=== PATIENT | female | born 1975 | race Caucasian/White ===

== ENCOUNTER 2020-02-25 15:04 | Emergency (ER) | payer MEDICARE, MEDICAID, SELFPAY ==
[2020-02-25 15:25] VITALS: BP 114/70; PULSE 80; RESP 99; TEMP 36.7; O2SAT 18; BMI 48.1
[2020-02-25 17:54] VITALS: BP 103/67; PULSE 79; RESP 17; TEMP 36.3; O2SAT 98
--- NOTE | 2020-02-25 18:54 | ED_ITS ---
HPI - Asthma General Chief Complaint: Asthma Stated Complaint: SOB,COUGH Time Seen by Provider: 02/25/20 18:10 Mode of arrival: ambulatory Limitations: no limitations History of Present Illness HPI Narrative: 45yoF c PMHx of fibromyalgia, depression, anxiety and asthma presenting to the ED with complaints of chills, sore throat, dry cough for the past week worse today. Reports that she has been also having associated wheezing and has been using her albuterol inhaler which is providing mild intermittent symptomatic relief. Reports her children had similar symptoms and her their symptoms resolved. Denies any other recent sick contacts. Denies recent exposure to COVID-19 that she knows about. Denies recent travel. Denies any other symptoms complaints or concerns at this time. Related Data Allergies Allergy/AdvReac Type Severity Reaction Status Date / Time ibuprofen [From Motrin] Allergy Severe HIVES,SWELL Unverified 01/15/20 15:05 ING meperidine [Demerol] Allergy Unknown Verified 11/19/19 00:00 morphine [MORPHINE] Allergy Unknown CHEST PAIN Unverified 01/15/20 15:05 From Demerol Allergy Severe VOMITING Uncoded 01/15/20 15:05 SHELLFISH Allergy Unknown HIVES/ITCHI Uncoded 01/15/20 15:05 NG shellfish Allergy Unknown Uncoded 11/19/19 00:00 Review of Systems Review of Systems: Constitutional : denies med noncompliance, no history of PE or DVT, denies recent travel, No Fever, No Chills ENT/Mouth : No Hoarseness, + sore throat, No Rhinorrhea Eyes: No Redness, No Discharge, No Vision Changes Cardiovascular : No Chest Pain, No SOB, No Dyspnea on Exertion, No Edema, no pleurisy, Respiratory : + Wheezing, + Cough, No Sputum, no stridor, no hemoptysis, Gastrointestinal : No Nausea, No Vomiting, No Diarrhea, No abdominal Pain Genitourinary : No Dysuria, No Hematuria Musculoskeletal : No joint pain, No Myalgias Extremities: no extremity swelling /pain Skin : No rash, no itching, no swelling Neuro : No Weakness Yes all other systems are reviewed and are negative PMFSH Past Medical History Attestation statement: The following information was validated with the patient. Medical History Anxiety Asthma Depression Fibromyalgia Social History Social History Smoking Status: Never smoker Use of substances other than those prescribed or required for medical reasons: No Advance Directives: No Advance Directives Information Provided: No Physical Exam Vital Signs: Vital Signs: Vital Signs Temp Pulse Resp BP Pulse Ox 02/25/20 17:54 97.4 F 79 17 103/67 98 02/25/20 15:25 98.0 F 80 99 H 114/70 18 L Body Mass Index 48.1 vital signs have been reviewed as normal and appeared to be correct. Blood pressure normal. Heart rate normal. Respiration rate normal. Temperature normal. Oxygen saturation normal. Appearance: Alert. Oriented X3. No acute distress. Head: Normal external exam. Normocephalic. Atraumatic. No Randhawa signs noted. No raccoon eyes noted Eyes: PERRLA. EOMI. Conjunctiva and sclera normal. Eyelids normal. ENT: EAC normal. TM's Normal. Pharynx normal. Uvula midline. Moist mucous membranes. No trismus noted. No drooling noted. No muffled voice noted. Neck: Normal inspection. Neck supple. FROM. No adenopathy. Thyroid Normal. No meningeal signs. No neck mass noted. CVS: Normal heart rate and rhythm. Heart sound normal. No murmurs noted. Pulses normal throughout. Respiratory: No respiratory distress. Painless inspiration. Breath sounds normal. No wheezes/rales/rhonchi noted. Chest nontender. No accessory muscle usage noted or decreased air movement noted. Abdomen: Soft and nontender. Bowel sounds normal in all 4 quadrants. No distention noted. No organomegaly noted. No visible injury noted. Back: No CVA tenderness. Full range of motion noted. Skin: Skin warm and dry. Normal skin color. Normal skin turgor. No rashes/lesions/lacerations noted. Extremities: No lower extremity edema. Extremities exhibit normal range of motion. Extremities nontender. Neuro: Oriented X 3. No motor deficit. No sensory deficit. Reflexes normal. Course Course Course Narrative: 18:25PM 45yoF c PMHx of fibromyalgia, depression, anxiety and asthma presenting to the ED with complaints of chills, sore throat, dry cough for the past week worse to day. Reports that she has been also having associated wheezing - Concern for COVID-19 vs Influenza vs PNA vs asthma exacerbation/bronchitis - Plan: CXR, Influenza/COVID/Strep swab and re-evaluate. Reevaluation(s) Reevaluation #1: Chest x-ray within normal limits no acute processes noted. Influenza a and B along with RSV negative. COVID swab pending at this time. Rapid strep pending at this time. Will DC home with antibiotics and symptomatic treatment along with instructions return if any new or worsening symptoms to follow-up with primary care provider. Patient understands agrees the plan. Time: 20:30 [facility] - Asthma Lab Data Labs: Lab Results 02/25/20 Range/Units 19:26 Influenza Type A (PCR) NEGATIVE (Negative) Influenza Type B (PCR) NEGATIVE (Negative) Influenza A & B Note See Note RSV RNA Qual (PCR) NEGATIVE (Negative)
--- NOTE | 2020-02-25 19:37 | XR_ITS ---
EXAMINATION: XR CHEST CLINICAL INFORMATION: Covid like symptoms COMPARISON: Chest x-ray 03/13/2018 TECHNIQUE: Frontal view of the chest was obtained. 7:42 PM FINDINGS: No significant abnormality is noted involving the heart, lungs, mediastinum, bony thorax or soft tissues. XR/XR chest 1V IMPRESSION: Unremarkable examination.
[2020-02-25 20:19] LABS: Influenza A PCR NEGATIVE (Negative); Influenza B PCR NEGATIVE (Negative)
[2020-02-25 20:23] LABS: Resp Syncy Virus RNA Qual PCR NEGATIVE (Negative)
== END 2020-02-25 21:25 | disposition home or self-care (01) ==
PROVIDERS: Physician Assistant Medical; Emergency Provider Internal Medicine; PCP Hospitalist
DX: R05 Cough (principal); M79.7 Fibromyalgia; Z20.828 Contact with and (suspected) exposure to other viral communicable diseases
CPT/HCPCS: 71045; 87071; 87631; 87635; 87880; 99283; 99284

== ENCOUNTER 2020-05-02 02:52 | Emergency (ER) | payer MEDICARE, MEDICAID, SELFPAY ==
[2020-05-02 03:00] VITALS: BP 110/67; PULSE 77; RESP 18; TEMP 36.4; O2SAT 100; BMI 48.2
--- NOTE | 2020-05-02 03:46 | PC.NURSE ---
PT AMBULATES TO ROOM #2 WITH C/O COUGH, SOB ESPECIALLY DURING THE NIGHT, AND FEVER, CHILLS. PT DENIES TAKING TEMP. DURING THIS TIME. PT ARRIVES ALERT, RESPIRATIONS EASY, N/L. SKIN W/D. PT STATES I NEED TO GO FOR SLEEP STUDY BUT IT GOT CANCELLED AND RESCHEDULED IN 2 WEEKS. PT CHG INTO GOWN AND AWAITING MD'S EVAL.
[2020-05-02 03:51] VITALS: O2SAT 100
--- NOTE | 2020-05-02 03:58 | XR_ITS ---
EXAMINATION: XR CHEST CLINICAL INFORMATION: Shortness of breath COMPARISON: 02/25/2020 TECHNIQUE: Frontal view of the chest was obtained. FINDINGS: The lungs are well expanded. There is no focal consolidation, edema, or effusion. No pneumothorax. The cardiomediastinal silhouette is within normal limits. No acute osseous abnormality. XR/XR chest 1V IMPRESSION: Clear lungs.
--- NOTE | 2020-05-02 03:59 | ED.URI ---
HPI - URI/Sore Throat General Chief Complaint: Upper Respiratory Symptoms Stated Complaint: FLU LIKE SYMPTOMS Time Seen by Provider: 05/02/20 03:58 Source: patient Mode of arrival: ambulatory Limitations: no limitations History of Present Illness HPI Narrative: Patient has history of asthma been feeling more congested, dry cough and shortness of breath with body aches for last 2 - 3 days saturating 100% at room air having dry cough patient denied any fever Related Data Previous Rx's Medication Instructions Recorded acetaminophen [Tylenol] 650 mg PO Q6H PRN #10 tab 02/25/20 albuterol sulfate 2 puff INHALATION QID PRN #8.5 g 02/25/20 azithromycin See Rx Instructions .ROUTE 02/25/20 .COMPLEX #6 tab cyclobenzaprine 10 mg PO TID PRN #10 tab 02/25/20 prednisone 40 mg PO DAILY 5 Days #10 tab 02/25/20 Allergies Allergy/AdvReac Type Severity Reaction Status Date / Time ibuprofen [From Motrin] Allergy Severe HIVES,SWELL Unverified 01/15/20 15:05 ING meperidine [Demerol] Allergy Unknown Verified 11/19/19 00:00 morphine [MORPHINE] Allergy Unknown CHEST PAIN Unverified 01/15/20 15:05 From Demerol Allergy Severe VOMITING Uncoded 01/15/20 15:05 SHELLFISH Allergy Unknown HIVES/ITCHI Uncoded 01/15/20 15:05 NG shellfish Allergy Unknown Uncoded 11/19/19 00:00 Review of Systems Review of Systems: Constitutional : No Weight loss, No Fever, No Chills ENT/Mouth : No sore throat, No Rhinorrhea Eyes: No Eye Pain, No Swelling Cardiovascular : No Chest Pain, no palpitations Respiratory : + Cough, No Sputum, +shortness of breath Gastrointestinal : no Nausea, No Vomiting, No Diarrhea, No abdominal Pain, no black stools Genitourinary : No Dysuria, No Urinary Frequency Musculoskeletal : No joint pain, No Myalgias, No Joint Swelling Skin : No Skin Lesions, No rash Neuro : No Weakness, No Numbness, No Dizziness, No Headache Psych : No Anxiety/Panic, No Depression Heme/Lymph: No Bruising, No Lymphadenopathy Endocrine : No Polyuria, No Polydipsia All other systems reviewed and are negative PMFSH Past Medical History Medical History Anxiety Asthma Depression Fibromyalgia Social History Social History Smoking Status: Never smoker Advance Directives: No Advance Directives Information Provided: No Physical Exam Vital Signs: Vital Signs: Last Vital Signs Temp 97.5 F 05/02/20 03:00 Pulse 77 05/02/20 03:00 Resp 18 05/02/20 03:00 BP 110/67 05/02/20 03:00 Pulse Ox 100 05/02/20 03:51 Body Mass Index 48.2 Appearance: Alert. Oriented X3. No acute distress. Eyes: Pupils equal, round and reactive to light. ENT: Pharynx normal. Neck: Normal inspection. Neck supple. CVS: Normal heart rate and rhythm. Pulses normal. Respiratory: No respiratory distress. Breath sounds normal. Dry cough occasionally Abdomen: Soft and nontender. Bowel sounds are present, no mass palpable, no CVA tenderness Skin: Skin warm and dry. Normal skin color. Normal skin turgor. Extremities: No lower extremity edema. Neuro: Oriented X 3. No motor deficit. No sensory deficit. MDM - URI/Sore Throat MDM Narrative Medical decision making narrative: Chest x-ray negative COVID negative likely asthma patient advised to keep social distancing will give her a course of prednisone continue albuterol inhaler Differential Diagnosis Differential diagnosis: Likely upper respiratory infection Lab Data Attestation: I reviewed the patient's lab results. Labs: Lab Results 05/02/20 Range/Units 04:23 COVID-19 (SHERRY) Negative (Negative) COVID-19 Clin Com See Note Discharge Plan Discharge Prescriptions: No Action azithromycin 250 mg tablet See Rx Instructions .ROUTE .COMPLEX Qty: 6 RF: 0 prednisone 20 mg tablet 40 mg PO DAILY 5 Days Qty: 10 RF: 0 albuterol sulfate 90 mcg/actuation HFA aerosol inhaler 2 puff inhalation QID PRN (Reason: shortness of breath or wheezing) Qty: 8.5 RF: 0 cyclobenzaprine 10 mg tablet 10 mg PO TID PRN (Reason: muscle spasm) Qty: 10 RF: 0 acetaminophen [Tylenol] 325 mg tablet 650 mg PO Q6H PRN (Reason: fever or pain) Qty: 10 RF: 0
[2020-05-02 05:06] LABS: COVID-19 Test Negative (Negative); IDNOW Serial# 9DD0AD1C
[2020-05-02] MEDS: dexAMETHasone 2 MG TABLET 10 MG PO (05:21)
[2020-05-02] MEDS: Albuterol Sulfate 90 MCG 8 GM INHALER 4 PUFF INHALE (05:22)
--- NOTE | 2020-05-02 05:23 | PC.NURSE ---
PT MEDICATED PER EMAR.
== END 2020-05-02 05:38 | disposition home or self-care (01) ==
PROVIDERS: Emergency Provider Internal Medicine; PCP Hospitalist
DX: R05 Cough (principal); Z20.828 Contact with and (suspected) exposure to other viral communicable diseases; Z79.899 Other long term (current) drug therapy
CPT/HCPCS: 71045; 87635; 99283; 99284; J8540

== ENCOUNTER 2020-10-28 06:48 | Outpatient (REF) | payer MEDICARE, MEDICAID, SELFPAY ==
[2020-10-28 08:12] LABS: Alanine Aminotransferase 23 U/L (0-31); Albumin Level 4.3 g/dL (3.5-5.0); Alkaline Phosphatase 59 U/L (39-117); Anion Gap 12 (12-20); Aspartate Amino Transferase 19 U/L (5-31); Bilirubin Total 0.6 mg/dL (0.0-1.0); Blood Urea Nitrogen 16 mg/dL (9-16); Calcium 9.3 mg/dL (8.4-10.2); Carbon Dioxide 28 mmol/L (22-29); Chloride 104 mmol/L (96-108); Cholesterol 161 mg/dL; Estimated Average Glucose 114 mg/dL; Estimated Glomerular Filt Rate > 60; Glucose Fasting 111 mg/dL (60-99); HDL Cholesterol 46 mg/dL; Hemoglobin A1c % 5.6 %; LDL Cholesterol Calculated 105 mg/dl; Potassium 4.6 mmol/L (3.3-5.1); Sodium 139 mmol/L (135-145); Total Protein 7.1 g/dL (6.5-8.0); Triglycerides 52 mg/dL
[2020-10-28 08:35] LABS: TSH reflex Free T4 0.79 uIU/mL (0.32-4.0)
== END 2020-10-28 06:49 | disposition home or self-care (01) ==
LOC: HO.LAB 06:48
PROVIDERS: PCP Physician Assistant; Visit Provider Physician Assistant
DX: Z13.1 Encounter for screening for diabetes mellitus (principal); Z13.220 Encounter for screening for lipoid disorders; Z13.29 Encounter for screening for other suspected endocrine disorder
CPT/HCPCS: 36415; 80053; 80061; 83036; 84443

== ENCOUNTER → 2021-01-25 14:01 | Outpatient (BNVA) | payer MEDICARE, MEDICAID, SELFPAY | PROVIDERS: PCP Physician Assistant; Referring Provider Physician Assistant; Visit Provider Internal Medicine Gastroenterology | DX: K44.9 Diaphragmatic hernia without obstruction or gangrene (principal); R11.2 Nausea with vomiting, unspecified; K59.00 Constipation, unspecified; R10.13 Epigastric pain | CPT/HCPCS: 99202 ==

== ENCOUNTER 2021-03-02 10:28 | Outpatient (REF) | payer MEDICARE, MEDICAID, SELFPAY ==
--- NOTE | ~2021-03-02 | CT_ITS ---
EXAMINATION: CT HEAD WITHOUT CONTRAST CLINICAL INFORMATION: Headache COMPARISON: 10/31/2015 TECHNIQUE: Contiguous axial imaging was performed from the skull base to vertex without intravenous contrast. This CT examination was performed using dose optimization techniques as appropriate, variously including the following: * Automated exposure control * Adjustment of mA and/or kV according to patient size (this includes techniques or standardized protocols for targeted exams where dose is matched to indication/reason for exam; i.e. extremities or head) Use of iterative reconstruction technique DLP: 809 mGy-cm. FINDINGS: There is no evidence of acute intracranial hemorrhage or territorial infarction. No abnormal mass effect or midline shift is seen. Rubio to white matter differentiation is well preserved. No extra-axial fluid collections are identified. No hydrocephalus. No significant volume loss. There is no abnormal attenuation within the brain parenchyma. The osseous structures and soft tissues are normal. The mastoid air cells and visualized portions of the paranasal sinuses are well aerated. CT/CT head/brain wo con IMPRESSION: No acute intracranial pathology.
== END 2021-03-02 10:29 | disposition home or self-care (01) ==
LOC: HO.CT 10:28
PROVIDERS: Visit Provider Physician Assistant
DX: R51.9 Headache, unspecified (principal)
CPT/HCPCS: 70450

== ENCOUNTER 2021-04-11 12:07 | Day surgery (SDC) | payer MEDICARE, MEDICAID, SELFPAY ==
--- NOTE | 2021-04-08 09:36 | HO.ANESPROP2 ---
Documented by User: Nicci Felix NP 04/08/21 09:37 HPI - Anesthesia Eval Consult details Narrative: 46yo F for Upper Endoscopy and Colonoscopy PMF Active Problems Active Problems: All Active Problems (Updated 03/30/21 @ 09:35 by TRAVIS Howell) Adult general medical exam (Acute) Screening for breast cancer (Acute) Tinea corporis (Acute) GERD (gastroesophageal reflux disease) (Acute) Constipation (Acute) HTN (hypertension) (Acute) GERD (gastroesophageal reflux disease) (Acute) Back spasm (Acute) Obesity (Acute) MDD (major depressive disorder), recurrent episode, moderate (Acute) RLS (restless legs syndrome) (Acute) Frequent headaches (Acute) Fibromyalgia (Acute) Depression (Acute) Asthma (Acute) Anxiety (Acute) Past Medical History Medical History (Updated 04/11/21 @ 12:47 by Greta Lozano RN) Anxiety Asthma Back spasm Depression Fibromyalgia GERD (gastroesophageal reflux disease) Headache Hx of supraventricular tachycardia Hx-TIA (transient ischemic attack) Obesity Screening for diabetes mellitus (DM) Screening for hypercholesterolemia Screening for hypothyroidism Family History Family History (Updated 03/30/21 @ 09:25 by TRAVIS Howell) Mother High cholesterol Father Lupus Diabetes Thyroid disease FH: prostate cancer Brother Asthma Anxiety Depression Daughter Depression Anxiety Childhood autism Maternal Grandmother Glaucoma Other Mental problem Substance abuse Surgical History Surgical History (Updated 04/11/21 @ 12:46 by Greta Lozano RN) History of History of cholecystectomy History of endoscopy History of knee surgery History of partial knee replacement Hx of tubal ligation Social History Social History Housing: House Alcohol intake: never Patient Tobacco Use Status: Never used Tobacco e-Cigarette/Vaping Use: Never Used Second Hand Smoke Exposure: Yes Use of substances other than those prescribed or required for medical reasons: No Are you DNR?: No Advance Directives: No Advance Directives Information Provided: Yes service: No Current occupational status: employed and disabled Current occupation: [employer] Meds Allergies Allergy/AdvReac Type Severity Reaction Status Date / Time ibuprofen [From Motrin] Allergy Severe HIVES,SWELL Verified 03/30/21 09:16 ING meperidine [Demerol] Allergy Unknown Vomiting Verified 03/30/21 09:16 morphine [MORPHINE] Allergy Unknown CHEST PAIN Verified 03/30/21 09:16 hydroxyzine AdvReac Mild mouth Verified 03/30/21 09:16 numbess SHELLFISH Allergy Unknown HIVES/ITCHI Uncoded 03/30/21 09:16 NG Home Medications Medication Instructions Recorded Confirmed Last Taken Type duloxetine 60 mg capsule,delayed 120 mg PO DAILY 10/19/20 03/30/21 Unknown History release fluticasone 250 mcg-salmeterol 50 1 ea INHALATION BID 01/25/21 03/30/21 Unknown History mcg/dose blistr powdr for inhalation (Advair Diskus) Exam Exam Date and Time: April 08, 2021 0936 Pertinent Lab Results Pertinent Lab Results: Laboratory Tests 10/28/20 06:58 Sodium 139 Potassium 4.6 Chloride 104 Carbon Dioxide 28 BUN 16 Creatinine 0.70 Assessment and Plan Assessment Anesthesia Assessment: Chart Reviewed Documented by User: Danette Celeste MD 04/11/21 13:38 PMFSH Past Medical History Medical History (Updated 04/11/21 @ 12:47 by Greta Lozano, NI) Anxiety Asthma Back spasm Depression Fibromyalgia GERD (gastroesophageal reflux disease) Headache Hx of supraventricular tachycardia Hx-TIA (transient ischemic attack) Obesity Screening for diabetes mellitus (DM) Screening for hypercholesterolemia Screening for hypothyroidism Family History Family History (Updated 03/30/21 @ 09:25 by TRAVIS Howell) Mother High cholesterol Father Lupus Diabetes Thyroid disease FH: prostate cancer Brother Asthma Anxiety Depression Daughter Depression Anxiety Childhood autism Maternal Grandmother Glaucoma Other Mental problem Substance abuse Family history of problems with anesthesia: No Surgical History Surgical History (Updated 04/11/21 @ 12:46 by Greta Lozano RN) History of History of cholecystectomy History of endoscopy History of knee surgery History of partial knee replacement Hx of tubal ligation History of Problems with Anesthesia: No Social History Social History Housing: House Alcohol intake: never Patient Tobacco Use Status: Never used Tobacco e-Cigarette/Vaping Use: Never Used Second Hand Smoke Exposure: Yes Use of substances other than those prescribed or required for medical reasons: No Are you DNR?: No Advance Directives: No Advance Directives Information Provided: Yes service: No Current occupational status: employed and disabled Current occupation: [employer] Meds Allergies Allergy/AdvReac Type Severity Reaction Status Date / Time ibuprofen [From Motrin] Allergy Severe HIVES,SWELL Verified 03/30/21 09:16 ING meperidine [Demerol] Allergy Unknown Vomiting Verified 03/30/21 09:16 morphine [MORPHINE] Allergy Unknown CHEST PAIN Verified 03/30/21 09:16 hydroxyzine AdvReac Mild mouth Verified 03/30/21 09:16 numbess SHELLFISH Allergy Unknown HIVES/ITCHI Uncoded 03/30/21 09:16 NG Home Medications Medication Instructions Recorded Confirmed Last Taken Type duloxetine 60 mg capsule,delayed 120 mg PO DAILY 10/19/20 03/30/21 Unknown History release fluticasone 250 mcg-salmeterol 50 1 ea INHALATION BID 01/25/21 03/30/21 Unknown History mcg/dose blistr powdr for inhalation (Advair Diskus) Exam Airway Mallampati Class: II (Missing teeth) TM Dist: >3cm Neck ROM: Full Heart: rrr Lungs: cta Assessment and Plan Assessment Anesthesia Assessment: Anesthesia Plan Discussed and Chart Reviewed Final Anesthetic Review Family History of Problems with Anesthesia: No History of Problems with Anesthesia: No NPO: Yes ASA Class: III Final Preanesthetic Review: No Changes in Pt Med Stat, Meds/Allgs Chart Reviewed and Consent Obtained/Reviewed Patient Risk: Intermediate Procedure Risk: Intermediate Anesthetic Plan Anesthetic Plan: MAC: Disposition: Standard PACU
--- NOTE | 2021-04-11 12:47 | MHC.SHP ---
Pre-Procedural Eval Section A Date of Service: 04/11/21 Section B Chief Complaint: Constipation, Epigastric pain Relevant Family History (Specify if Yes): No Relevant Social History: None Present Medications: see Short Stay Collaborative assessment Medical History: Significant History (depression, asthma,) History of Previous Operations: Relevant previous surgery/procedure and date(s) (knee surgery, heart ablation, neck surgery, c section, pit tumour removal, cholecystectomy ) Allergies: Allergies Allergy/AdvReac Type Severity Reaction Status Date / Time ibuprofen [From Motrin] Allergy Severe HIVES,SWELL Verified 03/30/21 09:16 ING meperidine [Demerol] Allergy Unknown Vomiting Verified 03/30/21 09:16 morphine [MORPHINE] Allergy Unknown CHEST PAIN Verified 03/30/21 09:16 hydroxyzine AdvReac Mild mouth Verified 03/30/21 09:16 numbess SHELLFISH Allergy Unknown HIVES/ITCHI Uncoded 03/30/21 09:16 NG Review of Systems Sugical H&P ROS: Negative: Constitution, Cardiovascular, Respiratory, Neurological, Psychiatric, Hem-Onc, Allergic/Immunologic, Gastrointestinal, Genitourinary, Musculoskeletal, Integumentary, Endocrine and Eyes/Ears/Nose/Throat Exam Surgical H&P Exam: Normal: HEENT, Normal: Heart, Normal: Lungs, Normal: Extremities, Normal: Abdomen, Normal: Skin and Normal: Neurological Plan Diagnosis/Plan: Unchanged I have reviewed the history and physical and performed a pertinent physical examination on my patient. No changes have occurred unless specified.
[2021-04-11 12:56] VITALS: BP 108/78; PULSE 88; RESP 16; TEMP 36.4; O2SAT 99; BMI 49.2
[2021-04-11] MEDS: Lactated Ringers 1,000 ML 100 ML IVCONT (13:04)
--- NOTE | 2021-04-11 14:07 | PM.OP ---
Brief Operative Note Date of Service: 04/11/21 Pre-op diagnosis: dysphagia, altered bowle habits Surgeon: Ashley Martinez MD Was an Manager Android used for this Procedure?: No Estimated blood loss (mL): 0
--- NOTE | 2021-04-11 14:09 | P.OP_ITS ---
Operative Note Operative Note Date of Service: 04/11/21 Narrative: Operative Information Procedure Description: EGD, Colonoscopy FLEXIBLE TRANSORAL UPPER GASTROINTESTINAL ENDOSCOPY AND COLONOSCOPY PROCEDURE NOTE UPPER ENDOSCOPY Consent: Indications for the procedure and potential complications of bleeding, perforation, reaction to medications and missed diagnosis were discussed with the patient and informed consent was obtained. Instrument: Olympus GIF H 190 J mid size upper endoscope Monitoring: Vital signs and clinical assessment, continuous EKG monitoring, Pulse oximetry, Carbon Dioxide monitoring and blood pressure monitoring were done throughout the procedure. Procedure: The patient was placed in the left lateral decubitis position and pre-procedure medications were administered and a bite block was placed. The endoscope was inserted into the mouth and advanced under direct vision to the third part of duodenum. A careful inspection was made as the upper endoscope was withdrawn including a retroflexed examination of the proximal stomach; Findings and interventions are described below. Findings: Larynx:normal Esophagus: GE junction at 40 cm, diaphragm hiatus at 40 cm, ridging of mucosa noted, bx taken from distal, proximal esophagus and GEJ in different jars. Balloon dilation done at UES to 19 mm and LES to 20 mm, no tears seen. Stomach: mild erythematous mucosa. Biopsies were obtained. Grade 2 flap valve on retroflexed examination of the cardia. Fundic gland polyps noted. There was reduced gastric peristalsis. Duodenum: Normal bulb and descending duodenum, bx taken Intervention: Biopsies as noted above COLONOSCOPY Instrument: Olympus variable stiffness pediatric scope 190L Colonoscopy Monitoring: Vital signs and clinical assessment, continuous EKG monitoring, Pulse oximetry, Carbon Dioxide monitoring and blood pressure monitoring were done throughout the procedure. Colon withdrawal time was 18 minutes. Procedure: The patient was placed in the left lateral decubitis position and pre-procedure medications were administered. After a digital rectal examination of the ano-rectum, the video colonoscope was inserted into the rectum and advanced through the colon to the cecum/TI. The colonoscope was slowly withdrawn in a retrograde panoramic fashion and the colon mucosa was carefully examined including a retroflexed view of the rectum. Findings and interventions are described below. Procedure Difficulty: moderate Findings: Terminal Ileum-nodular lymphoid hyperplasia which can be normal, bx taken Random colon taken and from rectum separately Cecum: 7-9 mm sessile polyp removed with cold snare Ascending Colon: normal Transverse Colon -normal Descending Colon: 6-7 mm sessile polyp removed with forceps Sigmoid Colon: normal Rectum: Retroflexion with small internal hemorrhoids, grade I Anorectum - normal Colon preparation: [place] Bowel Preparation Scale Right colon; 1 Transverse colon: 2 Left colon; borderline 2 (0 = Unprepared colon segment with mucosa not seen due to solid stool that cannot be cleared. 1 = Portion of mucosa of the colon segment seen, but other areas of the colon segment not well seen due to staining, residual stool and/or opaque liquid. 2 = Minor amount of residual staining, small fragments of stool and/or opaque liquid, but mucosa of colon segment seen well. 3 = Entire mucosa of colon segment seen well with no residual staining, small fragments of stool or opaque liquid) Impression and Post Procedure Diagnosis: Endoscopy Findings: fundic gland polyps which are benign gastritis possible reduced gastric motility Colonoscopy Findings: polyps internal hemorrhoids Plan: Await Pathology results Repeat Colonoscopy in 2-3 years due to polyps and fair prep in some areas or earlier if clinically indicated High fiber diet leaflet avoid straining at stool, epsom salts and sitz bath, anusol supps or cream if neg results then GES to r/o gastroparesis Above findings were reviewed with the patient and relevant handouts were provided if indicated.
[2021-04-11 14:42] VITALS: BP 138/90; PULSE 91; RESP 14; TEMP 37.4; O2SAT 100
[2021-04-11 14:57] VITALS: BP 130/86; PULSE 81; RESP 16; O2SAT 100
[2021-04-11 15:14] VITALS: BP 115/71; PULSE 74; RESP 18; TEMP 37.2; O2SAT 100
== END 2021-04-11 15:52 | disposition home or self-care (01) ==
PROVIDERS: PCP Physician Assistant; Visit Provider Internal Medicine Gastroenterology
PROC: (CPT 45385; principal; 2021-04-11 13:30)
DX: K59.00 Constipation, unspecified (principal); R19.4 Change in bowel habit; D12.0 Benign neoplasm of cecum; D12.4 Benign neoplasm of descending colon; K64.0 First degree hemorrhoids; R59.9 Enlarged lymph nodes, unspecified; R13.10 Dysphagia, unspecified; K29.60 Other gastritis without bleeding; K31.7 Polyp of stomach and duodenum; K44.9 Diaphragmatic hernia without obstruction or gangrene; G89.29 Other chronic pain; M54.9 Dorsalgia, unspecified; J45.909 Unspecified asthma, uncomplicated; F32.9 Major depressive disorder, single episode, unspecified; Z88.8 Allergy status to other drugs, medicaments and biological substances; Z90.49 Acquired absence of other specified parts of digestive tract
CPT/HCPCS: 45385; 45380; 43249; 43239; 88305; 88342; C1726

== ENCOUNTER 2021-04-12 21:10 | Emergency (ER) | payer MEDICARE, MEDICAID, SELFPAY ==
--- NOTE | ~2021-04-12 | XR_ITS ---
EXAMINATION: XR CHEST CLINICAL INFORMATION: Chest pain. COMPARISON: Multiple priors. Most recent chest radiograph dated from 05/02/2020. TECHNIQUE: PA view of the chest was obtained. FINDINGS: No significant abnormality is noted involving the heart, lungs, mediastinum, bony thorax or soft tissues. XR/XR chest 1V IMPRESSION: Unremarkable examination.
[2021-04-12 21:28] VITALS: BP 105/71; PULSE 73; RESP 18; TEMP 36.1; O2SAT 99; BMI 49.2
--- NOTE | 2021-04-12 21:30 | ECG_ITS ---
Test Reason : CHEST PAIN Blood Pressure : / mmHG Vent. Rate : 071 BPM Atrial Rate : 071 BPM P-R Int : 146 ms QRS Dur : 082 ms QT Int : 398 ms P-R-T Axes : 005 019 034 degrees QTc Int : 432 ms Normal sinus rhythm Cannot rule out Anterior infarct (cited on or before 08-JUL-2016) Abnormal ECG When compared with ECG of 18-NOV-2016 00:43, No significant change was found Referred By: Generic ED Physician Electronically Signed By:DAQUAN TRUONG MD
[2021-04-12 21:54] LABS: Basophils Absolute Auto 0.1 X10*3/uL (0.0-0.2); Basophils Percent Auto 0.6 % (0-2); Eosinophils Absolute Auto 0.1 X10*3/uL (0.0-0.4); Eosinophils Percent Auto 1.3 % (0-4); Hematocrit 37.2 % (37.0-47.0); Hemoglobin 12.5 g/dl (12.0-16.0); Imm Gran Abs Auto 0.03 X10*3/uL (0.00-0.03); Imm Gran Pct Auto 0.4 % (0.0-0.4); Lymphocytes Absolute Auto 2.6 X10*3/uL (1.2-4.9); Lymphocytes Percent Auto 31.2 % (20-40); MANUAL DIFF FLAG NO; Mean Corpuscular HGB Conc 33.6 g/dl (31.0-35.0); Mean Corpuscular Hemoglobin 29.3 pg (27.0-33.0); Mean Corpuscular Volume 87.3 fL (80.0-98.0); Mean Platelet Volume 10.2 fL (9.4-12.3); Monocytes Absolute Auto 0.8 X10*3/uL (0.1-1.2); Neutrophils Absolute Auto 4.8 x10*3/uL (2.0-8.3); Neutrophils Percent Auto 57.5 % (45-73); Platelet Count 301 X10*3/uL (160-400); Red Blood Count 4.26 X10*6/uL (4.20-5.50); Red Cell Distribution Width 12.4 % (11.0-16.0); White Blood Count 8.4 X10*3/uL (4.8-10.8)
[2021-04-12 22:19] LABS: Anion Gap 12 (12-20); Blood Urea Nitrogen 14 mg/dL (9-16); Calcium 9.2 mg/dL (8.4-10.2); Carbon Dioxide 26 mmol/L (22-29); Chloride 105 mmol/L (96-108); Creatinine Clr Calc Pharmacy 130.8; Estimated Glomerular Filt Rate > 60; Glucose Random 129 mg/dL (60-115); Potassium 3.6 mmol/L (3.3-5.1); Sodium 139 mmol/L (135-145)
[2021-04-12 22:26] LABS: Troponin-I High Sensitivity < 3.5 ng/L (<3.5-17.0)
--- NOTE | 2021-04-13 00:35 | ED.CHESTPAIN ---
HPI - Chest Pain General Chief Complaint: Chest Pain Stated Complaint: chest pain when breathing - s/p surgery Time Seen by Provider: 04/13/21 00:34 History of Present Illness HPI narrative: patient is a 46-year-old female presents today with having chest pain that is a few seconds at a time. It is sharp. It is worse with certain movement. Patient denies any diaphoresis. No shortness of breath. No history of diabetes. Positive history of hypertension. No history of smoking never had a heart attack. No family history of heart attack. No traveling history no leg swelling. No leg pain. Positive history of fibromyalgia. No new medication. No history of lupus. No history of blood clots. No travel history. Patient from home. No risk stratification done in the past. Patient is larger in size as well. Related Data Home Medications Medication Instructions Recorded Confirmed duloxetine 60 mg capsule,delayed 120 mg PO DAILY 10/19/20 03/30/21 release fluticasone 250 mcg-salmeterol 50 1 ea INHALATION BID 01/25/21 03/30/21 mcg/dose blistr powdr for inhalation (Advair Diskus) Previous Rx's Medication Instructions Recorded acetaminophen 325 mg tablet 650 mg PO Q6H PRN #10 tab 02/25/20 (Tylenol) blood pressure monitor (Blood #1 ea 10/27/20 Pressure Kit) gabapentin 600 mg tablet 600 mg PO TID 30 Days #90 tab 11/01/20 lactulose 10 gram/15 mL oral 15 ml PO BEDTIME PRN #473 ml 12/09/20 solution hydroxyzine HCl 25 mg tablet 25 mg PO BEDTIME 30 Days #30 tab 12/21/20 cyclobenzaprine 10 mg tablet 10 mg PO BID 5 Days #10 tab 12/29/20 sennosides 8.6 mg tablet (Senna 17.2 mg PO BEDTIME PRN 30 Days #60 12/29/20 Lax) tab bisacodyl 5 mg tablet,delayed 20 mg PO ONCE 1 Days #4 tab 01/25/21 release (Dulcolax (bisacodyl)) linaclotide 145 mcg capsule 145 mcg PO DAILY #90 cap 01/25/21 polyethylene glycol 3350 17 238 g PO ONCE #238 g 01/25/21 gram/dose oral powder (Miralax) buspirone 15 mg tablet 15 mg PO BID 30 Days #60 tab 02/08/21 quetiapine 25 mg tablet (Seroquel) 25 mg PO DAILY 30 Days #30 tab 02/16/21 pantoprazole 20 mg tablet,delayed 20 mg PO BID 30 Days #60 tab 02/17/21 release ropinirole 0.5 mg tablet 0.5 mg PO BEDTIME 30 Days #30 tab 02/22/21 sumatriptan succinate 25 mg tablet See Rx Instructions PO .COMPLEX 30 02/22/21 Days #10 tab trazodone 50 mg tablet 50 mg PO BEDTIME 90 Days #90 tab 03/23/21 albuterol sulfate 90 mcg/actuation 2 puff INHALATION QID PRN #8.5 g 04/04/21 aerosol inhaler Allergies Allergy/AdvReac Type Severity Reaction Status Date / Time ibuprofen [From Motrin] Allergy Severe HIVES,SWELL Verified 03/30/21 09:16 ING meperidine [Demerol] Allergy Unknown Vomiting Verified 03/30/21 09:16 morphine [MORPHINE] Allergy Unknown CHEST PAIN Verified 03/30/21 09:16 hydroxyzine AdvReac Mild mouth Verified 03/30/21 09:16 numbess SHELLFISH Allergy Unknown HIVES/ITCHI Uncoded 03/30/21 09:16 NG Review of Systems Review of Systems: No fever no chills no cough no congestion or upper respiratory symptoms positive sharp chest pain no diaphoresis all system reviewed otherwise negative Yes all other systems are reviewed and are negative PMFSH Past Medical History Attestation statement: The following information was validated with the patient. Medical History Anxiety Asthma Back spasm Depression Fibromyalgia GERD (gastroesophageal reflux disease) Headache Hx of supraventricular tachycardia Hx-TIA (transient ischemic attack) Obesity Screening for diabetes mellitus (DM) Screening for hypercholesterolemia Screening for hypothyroidism Surgical History History of History of cholecystectomy History of endoscopy History of knee surgery History of partial knee replacement Hx of tubal ligation Family History Family History Mother High cholesterol Father Lupus Diabetes Thyroid disease FH: prostate cancer Brother Asthma Anxiety Depression Daughter Depression Anxiety Childhood autism Maternal Grandmother Glaucoma Other Mental problem Substance abuse Social History Social History Housing: House Alcohol intake: never Patient Tobacco Use Status: Never used Tobacco e-Cigarette/Vaping Use: Never Used Second Hand Smoke Exposure: Yes Advance Directives: No Advance Directives Information Provided: No service: No Current occupational status: employed and disabled 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 Oriented X3. No acute distress. Eyes: Pupils equal, round and reactive to light. ENT: Pharynx normal. Neck: Normal inspection. Neck supple. No lymph nodes noted. No crepitus CVS: Normal heart rate and rhythm. Pulses normal. Normal S1 and S2. Chest pain reproducible with touch Respiratory: No respiratory distress. Breath sounds normal. No Wheezing. No rales Abdomen: Soft and nontender. No rigidity. No distention. good BS x4 Skin: Skin warm and dry. Normal skin color. Normal skin turgor. Extremities: No lower extremity edema. Neurovascular intact to all extremities. No Lacerations. No Rash Neuro: Oriented X 3. No motor deficit. No sensory deficit. Moving all extermities. No slurred speech MDM - Chest Pain MDM Narrative Medical decision making narrative: atypical chest pain lasting a few seconds. Patient in no distress. It is sharp in nature not associated with shortness of breath. Patient's troponin is negative. Does have 2 risk factor being that she is hypertensive and she also has a history of being larger in size. Patient's history not consistent with myocardial infarction. she is 46 years old. Heart score is less than 3. Patient has no risk for PE. If D-dimer is negative unlikely to have pulmonary emboli. Patient is to be discharged home. Close follow-up on an outpatient basis. Patient D-dimer is less than 150 unlikely to have PE in setting of low risk. Medical Records Data Attestation: I reviewed the patient's medical records. Lab Data Attestation: I reviewed the patient's lab results. Result diagrams: 04/12/21 21:47 04/12/21 21:47 Labs: Lab Results 04/12/21 04/12/21 04/12/21 Range/Units 21:47 21:47 21:47 WBC 8.4 (4.8-10.8) X10*3/uL RBC 4.26 (4.20-5.50) X10*6/uL Hgb 12.5 (12.0-16.0) g/dl Hct 37.2 (37.0-47.0) % MCV 87.3 (80.0-98.0) fL MCH 29.3 (27.0-33.0) pg MCHC 33.6 (31.0-35.0) g/dl RDW 12.4 (11.0-16.0) % Plt Count 301 (160-400) X10*3/uL MPV 10.2 (9.4-12.3) fL Immature Gran % (Auto) 0.4 (0.0-0.4) % Neut % (Auto) 57.5 (45-73) % Lymph % (Auto) 31.2 (20-40) % [place] % (Auto) 9.0 (2-11) % Eos % (Auto) 1.3 (0-4) % Baso % (Auto) 0.6 (0-2) % Lymph # (Auto) 2.6 (1.2-4.9) X10*3/uL [place] # (Auto) 0.8 (0.1-1.2) X10*3/uL Eos # (Auto) 0.1 (0.0-0.4) X10*3/uL Baso # (Auto) 0.1 (0.0-0.2) X10*3/uL Abs Immat Gran (auto) 0.03 (0.00-0.03) X10*3/uL Absolute Neuts (auto) 4.8 (2.0-8.3) x10*3/uL Absolute Nucleated RBC 0.000 (0.0-0.012) X10*3/uL Nucleated RBC % (auto) 0.0 (0.0-0.2) /100WBC D-Dimer High Sensitivty NG/ML Sodium 139 (135-145) mmol/L Potassium 3.6 D (3.3-5.1) mmol/L Chloride 105 (96-108) mmol/L Carbon Dioxide 26 (22-29) mmol/L Anion Gap 12 (12-20) BUN 14 (9-16) mg/dL Creatinine 0.72 (0.5-1.4) mg/dL Estim Creat Clear Calc 130.8 Estimated GFR > 60 Random Glucose 129 H (60-115) mg/dL Calcium 9.2 (8.4-10.2) mg/dL Troponin I High Sens < 3.5 (<3.5-17.0) ng/L 04/13/21 Range/Units 00:40 WBC (4.8-10.8) X10*3/uL RBC (4.20-5.50) X10*6/uL Hgb (12.0-16.0) g/dl Hct (37.0-47.0) % MCV (80.0-98.0) fL MCH (27.0-33.0) pg MCHC (31.0-35.0) g/dl RDW (11.0-16.0) % Plt Count (160-400) X10*3/uL MPV (9.4-12.3) fL Immature Gran % (Auto) (0.0-0.4) % Neut % (Auto) (45-73) % Lymph % (Auto) (20-40) % [place] % (Auto) (2-11) % Eos % (Auto) (0-4) % Baso % (Auto) (0-2) % Lymph # (Auto) (1.2-4.9) X10*3/uL [place] # (Auto) (0.1-1.2) X10*3/uL Eos # (Auto) (0.0-0.4) X10*3/uL Baso # (Auto) (0.0-0.2) X10*3/uL Abs Immat Gran (auto) (0.00-0.03) X10*3/uL Absolute Neuts (auto) (2.0-8.3) x10*3/uL Absolute Nucleated RBC (0.0-0.012) X10*3/uL Nucleated RBC % (auto) (0.0-0.2) /100WBC D-Dimer High Sensitivty < 150 NG/ML Sodium (135-145) mmol/L Potassium (3.3-5.1) mmol/L Chloride (96-108) mmol/L Carbon Dioxide (22-29) mmol/L Anion Gap (12-20) BUN (9-16) mg/dL Creatinine (0.5-1.4) mg/dL Estim Creat Clear Calc Estimated GFR Random Glucose (60-115) mg/dL Calcium (8.4-10.2) mg/dL Troponin I High Sens (<3.5-17.0) ng/L Discharge Plan Discharge Clinical Impression: Chest pain Patient Disposition: Home, Self-Care Instructions: Chest Pain (ED) Prescriptions: No Action (DME) blood pressure monitor [Blood Pressure Kit] Kit See Rx Instructions .ROUTE .MEDSUPPLY Qty: 1 RF: 0 gabapentin 600 mg tablet 600 mg PO TID 30 Days Qty: 90 RF: 3 lactulose 10 gram/15 mL solution 15 ml PO BEDTIME PRN (Reason: constipation) Qty: 473 RF: 1 hydroxyzine HCl 25 mg tablet 25 mg PO BEDTIME 30 Days Qty: 30 RF: 1 buspirone 15 mg tablet 15 mg PO BID 30 Days Qty: 60 RF: 3 quetiapine [Seroquel] 25 mg tablet 25 mg PO DAILY 30 Days Qty: 30 RF: 3 pantoprazole 20 mg tablet,delayed release (DR/EC) 20 mg PO BID 30 Days Qty: 60 RF: 3 ropinirole 0.5 mg tablet 0.5 mg PO BEDTIME 30 Days Qty: 30 RF: 3 sumatriptan succinate 25 mg tablet See Rx Instructions PO .COMPLEX 30 Days Qty: 10 RF: 2 trazodone 50 mg tablet 50 mg PO BEDTIME 90 Days Qty: 90 RF: 1 albuterol sulfate 90 mcg/actuation HFA aerosol inhaler 2 puff inhalation QID PRN (Reason: shortness of breath or wheezing) Qty: 8.5 RF: 3 acetaminophen [Tylenol] 325 mg tablet 650 mg PO Q6H PRN (Reason: fever or pain) Qty: 10 RF: 0 duloxetine 60 mg capsule,delayed release(DR/EC) 120 mg PO DAILY RF: 0 sennosides [Senna Lax] 8.6 mg tablet 17.2 mg PO BEDTIME PRN (Reason: constipation) 30 Days Qty: 60 RF: 0 cyclobenzaprine 10 mg tablet 10 mg PO BID 5 Days Qty: 10 RF: 0 fluticasone propion-salmeterol [Advair Diskus] 250-50 mcg/dose blister with device 1 ea inhalation BID RF: 0 linaclotide 145 mcg capsule 145 mcg PO DAILY Qty: 90 RF: 1 polyethylene glycol 3350 [Miralax] 17 gram/dose powder 238 g PO ONCE Qty: 238 RF: 0 bisacodyl [Dulcolax (bisacodyl)] 5 mg tablet,delayed release (DR/EC) 20 mg PO ONCE 1 Days Qty: 4 RF: 0 Referrals: Jeremy Sanches PA-C [Primary Care Provider] - 2 days (risk of heart attack still exist, worsen condition return. Please follow up for your check pain, )
[2021-04-13 00:59] LABS: D Dimer High Sensitivity < 150 NG/ML
[2021-04-13 05:53] LABS: COVID-19 Test Negative (Negative); IDNOW Serial# 9DD0AD1C
== END 2021-04-13 20:12 | disposition home or self-care (01) ==
PROVIDERS: Emergency Provider Emergency Medicine Emergency Medical Services; PCP Physician Assistant
DX: R07.9 Chest pain, unspecified (principal); I10 Essential (primary) hypertension; Z20.822 Contact with and (suspected) exposure to COVID-19
CPT/HCPCS: 36415; 71045; 80048; 84484; 85025; 85379; 87635; 93005; 99283

== ENCOUNTER 2021-05-01 23:14 | Emergency (ER) | payer MEDICARE, MEDICAID, SELFPAY ==
--- NOTE | ~2021-05-01 | XR_ITS ---
EXAMINATION: XR CHEST CLINICAL INFORMATION: Dyspnea. COMPARISON: Chest radiograph dated from 04/12/2021. TECHNIQUE: PA view of the chest was obtained. FINDINGS: No significant abnormality is noted involving the heart, lungs, mediastinum, bony thorax or soft tissues. XR/XR chest 1V IMPRESSION: No acute cardiopulmonary findings.
[2021-05-01 23:17] VITALS: BP 112/81; PULSE 99; RESP 20; TEMP 36.5; O2SAT 88; BMI 49.8
--- NOTE | 2021-05-01 23:20 | ECG_ITS ---
Test Reason : CHEST PAIN Blood Pressure : / mmHG Vent. Rate : 084 BPM Atrial Rate : 084 BPM P-R Int : 134 ms QRS Dur : 078 ms QT Int : 362 ms P-R-T Axes : 006 010 028 degrees QTc Int : 427 ms Normal sinus rhythm Possible Inferior infarct , age undetermined Possible Anterior infarct (cited on or before 08-JUL-2016) Abnormal ECG When compared with ECG of 12-APR-2021 21:42, No significant change was found Referred By: Generic ED Physician Electronically Signed By:DAQUAN TRUONG MD
[2021-05-02 00:08] LABS: Influenza A PCR NEGATIVE (Negative); Influenza B PCR NEGATIVE (Negative); Resp Syncy Virus RNA Qual PCR NEGATIVE (Negative)
[2021-05-02 00:09] LABS: SARS COV2 PCR INHOUSE POSITIVE (Negative)
--- NOTE | 2021-05-02 01:06 | ED_ITS ---
HPI - URI/Sore Throat General Chief Complaint: Upper Respiratory Symptoms Stated Complaint: ammonia? Time Seen by Provider: 05/02/21 00:58 Source: patient Mode of arrival: ambulatory Limitations: no limitations History of Present Illness HPI Narrative: Patient comes emergency room complaining of shortness of breath, body aches, chills, sweating for 2 days. Related Data Home Medications Medication Instructions Recorded Confirmed duloxetine 60 mg capsule,delayed 120 mg PO DAILY 10/19/20 03/30/21 release fluticasone 250 mcg-salmeterol 50 1 ea INHALATION BID 01/25/21 03/30/21 mcg/dose blistr powdr for inhalation (Advair Diskus) Previous Rx's Medication Instructions Recorded acetaminophen 325 mg tablet 650 mg PO Q6H PRN #10 tab 02/25/20 (Tylenol) blood pressure monitor (Blood #1 ea 10/27/20 Pressure Kit) gabapentin 600 mg tablet 600 mg PO TID 30 Days #90 tab 11/01/20 lactulose 10 gram/15 mL oral 15 ml PO BEDTIME PRN #473 ml 12/09/20 solution hydroxyzine HCl 25 mg tablet 25 mg PO BEDTIME 30 Days #30 tab 12/21/20 cyclobenzaprine 10 mg tablet 10 mg PO BID 5 Days #10 tab 12/29/20 sennosides 8.6 mg tablet (Senna 17.2 mg PO BEDTIME PRN 30 Days #60 12/29/20 Lax) tab bisacodyl 5 mg tablet,delayed 20 mg PO ONCE 1 Days #4 tab 01/25/21 release (Dulcolax (bisacodyl)) linaclotide 145 mcg capsule 145 mcg PO DAILY #90 cap 01/25/21 polyethylene glycol 3350 17 238 g PO ONCE #238 g 01/25/21 gram/dose oral powder (Miralax) buspirone 15 mg tablet 15 mg PO BID 30 Days #60 tab 02/08/21 quetiapine 25 mg tablet (Seroquel) 25 mg PO DAILY 30 Days #30 tab 02/16/21 ropinirole 0.5 mg tablet 0.5 mg PO BEDTIME 30 Days #30 tab 02/22/21 sumatriptan succinate 25 mg tablet See Rx Instructions PO .COMPLEX 30 02/22/21 Days #10 tab albuterol sulfate 90 mcg/actuation 2 puff INHALATION QID PRN #8.5 g 04/04/21 aerosol inhaler Magic Mouthwash 10 ml PO QID #240 ml 04/19/21 Diphen/Lido/Antacid 1:1:1 240 mL suspension lansoprazole 30 mg capsule,delayed 30 mg PO BID #60 cap 04/20/21 release trazodone 50 mg tablet 100 mg PO BEDTIME #180 tab 04/28/21 Allergies Allergy/AdvReac Type Severity Reaction Status Date / Time ibuprofen [From Motrin] Allergy Severe HIVES,SWELL Verified 05/01/21 23:17 ING meperidine [Demerol] Allergy Unknown Vomiting Verified 05/01/21 23:17 morphine [MORPHINE] Allergy Unknown CHEST PAIN Verified 05/01/21 23:17 hydroxyzine AdvReac Mild mouth Verified 05/01/21 23:17 numbess SHELLFISH Allergy Unknown HIVES/ITCHI Uncoded 03/30/21 09:16 NG Review of Systems Review of Systems: Constitutional : No Weight loss, No Fever, complaining of chills, fatigue, generalized malaise ENT/Mouth : No Hearing loss, No Ear Pain, No Nasal Congestion, No Sinus Pain, No Hoarseness, No sore throat, No Rhinorrhea, No Swallowing Difficulty Eyes: No Eye Pain, No Swelling, No Redness, No Foreign Body, No Discharge, No Vision Changes Cardiovascular : Mild Chest Pain, no orthopnea, no edema Respiratory : Occasional Cough, No Sputum, No Wheezing, No Smoke Exposure, mild Dyspnea Gastrointestinal : No Nausea, No Vomiting, No Diarrhea, No Constipation, No abdominal Pain, No Hematochezia, No Melena Genitourinary : no irregular bleeding, No Dysuria, No Urinary Frequency, No Hematuria, No Urinary Incontinence, No Urgency, No Flank Pain, No Urinary Flow Changes, No Hesitancy Musculoskeletal : No joint pain, No Myalgias, No Joint Swelling Skin : No Skin Lesions, No rash Neuro : No Weakness, No Numbness, No Paresthesias, No Loss of Consciousness, No Dizziness, No Headache Psych : No Anxiety/Panic, No Depression, No SI/HI/AH/VH, No Social Issues, Heme/Lymph: No Bruising, No Bleeding,No Lymphadenopathy Endocrine : No Polyuria, No Polydipsia, No Temperature Intolerance PMFSH Past Medical History Medical History Anxiety Asthma Back spasm Depression Fibromyalgia GERD (gastroesophageal reflux disease) Headache Hx of supraventricular tachycardia Hx-TIA (transient ischemic attack) Obesity Screening for diabetes mellitus (DM) Screening for hypercholesterolemia Screening for hypothyroidism Surgical History History of History of cholecystectomy History of endoscopy History of knee surgery History of partial knee replacement Hx of tubal ligation Family History Family History Mother High cholesterol Father Lupus Diabetes Thyroid disease FH: prostate cancer Brother Asthma Anxiety Depression Daughter Depression Anxiety Childhood autism Maternal Grandmother Glaucoma Other Mental problem Substance abuse Social History Social History Housing: House Alcohol intake: never Patient Tobacco Use Status: Never used Tobacco e-Cigarette/Vaping Use: Never Used Second Hand Smoke Exposure: Yes Advance Directives: No Advance Directives Information Provided: Yes service: No Current occupational status: employed and disabled Current occupation: [employer] Physical Exam Vital Signs: Vital Signs: Last Vital Signs Temp 97.7 F 05/01/21 23:17 Pulse 99 05/01/21 23:17 Resp 20 05/01/21 23:17 BP 112/81 05/01/21 23:17 Pulse Ox 88 L 05/01/21 23:17 BMI result Body Mass Index 49.8 Const: Other: Appearance: Alert. Oriented X3. No acute distress. Well- appearing Eyes: Pupils equal, round and reactive to light. ENT: Pharynx normal. Neck: Normal inspection. Neck supple. No lymph nodes noted. No crepitus CVS: Normal heart rate and rhythm. Pulses normal. Normal S1 and S2 Respiratory: No respiratory distress. Breath sounds normal. No Wheezing. No rales Abdomen: Soft and nontender. No rigidity. No distention. Skin: Skin warm and dry. Normal skin color. Normal skin turgor. Extremities: No lower extremity edema. No Lacerations. No Rash Neuro: Oriented X 3. No motor deficit. No sensory deficit. Moving all extermities. No slurred speech. Course Course Course Narrative: I discussed with the patient that she tested positive for COVID-19 Patient was ambulated in her room, oxygen saturation a and above 97% MDM - URI/Sore Throat Lab Data Labs: Lab Results 05/01/21 Range/Units 23:23 Influenza Type A (PCR) NEGATIVE (Negative) Influenza Type B (PCR) NEGATIVE (Negative) RSV RNA Qual (PCR) NEGATIVE (Negative) SARS-CoV-2 RNA (RT-PCR) POSITIVE A (Negative) Discharge Plan Discharge Clinical Impression: COVID-19 Patient Disposition: Home, Self-Care Instructions: COVID-19 (Coronavirus Disease 2019) (ED) Additional Instructions: You tested positive for COVID-19. You need to quarantine for 7 days. Please follow-up with your primary care physician tomorrow. If you have any worsening or new symptoms, please return to the emergency room or call 911 Prescriptions: No Action (DME) blood pressure monitor [Blood Pressure Kit] Kit See Rx Instructions .ROUTE .MEDSUPPLY Qty: 1 RF: 0 gabapentin 600 mg tablet 600 mg PO TID 30 Days Qty: 90 RF: 3 lactulose 10 gram/15 mL solution 15 ml PO BEDTIME PRN (Reason: constipation) Qty: 473 RF: 1 hydroxyzine HCl 25 mg tablet 25 mg PO BEDTIME 30 Days Qty: 30 RF: 1 buspirone 15 mg tablet 15 mg PO BID 30 Days Qty: 60 RF: 3 quetiapine [Seroquel] 25 mg tablet 25 mg PO DAILY 30 Days Qty: 30 RF: 3 ropinirole 0.5 mg tablet 0.5 mg PO BEDTIME 30 Days Qty: 30 RF: 3 sumatriptan succinate 25 mg tablet See Rx Instructions PO .COMPLEX 30 Days Qty: 10 RF: 2 albuterol sulfate 90 mcg/actuation HFA aerosol inhaler 2 puff inhalation QID PRN (Reason: shortness of breath or wheezing) Qty: 8.5 RF: 3 Magic Mouthwash Diphen/Lido/Antacid 1:1:1 240 mL suspension 10 ml PO QID Qty: 240 RF: 0 lansoprazole 30 mg capsule,delayed release(DR/EC) 30 mg PO BID Qty: 60 RF: 3 trazodone 50 mg tablet 100 mg PO BEDTIME Qty: 180 RF: 1 acetaminophen [Tylenol] 325 mg tablet 650 mg PO Q6H PRN (Reason: fever or pain) Qty: 10 RF: 0 duloxetine 60 mg capsule,delayed release(DR/EC) 120 mg PO DAILY RF: 0 sennosides [Senna Lax] 8.6 mg tablet 17.2 mg PO BEDTIME PRN (Reason: constipation) 30 Days Qty: 60 RF: 0 cyclobenzaprine 10 mg tablet 10 mg PO BID 5 Days Qty: 10 RF: 0 fluticasone propion-salmeterol [Advair Diskus] 250-50 mcg/dose blister with device 1 ea inhalation BID RF: 0 linaclotide 145 mcg capsule 145 mcg PO DAILY Qty: 90 RF: 1 polyethylene glycol 3350 [Miralax] 17 gram/dose powder 238 g PO ONCE Qty: 238 RF: 0 bisacodyl [Dulcolax (bisacodyl)] 5 mg tablet,delayed release (DR/EC) 20 mg PO ONCE 1 Days Qty: 4 RF: 0 Stand Alone Forms: Work/School Release
[2021-05-02 01:11] VITALS: O2SAT 98
--- NOTE | 2021-05-02 01:11 | PC.NURSE ---
Previous O2 sat 88% erroneous
== END 2021-05-02 01:29 | disposition home or self-care (01) ==
PROVIDERS: Emergency Provider Emergency Medicine; PCP Physician Assistant
DX: U07.1 COVID-19 (principal); J45.909 Unspecified asthma, uncomplicated; Z86.73 Personal history of transient ischemic attack (TIA), and cerebral infarction without residual deficits
CPT/HCPCS: 0241U; 71045; 93005; 99283

== ENCOUNTER 2021-05-04 23:15 | Emergency (ER) | payer MEDICARE, MEDICAID, SELFPAY ==
--- NOTE | 2021-05-04 | ECG_ITS ---
Test Reason : cp Blood Pressure : / mmHG Vent. Rate : 083 BPM Atrial Rate : 083 BPM P-R Int : 136 ms QRS Dur : 080 ms QT Int : 380 ms P-R-T Axes : 033 018 042 degrees QTc Int : 446 ms Normal sinus rhythm Cannot rule out Anterior infarct (cited on or before 08-JUL-2016) Abnormal ECG When compared with ECG of 02-MAY-2021 00:49, No significant change was found Referred By: Generic ED Physician Electronically Signed By:DAQUAN TRUONG MD
[2021-05-04 23:47] VITALS: BP 93/61; PULSE 80; RESP 18; TEMP 36.4; O2SAT 98; BMI 49.8
[2021-05-05 03:32] LABS: Basophils Percent Auto 0.5 % (0-2); Eosinophils Absolute Auto 0.1 X10*3/uL (0.0-0.4); Eosinophils Percent Auto 1.2 % (0-4); Hematocrit 39.2 % (37.0-47.0); Hemoglobin 12.8 g/dl (12.0-16.0); Imm Gran Abs Auto 0.02 X10*3/uL (0.00-0.03); Imm Gran Pct Auto 0.3 % (0.0-0.4); Lymphocytes Absolute Auto 2.4 X10*3/uL (1.2-4.9); Lymphocytes Percent Auto 36.9 % (20-40); MANUAL DIFF FLAG NO; Mean Corpuscular HGB Conc 32.7 g/dl (31.0-35.0); Mean Corpuscular Hemoglobin 28.8 pg (27.0-33.0); Mean Corpuscular Volume 88.3 fL (80.0-98.0); Mean Platelet Volume 10.3 fL (9.4-12.3); Monocytes Absolute Auto 0.7 X10*3/uL (0.1-1.2); Monocytes Percent Auto 10.8 % (2-11); Neutrophils Absolute Auto 3.3 x10*3/uL (2.0-8.3); Neutrophils Percent Auto 50.3 % (45-73); Platelet Count 281 X10*3/uL (160-400); Red Blood Count 4.44 X10*6/uL (4.20-5.50); Red Cell Distribution Width 12.5 % (11.0-16.0); White Blood Count 6.6 X10*3/uL (4.8-10.8)
[2021-05-05 03:49] LABS: Alanine Aminotransferase 28 U/L (0-31); Albumin Level 3.8 g/dL (3.5-5.0); Alkaline Phosphatase 57 U/L (39-117); Anion Gap 11 (12-20); Aspartate Amino Transferase 17 U/L (5-31); Bilirubin Total 0.2 mg/dL (0.0-1.0); Blood Urea Nitrogen 14 mg/dL (9-16); Carbon Dioxide 26 mmol/L (22-29); Chloride 105 mmol/L (96-108); Creatinine Clr Calc Pharmacy 137.4; Estimated Glomerular Filt Rate > 60; Glucose Random 118 mg/dL (60-115); Potassium 3.9 mmol/L (3.3-5.1); Sodium 138 mmol/L (135-145); Total Protein 6.8 g/dL (6.5-8.0)
[2021-05-05 03:52] LABS: Troponin-I High Sensitivity < 3.5 ng/L (<3.5-17.0)
== END 2021-05-05 05:53 | disposition left against medical advice (07) ==
PROVIDERS: Emergency Provider Emergency Medicine
DX: U07.1 COVID-19 (principal); R06.02 Shortness of breath; I10 Essential (primary) hypertension
CPT/HCPCS: 36415; 80053; 84484; 85025; 93005; 99283

== ENCOUNTER 2021-05-07 08:30 | Emergency (ER) | payer MEDICARE, MEDICAID, SELFPAY ==
--- NOTE | ~2021-05-07 | XR_ITS ---
EXAMINATION: XR CHEST CLINICAL INFORMATION: Question pneumonia COMPARISON: Chest x-ray 05/02/2021 TECHNIQUE: Frontal view of the chest was obtained. FINDINGS: Cardiac silhouette is normal in size. The lungs are well aerated. There is no lobar consolidation. No pleural effusion or pneumothorax. No gross osseous abnormality. XR/XR chest 1V IMPRESSION: Stable examination demonstrating no acute pulmonary pathology.
[2021-05-07 08:43] VITALS: BP 114/86; PULSE 86; RESP 18; TEMP 36.1; O2SAT 98; BMI 49.8
--- NOTE | 2021-05-07 10:43 | ED.URI ---
HPI - URI/Sore Throat General Chief Complaint: Upper Respiratory Symptoms Stated Complaint: Pneumonia? Covid+ 1/3 Time Seen by Provider: 05/07/21 10:31 Source: patient Mode of arrival: ambulatory Limitations: no limitations History of Present Illness HPI Narrative: 46-year-old female who was diagnosed with COVID-19 on 05/01/2021 who is vaccinated with the Moderna vaccine presenting to the ED with complaints of thinking she has pneumonia due to cough and chest tightness/wheezing for the past few days worse today. Denies recent travel or any other sick contacts. Denies any fevers, chills, neck pain/stiffness, chest pain, dyspnea on exertion, orthopnea, palpitations, paresthesias, vomiting or diarrhea, abdominal pain, lower extremity edema or calf tenderness or any other symptoms complaints or concerns at this time. MD elicited complaint: cough Pertinent past history: asthma Onset (ago): day(s) (8) Consistency: constant Severity: moderate Description of mucous: clear, watery and yellow Able to tolerate fluids by mouth: Yes Exacerbating factors: nothing Relieving factors: nothing Associated symptoms: other (Chest tightness/wheezing) Treatments prior to arrival: none Related Data Home Medications Medication Instructions Recorded Confirmed duloxetine 60 mg capsule,delayed 120 mg PO DAILY 10/19/20 03/30/21 release fluticasone 250 mcg-salmeterol 50 1 ea INHALATION BID 01/25/21 03/30/21 mcg/dose blistr powdr for inhalation (Advair Diskus) Previous Rx's Medication Instructions Recorded acetaminophen 325 mg tablet 650 mg PO Q6H PRN #10 tab 02/25/20 (Tylenol) blood pressure monitor (Blood #1 ea 10/27/20 Pressure Kit) gabapentin 600 mg tablet 600 mg PO TID 30 Days #90 tab 11/01/20 lactulose 10 gram/15 mL oral 15 ml PO BEDTIME PRN #473 ml 12/09/20 solution hydroxyzine HCl 25 mg tablet 25 mg PO BEDTIME 30 Days #30 tab 12/21/20 cyclobenzaprine 10 mg tablet 10 mg PO BID 5 Days #10 tab 12/29/20 sennosides 8.6 mg tablet (Senna 17.2 mg PO BEDTIME PRN 30 Days #60 12/29/20 Lax) tab bisacodyl 5 mg tablet,delayed 20 mg PO ONCE 1 Days #4 tab 01/25/21 release (Dulcolax (bisacodyl)) polyethylene glycol 3350 17 238 g PO ONCE #238 g 01/25/21 gram/dose oral powder (Miralax) buspirone 15 mg tablet 15 mg PO BID 30 Days #60 tab 02/08/21 quetiapine 25 mg tablet (Seroquel) 25 mg PO DAILY 30 Days #30 tab 02/16/21 ropinirole 0.5 mg tablet 0.5 mg PO BEDTIME 30 Days #30 tab 02/22/21 sumatriptan succinate 25 mg tablet See Rx Instructions PO .COMPLEX 30 02/22/21 Days #10 tab albuterol sulfate 90 mcg/actuation 2 puff INHALATION QID PRN #8.5 g 04/04/21 aerosol inhaler Magic Mouthwash 10 ml PO QID #240 ml 04/19/21 Diphen/Lido/Antacid 1:1:1 240 mL suspension lansoprazole 30 mg capsule,delayed 30 mg PO BID #60 cap 04/20/21 release trazodone 50 mg tablet 100 mg PO BEDTIME #180 tab 04/28/21 linaclotide 145 mcg capsule 290 mcg PO DAILY #60 cap 05/05/21 albuterol sulfate 0.63 mg/3 mL 0.63 mg (3 mL) INHALATION QID PRN 05/07/21 solution for nebulization #75 ml albuterol sulfate 90 mcg/actuation 1 inh INHALATION QID PRN #8.5 g 05/07/21 aerosol inhaler amoxicillin 875 mg-potassium 1 tab PO BID 10 Days #20 tab 05/07/21 clavulanate 125 mg tablet (Augmentin) codeine 10 mg-guaifenesin 100 mg/5 5 ml PO Q6H PRN #120 ml 05/07/21 mL oral liquid (Guaifenesin AC) nebulizers (AeroEclipse II #1 ea 05/07/21 Nebulizer) prednisone 20 mg tablet 40 mg PO DAILY 5 Days #10 tab 05/07/21 Allergies Allergy/AdvReac Type Severity Reaction Status Date / Time ibuprofen [From Motrin] Allergy Severe HIVES,SWELL Verified 05/04/21 23:47 ING meperidine [Demerol] Allergy Unknown Vomiting Verified 05/04/21 23:47 morphine [MORPHINE] Allergy Unknown CHEST PAIN Verified 05/04/21 23:47 hydroxyzine AdvReac Mild mouth Verified 05/04/21 23:47 numbess SHELLFISH Allergy Unknown HIVES/ITCHI Uncoded 05/04/21 23:47 NG Review of Systems Review of Systems: Constitutional : No Weight loss, No Fever, No Chills, No Night Sweats, No Fatigue, No Malaise ENT/Mouth : No Hearing loss, No Ear Pain, No Nasal Congestion, No Sinus Pain, No Hoarseness, No sore throat, No Rhinorrhea, No Swallowing Difficulty Eyes: No Eye Pain, No Swelling, No Redness, No Foreign Body, No Discharge, No Vision Changes Cardiovascular : No Chest Pain, No SOB, No Dyspnea on Exertion, No Orthopnea, No Edema, No Palpitations Respiratory : + Cough with chest tightness, No Sputum, + Wheezing, No Smoke Exposure, No Dyspnea Gastrointestinal : No Nausea, No Vomiting, No Diarrhea, No Constipation, No abdominal Pain, No Hematochezia, No Melena Genitourinary : no irregular bleeding, No Dysuria, No Urinary Frequency, No Hematuria, No Urinary Incontinence, No Urgency, No Flank Pain, No Urinary Flow Changes, No Hesitancy Musculoskeletal : No joint pain, No Myalgias, No Joint Swelling Skin : No Skin Lesions, No rash Neuro : No Weakness, No Numbness, No Paresthesias, No Loss of Consciousness, No Dizziness, No Headache Psych : No Anxiety/Panic, No Depression, No SI/HI/AH/VH, No Social Issues, Heme/Lymph: No Bruising, No Bleeding,No Lymphadenopathy Endocrine : No Polyuria, No Polydipsia, No Temperature Intolerance Yes all other systems are reviewed and are negative [facility] Past Medical History Attestation statement: The following information was validated with the patient. Medical History Anxiety Asthma Back spasm Depression Fibromyalgia GERD (gastroesophageal reflux disease) Headache Hx of supraventricular tachycardia Hx-TIA (transient ischemic attack) Obesity Screening for diabetes mellitus (DM) Screening for hypercholesterolemia Screening for hypothyroidism Surgical History History of History of cholecystectomy History of endoscopy History of knee surgery History of partial knee replacement Hx of tubal ligation Family History Family History Mother High cholesterol Father Lupus Diabetes Thyroid disease FH: prostate cancer Brother Asthma Anxiety Depression Daughter Depression Anxiety Childhood autism Maternal Grandmother Glaucoma Other Mental problem Substance abuse Social History Social History Housing: House Alcohol intake: never Patient Tobacco Use Status: Never used Tobacco e-Cigarette/Vaping Use: Never Used Second Hand Smoke Exposure: Yes Advance Directives: No Advance Directives Information Provided: Yes Patient : No service: No Current occupational status: employed and disabled 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 Blood pressure normal. Heart rate normal. Respiration rate normal. Temperature normal. Oxygen saturation normal. Appearance: Alert. Oriented X3. No acute distress. Head: Normal external exam. Normocephalic. Atraumatic. Eyes: PERRLA. EOMI. Conjunctiva and sclera normal. Eyelids normal. ENT: EAC normal. TM's Normal. Pharynx normal. Uvula midline. Moist mucous membranes. No trismus noted. No drooling noted. No muffled voice noted. Neck: Normal inspection. Neck supple. FROM. No adenopathy. Thyroid Normal. No meningeal signs. No neck mass noted. CVS: Normal heart rate and rhythm. Heart sound normal. Pulses normal throughout. No murmurs/rales/gallops. Respiratory: No respiratory distress. Painless inspiration. Breath sounds normal. No wheezes/rales/rhonchi noted. Chest nontender. No accessory muscle usage noted or decreased air movement noted. Abdomen: Soft and nontender. Bowel sounds normal in all 4 quadrants. No distention noted. No organomegaly noted. No visible injury noted. Back: No CVA tenderness. Full range of motion noted. No rashes/lesion/induration/fluctuance or signs of infection noted. Skin: Skin warm and dry. Normal skin color. Normal skin turgor. No rashes/lesions/lacerations noted. Extremities: No lower extremity edema. No calf tenderness noted. Extremities exhibit normal range of motion. Extremities nontender. Neuro: Oriented X 3. No motor deficit. No sensory deficit. Reflexes normal. Normal steady gait. No focal neuro deficits noted. Vascular: + radial pulses/+ 2 distal pedal pulses/+2 dorsalis pedis b/l. Normal cap refill. No cyanosis noted to upper extremity nails and lower extremity toes nails. Course Course Course Narrative: Patient positive for COVID since 05/01/2021 Vital signs remained stable within normal limits. Lungs clear to auscultation. CV RRR. Abdomen is soft nontender. Chest x-ray negative. No lower extremity edema or calf tenderness is noted. Patient denies chest pain. No indication for labs at this time. Will DC home with antibiotics and symptomatic treatment and Will explain that she needs to follow CDC guidelines for quarantine/restrictions. Insert return if any new or worsening symptoms follow-up with primary care provider. Patient understands agrees this plan. MDM - URI/Sore Throat Medical Records Attestation: I reviewed the patient's medical records. Lab Data Attestation: I reviewed the patient's lab results. Discharge Plan Discharge Clinical Impression: Asthma, COVID-19 Patient Disposition: Home, Self-Care Instructions: Asthma (ED), COVID-19 (Coronavirus Disease 2019) (ED) Additional Instructions: Please follow COVID-19 CDC guidelines for quarantine/restrictions return if any new or worsening symptoms follow up with her primary care provider. Prescriptions: New albuterol sulfate 90 mcg/actuation HFA aerosol inhaler 1 inh inhalation QID PRN (Reason: shortness of breath or wheezing) Qty: 8.5 RF: 0 amoxicillin-pot clavulanate [Augmentin] 875-125 mg tablet 1 tab PO BID 10 Days Qty: 20 RF: 0 albuterol sulfate 0.63 mg/3 mL solution for nebulization 0.63 mg inhalation QID PRN (Reason: shortness of breath or wheezing) Qty: 75 RF: 0 (DME) AeroEclipse II Nebulizer Misc See Rx Instructions .ROUTE .MEDSUPPLY Qty: 1 RF: 0 codeine-guaifenesin [Guaifenesin AC] 10-100 mg/5 mL liquid 5 ml PO Q6H PRN (Reason: cold symptoms) Qty: 120 RF: 0 prednisone 20 mg tablet 40 mg PO DAILY 5 Days Qty: 10 RF: 0 No Action (DME) blood pressure monitor [Blood Pressure Kit] Kit See Rx Instructions .ROUTE .MEDSUPPLY Qty: 1 RF: 0 gabapentin 600 mg tablet 600 mg PO TID 30 Days Qty: 90 RF: 3 lactulose 10 gram/15 mL solution 15 ml PO BEDTIME PRN (Reason: constipation) Qty: 473 RF: 1 hydroxyzine HCl 25 mg tablet 25 mg PO BEDTIME 30 Days Qty: 30 RF: 1 buspirone 15 mg tablet 15 mg PO BID 30 Days Qty: 60 RF: 3 quetiapine [Seroquel] 25 mg tablet 25 mg PO DAILY 30 Days Qty: 30 RF: 3 ropinirole 0.5 mg tablet 0.5 mg PO BEDTIME 30 Days Qty: 30 RF: 3 sumatriptan succinate 25 mg tablet See Rx Instructions PO .COMPLEX 30 Days Qty: 10 RF: 2 albuterol sulfate 90 mcg/actuation HFA aerosol inhaler 2 puff inhalation QID PRN (Reason: shortness of breath or wheezing) Qty: 8.5 RF: 3 Magic Mouthwash Diphen/Lido/Antacid 1:1:1 240 mL suspension 10 ml PO QID Qty: 240 RF: 0 lansoprazole 30 mg capsule,delayed release(DR/EC) 30 mg PO BID Qty: 60 RF: 3 trazodone 50 mg tablet 100 mg PO BEDTIME Qty: 180 RF: 1 linaclotide 145 mcg capsule 290 mcg PO DAILY Qty: 60 RF: 1 acetaminophen [Tylenol] 325 mg tablet 650 mg PO Q6H PRN (Reason: fever or pain) Qty: 10 RF: 0 duloxetine 60 mg capsule,delayed release(DR/EC) 120 mg PO DAILY RF: 0 sennosides [Senna Lax] 8.6 mg tablet 17.2 mg PO BEDTIME PRN (Reason: constipation) 30 Days Qty: 60 RF: 0 cyclobenzaprine 10 mg tablet 10 mg PO BID 5 Days Qty: 10 RF: 0 fluticasone propion-salmeterol [Advair Diskus] 250-50 mcg/dose blister with device 1 ea inhalation BID RF: 0 polyethylene glycol 3350 [Miralax] 17 gram/dose powder 238 g PO ONCE Qty: 238 RF: 0 bisacodyl [Dulcolax (bisacodyl)] 5 mg tablet,delayed release (DR/EC) 20 mg PO ONCE 1 Days Qty: 4 RF: 0 Referrals: Jeremy Sanches PA-C [Primary Care Provider] - 2 days Print Language: Spanish
== END 2021-05-07 11:03 | disposition home or self-care (01) ==
PROVIDERS: Emergency Provider Internal Medicine; PCP Physician Assistant
DX: U07.1 COVID-19 (principal); J45.909 Unspecified asthma, uncomplicated; I10 Essential (primary) hypertension; Z86.73 Personal history of transient ischemic attack (TIA), and cerebral infarction without residual deficits
CPT/HCPCS: 71045; 99283

== ENCOUNTER → 2021-05-11 13:27 | Outpatient (REF) | payer MEDICARE, MEDICAID, SELFPAY ==
--- NOTE | 2021-05-11 13:34 | ECG_ITS ---
Test Reason : r94.31 Blood Pressure : / mmHG Vent. Rate : 089 BPM Atrial Rate : 089 BPM P-R Int : 138 ms QRS Dur : 078 ms QT Int : 352 ms P-R-T Axes : 051 040 042 degrees QTc Int : 428 ms Normal sinus rhythm Normal ECG When compared with ECG of 05-MAY-2021 00:08, No significant change was found Referred By: Jeremy Sanches Electronically Signed By:MATTHEW BORDEN
--- NOTE | 2021-05-11 13:34 | CA_ITS ---
Transthoracic Echocardiogram Patient (Last, First, Middle): Emerita Plata, Gender: Female Date of : 1975 Age: 46 Procedure Date: 05/11/2021 Procedure Type: Transthoracic Echocardiogram Location: OP Height: 162.56 cm Weight: 131.09 kg BSA: 2.29 m2 Heart Rate: bpm BP: 112 / 76 mmHg [id number] Java Developer: NHAN Referring MD: Jeremy Sanches PA-C Symptoms: R06.02 - Shortness of breath Study Quality: Technically Difficult/contrast ECG Rhythm: Sinus Conclusions: - The left ventricular systolic function is normal. The calculated ejection fraction is 66% by biplane method. - There is mild mitral annular calcification. - No obvious valvular pathology seen on this study. Findings Procedure Information Contrast agent, definity, is being given per protocol without apparent complications. Left Ventricle Normal left ventricular cavity size. There is normal left ventricular wall thickness. The left ventricular systolic function is normal. The calculated ejection fraction is 66% by biplane method. There is no evidence of regional wall motion abnormalities. Diastolic function is normal for age. Right Ventricle Normal right ventricular cavity size and systolic function. Atria Both atria are normal in size. Aortic Valve There is a normal trileaflet aortic valve. There is no aortic valve stenosis. The mean gradient is 5 mmHg. There is no aortic valve regurgitation. Mitral Valve The mitral valve was not well visualized. There is mild mitral annular calcification. There is trace mitral valve regurgitation. There is no mitral valve stenosis. Pulmonic Valve The pulmonic valve was not well visualized. Tricuspid Valve Normal tricuspid valve structure. There is trace tricuspid valve regurgitation. The pulmonary artery systolic pressure is normal. Great Vessels The aortic annulus, sinuses of valsalva, and asc aorta are normal in size. Venous The inferior vena cava is normal in size and collapses less than 50% with inspiration. Pericardium/Pleural There is a trivial pericardial effusion. Prior Study Comparison No prior study available for comparison. Recommendations, Care & Conclusions No obvious valvular pathology seen on this study. Measurements 2D Linear Measurements IVSd: 0.94 0.6-0.9/0.6-1.0 cm LVIDd: 5.31 3.9-5.3/4.2-5.9 cm LVIDd Index: 2.32 2.4-3.2/2.2-3.1 cm/m2 LVIDs: 4.26 2.0-3.6 cm LVPWd: 0.80 0.7-1.1 cm Ao Root: 3.00 2.1-3.5 cm LA Diam: 3.50 2.7-3.8/3.0-4.0 cm LAIDs Index: 1.53 1.5-2.3 cm/m2 LV Mass: 207.93 67-162/88-224 g LV Mass Index: 90.80 43-95/49-115 g/m2 LVOT Diam: 2.00 3.0+(-)1.3 cm 2D Systolic Function EF 4C: 66.20 >55% EF 2C: 66.10 >55% EF BiP: 66.10 >55% Mitral Valve MV Pk E: 0.91 MV PK A: 1.11 MV Decel Time: 310.00 E/A: 0.80 E'Lateral: 10.90 E'Medial: 8.05 E/E' Med: 11.30 E/E' Lat: 8.40 PHT: 91.00 MVA PHT: 2.42 Decel [place]: 2.94 Aortic Valve AoV Pk Scooter: 1.35 AoV Mn Scooter: 1.05 AoV VTI: 0.28 AoV Pk Grad: 7.00 Aov Mn Grad: 5.00 LISA Cont.VTI: 2.39 LVOT LVOT Pk Scooter: 1.18 LVOT Mn Scooter: 0.82 LVOT VTI: 0.22 LVOT Pk Grad: 6.00 LVOT Mn Grad: 3.00 LVOT Diam: 2.00 LVOT Area: 3.14 Diastolic Function MV Pk E: 0.91 MV Pk A: 1.11 E/A: 0.80 E'Medial: 8.05 E/E' Med: 11.30 E' Laterial: 10.90 E/E' Lat: 8.40 Right Ventricle TAPSE (mm): 22.80 TVS' Scooter: 13.10 Tricuspid Valve TR Pk Scooter: 2.32 TR Pk Grad: 22.00 RA Press: 8.00 RVSP: 30.00 Great Vessels Aorta Ao Root-2D: 3.00 2.0-3.7 cm Ao Asc: 2.80 2.1-3.4 cm Ao Arch: 2.80 Updated in Other Vendor System with Status of Final Jude López MD electronically signed on 05/13/2021 1:58:18 PM with status of Final
== END ==
LOC: HO.CARD 13:27
PROVIDERS: Visit Provider Physician Assistant
DX: R94.31 Abnormal electrocardiogram [ECG] [EKG] (principal)
CPT/HCPCS: 93005; 93306; Q9957

== ENCOUNTER 2021-05-20 10:31 | Outpatient (REF) | payer MEDICARE, MEDICAID, SELFPAY ==
[2021-05-20 11:41] LABS: Hematocrit 41.9 % (37.0-47.0); Hemoglobin 13.4 g/dl (12.0-16.0); Mean Corpuscular Hemoglobin 28.5 pg (27.0-33.0); Mean Platelet Volume 10.9 fL (9.4-12.3); Platelet Count 313 X10*3/uL (160-400); Red Blood Count 4.71 X10*6/uL (4.20-5.50); Red Cell Distribution Width 12.4 % (11.0-16.0)
[2021-05-20 12:07] LABS: Alanine Aminotransferase 153 U/L (0-31); Albumin Level 4.2 g/dL (3.5-5.0); Alkaline Phosphatase 106 U/L (39-117); Anion Gap 14 (12-20); Aspartate Amino Transferase 48 U/L (5-31); Bilirubin Total 0.3 mg/dL (0.0-1.0); Blood Urea Nitrogen 12 mg/dL (9-16); Calcium 9.4 mg/dL (8.4-10.2); Carbon Dioxide 25 mmol/L (22-29); Chloride 105 mmol/L (96-108); Cholesterol 174 mg/dL; Estimated Glomerular Filt Rate > 60; Glucose Fasting 89 mg/dL (60-99); HDL Cholesterol 51 mg/dL; LDL Cholesterol Calculated 106 mg/dl; Potassium 4.1 mmol/L (3.3-5.1); Sodium 140 mmol/L (135-145); Total Protein 7.4 g/dL (6.5-8.0); Triglycerides 88 mg/dL
[2021-05-20 12:09] LABS: B Type Natriuretic Peptide < 10 pg/mL (<100)
[2021-05-20 12:11] LABS: TSH reflex Free T4 1.15 uIU/mL (0.32-4.0)
== END 2021-05-20 10:32 | disposition home or self-care (01) ==
LOC: HO.LAB 10:31
PROVIDERS: PCP Physician Assistant; Visit Provider Physician Assistant
DX: R06.02 Shortness of breath (principal); I10 Essential (primary) hypertension; E66.9 Obesity, unspecified
CPT/HCPCS: 36415; 80048; 80053; 80061; 83880; 84443; 85027

== ENCOUNTER 2021-06-10 11:03 | Outpatient (REF) | payer OTHER, SELFPAY ==
[2021-06-10 11:51] LABS: Hematocrit 42.9 % (37.0-47.0); Mean Corpuscular HGB Conc 32.6 g/dl (31.0-35.0); Mean Corpuscular Hemoglobin 28.5 pg (27.0-33.0); Mean Corpuscular Volume 87.4 fL (80.0-98.0); Mean Platelet Volume 10.4 fL (9.4-12.3); Platelet Count 335 X10*3/uL (160-400); Red Blood Count 4.91 X10*6/uL (4.20-5.50); Red Cell Distribution Width 12.6 % (11.0-16.0); White Blood Count 9.8 X10*3/uL (4.8-10.8)
[2021-06-10 12:19] LABS: Alanine Aminotransferase 24 U/L (0-31); Albumin Level 4.4 g/dL (3.5-5.0); Alkaline Phosphatase 77 U/L (39-117); Aspartate Amino Transferase 20 U/L (5-31); Bilirubin Direct 0.2 mg/dL (0.0-0.5); Bilirubin Total 0.4 mg/dL (0.0-1.0); Total Protein 7.7 g/dL (6.5-8.0)
== END 2021-06-10 11:04 | disposition home or self-care (01) ==
LOC: HO.LAB 11:03
PROVIDERS: PCP Physician Assistant; Visit Provider Physician Assistant
DX: I10 Essential (primary) hypertension (principal); E66.9 Obesity, unspecified; R74.8 Abnormal levels of other serum enzymes
CPT/HCPCS: 36415; 80076; 85027

== ENCOUNTER 2021-06-15 08:57 | Outpatient (REF) | payer OTHER, SELFPAY ==
--- NOTE | ~2021-06-15 | MM_ITS ---
EXAMINATION: MM SCREENING DIGITAL BREAST TOMOSYNTHESIS, BILATERAL CLINICAL INFORMATION: Screening. Asymptomatic. The lifetime risk of breast cancer based on the Tyrer-Cuzick Model is 8%. COMPARISON: Outside mammography: 12/17/2018 ([facility]). TECHNIQUE: Digital breast tomosynthesis is performed in both the craniocaudal and mediolateral oblique views along with computer-aided detection (CAD). Synthesized 2D images are generated from the tomosynthesis. Additional right MLO and exaggerated right CC views are obtained. FINDINGS: The breasts are almost entirely fatty (ACR BI-RADS breast composition Category a). There are no significant masses, abnormal calcifications, or other abnormalities. Background stromal markings are stable. Skin contours are smooth. No significant changes. MM/MM tomosynthesis screening BI IMPRESSION: No mammographic evidence of malignancy. ASSESSMENT: BI-RADS 1: Negative RECOMMENDATION: Routine annual mammography screening. This patient's information was entered into a reminder system with a target due date for their next mammogram.
== END 2021-06-15 08:58 | disposition home or self-care (01) ==
LOC: HO.MAMMO 08:57
PROVIDERS: Visit Provider Physician Assistant
DX: Z12.31 Encounter for screening mammogram for malignant neoplasm of breast (principal)
CPT/HCPCS: 77063; 77067

== ENCOUNTER 2021-06-21 10:00 | Outpatient (RCR) | payer OTHER, SELFPAY ==
--- NOTE | 2021-06-17 10:10 | MHC.PT.EP ---
[facility] [place] Office [place] Office [place] Office [address] Abi Triplett [address] [phone] F: [phone] F: [phone] F: [phone] F: [phone] Physical Therapy Plan of Care Date of Evaluation: 06/17/21 Date of Surgery: Diagnosis: lubosacral intervetebral disc disorder Assessment: The patient arrived with lumbosacral pain. She had painful and reduce trunk ROM. Reduced global strength in pelvis, core and lower back. She had poor proprioception to neutral spine. Poor sitting, sleeping posture noted. She spends most of her time in her room. She uses a recliner and sits in her bed a lot. She sits on the end of her bed on her computer. She will benefit from posture education, body mechanics training, general pelvic and core stability. Incidentily during her history she reported difficulty with BM and urgency/frequency issues with urinary function. I may offer education on treatment of urgency and frequency. Frequency and Duration: The patient will be seen 2x/week x 4 weeks. Short Term Goals: 1.Pt to able to demonstrate proper sitting posture with the use of a lumbar roll to decrease aggravating factors. 2.Pt to be able to demonstrate proper posture for common leisure activities such as crocheting and phone/tablet use. 3.For the patient to demonstrate proper upright sitting posture with use of the lumbar roll to improve compliance and carryover. Youth [employer] Officer Goals: 4 weeks - 1.The patient to demonstrate proper lifting mechanics for household chore activities to show improved functional mobility. 2.The patient to report improved seating options and education for body mechanics to reduce aggravating factors. 3. Pt to be able to demonstrate self management of lumbar pain by demonstration of HEP. Treatment Plan: Modalities to reduce pain, spasms and effusion. Manual therapy to restore motion and function. Therapeutic exercise to improve strength and flexibility. Neuromuscular re-education for posture and balance. Therapeutic activities to return to functional activities of daily living. Electronically signed by: Radha Mahmood PT DPT Please sign and return to therapist. Thank you for your referral.
== END 2021-08-31 14:54 | disposition home or self-care (01) ==
LOC: HO.PT 10:00
PROVIDERS: PCP Physician Assistant; Visit Provider Physician Assistant
DX: M51.9 Unspecified thoracic, thoracolumbar and lumbosacral intervertebral disc disorder (principal)
CPT/HCPCS: 97110; 97112; 97162

== ENCOUNTER → 2021-07-08 12:24 | Outpatient (BNVA) | payer OTHER, SELFPAY | PROVIDERS: PCP Physician Assistant; Visit Provider Physician Assistant Surgical | DX: Z13.89 Encounter for screening for other disorder (principal) ==

== ENCOUNTER 2021-07-08 13:00 | Outpatient (RCR) | payer OTHER, SELFPAY ==
--- NOTE | 2021-06-28 15:56 | MHC.OT.OEV ---
[address] [phone] F: [phone] Occupational Therapy Evaluation Diagnosis: Lymphedema Date of Onset: 03/10/21 Date of Surgery: Attending Provider: Jeremy Sanches PA-C Prescribed Treatment: Eval and treat MD Follow Up Appointment: History of Current Condition: Pt reports worsening LE edema . She reports a long ho of intermittant leg edema and pain Pt trialed PT for back pain , seen 3x and cx due to worsening pain Significant Medical History: Right knee fx , plate and screws, pins, partial knee replacement, Varicose veins, left ankle pain old injury, SVT, heart ablation, C section, gallbladder surgery, obesity , OA, fibromyalgia, asthma, depression, anxiety Medications Acetaminophen (Tylenol) 650 mg (2 x 325 mg) PO Q6H PRN albuterol sulfate 90 mcg/actuation 1 inh inhalation QID PRN albuterol sulfate 0.63 mg (3 mL) inhalation QID PRN albuterol sulfate 90 mcg/actuation 2 puffs inhalation QID PRN amoxicillin-pot clavulanate 875-125 mg (Augmentin) 1 tab PO BID 10 days bisacodyl (Dulcolax (bisacodyl)) 20 mg (4 x 5 mg) PO ONCE 1 day blood pressure monitor (Blood Pressure Kit) As directed buspirone 15 mg PO BID 30 days codeine-guaifenesin 10-100 mg/5 mL (Guaifenesin AC) 5 mL PO Q6H PRN cyclobenzaprine 10 mg PO BID 5 days duloxetine 120 mg PO DAILY fluticasone propion-salmeterol 250-50 mcg/dose (Advair Diskus) 1 ea inhalation BID lansoprazole 30 mg PO BID linaclotide 290 mcg (2 x 145 mcg) PO DAILY Magic Mouthwash Diphen/Lido/Antacid 1:1:1 10 mL PO QID nebulizers (AeroEclipse II Nebulizer) As directed polyethylene glycol 3350 (Miralax) 238 grams PO ONCE prednisone 40 mg (2 x 20 mg) PO DAILY 5 days ropinirole 0.5 mg PO BEDTIME 30 days sumatriptan succinate take 1 tab at onset of headache; if no relief may repeat 1 tab after at least 2 hrs; max = 4 tabs/24 hr PO 30 days trazodone 100 mg (2 x 50 mg) PO BEDTIME [ End ] Precautions/Contraindications: Patient Goals: Less pain and swelling Hand Dominance: Right Observations: QuickDASH Score: Prior Level of Function and Occupation Self Care, Employment, Leisure: On disability due to multiple medical issues 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 left ankle Aggravating Factors: Prolonged standing 15 min, coming out of static postures ie sit to stand, walking distances Alleviating Factors: Skin and Soft Tissue Assessment Skin and Soft Tissue: Hair Growth Swelling Comments: See edema form Nerve assessment Ulnar Nerve: Not Tested Median Nerve: Not Tested Radial Nerve: Not Tested Comments: Sensory Assessment Temperature: Light Touch: WNL Proprioception: Vibration: Comments: Edema Assessment Upper Extremity: Lower Extremity: Right Impaired Left Impaired Comments: See edema form Dexterity Assessment Dexterity: WNL Comments: Special Tests Comments: AROM(PROM) Strength Cervical Cervical Flexion: Cervical Extension: Cervical Lateral Flexion: Cervical Rotation: Comments: Shoulder Flexion: Extension: Abduction: Internal Rotation: External Rotation: Comments: WNL Flexion: Extension: Abduction: Internal Rotation: External Rotation: Comments: WNL Elbow Flexion: Extension: Pronation: Supination: Comments: WNL Flexion: Extension: Pronation: Supination: Comments: Wrist Flexion: Extension: Ulnar Deviation: Radial Deviation: Comments: WNL Flexion: Extension: Ulnar Deviation: Radial Deviation: Comments: Thumb Thumb CMC Flexion: Thumb MCP Flexion: Thumb IP Flexion: Radial Abduction: Palmar Abduction: Enloe (Kapandji 0-10): Comments: WNL Digits Index MCP: PIP: DIP: Long MCP: PIP: DIP: Ring MCP: PIP: DIP: Small MCP: PIP: DIP: Comments: Gross Grasp: Lateral Pinch: Two-Point Pinch: Three-Jaw Andrés: Comments: WNL Patient Education Primary Language: [place] Chemical Detection Expert Required: No Current Knowledge: Minimal, needs reinforcement Teaching Method: Verbal Education Needs Identified on Evaluation: ADL's Disease Information Exercise How did patient/family demonstrate learning? Patient verbalizes Barriers to Learning: Other Readiness for Learning: Accepting Who was educated? Patient Comments: Pt agreeable to lymphedema treatment. HO having depression and anxiety Plan of Care Assessment: Pt is a 46 yo female with a complicated medical hx including multiple surgeries , varicose veins and obesity ,now with worsening bilateral lower extremity edema and pain. She has an Rx for compression knee highs she has now agreed to have filled. Pt has had two appointments with wt management that were cancelled by the clinic per pt report. Today she presents with LLE edema > RLE as well as abdominal pannus greater on the left than right side. She has limited knowledge of lymphedema and lymphedema percautions She has limited knowledge of self management and she has no HEP Pt will benefit from Lymphedema treatment to improve lower body edema , to prevent worsening of edema and lymphedema complications such as cellulitis. She is agreeable to beginning treatment at this time STG Duration: 3 wks Short Term Goals: Pt will understand lymphedema precautions to decrease the risk of infection and exacerbation for the lymphedema Pt will tolerated wearing multi layer bandaging between treatment sessions to facilitate limb decongestion. Pt will perform HEP with minimal assistance to help improve lymphatic flow and venous return Pt will perform a self MLD protocol with minimal assistance to help reduce swelling and thus improve mobility LTG Duration: 6 wks Devil Dog Goals: Pt will be independent with shor stretch compression bandaging for continued volume reduction and prevention fo re accumulation of edema fluid. Pt will be indep in donning and doffing of compression garments with will enable regular daily garment wear Pt will be indep with nighttime compression applications in order to prevent the re accumulation of edema fluid Pt will achieve maximum lymphedema reduction to enable fitting into OTS compression garments Pt will be indep with HEP snf lymphedema management to help prevent edema relapse and reduce risk of infection Frequency and Duration: The patient will be seen 4x wk x 6 wks . Treatment Plan: Therapeutic Exercise Therapeutic Activity Home Exercise Program Patient Education Edema Control MLD Short stretch compression bandaging Assist in selecting compression garments. Wear and care.. Electronically Signed By: Vandana Trejo OT CHT CLT Reviewed/agree with student documentation: N/A Therapist: Please sign and return to therapist, Thank you for your referral.
--- NOTE | 2021-07-20 11:56 | MHC.OT.DC ---
[address] [phone] F: [phone] Occupational Therapy Discharge Note Provider: Jeremy Sanches PA-C Diagnosis: Lymphedema Date of Surgery: Date of Evaluation: 06/28/21 Date of Discharge: 07/20/21 Treatments to Date: 2 Cancellations to Date: 0 No Shows to Date: 0 Discharge Status: Patient Elected to Stop Discharge Summary: Pt with bilateral lower extremity lymphedema and a complicated medical history was evaluated and returned 1x to begin treatment. The recommended 3 layer compression wrap with scott foam for the LLE, Pt declined due to the size of wrap She was agreeable to a modified 2 layer wrap A modified 2 layer wrap with one layer Artiflex for padding and 2 layer short stretch bandaging foot to upper thigh was applied with pt ed on ea step of the technique. Began pt ed on self management including skin care. Pt left a message that the bandaging fell apart the same day and she was cancelling all appointments and waiting to get compression knee highs I was unable to reach the pt by phone or leave a message MD office was notified. Electronically Signed By: Vandana Trejo OT CHT CLT Reviewed/agree with student documentation: N/A Therapist: Please Sign and return to therapist, thank you for your referral.
== END 2021-07-20 11:57 | disposition home or self-care (01) ==
LOC: HO.OT 13:00
PROVIDERS: PCP Physician Assistant; Visit Provider Physician Assistant
DX: I89.0 Lymphedema, not elsewhere classified (principal)
CPT/HCPCS: 97140; 97167

== ENCOUNTER → 2021-07-11 08:36 | Outpatient (BNVA) | payer OTHER, SELFPAY | PROVIDERS: PCP Physician Assistant; Visit Provider Physician Assistant Surgical | DX: E66.01 Morbid (severe) obesity due to excess calories (principal) | CPT/HCPCS: Q3014 ==

== ENCOUNTER 2021-07-18 16:23 | Emergency (ER) | payer OTHER, SELFPAY ==
--- NOTE | ~2021-07-18 | CT_ITS ---
EXAMINATION: CT HEAD WITHOUT CONTRAST CLINICAL INFORMATION: Headache worse than normal. History of pituitary tumor removed 5 years ago. COMPARISON: 03/02/2021 TECHNIQUE: Contiguous axial imaging was performed from the skull base to vertex without intravenous administration of contrast. This CT examination was performed using dose optimization techniques as appropriate, variously including the following: *Automated exposure control *Adjustment of mA and/or kV according to patient size (this includes techniques or standardized protocols for targeted exams where dose is matched to indication/reason for exam; i.e. extremities or head) *Use of iterative reconstruction technique DLP: 783 mGy-cm FINDINGS: There is no evidence of acute intracranial hemorrhage or territorial infarction. No abnormal mass effect or midline shift is seen. Rubio to white matter differentiation is well preserved. No extra-axial fluid collections are identified. The ventricles are normal in size. There is no abnormal attenuation within the brain parenchyma. Liver is slight asymmetry of the pituitary tissue to the left which may correlate with the reported history of pituitary tumor. No acute findings are identified in this region. Basilar cisterns are patent. The osseous structures and soft tissues are normal. The mastoid air cells and visualized portions of the paranasal sinuses are well aerated. CT/CT head/brain wo con IMPRESSION: No acute intracranial pathology.
[2021-07-18 20:00] VITALS: BP 111/67; PULSE 97; RESP 16; TEMP 36.8; O2SAT 100; BMI 51.2
[2021-07-18 22:09] LABS: MANUAL DIFF FLAG NO
[2021-07-18 22:13] LABS: Basophils Percent Auto 0.4 % (0-2); Eosinophils Absolute Auto 0.1 X10*3/uL (0.0-0.4); Eosinophils Percent Auto 0.9 % (0-4); Hematocrit 40.1 % (37.0-47.0); Hemoglobin 13.3 g/dl (12.0-16.0); Imm Gran Abs Auto 0.04 X10*3/uL (0.00-0.03); Imm Gran Pct Auto 0.4 % (0.0-0.4); Lymphocytes Absolute Auto 2.7 X10*3/uL (1.2-4.9); Mean Corpuscular HGB Conc 33.2 g/dl (31.0-35.0); Mean Corpuscular Volume 87.4 fL (80.0-98.0); Mean Platelet Volume 10.2 fL (9.4-12.3); Monocytes Percent Auto 8.7 % (2-11); Neutrophils Absolute Auto 7.3 x10*3/uL (2.0-8.3); Neutrophils Percent Auto 65.6 % (45-73); Platelet Count 340 X10*3/uL (160-400); Red Blood Count 4.59 X10*6/uL (4.20-5.50); Red Cell Distribution Width 12.8 % (11.0-16.0); White Blood Count 11.1 X10*3/uL (4.8-10.8)
[2021-07-18 22:30] LABS: Alanine Aminotransferase 33 U/L (0-31); Albumin Level 4.3 g/dL (3.5-5.0); Alkaline Phosphatase 66 U/L (39-117); Anion Gap 14 (12-20); Aspartate Amino Transferase 22 U/L (5-31); Bilirubin Direct 0.2 mg/dL (0.0-0.5); Bilirubin Total 0.4 mg/dL (0.0-1.0); Blood Urea Nitrogen 16 mg/dL (9-16); Calcium 9.6 mg/dL (8.4-10.2); Carbon Dioxide 26 mmol/L (22-29); Chloride 101 mmol/L (96-108); Estimated Glomerular Filt Rate > 60; Glucose Random 120 mg/dL (60-115); Lipase 52 U/L (8-78); Potassium 4.1 mmol/L (3.3-5.1); Sodium 137 mmol/L (135-145); Total Protein 7.5 g/dL (6.5-8.0)
[2021-07-18 22:50] VITALS: BP 117/86; PULSE 105; RESP 18; TEMP 36.6; O2SAT 96
[2021-07-19 00:03] LABS: HCG Quantitative < 2 mIU/mL
[2021-07-19] MEDS: Butalb/Acetamin/Caff 50/325/40 TABLET 2 TAB PO (00:10)
--- NOTE | 2021-07-19 00:22 | ED.HA ---
HPI - Headache General Chief Complaint: Headache Stated Complaint: headaches Time Seen by Provider: 07/18/21 23:33 Source: patient Mode of arrival: ambulatory Limitations: no limitations History of Present Illness HPI Narrative: 46-year-old female with a past medical history of fibromyalgia, depression, anxiety, asthma migraine headaches presenting to the ED with complaints of a headache that she reports as pressure and sensation on the frontal aspect of her head and the occipital aspect of her head that has been present for the past week worse today despite taking multiple sjtg-heb-rsgvrtf medications. She reports associated blurry vision and nausea which is similar to her prior migraine headaches. She reports that she called her PCP and they advised her to come here for further evaluation treatment and a CT scan of her brain due to apparently she had pituitary tumor that was removed and she is concerned about this. She does not remember when this headache started when she was exactly doing. Although she denies any recent CO2 exposure, tick bites, recent spinal/epidural procedure, new medication, recent illness, occurring during intercourse, close contacts with similar symptoms, neck pain / stiffness, fevers, chills, ear pain or ringing, rashes, or curved while exertion/ activity, occurred while eating, recent travel, sick contacts, or any other symptoms complaints or concerns at this time. MD elicited complaint: headache Pertinent past history: migraines Onset (ago): week(s) (1) Onset description: gradually Location: frontal and occipital Severity: severe Pain scale (0-10): 10 Quality & Timing: constant, pressure and progressively worsening Exacerbating factors: noise Relieving factors: nothing Associated symptoms: nausea Treatments prior to arrival: acetaminophen, ibuprofen, migraine medication and other Related Data Previous Rx's Medication Instructions Recorded acetaminophen 325 mg tablet 650 mg PO Q6H PRN #10 tab 02/25/20 (Tylenol) blood pressure monitor (Blood #1 ea 10/27/20 Pressure Kit) cyclobenzaprine 10 mg tablet 10 mg PO BID 5 Days #10 tab 12/29/20 bisacodyl 5 mg tablet,delayed 20 mg PO ONCE 1 Days #4 tab 01/25/21 release (Dulcolax (bisacodyl)) polyethylene glycol 3350 17 238 g PO ONCE #238 g 01/25/21 gram/dose oral powder (Miralax) albuterol sulfate 90 mcg/actuation 2 puff INHALATION QID PRN #8.5 g 04/04/21 aerosol inhaler Magic Mouthwash 10 ml PO QID #240 ml 04/19/21 Diphen/Lido/Antacid 1:1:1 240 mL suspension lansoprazole 30 mg capsule,delayed 30 mg PO BID #60 cap 04/20/21 release trazodone 50 mg tablet 100 mg PO BEDTIME #180 tab 04/28/21 linaclotide 145 mcg capsule 290 mcg PO DAILY #60 cap 05/05/21 albuterol sulfate 0.63 mg/3 mL 0.63 mg (3 mL) INHALATION QID PRN 05/07/21 solution for nebulization #75 ml nebulizers (AeroEclipse II #1 ea 05/07/21 Nebulizer) prednisone 20 mg tablet 40 mg PO DAILY 5 Days #10 tab 05/07/21 comp.stocking,thigh,long,x-lrg #2 ea 05/10/21 sumatriptan succinate 25 mg tablet See Rx Instructions PO .COMPLEX 30 05/14/21 Days #10 tab buspirone 15 mg tablet 15 mg PO BID #180 tab 05/16/21 ropinirole 0.5 mg tablet 0.5 mg PO BEDTIME 30 Days #30 tab 05/19/21 duloxetine 60 mg capsule,delayed 120 mg PO DAILY 90 Days #180 cap 05/30/21 release albuterol sulfate 90 mcg/actuation 1 inh INHALATION QID PRN #8.5 g 06/08/21 aerosol inhaler fluticasone 250 mcg-salmeterol 50 1 ea INHALATION BID 30 Days #60 ea 06/08/21 mcg/dose blistr powdr for inhalation (Advair Diskus) duloxetine 30 mg capsule,delayed 30 mg PO DAILY 14 Days #14 cap 06/23/21 release (Cymbalta) compr.stocking,knee,long,large #2 ea 06/28/21 furosemide 20 mg tablet 20 mg PO QAM 30 Days #30 tab 07/09/21 pregabalin 75 mg capsule 75 mg PO BID 30 Days #60 cap 07/13/21 dfodjlfheh-sjmbesbilvada-dpnjitbs 1 cap PO Q8H PRN #14 cap 07/19/21 50 mg-300 mg-40 mg capsule (Fioricet) metoclopramide HCl 10 mg tablet 10 mg PO Q6H PRN #14 tab 07/19/21 (Reglan) Allergies Allergy/AdvReac Type Severity Reaction Status Date / Time ibuprofen [From Motrin] Allergy Severe HIVES,SWELL Verified 07/18/21 22:54 ING meperidine [Demerol] Allergy Unknown Vomiting Verified 07/18/21 22:54 morphine [MORPHINE] Allergy Unknown CHEST PAIN Verified 07/18/21 22:54 hydroxyzine AdvReac Mild mouth Verified 07/18/21 22:54 numbess SHELLFISH Allergy Unknown HIVES/ITCHI Uncoded 06/10/21 14:51 NG Review of Systems Review of Systems: Constitutional : No changes in activity, No lethargy, No recent prior head injury, No agitation, No increased fussiness ENT/Mouth : No Ear Pain, No Nasal discharge/drainage Eyes: No Eye Pain, No Swelling, No Redness, No Foreign Body, No Vision Changes Cardiovascular : No Chest Pain, No SOB Respiratory : No Cough Gastrointestinal : + Nausea, No Vomiting, No abdominal Pain Genitourinary : No Dysuria, No Urinary Frequency, No Urinary Incontinence, No Urgency, No Flank Pain Musculoskeletal : No joint pain, No neck stiffness, No back pain/injury Skin : No lacerations Neuro : No unsteady gait, No Paresthesias, No Loss of Consciousness, No altered mental status, No dizziness, + Headache Denies past medical history of HIV, recent trauma, coagulopathy, recent spinal/ epidural procedure, new medication, URI symptoms, close contacts with similar symptoms, tick bite, or known CO2 exposure. Yes all other systems are reviewed and are negative PMFSH Past Medical History Attestation statement: The following information was validated with the patient. 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) Depression Fibromyalgia GERD (gastroesophageal reflux disease) Headache Hx of supraventricular tachycardia Hx-TIA (transient ischemic attack) Obesity Screening for diabetes mellitus (DM) Screening for hypercholesterolemia Screening for hypothyroidism Surgical History History of History of cholecystectomy History of endoscopy History of knee surgery History of partial knee replacement Hx of tubal ligation Family History Family History Mother High cholesterol Father Lupus Diabetes Thyroid disease FH: prostate cancer Brother Asthma Anxiety Depression Daughter Depression Anxiety Childhood autism Maternal Grandmother Glaucoma Other Mental problem Substance abuse Social History Social History Housing: House Alcohol intake: never Patient Tobacco Use Status: Never used Tobacco e-Cigarette/Vaping Use: Never Used Second Hand Smoke Exposure: Yes Advance Directives: No Advance Directives Information Provided: Yes Patient : No service: No Current occupational status: employed and disabled 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 Physical Exam Vital Signs: Vital Signs: Last Vital Signs Temp 97.9 F 07/18/21 22:50 Pulse 105 H 07/18/21 22:50 Resp 18 07/18/21 22:50 BP 117/86 07/18/21 22:50 Pulse Ox 96 07/18/21 22:50 BMI result Body Mass Index 51.2 Vital signs have been reviewed as normal and appeared to be correct. Blood pressure normal. Heart rate normal. Respiration rate normal. Temperature normal. Oxygen saturation normal. Appearance: Alert. Oriented X3. No acute distress. Head: Normal external exam. Normocephalic. Atraumatic. Able to rotate head bilaterally. No temporal artery Tenderness noted. Eyes: PERRLA. EOMI. No nystagmus noted. Conjunctiva and sclera normal. Eyelids normal. Corneal reflex normal. ENT: EAC normal. TM's Normal. Hearing normal. Pharynx normal. Uvula midline. tongue midline. Moist mucous membranes. No trismus noted. No drooling noted. No muffled voice noted. Neck: Normal inspection. Neck supple. FROM. No adenopathy. Thyroid Normal. No meningeal signs. No neck mass noted. Nontender. CVS: Normal heart rate and rhythm. Heart sound normal. No murmurs noted. Pulses normal throughout. Respiratory: No respiratory distress. Painless inspiration. Breath sounds normal. No wheezes/rales/rhonchi noted. Chest nontender. No accessory muscle usage noted or decreased air movement noted. Back: Full range of motion noted. Skin: Skin warm and dry. Normal skin color. Normal skin turgor. No rashes/lesions/lacerations noted. Extremities: Extremities exhibit normal range of motion. Extremities nontender. Able to shrug shoulders bilaterally and keep up against resistance. Neuro: Oriented X 3. No motor deficit. No sensory deficit. Reflexes normal. Moving all extremities. No focal motor deficits. Cranial nerves II-XI intact bilaterally. Facial strength normal. Normal cognition. Speech normal. Gait normal. Strength 5/5 throughout. No pronator drift. No tremor noted. No fasciculations noted. Muscle tone normal throughout. No asterixis noted. Kemrjl-mv-jfzk test normal. Heel to berumen test normal. Tandem gait normal. Does not sway with eyes open. Romberg test negative. Rapid alternating movement upper extremity normal. Rapid alternating movement lower extremity normal. Hand drop from overhead-Mrs. face. No rigidity noted. NIHSS score 0. Course Course Course Narrative: - Patient afebrile, resting comfortably in no distress. Non-toxic appearing. Patient denies any recent trauma/injury to head. Neurological exam shows no deficits. BP WNL. Denies any changes in vision. Patient ambulates without difficulty. Given the history, and physical - most likely diagnosis: Migraine SANDOVAL. Although due to patient reporting that this is longer than her usual headaches will obtain CT scan of brain to evaluate for any acute processes. Will treat pain, and nausea. Will d/c with migraine medicaiton and advised to follow - up with PCP. Patient demonstrated good understanding of signs and symptoms to return to ED for further testing should sx worsen. gradual onset SANDOVAL with photo/phonophobia, nausea. Pt states classic of previous migraine HAs. SAH: unlikely given gradual onset and similar to previous episodes Intracranial bleed: unlikely given neg trauma, neg anticoagulation Meningitis: unlikely given pt afebrile, neg stiff neck, no immune compromise. Exam without signs of meningismus Temporal arteritis: Unlikely given Neg jaw claudication, no temporal tenderness or nodularity on exam. Cerebral venous thrombosis: unlikely given no h/o hypercoaguable state, no chronic head/neck infection. Reevaluation(s) Reevaluation #1: - Patient 1 elevated white blood cell count at 11,000. Random glucose 120. ALT 33. Otherwise all other labs are within normal limits. CT scan of brain negative for any acute processes. I provided 2 Fioricet p.o. and patient reports that the migraine headache is now almost resolved. Therefore will DC home with a short course of fevers as instructions to follow up with primary care provider and to return if any new or worsening symptoms. Time: 00:31 [facility] - Headache Medical Records Attestation: I reviewed the patient's medical records. Lab Data Attestation: I reviewed the patient's lab results. Result diagrams: 07/18/21 22:04 07/18/21 22:04 Labs: Lab Results 07/18/21 07/18/21 Range/Units 22:04 22:04 WBC 11.1 H (4.8-10.8) X10*3/uL RBC 4.59 (4.20-5.50) X10*6/uL Hgb 13.3 (12.0-16.0) g/dl Hct 40.1 (37.0-47.0) % MCV 87.4 (80.0-98.0) fL MCH 29.0 (27.0-33.0) pg MCHC 33.2 (31.0-35.0) g/dl RDW 12.8 (11.0-16.0) % Plt Count 340 (160-400) X10*3/uL MPV 10.2 (9.4-12.3) fL Immature Gran % (Auto) 0.4 (0.0-0.4) % Neut % (Auto) 65.6 (45-73) % Lymph % (Auto) 24.0 (20-40) % Brewster % (Auto) 8.7 (2-11) % Eos % (Auto) 0.9 (0-4) % Baso % (Auto) 0.4 (0-2) % Lymph # (Auto) 2.7 (1.2-4.9) X10*3/uL Brewster # (Auto) 1.0 (0.1-1.2) X10*3/uL Eos # (Auto) 0.1 (0.0-0.4) X10*3/uL Baso # (Auto) 0.0 (0.0-0.2) X10*3/uL Abs Immat Gran (auto) 0.04 H (0.00-0.03) X10*3/uL Absolute Neuts (auto) 7.3 (2.0-8.3) x10*3/uL Absolute Nucleated RBC 0.000 (0.0-0.012) X10*3/uL Nucleated RBC % (auto) 0.0 (0.0-0.2) /100WBC Sodium 137 (135-145) mmol/L Potassium 4.1 (3.3-5.1) mmol/L Chloride 101 (96-108) mmol/L Carbon Dioxide 26 (22-29) mmol/L Anion Gap 14 (12-20) BUN 16 (9-16) mg/dL Creatinine 0.69 (0.5-1.4) mg/dL Estim Creat Clear Calc 140.0 Estimated GFR > 60 Random Glucose 120 H (60-115) mg/dL Calcium 9.6 (8.4-10.2) mg/dL Total Bilirubin 0.4 (0.0-1.0) mg/dL Direct Bilirubin 0.2 (0.0-0.5) mg/dL AST 22 (5-31) U/L ALT 33 H (0-31) U/L Alkaline Phosphatase 66 (39-117) U/L Total Protein 7.5 (6.5-8.0) g/dL Albumin 4.3 (3.5-5.0) g/dL Lipase 52 (8-78) U/L Beta HCG, Quant < 2 mIU/mL Imaging Data CT scan of brain without contrast: Attestation: I personally reviewed and interpreted this imaging study as follows: Radiologist's impression: FINDINGS: There is no evidence of acute intracranial hemorrhage or territorial infarction. No abnormal mass effect or midline shift is seen. Rubio to white matter differentiation is well preserved. No extra-axial fluid collections are identified. The ventricles are normal in size. There is no abnormal attenuation within the brain parenchyma. Liver is slight asymmetry of the pituitary tissue to the left which may correlate with the reported history of pituitary tumor. No acute findings are identified in this region. Basilar cisterns are patent. The osseous structures and soft tissues are normal. The mastoid air cells and visualized portions of the paranasal sinuses are well aerated. ? CT/CT head/brain wo con IMPRESSION: No acute intracranial pathology. Discharge Plan Discharge Clinical Impression: Headache, migraine Patient Disposition: Home, Self-Care Instructions: Migraine Headache (ED) Prescriptions: New rktpdzegpb-ohqlffxzxtdza-rqxe [Fioricet] 50-300-40 mg capsule 1 cap PO Q8H PRN (Reason: pain) Qty: 14 0RF metoclopramide HCl [Reglan] 10 mg tablet 10 mg PO Q6H PRN (Reason: nausea and vomiting) Qty: 14 0RF No Action (DME) blood pressure monitor [Blood Pressure Kit] Kit See Rx Instructions .ROUTE .MEDSUPPLY Qty: 1 0RF Rx Instructions: As directed albuterol sulfate 90 mcg/actuation HFA aerosol inhaler 2 puff inhalation QID PRN (Reason: shortness of breath or wheezing) Qty: 8.5 3RF Magic Mouthwash Diphen/Lido/Antacid 1:1:1 240 mL suspension 10 ml PO QID Qty: 240 0RF Rx Instructions: Lidocaine Viscous 2 % 80mL; diphenhydramine 12.5 mg/5 mL 80mL; aluminum-mag hydrox-simeth [id number]/5mL 80mL lansoprazole 30 mg capsule,delayed release(DR/EC) 30 mg PO BID Qty: 60 3RF trazodone 50 mg tablet 100 mg PO BEDTIME Qty: 180 1RF linaclotide 145 mcg capsule 290 mcg PO DAILY Qty: 60 1RF sumatriptan succinate 25 mg tablet See Rx Instructions PO .COMPLEX 30 Days Qty: 10 2RF Rx Instructions: take 1 tab at onset of headache; if no relief may repeat 1 tab after at least 2 hrs; max = 4 tabs/24 hr PO buspirone 15 mg tablet 15 mg PO BID Qty: 180 1RF ropinirole 0.5 mg tablet 0.5 mg PO BEDTIME 30 Days Qty: 30 3RF Rx Instructions: administer 1-3 hours before bedtime duloxetine 60 mg capsule,delayed release(DR/EC) 120 mg PO DAILY 90 Days Qty: 180 1RF albuterol sulfate 90 mcg/actuation HFA aerosol inhaler 1 inh inhalation QID PRN (Reason: shortness of breath or wheezing) Qty: 8.5 3RF fluticasone propion-salmeterol [Advair Diskus] 250-50 mcg/dose blister with device 1 ea inhalation BID 30 Days Qty: 60 3RF duloxetine [Cymbalta] 30 mg capsule,delayed release(DR/EC) 30 mg PO DAILY 14 Days Qty: 14 0RF Rx Instructions: Weaning dose to 30 mg (DME) compr.stocking,knee,long,large Misc See Rx Instructions .Route Qty: 2 0RF Rx Instructions: As directed furosemide 20 mg tablet 20 mg PO QAM 30 Days Qty: 30 2RF pregabalin 75 mg capsule 75 mg PO BID 30 Days Qty: 60 0RF acetaminophen [Tylenol] 325 mg tablet 650 mg PO Q6H PRN (Reason: fever or pain) Qty: 10 0RF albuterol sulfate 0.63 mg/3 mL solution for nebulization 0.63 mg inhalation QID PRN (Reason: shortness of breath or wheezing) Qty: 75 0RF (DME) AeroEclipse II Nebulizer Misc See Rx Instructions .ROUTE .MEDSUPPLY Qty: 1 0RF Rx Instructions: As directed prednisone 20 mg tablet 40 mg PO DAILY 5 Days Qty: 10 0RF cyclobenzaprine 10 mg tablet 10 mg PO BID 5 Days Qty: 10 0RF (DME) comp.stocking,thigh,long,x-lrg Misc See Rx Instructions .Route Qty: 2 0RF Rx Instructions: As directed polyethylene glycol 3350 [Miralax] 17 gram/dose powder 238 g PO ONCE Qty: 238 0RF Rx Instructions: mix the full container with 64 ounces of gatorade for colonoscopy prep the evening before the test and drink bisacodyl [Dulcolax (bisacodyl)] 5 mg tablet,delayed release (DR/EC) 20 mg PO ONCE 1 Days Qty: 4 0RF Rx Instructions: take at 6 pm day before colonoscopy Referrals: Jeremy Sanches PA-C [Primary Care Provider] - 2 days Stand Alone Forms: Work/School Release Print Language: Spanish
--- NOTE | 2021-07-19 00:24 | PC.NURSE ---
mistakenly took out one fioricet from [facility] in ed when should have taken out 2. provider put in second order but miscounted. discrepancy fixed with winnie gao. only total of 2 taken and given to patient.
== END 2021-07-19 01:05 | disposition home or self-care (01) ==
PROVIDERS: Physician Assistant Medical; Emergency Provider Internal Medicine; PCP Physician Assistant
DX: G43.909 Migraine, unspecified, not intractable, without status migrainosus (principal); I10 Essential (primary) hypertension
CPT/HCPCS: 36415; 70450; 80048; 80076; 83690; 84702; 85025; 99284

== ENCOUNTER → 2021-07-20 07:53 | Outpatient (REF) | payer OTHER, SELFPAY ==
--- NOTE | ~2021-07-20 | NM_ITS ---
EXAMINATION: RADIONUCLIDE SOLID FOOD GASTRIC EMPTYING 4-HOUR STUDY CLINICAL INFORMATION: Epigastric pain. COMPARISON: No previous gastric emptying study is available for comparison. TECHNIQUE: A standard meal consisting of 4 oz of Egg Beaters brand tagged with 1 mCi Tc-99m Sulfur Colloid, 8 oz water and 2 slices of toast with jelly was administered orally to the patient. Images were obtained using a dual head gamma camera in the anterior and posterior projections over of the stomach immediately post ingestion and at hourly intervals up to 3 hours post ingestion. Images were not obtained at 4 hours due to the minimal retention at 3 hours. The anterior and posterior counts at each time interval were averaged using the geometric mean and expressed as percentage of the immediate post ingestion counts. FINDINGS: There is good visualization of activity in the stomach immediately post ingestion. As the study progresses, there is good clearance of activity from the stomach and visualization of progressively increasing small bowel activity. By the end of the study, there is almost no retention noted in the stomach. Retention in the stomach at each time interval was: 1 hour 45% (normal 37%-90%) 2 hours 14% (normal 30%-60%) 3 hours 3% 4 hours (Not Obtained) (normal 0%-10%) NM/NM gastric emptying study IMPRESSION: Normal solid food gastric emptying study.
== END ==
LOC: HO.NUCMED 07:53
PROVIDERS: PCP Physician Assistant; Visit Provider Internal Medicine Gastroenterology
DX: R10.13 Epigastric pain (principal)
CPT/HCPCS: 78264; A9541

== ENCOUNTER → 2021-09-16 09:38 | Outpatient (BNVA) | payer OTHER, SELFPAY | PROVIDERS: PCP Physician Assistant; Visit Provider Dietitian, Registered | DX: E66.01 Morbid (severe) obesity due to excess calories (principal); Z68.43 Body mass index [BMI] 50.0-59.9, adult | CPT/HCPCS: 97802 ==

== ENCOUNTER 2021-10-12 12:48 | Outpatient (REF) | payer MEDICARE, MEDICAID, SELFPAY ==
--- NOTE | ~2021-10-12 | US_ITS ---
EXAMINATION: US LOWER EXTREMITY VENOUS (REFLUX EXAM), BILATERAL CLINICAL INDICATION: This is a 46-year-old female with venous insufficiency and varicose veins. COMPARISON: None. TECHNIQUE: Color flow triplex imaging and compression Doppler was performed to evaluate both the deep and the superficial systems bilaterally. To evaluate the superficial system, the examination was performed in the upright position. Color-flow Doppler ultrasound and compression ultrasound were utilized. In addition, maneuvers were utilized to demonstrate reflux. FINDINGS: 1. DEEP VENOUS ULTRASOUND OF THE RIGHT LOWER EXTREMITY: Common Femoral Vein: Compressible, normal respiratory variation and augmented flow. Femoral vein: Compressible, normal color flow and augmentation. Popliteal Vein: Compressible, normal augmentation. Deep Reflux: There is no evidence of reflux in the deep system in either the common femoral vein or the popliteal vein. There is no evidence of a Champion's cyst. 2. SUPERFICIAL ULTRASOUND WITH DOPPLER OF RIGHT LOWER EXTREMITY: GREAT SAPHENOUS VEIN: Saphenofemoral Junction: 0.8 cm. There is no reflux. Mid Thigh: 0.5 cm. The reflux time is 1140 ms. Above Knee: 0.5 cm. The reflux time is 1860 ms. Below Knee: 0.5 cm. The reflux time is 1002 and 36 ms. Mid Calf: 0.4 cm. The reflux time is 1332 ms. Ankle: 0.2 cm. There is no reflux. GSV REFLUX: There is no reflux at the saphenofemoral junction or proximal thigh. There is isolated reflux from the mid thigh down. DUPLICATED GREAT SAPHENOUS VEIN: There is a 0.3 cm duplicated right lateral great saphenous vein without reflux to SMALL SAPHENOUS VEIN: Proximal: 0.4 cm Distal: 0.3 cm SSV REFLUX: No evidence of reflux. VEIN OF GIACOMINI: None Imaged. PERFORATORS: None Imaged VARICOSITIES: There are 0.3 cm, 0.5 cm, 0.4 cm, 1.0 cm respectively, varicose veins in the mid thigh, distal thigh, at knee, proximal calf. There is greater than 500 ms of reflux throughout the varicose veins 3. DEEP VENOUS ULTRASOUND OF THE LEFT LOWER EXTREMITY: Common Femoral Vein: Compressible, normal color flow and augmentation. Femoral Vein: Compressible, normal color flow and augmentation. Popliteal Vein: Compressible, normal augmentation. Deep Reflux: There is no evidence of reflux in the deep system in either the common femoral vein or the popliteal vein. There is no evidence of a Champion's cyst. 4. SUPERFICIAL ULTRASOUND WITH DOPPLER OF LEFT LOWER EXTREMITY: GREAT SAPHENOUS VEIN: Saphenofemoral Junction: 1.0 cm. There is no reflux. Mid Thigh: 0.5 cm. There is no reflux. However, there is reflux in the proximal thigh of greater than 3 seconds. Above Knee: 0.4 cm. There is no reflux. Below Knee: 0.3 cm. The reflux time is 720 ms Mid Calf: 0.3 cm. The reflux time is 2660 ms. Ankle: 0.4 cm. The reflux time is 1260 ms. GSV REFLUX: There is no reflux at the saphenofemoral junction. However, there is reflux in the proximal thigh. There are isolated distal reflux segments at the knee and below. DUPLICATED GREAT SAPHENOUS VEIN: There is a 0.6 cm duplicated medial great saphenous vein without reflux. SMALL SAPHENOUS VEIN: Proximal: 0.4 cm Distal: 4.4 cm SSV REFLUX: No evidence of reflux. VEIN OF GIACOMINI: None Imaged. PERFORATORS: None Imaged VARICOSITIES: There is a 0.5 cm mid calf varicose vein with grade 3 seconds of reflux. There is a 0.6 cm proximal thigh varicose vein with greater than 3 seconds of reflux. There is a 0.4 cm proximal calf varicose vein with greater than one second of reflux. US/US venous duplex LE BI IMPRESSION: 1. There is a patent right great saphenous vein without reflux at the saphenofemoral junction or proximal thigh. There are isolated segment below this area. 2. There is a patent right small saphenous vein without reflux. 3. There are varicose veins with reflux in the right lower extremity as described. 4. There is a patent left great saphenous vein without reflux at the junction. However, there is reflux in the proximal thigh and again at the knee and below. 5. There is a patent left small saphenous vein without reflux. 6. There are varicose veins in the left leg with reflux as described.
== END 2021-10-12 12:49 | disposition home or self-care (01) ==
LOC: HO.US 12:48
PROVIDERS: PCP Physician Assistant; Visit Provider Physician Assistant
DX: R60.0 Localized edema (principal)
CPT/HCPCS: 93970

== ENCOUNTER → 2022-03-17 11:36 | Outpatient (BNVA) | payer MEDICARE, MEDICAID, SELFPAY | PROVIDERS: PCP Physician Assistant; Referring Provider Physician Assistant; Visit Provider Student in an Organized Health Care Education/Training Program | DX: M79.7 Fibromyalgia (principal) | CPT/HCPCS: 99202 ==

== ENCOUNTER 2022-04-03 20:43 | Emergency (ER) | payer MEDICARE, MEDICAID, SELFPAY ==
--- NOTE | 2022-04-03 | ECG_ITS ---
Test Reason : CHEST PAIN Blood Pressure : / mmHG Vent. Rate : 071 BPM Atrial Rate : 071 BPM P-R Int : 168 ms QRS Dur : 080 ms QT Int : 394 ms P-R-T Axes : 016 027 052 degrees QTc Int : 428 ms Normal sinus rhythm Septal infarct , age undetermined Abnormal ECG When compared with ECG of 11-MAY-2021 13:38, No significant change was found Referred By: Generic ED Physician Electronically Signed By:DAQUAN TRUONG MD
--- NOTE | ~2022-04-03 | XR_ITS ---
EXAMINATION: XR CHEST CLINICAL INFORMATION: Chest pain COMPARISON: 05/07/2021 TECHNIQUE: Frontal view of the chest was obtained. FINDINGS: No significant abnormality is noted involving the heart, lungs, mediastinum, bony thorax or soft tissues. XR/XR chest 1V IMPRESSION: Unremarkable examination.
[2022-04-03 21:03] VITALS: BP 106/66; PULSE 73; RESP 16; TEMP 36.3; O2SAT 98; BMI 45.3
[2022-04-03 21:28] LABS: MANUAL DIFF FLAG NO
[2022-04-03 21:29] LABS: Basophils Absolute Auto 0.1 X10*3/uL (0.0-0.2); Basophils Percent Auto 0.6 % (0-2); Eosinophils Absolute Auto 0.1 X10*3/uL (0.0-0.4); Eosinophils Percent Auto 0.9 % (0-4); Hemoglobin 13.9 g/dl (12.0-16.0); Imm Gran Abs Auto 0.02 X10*3/uL (0.00-0.03); Imm Gran Pct Auto 0.2 % (0.0-0.4); Lymphocytes Absolute Auto 2.8 X10*3/uL (1.2-4.9); Lymphocytes Percent Auto 31.3 % (20-40); Mean Corpuscular HGB Conc 33.9 g/dl (31.0-35.0); Mean Corpuscular Hemoglobin 29.4 pg (27.0-33.0); Mean Corpuscular Volume 86.7 fL (80.0-98.0); Monocytes Absolute Auto 0.7 X10*3/uL (0.1-1.2); Neutrophils Absolute Auto 5.2 x10*3/uL (2.0-8.3); Platelet Count 286 X10*3/uL (160-400); Red Blood Count 4.73 X10*6/uL (4.20-5.50); Red Cell Distribution Width 12.1 % (11.0-16.0); White Blood Count 8.8 X10*3/uL (4.8-10.8)
[2022-04-03 21:54] LABS: Alanine Aminotransferase 19 U/L (0-31); Albumin Level 4.5 g/dL (3.5-5.0); Alkaline Phosphatase 69 U/L (39-117); Anion Gap 13 (12-20); Aspartate Amino Transferase 17 U/L (5-31); Bilirubin Total 0.4 mg/dL (0.0-1.0); Blood Urea Nitrogen 14 mg/dL (9-16); Calcium 9.4 mg/dL (8.4-10.2); Carbon Dioxide 27 mmol/L (22-29); Chloride 105 mmol/L (96-108); Creatinine Clr Calc Pharmacy 124.8; Estimated Glomerular Filt Rate > 60; Glucose Random 100 mg/dL (60-115); Potassium 4.4 mmol/L (3.3-5.1); Sodium 141 mmol/L (135-145); Total Protein 7.1 g/dL (6.5-8.0)
[2022-04-03 22:06] LABS: Troponin-I High Sensitivity < 3.5 ng/L (<3.5-17.0)
--- NOTE | 2022-04-03 23:07 | ED.CHESTPAIN ---
HPI - Chest Pain General Chief Complaint: Chest Pain Stated Complaint: chest pain radiates to back Time Seen by Provider: 04/03/22 22:57 Source: patient Mode of arrival: ambulatory Limitations: no limitations History of Present Illness HPI narrative: 47-year-old female came in for evaluation of left-sided chest pain started since last night pain is dull aching pain in the mid chest going around the chest to the back, pain has been almost constant since yesterday worsening with movement or taking a deep breath and touch it, no relieving factor, otherwise pain is not radiating, no coughing but patient stated recent exposure to COVID. No recent travel, no lower extremity swelling or tenderness or edema. No history of DVT or PE. No rash or fever. Related Data Home Medications Medication Instructions Recorded Confirmed aripiprazole 2 mg tablet 2 mg PO QAM 03/17/22 escitalopram oxalate 20 mg tablet 20 mg PO DAILY 03/17/22 sumatriptan succinate 25 mg tablet See Rx Instructions PO .COMPLEX PRN 03/17/22 Previous Rx's Medication Instructions Recorded acetaminophen 325 mg tablet 650 mg PO Q6H PRN fever or pain 02/25/20 (Tylenol) #10 tabs blood pressure monitor (Blood #1 ea 10/27/20 Pressure Kit) albuterol sulfate 0.63 mg/3 mL 0.63 mg (3 mL) inhalation QID PRN 05/07/21 solution for nebulization shortness of breath or wheezing #75 mL nebulizers (AeroEclipse II #1 ea 05/07/21 Nebulizer) comp.stocking,thigh,long,x-lrg #2 ea 05/10/21 metoclopramide HCl 10 mg tablet 10 mg PO Q6H PRN nausea and 07/19/21 (Reglan) vomiting #14 tabs miscellaneous medical supply 1 ea miscellaneous DAILY 99 days 09/29/21 #1 ea compr.stocking,knee,long,large #4 ea 10/04/21 lansoprazole 30 mg capsule,delayed 30 mg PO DAILY 90 days #90 caps 10/07/21 release fluticasone 250 mcg-salmeterol 50 1 ea inhalation BID 30 days #60 ea 11/11/21 mcg/dose blistr powdr for inhalation (Advair Diskus) pregabalin 75 mg capsule 75 mg PO BID 30 days #60 caps 11/23/21 trazodone 50 mg tablet 100 mg PO BEDTIME #180 tabs 12/05/21 cyclobenzaprine 10 mg tablet 10 mg PO BID PRN muscle spasm 10 01/23/22 days #20 tabs albuterol sulfate 90 mcg/actuation 1 inh inhalation QID PRN shortness 02/07/22 aerosol inhaler (Ventolin HFA) of breath or wheezing #8.5 grams ropinirole 0.5 mg tablet 0.5 mg PO BEDTIME #90 tabs 02/12/22 lubiprostone 24 mcg capsule 24 mcg PO BID #60 caps 03/17/22 (Amitiza) Allergies Allergy/AdvReac Type Severity Reaction Status Date / Time ibuprofen [From Motrin] Allergy Severe HIVES,SWELL Verified 03/17/22 11:44 ING meperidine [Demerol] Allergy Unknown Vomiting Verified 03/17/22 11:44 morphine [MORPHINE] Allergy Unknown CHEST PAIN Verified 03/17/22 11:44 hydroxyzine AdvReac Mild mouth Verified 03/17/22 11:44 numbess SHELLFISH Allergy Unknown HIVES/ITCHI Uncoded 03/17/22 11:44 NG Review of Systems Review of Systems: All other systems are reviewed and are negative Constitutional: Reports as per HPI and Reports no additional constitutional complaints Eyes: Reports as per HPI and Reports no additional eye complaints Reports system reviewed and no additional complaints, except as documented Cardiovascular: Reports as per HPI and Reports no additional cardiovascular complaints Respiratory: Reports as per HPI and Reports no additional respiratory complaints Gastrointestinal: Reports as per HPI and Reports no additional gastrointestinal complaints Genitourinary: Reports no additional female genitourinary complaints Musculoskeletal: Reports no additional musculoskeletal complaints Skin/Breast: Reports system reviewed and no additional complaints, except as docu Psychiatric: Reports no additional psychiatric complaints Endocrine: Reports no additional endocrine complaints Hematologic/Lymphatic: Reports no additional hematologic/lymphatic complaints Allergic/Immunologic: Reports no additional allergic/immunologic complaints Reports system reviewed and no additional complaints, except as documented and Reports Abnormal speech present [facility] Past Medical History 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) Depression Fibromyalgia GERD (gastroesophageal reflux disease) Headache Hx of supraventricular tachycardia Hx-TIA (transient ischemic attack) Obesity Screening for diabetes mellitus (DM) Screening for hypercholesterolemia Screening for hypothyroidism Surgical History History of History of cholecystectomy History of endoscopy History of knee surgery History of partial knee replacement Hx of colonoscopy Hx of tubal ligation Family History Family History Mother High cholesterol Father Lupus Diabetes Thyroid disease FH: prostate cancer Brother Asthma Anxiety Depression Daughter Depression Anxiety Childhood autism Maternal Grandmother Glaucoma Other Mental problem Substance abuse Social History Social History Housing: House Alcohol intake: never Patient Tobacco Use Status: Never used Tobacco e-Cigarette/Vaping Use: Never Used Second Hand Smoke Exposure: Yes Advance Directives: No service: No Current occupational status: employed and disabled 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 Cognitive needs: No Hearing needs: No Vision needs: No Physical Exam Vital Signs: Vital Signs: Last Vital Signs Temp 97.4 F 04/03/22 21:03 Pulse 73 04/03/22 21:03 Resp 16 04/03/22 21:03 BP 106/66 04/03/22 21:03 Pulse Ox 98 04/03/22 21:03 O2 Del Method 04/03/22 21:03 BMI result Body Mass Index 45.3 Vital signs have been reviewed as appeared to be correct. Blood pressure normal. Heart rate normal. Respiration rate normal. Temperature normal. Oxygen saturation normal. Appearance: Alert. Oriented X3. No acute distress. Head: Normal external exam. Normocephalic. Atraumatic. No Randhawa signs noted. No raccoon eyes noted Eyes: PERRLA. EOMI. Conjunctiva and sclera normal. Eyelids normal. ENT: TM's Normal. Pharynx normal. Uvula midline. Moist mucous membranes. No trismus noted. No drooling noted. No muffled voice noted. Neck: Normal inspection. Neck supple. FROM. No adenopathy. Thyroid Normal. No meningeal signs. No neck mass noted. CVS: Normal heart rate and rhythm. Heart sound normal. No murmurs noted. Pulses normal throughout. Respiratory: No respiratory distress. Painless inspiration. Breath sounds normal. No wheezes/rales/rhonchi noted. Localized chest tenderness of the left border of the sternum, no redness or hotness or step-off.. No accessory muscle usage noted or decreased air movement noted. Abdomen: Soft and nontender. Bowel sounds normal in all 4 quadrants. No distention noted. No organomegaly noted. No visible injury noted. Back: No CVA tenderness. Full range of motion noted. Skin: Skin warm and dry. Normal skin color. Normal skin turgor. No rashes/lesions/lacerations noted. Extremities: No lower extremity edema. Extremities exhibit normal range of motion. Extremities nontender. Neuro: Oriented X 3. Cranial nerve exam: II-XII are grossly intact No motor deficit. No sensory deficit. Reflexes normal. Course Course Course Narrative: 47-year-old female came in for evaluation of left-sided chest pain that is been constant since yesterday, patient has HEART score of 0, D-DIMER IS NEGATIVE WITH LOW RISK FOR PE OR DVT. Patient was reassured and will be discharged home using Tylenol if needed for pain (patient is allergic to NSAIDs). Medical Decision Making Medical Decision Making Differential Diagnoses: Differential diagnosis Differential Diagnosis: The differential diagnosis associated with the patient?s presentation includes: PE/ACS/pneumonia/pneumothorax/pleurisy/costochondritis. Independent interpretation of EKG, rhythm strip, radiology study: Independent interp EKG,rhythm strip, radiology study I performed an independent interpretation of the: EKG and Plain X-Ray (Chest x-ray: My interpretation no acute intrathoracic pathology.) EKG: My interpretation is normal sinus rhythm at 71 beats per minutes, normal axis deviation, normal intervals, no ST-T changes, no change from previous EKG. Discharge Plan Discharge Clinical Impression: Acute costochondritis Patient Disposition: Home, Self-Care Instructions: Costochondritis (ED) Prescriptions: No Action (DME) blood pressure monitor [Blood Pressure Kit] Kit See Rx Instructions .ROUTE .MEDSUPPLY Qty: 1 0RF Rx Instructions: As directed miscellaneous medical supply Misc 1 ea miscellaneous DAILY 99 Days Qty: 1 0RF (DME) compr.stocking,knee,long,large Misc See Rx Instructions .Route Qty: 4 0RF Rx Instructions: As directed lansoprazole 30 mg capsule,delayed release(DR/EC) 30 mg PO DAILY 90 Days Qty: 90 2RF fluticasone propion-salmeterol [Advair Diskus] 250-50 mcg/dose blister with device 1 ea inhalation BID 30 Days Qty: 60 3RF pregabalin 75 mg capsule 75 mg PO BID 30 Days Qty: 60 3RF trazodone 50 mg tablet 100 mg PO BEDTIME Qty: 180 1RF cyclobenzaprine 10 mg tablet 10 mg PO BID PRN (Reason: muscle spasm) 10 Days Qty: 20 0RF albuterol sulfate [Ventolin HFA] 90 mcg/actuation HFA aerosol inhaler 1 inh inhalation QID PRN (Reason: shortness of breath or wheezing) Qty: 8.5 6RF ropinirole 0.5 mg tablet 0.5 mg PO BEDTIME Qty: 90 1RF lubiprostone [Amitiza] 24 mcg capsule 24 mcg PO BID Qty: 60 2RF acetaminophen [Tylenol] 325 mg tablet 650 mg PO Q6H PRN (Reason: fever or pain) Qty: 10 0RF albuterol sulfate 0.63 mg/3 mL solution for nebulization 0.63 mg inhalation QID PRN (Reason: shortness of breath or wheezing) Qty: 75 0RF (DME) AeroEclipse II Nebulizer Misc See Rx Instructions .ROUTE .MEDSUPPLY Qty: 1 0RF Rx Instructions: As directed metoclopramide HCl [Reglan] 10 mg tablet 10 mg PO Q6H PRN (Reason: nausea and vomiting) Qty: 14 0RF (DME) comp.stocking,thigh,long,x-lrg Misc See Rx Instructions .Route Qty: 2 0RF Rx Instructions: As directed aripiprazole 2 mg tablet 2 mg PO QAM sumatriptan succinate 25 mg tablet See Rx Instructions PO .COMPLEX PRN Rx Instructions: take 1 tab at onset of headache; if no relief may repeat 1 tab after at least 2 hrs; max = 4 tabs/24 hr orally PRN; escitalopram oxalate 20 mg tablet 20 mg PO DAILY Referrals: Jeremy Sanches PA-C [Primary Care Provider] - Stand Alone Forms: Work/School Release
[2022-04-04 00:43] LABS: Troponin-I High Sensitivity < 3.5 ng/L (<3.5-17.0)
[2022-04-04 00:47] LABS: D Dimer High Sensitivity < 150 NG/ML
[2022-04-04 01:02] LABS: Influenza A PCR NEGATIVE (Negative); Influenza B PCR NEGATIVE (Negative); Resp Syncy Virus RNA Qual PCR NEGATIVE (Negative); SARS COV2 PCR INHOUSE NEGATIVE (Negative)
[2022-04-04 01:20] VITALS: BP 112/68; PULSE 76; RESP 18; TEMP 36.5; O2SAT 99
== END 2022-04-04 02:01 | disposition home or self-care (01) ==
PROVIDERS: Emergency Provider Emergency Medicine; PCP Physician Assistant
DX: M94.0 Chondrocostal junction syndrome [Tietze] (principal); R07.89 Other chest pain; M54.50 Low back pain, unspecified; Z20.822 Contact with and (suspected) exposure to COVID-19; Z79.899 Other long term (current) drug therapy
CPT/HCPCS: 0241U; 36415; 71045; 80053; 84484; 85025; 85379; 93005; 99284

== ENCOUNTER → 2022-05-08 11:20 | Outpatient (BNVA) | payer MEDICARE, MEDICAID, SELFPAY | PROVIDERS: PCP Physician Assistant; Visit Provider Internal Medicine Gastroenterology | DX: K59.01 Slow transit constipation (principal); M62.89 Other specified disorders of muscle | CPT/HCPCS: 99212 ==

== ENCOUNTER 2022-05-15 08:47 | Emergency (ER) | payer MEDICARE, MEDICAID, SELFPAY ==
[2022-05-15 09:29] VITALS: BP 113/72; PULSE 74; RESP 18; TEMP 36.5; O2SAT 97; BMI 44.6
--- NOTE | 2022-05-15 10:18 | ED.GENADULT ---
HPI - General Adult General Chief complaint: Extremity Injury, Lower Stated complaint: L HIP PAIN Time Seen by Provider: 05/15/22 10:18 Source: patient Mode of arrival: ambulatory Limitations: no limitations History of Present Illness HPI narrative: Patient is a 47 year old assigned female at with a history of arthritis presenting to the emergency department today with left hip pain. Patient states that last night her left hip started to hurt and hasn't gotten better today. Patient denies any dizziness, lightheadedness, abdominal pain, nausea, vomiting, fever, chills, blurry vision, double vision, loss of vision, chest pain, difficulty breathing, shortness of breath, back pain, night sweats, pain with urination, increased urinary frequency, increased urinary urgency, blood in her urine or stool, syncope or a near syncopal episode, recent trauma or falls, bowel incontinence, bladder incontinence, bowel retention, bladder retention, or any other complaints at this time. Onset (ago): day(s) (1) Location: left (hip) Radiation: non-radiation Severity: mild Severity scale (1-10): 2 Quality: aching and dull Pain Consistency: constant Relieving factors: none Exacerbating factors: none Associated symptoms: denies other symptoms Treatments prior to arrival: none Related Data Home Medications Medication Instructions Recorded Confirmed aripiprazole 2 mg tablet 2 mg PO QAM 03/17/22 escitalopram oxalate 20 mg tablet 20 mg PO DAILY 03/17/22 sumatriptan succinate 25 mg tablet See Rx Instructions PO .COMPLEX PRN 03/17/22 lamotrigine 100 mg tablet 100 mg PO DAILY 05/08/22 lamotrigine 150 mg tablet 150 mg PO DAILY 05/08/22 plecanatide 3 mg tablet (Trulance) 3 mg PO DAILY 05/08/22 quetiapine 25 mg tablet 25 mg PO DAILY 05/08/22 Previous Rx's Medication Instructions Recorded acetaminophen 325 mg tablet 650 mg PO Q6H PRN fever or pain 02/25/20 (Tylenol) #10 tabs blood pressure monitor (Blood #1 ea 10/27/20 Pressure Kit) albuterol sulfate 0.63 mg/3 mL 0.63 mg (3 mL) inhalation QID PRN 05/07/21 solution for nebulization shortness of breath or wheezing #75 mL nebulizers (AeroEclipse II #1 ea 05/07/21 Nebulizer) comp.stocking,thigh,long,x-lrg #2 ea 05/10/21 miscellaneous medical supply 1 ea miscellaneous DAILY 99 days 09/29/21 #1 ea compr.stocking,knee,long,large #4 ea 10/04/21 lansoprazole 30 mg capsule,delayed 30 mg PO DAILY 90 days #90 caps 10/07/21 release fluticasone 250 mcg-salmeterol 50 1 ea inhalation BID 30 days #60 ea 11/11/21 mcg/dose blistr powdr for inhalation (Advair Diskus) trazodone 50 mg tablet 100 mg PO BEDTIME #180 tabs 12/05/21 cyclobenzaprine 10 mg tablet 10 mg PO BID PRN muscle spasm 10 01/23/22 days #20 tabs albuterol sulfate 90 mcg/actuation 1 inh inhalation QID PRN shortness 02/07/22 aerosol inhaler (Ventolin HFA) of breath or wheezing #8.5 grams ropinirole 0.5 mg tablet 0.5 mg PO BEDTIME #90 tabs 02/12/22 lubiprostone 24 mcg capsule 24 mcg PO BID #60 caps 03/17/22 (Amitiza) pregabalin 75 mg capsule 75 mg PO BID 30 days #60 caps 04/26/22 oxycodone 5 mg tablet 5 mg PO ONCE #2 tabs 05/15/22 prednisone 20 mg tablet 20 mg PO DAILY 7 days #7 tabs 05/15/22 Allergies Allergy/AdvReac Type Severity Reaction Status Date / Time ibuprofen [From Motrin] Allergy Severe HIVES,SWELL Verified 05/08/22 11:24 ING meperidine [Demerol] Allergy Unknown Vomiting Verified 05/08/22 11:24 morphine [MORPHINE] Allergy Unknown CHEST PAIN Verified 05/08/22 11:24 hydroxyzine AdvReac Mild mouth Verified 05/08/22 11:24 numbess SHELLFISH Allergy Unknown HIVES/ITCHI Uncoded 05/08/22 11:24 NG Review of Systems Constitutional: Constitutional: Reports no additional constitutional complaints, Denies chills, Denies fever(s) and Denies night sweats Eyes: Eyes: Reports no additional eye complaints, Denies blurry vision, Denies change in vision, Denies diplopia, Denies eye discharge, Denies loss of vision and Denies eye pain ENT: Denies dizziness Cardiovascular: Cardiovascular: Reports no additional cardiovascular complaints, Denies chest pain, Denies lightheadedness, Denies Loss of Consciousness and Denies dyspnea Respiratory: Respiratory: Reports no additional respiratory complaints and Denies dyspnea Gastrointestinal: Gastrointestinal: Reports no additional gastrointestinal complaints, Denies abdominal pain, Denies melena, Denies hematochezia, Denies change in bowel habits and Denies change in stool character Genitourinary: Genitourinary: Denies hematuria, Denies urinary frequency, Denies dysuria, Denies urinary incontinence, Denies urinary hesitancy and Denies urinary urgency Musculoskeletal: Musculoskeletal: Reports no additional musculoskeletal complaints, Denies numbness and Denies tingling Comments: left hip pain Neurologic: Denies dizziness, Denies loss of vision, Denies numbness and Denies tingling Psychiatric: Psychiatric: Reports no additional psychiatric complaints Endocrine: Endocrine: Reports no additional endocrine complaints Hematologic/Lymphatic: Hematologic/Lymphatic: Reports no additional hematologic/lymphatic complaints Allergic/Immunologic: Allergic/Immunologic: Reports no additional allergic/immunologic complaints [facility] Past Medical History Attestation statement: The following information was validated with the patient. 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) Depression Fibromyalgia GERD (gastroesophageal reflux disease) Headache Hx of supraventricular tachycardia Hx-TIA (transient ischemic attack) Obesity Screening for diabetes mellitus (DM) Screening for hypercholesterolemia Screening for hypothyroidism Surgical History History of History of cholecystectomy History of endoscopy History of knee surgery History of partial knee replacement Hx of colonoscopy Hx of tubal ligation Family History Family History Mother High cholesterol Father Lupus Diabetes Thyroid disease FH: prostate cancer Brother Asthma Anxiety Depression Daughter Depression Anxiety Childhood autism Maternal Grandmother Glaucoma Other Mental problem Substance abuse Social History Social History Housing: House Alcohol intake: never Patient Tobacco Use Status: Never used Tobacco e-Cigarette/Vaping Use: Never Used Second Hand Smoke Exposure: Yes Advance Directives: No Advance Directives Information Provided: No service: No Current occupational status: employed and disabled 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 Cognitive needs: No Hearing needs: No Vision needs: No Physical Exam ED Vital Signs: Vital Signs - 24 hr 05/15/22 09:29 05/15/22 10:22 Temperature 97.7 F 98.7 F Pulse Rate 74 69 Respiratory Rate 18 Blood Pressure 113/72 99/62 Pulse Oximetry 97 98 Oxygen Delivery Method Room Air Room Air BMI result Body Mass Index 44.6 Const General: cooperative, no acute distress, alert and awake Nutritional Appearance: well nourished Orientation/consciousness: patient oriented x3 Limitations: no limitations HENMT Head: Yes normal to inspection and Yes atraumatic Ears: hearing grossly normal bilaterally and external ears normal General nose exam: Normal external nose present, no nasal discharge noted and no epistaxis Face and sinus: Yes normal facial exam, No abrasion and No laceration Mouth: Normal oral and palatal mucosa present, no drooling and no muffled voice Eyes General: appearance normal, both eyes and all related structures Periorbital: periorbital findings normal Eyelids: Yes eyelids normal Conjunctivae: conjunctivae normal Pupils: Equal, round and reactive pupils present EOM: EOMs intact bilaterally Neck Neck: Yes normal visual inspection, Yes full ROM and Yes no lymphadenopathy Chest Chest palpation & inspection: normal inspection of the chest Resp Effort & Inspection: normal respiratory effort and able to speak in complete sentences Auscultation: clear to auscultation bilaterally Cardio Rate: regular rate Rhythm: regular rhythm GI Inspection: Yes normal to inspection Palpation (GI): Soft to palpation, not firm, nontender, no guarding and not rigid Neuro General: patient oriented x3 and moves all extremities Cranial nerves: Yes Equal, round and reactive pupils present Cognition (Neuro): normal cognition Motor exam (neuro): 5/5 motor strength present throughout Sensory Exam: Normal double simultaneous stimulation for sensation Coordination: [id number] test normal Extrem General: Yes normal to inspection, Yes full ROM and Yes capillary refill normal Psych Appearance: grossly normal Mental Status: mental status grossly normal Affect: normal affect Attitude: cooperative Thought process: Normal thought process present Thought content: Normal thought content present Insight: Good insight present (Psych) Medical Decision Making Medical Decision Making MDM Narrative: Patient is a 47 year old assigned female at with a history of arthritis presenting to the emergency department today with left hip pain. Patient's physical exam was unremarkable. Patient's clinical presentation is most consistent with IT band pain. I explained my physical exam findings to the patient. I answered all questions asked by the patient. I stressed the importance of the patient taking her medication as prescribed. I stressed the importance of the patient following up with her primary care provider. I stressed the importance of the patient returning to the emergency department immediately if her symptoms were to worsen or if she were to develop any dizziness, shortness of breath, difficulty breathing, chest pain, blurry vision, loss of vision, nausea, vomiting, abdominal pain, fever, chills, back pain, or any other complaints. Patient verbalized agreement and understanding with this treatment plan and discharge. Differential Diagnosis Differential Diagnoses: The differential diagnosis associated with the presentation includes IT band pain, left hip pain Discharge Plan Discharge Clinical Impression: Acute hip pain Patient Disposition: Home, Self-Care Instructions: Hip Pain (ED) Additional Instructions: Follow up with your primary care provider and an orthopedic provider. Return to the emergency department immediately if your symptoms worsen or if you develop any dizziness, shortness of breath, difficulty breathing, chest pain, blurry vision, loss of vision, nausea, vomiting, abdominal pain, fever, chills, back pain, or any other complaints. Prescriptions: New prednisone 20 mg tablet 20 mg PO DAILY 7 Days Qty: 7 0RF oxycodone 5 mg tablet 5 mg PO ONCE Qty: 2 0RF Rx Instructions: Partial Fill upon patient request. No Action (DME) blood pressure monitor [Blood Pressure Kit] Kit See Rx Instructions .ROUTE .MEDSUPPLY Qty: 1 0RF Rx Instructions: As directed miscellaneous medical supply Misc 1 ea miscellaneous DAILY 99 Days Qty: 1 0RF (DME) compr.stocking,knee,long,large Misc See Rx Instructions .Route Qty: 4 0RF Rx Instructions: As directed lansoprazole 30 mg capsule,delayed release(DR/EC) 30 mg PO DAILY 90 Days Qty: 90 2RF fluticasone propion-salmeterol [Advair Diskus] 250-50 mcg/dose blister with device 1 ea inhalation BID 30 Days Qty: 60 3RF trazodone 50 mg tablet 100 mg PO BEDTIME Qty: 180 1RF cyclobenzaprine 10 mg tablet 10 mg PO BID PRN (Reason: muscle spasm) 10 Days Qty: 20 0RF albuterol sulfate [Ventolin HFA] 90 mcg/actuation HFA aerosol inhaler 1 inh inhalation QID PRN (Reason: shortness of breath or wheezing) Qty: 8.5 6RF ropinirole 0.5 mg tablet 0.5 mg PO BEDTIME Qty: 90 1RF lubiprostone [Amitiza] 24 mcg capsule 24 mcg PO BID Qty: 60 2RF pregabalin 75 mg capsule 75 mg PO BID 30 Days Qty: 60 3RF acetaminophen [Tylenol] 325 mg tablet 650 mg PO Q6H PRN (Reason: fever or pain) Qty: 10 0RF albuterol sulfate 0.63 mg/3 mL solution for nebulization 0.63 mg inhalation QID PRN (Reason: shortness of breath or wheezing) Qty: 75 0RF (DME) AeroEclipse II Nebulizer Misc See Rx Instructions .ROUTE .MEDSUPPLY Qty: 1 0RF Rx Instructions: As directed (DME) comp.stocking,thigh,long,x-lrg Misc See Rx Instructions .Route Qty: 2 0RF Rx Instructions: As directed lamotrigine 150 mg tablet 150 mg PO DAILY Trulance 3 mg tablet 3 mg PO DAILY lamotrigine 100 mg tablet 100 mg PO DAILY quetiapine 25 mg tablet 25 mg PO DAILY aripiprazole 2 mg tablet 2 mg PO QAM sumatriptan succinate 25 mg tablet See Rx Instructions PO .COMPLEX PRN Rx Instructions: take 1 tab at onset of headache; if no relief may repeat 1 tab after at least 2 hrs; max = 4 tabs/24 hr orally PRN; escitalopram oxalate 20 mg tablet 20 mg PO DAILY Referrals: [facility] Orthopedic Surgeons [Provider Group] (If pain persists >2 weeks, call to establish and follow up with an orthopedics teacher. ) Jeremy Sanches PA-C [Primary Care Provider] - Interventions: ED Discharge Assessment Last Done: 05/15/22 11:22 Discharge Date/Time: 05/15/22 11:22 Print Language: Arabic
[2022-05-15 10:22] VITALS: BP 99/62; PULSE 69; TEMP 37.1; O2SAT 98
== END 2022-05-15 11:22 | disposition home or self-care (01) ==
PROVIDERS: Emergency Provider Emergency Medicine; PCP Physician Assistant
DX: M25.552 Pain in left hip (principal); I10 Essential (primary) hypertension; E66.01 Morbid (severe) obesity due to excess calories; Z68.41 Body mass index [BMI] 40.0-44.9, adult
CPT/HCPCS: 99282; 99283

== ENCOUNTER 2022-06-08 12:37 | Outpatient (REF) | payer MEDICARE, MEDICAID, SELFPAY ==
[2022-06-08 12:49] LABS: MANUAL DIFF FLAG NO
[2022-06-08 13:09] LABS: Basophils Absolute Auto 0.1 X10*3/uL (0.0-0.2); Basophils Percent Auto 0.5 % (0-2); Eosinophils Absolute Auto 0.1 X10*3/uL (0.0-0.4); Hematocrit 42.6 % (37.0-47.0); Hemoglobin 14.1 g/dl (12.0-16.0); Imm Gran Abs Auto 0.07 X10*3/uL (0.00-0.03); Imm Gran Pct Auto 0.7 % (0.0-0.4); Lymphocytes Absolute Auto 2.2 X10*3/uL (1.2-4.9); Lymphocytes Percent Auto 23.2 % (20-40); Mean Corpuscular HGB Conc 33.1 g/dl (31.0-35.0); Mean Corpuscular Hemoglobin 28.8 pg (27.0-33.0); Mean Corpuscular Volume 87.1 fL (80.0-98.0); Mean Platelet Volume 10.7 fL (9.4-12.3); Monocytes Absolute Auto 0.7 X10*3/uL (0.1-1.2); Neutrophils Absolute Auto 6.4 x10*3/uL (2.0-8.3); Neutrophils Percent Auto 67.6 % (45-73); Platelet Count 372 X10*3/uL (160-400); Red Blood Count 4.89 X10*6/uL (4.20-5.50); Red Cell Distribution Width 12.3 % (11.0-16.0); White Blood Count 9.4 X10*3/uL (4.8-10.8)
[2022-06-08 13:50] LABS: Alanine Aminotransferase 24 U/L (0-31); Albumin Level 4.6 g/dL (3.5-5.0); Alkaline Phosphatase 70 U/L (39-117); Anion Gap 13 (12-20); Aspartate Amino Transferase 19 U/L (5-31); Bilirubin Total 0.7 mg/dL (0.0-1.0); Blood Urea Nitrogen 15 mg/dL (9-16); Calcium 9.9 mg/dL (8.4-10.2); Carbon Dioxide 28 mmol/L (22-29); Chloride 105 mmol/L (96-108); Estimated Glomerular Filt Rate > 60; Glucose Random 80 mg/dL (60-115); Potassium 4.3 mmol/L (3.3-5.1); Sodium 142 mmol/L (135-145); Total Protein 7.4 g/dL (6.5-8.0)
[2022-06-08 14:25] LABS: Folate 9.8 ng/mL (> or = 4.0); Thyroid Stimulating Hormone 0.71 uIU/mL (0.32-4.0); Vitamin B12 852 pg/mL (200-900)
== END 2022-06-08 12:38 | disposition home or self-care (01) ==
LOC: HO.LAB 12:37
PROVIDERS: PCP Physician Assistant; Visit Provider Internal Medicine
DX: E53.8 Deficiency of other specified B group vitamins (principal); E66.01 Morbid (severe) obesity due to excess calories; E55.9 Vitamin D deficiency, unspecified; D64.9 Anemia, unspecified
CPT/HCPCS: 36415; 80053; 82306; 82607; 82746; 84443; 85025

== ENCOUNTER 2022-08-15 11:14 | Outpatient (REF) | payer MEDICARE, MEDICAID, SELFPAY ==
--- NOTE | ~2022-08-15 | MM_ITS ---
EXAMINATION: MM SCREENING DIGITAL BREAST TOMOSYNTHESIS, BILATERAL CLINICAL INFORMATION: Screening. Asymptomatic. The lifetime risk of breast cancer based on the Tyrer-Cuzick Model is 7%. COMPARISON: Mammography: June 15, 2021 and December 05, 2018 TECHNIQUE: Digital breast tomosynthesis is performed in both the craniocaudal and mediolateral oblique views along with computer-aided detection (CAD). Synthesized 2D images are generated from the tomosynthesis. FINDINGS: The breasts are almost entirely fatty (ACR BI-RADS breast composition Category a). There are no significant masses, abnormal calcifications, or other abnormalities. MM/MM tomosynthesis screening BI IMPRESSION: No significant changes ASSESSMENT: BI-RADS 1: Negative RECOMMENDATION: Routine annual mammography screening. This patient's information was entered into a reminder system with a target due date for their next mammogram.
== END 2022-08-15 11:15 | disposition home or self-care (01) ==
LOC: HO.MAMMO 11:14
PROVIDERS: Visit Provider Physician Assistant
DX: Z12.31 Encounter for screening mammogram for malignant neoplasm of breast (principal)
CPT/HCPCS: 77063; 77067

== ENCOUNTER 2022-08-22 10:00 | Outpatient (RCR) | payer MEDICARE, MEDICAID, SELFPAY ==
--- NOTE | 2022-06-22 10:06 | MHC.PT.EP ---
[facility] [place] [facility] [place] [facility] [place] Office [address] Abi Triplett [address] [phone] F: [phone] F: [phone] F: [phone] F: [phone] Physical Therapy Plan of Care Date of Evaluation: Date of Surgery: NA Diagnosis: Slow transit constipation Pelvic floor dysfunction, rectocele Assessment: Emerita is a 47 year old female who is referred to PT for pelvic floor dysfunction, rectocele, and slow transit consitpation . Emerita reports of having issues with urinary incontinence for over a one year. She reports of having DAYO, occasional urge and urge incontinence. She denies having frequency and denies having any with sexual function. She however also reports of having consitpation and is on laxative. She refused an internal pelvic exam. She presented with good lumbar and B LE gross ROM however presented with decreased strength in B LE and TrA. She would benefit from skilled PT to address the aforementioned impairments and improve tolerance to functional activities. Frequency and Duration: The patient will be seen 1/week for 5 weeks Short Term Goals: 1. Pt will be able to state at least 3 urge suppression techniques and be able to drop nigh voiding from 2 to 1 in 2 weeks. 2. Pt will have no in leakage with coughing, sneezing and laughing in 3 weeks Grounds Keeper Goals: 1. Pt will report of having improve urine stream and deny having incontinence in 4 weeks. 2. Pt will be independent with [facility] for symptom management and maintenance following d/c in 5 weeks. Treatment Plan: Modalities to reduce pain, spasms and effusion. Manual therapy to restore motion and function. Therapeutic exercise to improve strength and flexibility. Neuromuscular re-education for posture and balance. Therapeutic activities to return to functional activities of daily living. Electronically signed by: Please sign and return to therapist. Thank you for your referral.
== END 2022-08-22 10:40 | disposition home or self-care (01) ==
LOC: HO.PT 10:00
PROVIDERS: PCP Physician Assistant; Visit Provider Internal Medicine Gastroenterology
DX: K59.01 Slow transit constipation (principal); M99.05 Segmental and somatic dysfunction of pelvic region
CPT/HCPCS: 97110; 97112; 97140; 97161

== ENCOUNTER 2023-03-18 13:22 | Emergency (ER) | payer MEDICARE, MEDICAID, SELFPAY ==
--- NOTE | ~2023-03-18 | XR_ITS ---
EXAMINATION: XR chest 2V CLINICAL INFORMATION: Reason for Exam chest pain COMPARISON: No prior chest x-ray available in our system for comparison at the time of this dictation. TECHNIQUE: XR chest 2V, 2 Views Lungs and Carmen: Both lungs are clear. Pleura: Normal. Costophrenic angles are sharp. No pneumothorax. Heart: The heart is normal in size. Mediastinum: The mediastinum is within normal limits.. Bones: Skeletal structures included are normal for patient's age. XR/XR chest 2V IMPRESSION: No radiographic evidence of acute cardiopulmonary disease.
--- NOTE | 2023-03-18 13:23 | ECG_ITS ---
Test Reason : CP Blood Pressure : / mmHG Vent. Rate : 070 BPM Atrial Rate : 070 BPM P-R Int : 144 ms QRS Dur : 074 ms QT Int : 384 ms P-R-T Axes : 032 013 044 degrees QTc Int : 414 ms Normal sinus rhythm Low voltage QRS Otherwise normal ECG When compared with ECG of 03-APR-2022 21:15, No significant change was found Referred By: Keith Oliveira Electronically Signed By:NANCY LOZA MD
[2023-03-18 13:35] VITALS: BP 110/75; PULSE 80; RESP 18; TEMP 36.5; O2SAT 100; BMI 47.7
--- NOTE | 2023-03-18 13:40 | ED_ITS ---
HPI - Chest Pain General Chief Complaint: Chest Pain Stated Complaint: Chest pain/Dizziness Time Seen by Provider: 03/18/23 17:29 Source: patient Mode of arrival: ambulatory History of Present Illness HPI narrative: This is a 48-year-old female with history of fibromyalgia, GERD, hypertension and presents with onset of sharp mid to left chest pain without exacerbating or alleviating factors and has been intermittent in nature since this morning. Patient denies any fever, chills, vomiting denies any recent cough or sore throat and denies any GI or symptoms but states that the pain does increase with deep inspiration. Related Data Home Medications Medication Instructions Recorded Confirmed aripiprazole 2 mg tablet 2 mg PO QAM 03/17/22 escitalopram oxalate 20 mg tablet 20 mg PO DAILY 03/17/22 sumatriptan succinate 25 mg tablet See Rx Instructions PO .COMPLEX PRN 03/17/22 lamotrigine 100 mg tablet 100 mg PO DAILY 05/08/22 lamotrigine 150 mg tablet 150 mg PO DAILY 05/08/22 quetiapine 25 mg tablet 25 mg PO DAILY 05/08/22 Previous Rx's Medication Instructions Recorded acetaminophen 325 mg tablet 650 mg (2 x 325 mg) PO Q6H PRN 02/25/20 (Tylenol) fever or pain #10 tabs blood pressure monitor (Blood #1 ea 10/27/20 Pressure Kit) albuterol sulfate 0.63 mg/3 mL 0.63 mg (3 mL) inhalation QID PRN 05/07/21 solution for nebulization shortness of breath or wheezing #75 mL nebulizers (AeroEclipse II #1 ea 05/07/21 Nebulizer) comp.stocking,thigh,long,x-lrg #2 ea 05/10/21 miscellaneous medical supply 1 ea miscellaneous DAILY 99 days 09/29/21 #1 ea compr.stocking,knee,long,large #4 ea 10/04/21 fluticasone 250 mcg-salmeterol 50 1 ea inhalation BID 30 days #60 ea 11/11/21 mcg/dose blistr powdr for inhalation (Advair Diskus) cyclobenzaprine 10 mg tablet 10 mg PO BID PRN muscle spasm 10 01/23/22 days #20 tabs lubiprostone 24 mcg capsule 24 mcg PO BID #60 caps 11/18/22 (Amitiza) pregabalin 75 mg capsule 75 mg PO BID 30 days #60 caps 04/26/22 oxycodone 5 mg tablet 5 mg PO ONCE #2 tabs 05/15/22 prednisone 20 mg tablet 20 mg PO DAILY 7 days #7 tabs 05/15/22 trazodone 50 mg tablet 100 mg (2 x 50 mg) PO BEDTIME #180 05/22/22 tabs lansoprazole 30 mg capsule,delayed 30 mg PO DAILY 90 days #90 caps 07/06/22 release ropinirole 0.5 mg tablet 0.5 mg PO BEDTIME #90 tabs 08/21/22 albuterol sulfate 90 mcg/actuation 1 puff inhalation QID PRN for 11/21/22 aerosol inhaler (Ventolin HFA) dyspnea #18 ea plecanatide 3 mg tablet (Trulance) 3 mg PO DAILY #90 tabs 03/13/23 Allergies Allergy/AdvReac Type Severity Reaction Status Date / Time ibuprofen [From Motrin] Allergy Severe HIVES,SWELL Verified 03/18/23 13:35 ING meperidine [Demerol] Allergy Unknown Vomiting Verified 03/18/23 13:35 morphine [MORPHINE] Allergy Unknown CHEST PAIN Verified 03/18/23 13:35 hydroxyzine AdvReac Mild mouth Verified 03/18/23 13:35 numbess SHELLFISH Allergy Unknown HIVES/ITCHI Uncoded 05/08/22 11:24 NG Review of Systems 2 Review of Systems: Pertinent positives and negatives as stated in HPI PMFSH Past Medical History Source: nursing notes reviewed Medical History 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) COVID-19 Hx of supraventricular tachycardia Hx-TIA (transient ischemic attack) Back spasm Obesity Headache GERD (gastroesophageal reflux disease) Screening for hypothyroidism Screening for hypercholesterolemia Screening for diabetes mellitus (DM) Anxiety Depression Fibromyalgia Asthma Surgical History Hx of colonoscopy History of partial knee replacement Hx of tubal ligation History of endoscopy History of History of knee surgery History of cholecystectomy Family History Family History Mother High cholesterol Father Lupus Diabetes Thyroid disease FH: prostate cancer Brother Asthma Anxiety Depression Daughter Depression Anxiety Childhood autism Maternal Grandmother Glaucoma Other Mental problem Substance abuse Social History Social History Housing: House Alcohol intake: never Patient Tobacco Use Status: Never used Tobacco Smoked in Last 30 Days: No e-Cigarette/Vaping Use: Never Used Second Hand Smoke Exposure: Yes Use of substances other than those prescribed or required for medical reasons: No Advance Directives: No Advance Directives Information Provided: No service: No Current occupational status: employed and disabled 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 GENERAL: Elevated BMI Well developed, well nourished, in no acute distress. HEAD: Normocephalic/atraumatic EYES: PERRLA, EOMI EARS: Ext canals without abnormality NOSE: Nares patent bilateral OROPHARYNX: no oral lesions noted, posterior pharynx clear and non-erythematous without noted tonsillar enlargement/erythema/exudates NECK: Supple, no adenopathy LUNGS: Normal breath sounds. No adventitious sounds or accessory muscle use. SpO2<98> CARDIOVASCULAR: Regular rate and rhythm without noted murmurs ABDOMEN: Soft, non-tender, non-distended with bowel sounds. MUSCULOSKELETAL: No tenderness, deformities, or effusions noted on gross inspection. EXTREMITIES: No cyanosis, clubbing or edema. SKIN: Inspection of the skin reveals no rashes NEUROLOGIC: Alert and oriented x 4. Strength and sensation to light touch were grossly intact x 4. Course Course Course Narrative: RME: 48 yold female presents to the ED For left chest pain raidadint to left neck and back pain starting two hours ago. patient denies any leg swelling calf pain, fever, or chills. labs and EkG ordered. chest xray ordered Medications Administered Discontinued Medications Generic Name Dose Route Start Last Admin Trade Name Freq PRN Reason Stop Dose Admin Al Hydroxide/Mg Hydroxide 30 ml 03/18/23 18:49 03/18/23 19:00 Magnesium Hydrox/Alum Hydrox 30 Ml Oral.Susp PO 03/18/23 18:50 30 ml ONCE ONE Administration Lidocaine HCl 10 ml 03/18/23 18:49 03/18/23 19:00 Lidocaine Hcl Viscous 2 % 15 Ml Solution MUCOUS MEM 03/18/23 18:50 10 ml ONCE ONE Administration Medical Decision Making Medical Decision Making [facility] Narrative: 48-year-old female with history and clinical presentation, DDX: Musculoskeletal, GERD/gastritis, low clinical suspicion for pneumonia or primary ACS. I reviewed all investigations and hematologic indices are negative for leukocytosis or left shift, there is no anemia or thrombocytopenia. Coagulation studies are within normal limits. Chemistry indices do not demonstrate an CHELITA and there is no electrolyte or liver enzyme derangements, high sensitivity troponin is undetectable and BNP is undetectable. Chest x-ray without infiltrate and otherwise my interpretation is in agreement with radiology's impression. EKG without acute findings. My interpretation is patient is experiencing a combination of her fibromyalgia/and possible component of GERD, she was given a GI cocktail and discharged home with instructions follow-up with primary care doctor Differential Diagnosis Differential Diagnoses: The differential diagnosis associated with the presentation includes Please see the discussion above Admission/Observation Consideration of admission/observation: Escalation of care including admission/observation considered Please see the discussion above Lab Data [facility] Lab Attestation statement: I reviewed the patient's lab results. Please see the discussion above 03/18/23 13:59 03/18/23 13:59 Labs: Lab Results 03/18/23 Range/Units 13:59 WBC 8.9 (4.8-10.8) X10*3/uL RBC 4.71 (4.20-5.50) X10*6/uL Hgb 13.7 (12.0-16.0) g/dl Hct 40.4 (37.0-47.0) % MCV 85.8 (80.0-98.0) fL MCH 29.1 (27.0-33.0) pg MCHC 33.9 (31.0-35.0) g/dl RDW 12.4 (11.0-16.0) % Plt Count 291 (160-400) X10*3/uL MPV 10.4 (9.4-12.3) fL Immature Gran % (Auto) 0.2 (0.0-0.4) % Neut % (Auto) 65.2 (45-73) % Lymph % (Auto) 24.1 (20-40) % Kern % (Auto) 8.8 (2-11) % Eos % (Auto) 0.9 (0-4) % Baso % (Auto) 0.8 (0-2) % Lymph # (Auto) 2.2 (1.2-4.9) X10*3/uL Kern # (Auto) 0.8 (0.1-1.2) X10*3/uL Eos # (Auto) 0.1 (0.0-0.4) X10*3/uL Baso # (Auto) 0.1 (0.0-0.2) X10*3/uL Abs Immat Gran (auto) 0.02 (0.00-0.03) X10*3/uL Absolute Neuts (auto) 5.8 (2.0-8.3) x10*3/uL Absolute Nucleated RBC 0.000 (0.0-0.012) X10*3/uL Nucleated RBC % (auto) 0.0 (0.0-0.2) /100WBC PT 11.0 L (11.1-13.3) SEC INR 0.9 (0.9-1.1) APTT 29.6 (26.0-36.4) SEC Sodium 140 (135-145) mmol/L Potassium 4.1 (3.3-5.1) mmol/L Chloride 106 (96-108) mmol/L Carbon Dioxide 25 (22-29) mmol/L Anion Gap 13 (12-20) BUN 14 (9-16) mg/dL Creatinine 0.74 (0.5-1.4) mg/dL Estim Creat Clear Calc 122.1 Estimated GFR > 60 Random Glucose 95 (60-115) mg/dL Calcium 9.3 D (8.4-10.2) mg/dL Total Bilirubin 0.3 (0.0-1.0) mg/dL AST 24 (5-31) U/L ALT 26 (0-31) U/L Alkaline Phosphatase 54 (39-117) U/L Troponin I High Sens < 2.7 (<3.5-17.0) ng/L B-Natriuretic Peptide < 10 (<100) pg/mL Total Protein 7.4 (6.5-8.0) g/dL Albumin 4.2 (3.5-5.0) g/dL Independent Interpretation I performed an independent interpretation of an: EKG Interpretation: Normal sinus rhythm, HR-70, no STEMI, FL/QRS/QTC is within normal limits, no acute changes when compared to prior EKG. Radiology Impression Discussion of test interpretation with radiology: I have reviewed the radiologist's reading. Radiologist Impression: Please see the discussion above External Record Review External record reviewed: Outpatient record, Prior outpatient labs and Prior outpatient radiology Chronic Conditions Patient?s care impacted by: Other Fibromyalgia, depression Critical Care Time Critical Care Time Critical Care Time: Yes Total Critical Care Time: 30 Attestation: I personally attest to this time spent taking care of the patient. Discharge Plan Discharge Clinical Impression: Atypical chest pain, GERD (gastroesophageal reflux disease), Gastritis Patient Disposition: Home, Self-Care Instructions: Gastritis (ED), Diet for Stomach Ulcers and Gastritis (ED), Gastroesophageal Reflux Disease (ED) Additional Instructions: 1. Resume all home medications as prescribed. 2. Your workup today was negative for evidence to suggest pneumonia, cardiac issue 3. Follow-up with your primary care doctor and recommend [id number] Mylanta for additional symptom relief and weight 2 hours prior to laying flat. Return to the ER for any acute worsening of your symptoms or new change in symptoms. Prescriptions: No Action (DME) blood pressure monitor [Blood Pressure Kit] Kit See Rx Instructions .ROUTE .MEDSUPPLY Qty: 1 0RF Rx Instructions: As directed miscellaneous medical supply Misc 1 ea miscellaneous DAILY 99 Days Qty: 1 0RF (DME) compr.stocking,knee,long,large Misc See Rx Instructions .Route Qty: 4 0RF Rx Instructions: As directed fluticasone propion-salmeterol [Advair Diskus] 250-50 mcg/dose blister with device 1 ea inhalation BID 30 Days Qty: 60 3RF cyclobenzaprine 10 mg tablet 10 mg PO BID PRN (Reason: muscle spasm) 10 Days Qty: 20 0RF lubiprostone [Amitiza] 24 mcg capsule 24 mcg PO BID Qty: 60 2RF pregabalin 75 mg capsule 75 mg PO BID 30 Days Qty: 60 3RF trazodone 50 mg tablet 100 mg PO BEDTIME Qty: 180 1RF lansoprazole 30 mg capsule,delayed release(DR/EC) 30 mg PO DAILY 90 Days Qty: 90 2RF ropinirole 0.5 mg tablet 0.5 mg PO BEDTIME Qty: 90 2RF albuterol sulfate [Ventolin HFA] 90 mcg/actuation HFA aerosol inhaler 1 puff inhalation QID PRN (Reason: for dyspnea) Qty: 18 6RF Trulance 3 mg tablet 3 mg PO DAILY Qty: 90 1RF acetaminophen [Tylenol] 325 mg tablet 650 mg PO Q6H PRN (Reason: fever or pain) Qty: 10 0RF albuterol sulfate 0.63 mg/3 mL solution for nebulization 0.63 mg inhalation QID PRN (Reason: shortness of breath or wheezing) Qty: 75 0RF (DME) AeroEclipse II Nebulizer Misc See Rx Instructions .ROUTE .MEDSUPPLY Qty: 1 0RF Rx Instructions: As directed prednisone 20 mg tablet 20 mg PO DAILY 7 Days Qty: 7 0RF oxycodone 5 mg tablet 5 mg PO ONCE Qty: 2 0RF Rx Instructions: Partial Fill upon patient request. (DME) comp.stocking,thigh,long,x-lrg Misc See Rx Instructions .Route Qty: 2 0RF Rx Instructions: As directed lamotrigine 150 mg tablet 150 mg PO DAILY lamotrigine 100 mg tablet 100 mg PO DAILY quetiapine 25 mg tablet 25 mg PO DAILY aripiprazole 2 mg tablet 2 mg PO QAM sumatriptan succinate 25 mg tablet See Rx Instructions PO .COMPLEX PRN Rx Instructions: take 1 tab at onset of headache; if no relief may repeat 1 tab after at least 2 hrs; max = 4 tabs/24 hr orally PRN; escitalopram oxalate 20 mg tablet 20 mg PO DAILY Referrals: Jeremy Sanches PA-C [Primary Care Provider] - Interventions: ED Discharge Assessment Last Done: 03/18/23 19:24 Discharge Date/Time: 03/18/23 19:26
[2023-03-18 14:03] LABS: MANUAL DIFF FLAG NO
[2023-03-18 14:04] LABS: Basophils Absolute Auto 0.1 X10*3/uL (0.0-0.2); Basophils Percent Auto 0.8 % (0-2); Eosinophils Absolute Auto 0.1 X10*3/uL (0.0-0.4); Eosinophils Percent Auto 0.9 % (0-4); Hematocrit 40.4 % (37.0-47.0); Hemoglobin 13.7 g/dl (12.0-16.0); Imm Gran Abs Auto 0.02 X10*3/uL (0.00-0.03); Imm Gran Pct Auto 0.2 % (0.0-0.4); Lymphocytes Absolute Auto 2.2 X10*3/uL (1.2-4.9); Lymphocytes Percent Auto 24.1 % (20-40); Mean Corpuscular HGB Conc 33.9 g/dl (31.0-35.0); Mean Corpuscular Hemoglobin 29.1 pg (27.0-33.0); Mean Corpuscular Volume 85.8 fL (80.0-98.0); Mean Platelet Volume 10.4 fL (9.4-12.3); Monocytes Absolute Auto 0.8 X10*3/uL (0.1-1.2); Monocytes Percent Auto 8.8 % (2-11); Neutrophils Absolute Auto 5.8 x10*3/uL (2.0-8.3); Neutrophils Percent Auto 65.2 % (45-73); Platelet Count 291 X10*3/uL (160-400); Red Blood Count 4.71 X10*6/uL (4.20-5.50); Red Cell Distribution Width 12.4 % (11.0-16.0); White Blood Count 8.9 X10*3/uL (4.8-10.8)
[2023-03-18 14:20] LABS: Alanine Aminotransferase 26 U/L (0-31); Albumin Level 4.2 g/dL (3.5-5.0); Alkaline Phosphatase 54 U/L (39-117); Anion Gap 13 (12-20); Aspartate Amino Transferase 24 U/L (5-31); Bilirubin Total 0.3 mg/dL (0.0-1.0); Blood Urea Nitrogen 14 mg/dL (9-16); Calcium 9.3 mg/dL (8.4-10.2); Carbon Dioxide 25 mmol/L (22-29); Chloride 106 mmol/L (96-108); Creatinine Clr Calc Pharmacy 122.1; Estimated Glomerular Filt Rate > 60; Glucose Random 95 mg/dL (60-115); Potassium 4.1 mmol/L (3.3-5.1); Sodium 140 mmol/L (135-145); Total Protein 7.4 g/dL (6.5-8.0)
[2023-03-18 14:23] LABS: INTERNATIONAL NORM RATIO 0.9 (0.9-1.1)
[2023-03-18 14:24] LABS: B Type Natriuretic Peptide < 10 pg/mL (<100)
[2023-03-18 14:25] LABS: Partial Thromboplastin Time 29.6 SEC (26.0-36.4)
[2023-03-18 14:28] LABS: Troponin-I High Sensitivity < 2.7 ng/L (<3.5-17.0)
[2023-03-18 17:05] VITALS: BP 102/75; PULSE 73; RESP 16; TEMP 36.7; O2SAT 98
[2023-03-18 17:08] VITALS: PULSE 73
[2023-03-18 18:45] VITALS: BP 94/62; PULSE 68; RESP 16; TEMP 36.6; O2SAT 98
[2023-03-18] MEDS: Lidocaine HCl Viscous 2 % 15 ML SOLUTION 10 ML MUCOUS MEM (19:00)
[2023-03-18] MEDS: Magnesium Hydrox/Alum Hydrox 30 ML ORAL.SUSP PO (19:00)
[2023-03-18 19:24] VITALS: BP 101/65
== END 2023-03-18 19:26 | disposition home or self-care (01) ==
PROVIDERS: Physician Assistant; Emergency Provider Student in an Organized Health Care Education/Training Program; PCP Physician Assistant
DX: R07.89 Other chest pain (principal); K29.70 Gastritis, unspecified, without bleeding; R42 Dizziness and giddiness; R06.02 Shortness of breath; K21.9 Gastro-esophageal reflux disease without esophagitis; I10 Essential (primary) hypertension; Z79.899 Other long term (current) drug therapy
CPT/HCPCS: 36415; 71046; 80053; 83880; 84484; 85025; 85610; 85730; 93005; 99284; 99285

== ENCOUNTER 2023-04-10 07:27 | Outpatient (REF) | payer MEDICARE, MEDICAID, SELFPAY ==
[2023-04-10 11:38] LABS: Estimated Average Glucose 111 mg/dL; Hemoglobin A1c % 5.5 % (<6.0)
[2023-04-10 11:49] LABS: Alanine Aminotransferase 15 U/L (0-31); Albumin Level 4.1 g/dL (3.5-5.0); Alkaline Phosphatase 57 U/L (39-117); Anion Gap 13 (12-20); Aspartate Amino Transferase 17 U/L (5-31); Bilirubin Total 0.6 mg/dL (0.0-1.0); Blood Urea Nitrogen 16 mg/dL (9-16); Calcium 9.2 mg/dL (8.4-10.2); Carbon Dioxide 26 mmol/L (22-29); Chloride 104 mmol/L (96-108); Cholesterol 170 mg/dL (<200); Estimated Glomerular Filt Rate > 60; Glucose Fasting 100 mg/dL (60-99); HDL Cholesterol 52 mg/dL (>40); LDL Cholesterol Calculated 102 mg/dL (<100); Potassium 4.1 mmol/L (3.3-5.1); Sodium 139 mmol/L (135-145); Total Protein 7.3 g/dL (6.5-8.0); Triglycerides 82 mg/dL (<150)
[2023-04-10 11:55] LABS: TSH reflex Free T4 1.58 uIU/mL (0.32-4.0)
[2023-04-10 12:26] LABS: Creatinine Urine 58.19 mg/dL; Microalbumin Urine < 5.0 mg/L
== END 2023-04-10 07:28 | disposition home or self-care (01) ==
LOC: HO.HMGCLDS 07:27
PROVIDERS: PCP Physician Assistant; Visit Provider Physician Assistant
DX: I10 Essential (primary) hypertension (principal); R73.01 Impaired fasting glucose; K59.01 Slow transit constipation
CPT/HCPCS: 36415; 80053; 80061; 82043; 82570; 83036; 84443

== ENCOUNTER 2023-04-16 13:42 | Outpatient (AMB) | payer MEDICARE, MEDICAID, SELFPAY ==
[2023-04-16 13:48] VITALS: BP 106/76; PULSE 70; RESP 17; BMI 49.0
--- NOTE | 2023-04-16 13:48 | A.OFFPC_ITS ---
Vital Signs 04/16/23 13:48 Height 5 ft 4 in Weight 285 lb 4 oz BMI 49.0 BP 106/76 Blood Pressure Location Lt brachial Position Sitting Respiration 17 Pulse 70 Pulse Source Palpation Intake Visit Reasons: [facility] [place] 03/18 chest pain and dizziness Intake Note: Patient is here to follow-up after a visit the emergency department at [facility] [place] on 03/18/23. Educational Technician Required: No Accompanied by: Best-Friend Allergies ibuprofen [From Motrin] Allergy (Severe, Verified 04/16/23 14:04) HIVES,SWELLING meperidine [Demerol] Allergy (Unknown, Verified 04/16/23 14:04) Vomiting morphine [MORPHINE] Allergy (Unknown, Verified 04/16/23 14:04) CHEST PAIN hydroxyzine Adverse Reaction (Mild, Verified 04/16/23 14:04) mouth numbess SHELLFISH Allergy (Unknown, Uncoded 04/16/23 13:49) HIVES/ITCHING Medication List - Last Reconciled 04/16/23 by Jeremy Sanches PA-C acetaminophen (Tylenol) 650 mg (2 x 325 mg) PO Q6H PRN albuterol sulfate 0.63 mg (3 mL) inhalation QID PRN albuterol sulfate 90 mcg/actuation (Ventolin HFA) 1 puff inhalation QID PRN aripiprazole 2 mg PO QAM blood pressure monitor (Blood Pressure Kit) As directed clonidine HCl 0.1 mg PO BID comp.stocking,thigh,long,x-lrg As directed compr.stocking,knee,long,large As directed cyclobenzaprine 10 mg PO BID PRN 10 days escitalopram oxalate 20 mg PO DAILY fluticasone propion-salmeterol 250-50 mcg/dose (Advair Diskus) 1 ea inhalation BID 30 days lamotrigine 100 mg PO DAILY lamotrigine 150 mg PO DAILY lansoprazole 30 mg PO DAILY 90 days lubiprostone (Amitiza) 24 mcg PO BID miscellaneous medical supply 1 ea miscellaneous DAILY 99 days nebulizers (AeroEclipse II Nebulizer) As directed plecanatide (Trulance) 3 mg PO DAILY prednisone 20 mg PO DAILY 7 days pregabalin 75 mg PO BID 30 days quetiapine 25 mg PO DAILY ropinirole 0.5 mg PO BEDTIME sumatriptan succinate take 1 tab at onset of headache; if no relief may repeat 1 tab after at least 2 hrs; max = 4 tabs/24 hr orally PRN; trazodone mg PO Tobacco use date assessed: 04/16/23 Dental Screening Dental Screen Date: 04/16/23 Did you have a dental visit in the last 12 months?: Yes Did you have a dental problem in the last 6 months where you did not have access to dental care?: No Was dental information given to patient?: Patient has dentist [facility] 03/18 chest pain and dizziness [facility] Details Patient is a 48-year-old here today for follow-up visit, ?Patient's past medical history significant for moderate persistent asthma, obesity, fibromyalgia, depression, GERD. --> concern recently seen at the ER for acute chest pain, workup including chest x-ray, EKG and labs were all within normal range. She attributes a lot her discomfort to GERD symptoms. She plans on following up with GI. Advised on trying liquid Pepto-Bismol. .. Depression: Report she has been having more depression as of late . She reports there has been lot family stress involved that triggers her depression. She is currently speaking with a mental health therapist and a psychiatrist whom increase her dose Lexapro. She has discontinued Lyrica .. GERD: She is now seeing a GI specialist is awaiting further workup her she reports recently getting an MRI of her pelvis. obesity> she did start weight watchers and was able to lose a significant amount of weight. Due to her depression she has gained weight back. She plans on restarting weight watchers. Has lymphedema in her lower extremities has seen occupational therapy for massage in wrappings. 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) COVID-19 Hx of supraventricular tachycardia Hx-TIA (transient ischemic attack) Back spasm Obesity Headache GERD (gastroesophageal reflux disease) Screening for hypothyroidism Screening for hypercholesterolemia Screening for diabetes mellitus (DM) Anxiety Depression Fibromyalgia Asthma Surgical History Hx of colonoscopy History of partial knee replacement Hx of tubal ligation History of endoscopy History of History of knee surgery History of cholecystectomy Family History Mother High cholesterol Father Lupus Diabetes Thyroid disease FH: prostate cancer Brother Asthma Anxiety Depression Daughter Depression Anxiety Childhood autism Maternal Grandmother Glaucoma Other Mental problem Substance abuse Social History Housing: House Alcohol intake: never Patient Tobacco Use Status: Never used Tobacco e-Cigarette/Vaping Use: Never Used Second Hand Smoke Exposure: Yes service: No Current occupational status: employed and disabled Current occupation: [employer] Cognitive needs: No Hearing needs: No Vision needs: No Questionnaire PHQ-9 Over the last 2 weeks, how often have you been bothered by any of the following problems? 1. Little interest or pleasure in doing things: more than half the days 2. Feeling down, depressed, or hopeless: nearly every day 3. Trouble falling or staying asleep, or sleeping too much: nearly every day 4. Feeling tired or having little energy: nearly every day 5. Poor appetite or overeating: nearly every day 6. Feeling bad about yourself - or that you are a failure or have let yourself or your family down: nearly every day 7. Trouble concentrating on things, such as reading the newspaper or watching television: more than half the days 8. Moving or speaking so slowly that other people could have noticed. Or the opposite - being so fidgety or restless that you have been moving around a lot more than usual: more than half the days 9. Thoughts that you would be better off or of hurting yourself in some way: not at all Total score: 21 Depression Screening Interpretation: Positive Depression Screening Follow-up: Existing condition and In treatment Depression Screening Done: Yes 67950 - PHQ-9 Billing: Yes Source: Developed by Drs. Terrell Sawant, Jong Mirza and colleagues, with an educational areli from [employer]. Thrive Questionnaire Date Thrive assessed: 04/16/23 I am a: Patient What is your living situation today?: I have a steady place to live Within the past 12 months, did the food you bought not last and you didn't have the money to get more?: Never true Within the past 12 months, did you worry whether your food would run out before you got money to buy more?: Never true Do you have trouble paying for medicines?: No Do you have trouble getting transportation to medical appointments?: No Do you have trouble paying your heating and electricity bill?: No Do you have trouble taking care of your child, family member or friend?: No Do you have trouble with day-to-day activities such as bathing, preparing meals, shopping, managing finances, etc.?: No Are you currently unemployed and looking for a job?: No Are you interested in more education?: No Please select the resources that you would like help with: None Currently or been in a relationship where the following occur: no concerns reported AUDIT C Alcohol Use Questionnaire (AUDIT-C) 1. How often do you have a drink containing alcohol?: Never 3. How often do you have six or more drinks on one occasion?: Never Total Score: 0 DANIEL-7 AMB Questionnaire DANIEL-7 Date DANIEL - 7 assessed: 04/16/23 Feeling nervous, anxious, or on edge: 3 = Nearly every day Not being able to stop or control worryin = Nearly every day Worrying too much about different things: 3 = Nearly every day Trouble relaxin = More than half the days Being so restless that it is hard to sit still: 2 = More than half the days Becoming easily annoyed or irritable: 3 = Nearly every day Feeling afraid as if something awful might happen: 1 = Several days Total DANIEL-7 score (0-4 normal; 5-9 mild; 10-14 moderate; 15-21 severe): 17 Source: Developed by Drs. Terrell Sawant, Jong Mirza and colleagues, with an educational areli from [employer]. DANIEL-7 Assessment Billing DANIEL-7 Assessment Tool: DANIEL-7 Assessment 24514 Review of Systems Const Denies headache(s) Eyes Denies loss of vision ENT Denies vertigo, Denies dizziness, Denies headache(s) and Denies sore throat Card Denies chest pain, Denies leg edema and Denies lightheadedness Resp Denies cough, Denies hemoptysis and Denies wheezing GI Denies abdominal pain, Denies melena, Denies constipation, Reports dyspepsia, Reports heartburn, Denies diarrhea and Denies vomiting Denies urinary frequency, Denies dysuria and Denies urinary urgency Musc Denies arthralgias, Denies joint swelling, Denies numbness and Denies tingling Neuro Denies Abnormal speech present, Denies behavioral changes, Denies vertigo, Denies dizziness, Denies headache(s), Denies loss of vision, Denies memory loss, Denies numbness and Denies tingling Psych Denies anxiety, Denies behavioral changes, Denies depression, Denies memory loss and Denies panic attacks Milo/Lymph Denies easy bleeding and Denies easy bruising Aller/Immun Denies wheezing Physical exam (Primary Care) Vital Signs: Last Vital Signs Pulse 70 04/16/23 13:48 Resp 17 04/16/23 13:48 BP 106/76 04/16/23 13:48 BMI result Body Mass Index 49.0 BMI Assessment/Plan discussion: High Tobacco/Smoking Status: Tobacco use Status Tobacco use date assessed 04/16/23 04/16/23 13:50 Patient Tobacco Use Status Never used Tobacco 04/16/23 13:48 e-Cigarette/Vaping Use Never Used 04/16/23 13:48 PHQ-9: PHQ-9 Score PHQ-9: Total score 21 04/16/23 14:02 Depression Screening Interpretation: Positive Depression Screening Follow-up: Existing condition and In treatment Thrive Assessment: Date of Thrive Assessment Date Thrive assessed 04/16/23 04/16/23 14:02 Currently or been in a relationship where the following occur: no concerns reported Const Other: Morbidly obese General: healthy appearing, no acute distress, alert and awake Nutritional Appearance: well nourished Orientation/consciousness: oriented to person, oriented to place and oriented to time HENMT Ears: TM's normal bilaterally General nose exam: Normal nasal mucous membranes and turbinates present Eyes Conjunctivae: conjunctivae normal Sclerae: sclerae normal Pupils: Equal, round and reactive pupils present Neck Neck: Yes no lymphadenopathy and Yes no JVD Thyroid: Thyroid normal Carotids: no bruits Resp Effort & Inspection: normal respiratory effort and not tachypneic Auscultation: no crackles, no rales, no rhonchi and no wheezes Cardio Rate: regular rate Rhythm: regular rhythm Heart sounds: no murmurs and normal S1 and S2 GI Palpation (GI): Soft to palpation, nontender, no hepatomegaly and no splenomegaly Auscultation: normal bowel sounds Skin General skin exam: no rashes or lesions noted and dry skin Neuro General: oriented to person, oriented to place and oriented to time Cranial nerves: Yes Equal, round and reactive pupils present Speech: No Abnormal speech present Gait exam (Neuro): Normal gait present Motor exam (neuro): no tremor noted Extrem Right upper extremity: full ROM Left upper extremity: full ROM Right lower extremity: full ROM; no edema Left lower extremity: full ROM; no edema Psych Mental Status: mental status grossly normal Speech and movement: Normal speech and movement present Affect: normal affect Attitude: cooperative Thought process: Normal thought process present Assessment and Plan Assessment & Plan (1) HTN (hypertension): Code(s): I10 - Essential (primary) hypertension Qualifiers: Hypertension type: primary hypertension Qualified Code(s): I10 - Essential (primary) hypertension Plan: Pressure acceptable today in office. Not had any dedicated blood pressure medication this time. Blood pressures to be below 140/90 (2) Obesity: Code(s): E66.9 - Obesity, unspecified Qualifiers: Obesity type: due to excess calories Obesity classification: adult class 3 (BMI >= 40) Serious obesity comorbidity presence: with serious comorbidity Body mass index: BMI 45.0-49.9 Qualified Code(s): E66.01 - Morbid (severe) obesity due to excess calories; Z68.42 - Body mass index [BMI] 45.0- 49.9, adult Plan: Patient understands her BMI is 30. Has been able to lose weight using weight watchers. She reports her depression is not well controlled which causes her to increase her eating. (3) Fibromyalgia: Code(s): M79.7 - Fibromyalgia Plan: Has discontinue Lyrica. Advised on nonweightbearing exercises and continuing mental health services. (4) Depression: Code(s): F32.9 - Major depressive disorder, single episode, unspecified Qualifiers: Depression Type: major depressive disorder Major depression recurrence: single episode Active/Remission status: currently active Major depression episode severity: moderate Qualified Code(s): F32.1 - Major depressive disorder, single episode, moderate Plan: Patient's PHQ-9 score positive for moderate major depressive disorder which has been existing condition for her.. Patient continues to speak with mental health therapist and a psychiatrist who is making adjustments in her mental health medications. Recently increased her Lexapro to 20 mg. Medications: New trazodone 100 mg PO DAILY 90 days 90 tabs 2RF F32.1 - Major depressive disorder, single episode, moderate Discontinued prednisone Discontinued Reason: Doctor's Order 20 mg PO DAILY 7 days 7 tabs 0RF albuterol sulfate Discontinued Reason: Doctor's Order 0.63 mg (3 mL) inhalation QID PRN 75 mL 0RF shortness of breath or wheezing J45.909 - Unspecified asthma, uncomplicated cyclobenzaprine Discontinued Reason: Doctor's Order 10 mg PO BID 10 days PRN 20 tabs 0RF muscle spasm M62.830 - Muscle spasm of back pregabalin Discontinued Reason: Doctor's Order 75 mg PO BID 30 days 60 caps 3RF M79.7 - Fibromyalgia lubiprostone (Amitiza) Discontinued Reason: Doctor's Order 24 mcg PO BID 60 caps 2RF Coding Level of Care Code Est Pt Level 4 (66562) Diagnoses Primary hypertension I10 Hypertension type: primary hypertension Class 3 severe obesity due to excess calories with serious comorbidity and body mass index (BMI) of 45.0 to 49.9 in adult E66.01; Z68.42 Obesity type: due to excess calories Obesity classification: adult class 3 (BMI >= 40) Serious obesity comorbidity presence: with serious comorbidity Body mass index: BMI 45.0-49.9 Fibromyalgia M79.7 Current moderate episode of major depressive disorder without prior episode F32.1 Depression Type: major depressive disorder Major depression recurrence: single episode Active/Remission status: currently active Major depression episode severity: moderate Additional Codes DANIEL-7 Assessment Billing - DANIEL-7 Assessment Tool: DANIEL-7 Assessment [id number] ([id number])
== END 2023-04-16 14:28 | disposition home or self-care (01) ==
PROVIDERS: PCP Physician Assistant; Visit Provider Physician Assistant
DX: I10 Essential (primary) hypertension (principal); E66.01 Morbid (severe) obesity due to excess calories; Z68.42 Body mass index [BMI] 45.0-49.9, adult; F32.1 Major depressive disorder, single episode, moderate; M79.7 Fibromyalgia
CPT/HCPCS: 96127; 99214

== ENCOUNTER 2023-05-11 02:43 | Emergency (ER) | payer MEDICARE, MEDICAID, SELFPAY ==
--- NOTE | 2023-05-11 | ECG_ITS ---
Test Reason : MITCHD Blood Pressure : / mmHG Vent. Rate : 071 BPM Atrial Rate : 071 BPM P-R Int : 148 ms QRS Dur : 078 ms QT Int : 396 ms P-R-T Axes : 037 021 042 degrees QTc Int : 430 ms Normal sinus rhythm Cannot rule out Anterior infarct (cited on or before 11-MAY-2023) Abnormal ECG When compared with ECG of 18-MAR-2023 13:30, No significant change was found Referred By: Generic ED Physician Electronically Signed By:DAQUAN TRUONG MD
--- NOTE | ~2023-05-11 | XR_ITS ---
EXAMINATION: XR CHEST CLINICAL INFORMATION: Chest pain COMPARISON: 03/18/2023 TECHNIQUE: PA view of the chest was obtained. FINDINGS: Lungs are clear. Cardiomediastinal contours are normal. Pulmonary vasculature is unremarkable. No consolidation, pneumothorax, or pleural effusion. No acute osseous findings. XR/XR chest 1V IMPRESSION: No acute cardiopulmonary findings.
[2023-05-11 02:57] VITALS: BP 109/76; PULSE 73; RESP 18; TEMP 36; O2SAT 98; BMI 49.5
[2023-05-11 03:27] LABS: MANUAL DIFF FLAG NO
[2023-05-11 03:29] LABS: Basophils Percent Auto 0.4 % (0-2); Eosinophils Absolute Auto 0.1 X10*3/uL (0.0-0.4); Hematocrit 39.9 % (37.0-47.0); Hemoglobin 13.2 g/dl (12.0-16.0); Imm Gran Abs Auto 0.04 X10*3/uL (0.00-0.03); Imm Gran Pct Auto 0.4 % (0.0-0.4); Lymphocytes Percent Auto 21.4 % (20-40); Mean Corpuscular HGB Conc 33.1 g/dl (31.0-35.0); Mean Corpuscular Hemoglobin 28.4 pg (27.0-33.0); Mean Corpuscular Volume 85.8 fL (80.0-98.0); Neutrophils Absolute Auto 6.1 x10*3/uL (2.0-8.3); Neutrophils Percent Auto 65.8 % (45-73); Platelet Count 272 X10*3/uL (160-400); Red Blood Count 4.65 X10*6/uL (4.20-5.50); Red Cell Distribution Width 12.5 % (11.0-16.0); White Blood Count 9.2 X10*3/uL (4.8-10.8)
[2023-05-11 03:38] VITALS: BP 98/67; PULSE 72; RESP 18; TEMP 36.7; O2SAT 97
[2023-05-11 03:39] VITALS: O2SAT 97
[2023-05-11 03:48] LABS: Anion Gap 13 (12-20); Blood Urea Nitrogen 15 mg/dL (9-16); Calcium 9.2 mg/dL (8.4-10.2); Carbon Dioxide 28 mmol/L (22-29); Chloride 104 mmol/L (96-108); Estimated Glomerular Filt Rate > 60; Glucose Random 95 mg/dL (60-115); Potassium 3.8 mmol/L (3.3-5.1); Sodium 141 mmol/L (135-145)
[2023-05-11 03:58] LABS: IDNOW Serial# 6674DD1D; Strep A Nucleic Acid Negative (Negative)
[2023-05-11 04:04] LABS: Influenza A PCR NEGATIVE (Negative); Influenza B PCR NEGATIVE (Negative); Resp Syncy Virus RNA Qual PCR NEGATIVE (Negative); SARS COV2 PCR INHOUSE NEGATIVE (Negative)
[2023-05-11 04:05] LABS: Troponin-I High Sensitivity < 2.7 ng/L (<3.5-17.0)
--- NOTE | 2023-05-11 04:28 | ED_ITS ---
HPI - URI/Sore Throat General Chief Complaint: Upper Respiratory Symptoms Stated Complaint: chest pain due to cough Time Seen by Provider: 05/11/23 04:23 Source: patient Mode of arrival: ambulatory Limitations: no limitations History of Present Illness HPI Narrative: Patient comes to the emergency room complaining of couple of days of asthma exacerbation and cough. Patient denies fever chills, chest pain only with coughing. Patient has been using her inhaler more frequent than usual Related Data Home Medications Medication Instructions Recorded Confirmed aripiprazole 2 mg tablet 2 mg PO QAM 03/17/22 04/16/23 escitalopram oxalate 20 mg tablet 20 mg PO DAILY 03/17/22 04/16/23 sumatriptan succinate 25 mg tablet See Rx Instructions PO .COMPLEX PRN 03/17/22 04/16/23 lamotrigine 150 mg tablet 150 mg PO DAILY 05/08/22 04/16/23 clonidine HCl 0.1 mg tablet 0.1 mg PO BID 04/16/23 04/16/23 Previous Rx's Medication Instructions Recorded acetaminophen 325 mg tablet 650 mg (2 x 325 mg) PO Q6H PRN 02/25/20 (Tylenol) fever or pain #10 tabs blood pressure monitor (Blood #1 ea 10/27/20 Pressure Kit) nebulizers (AeroEclipse II #1 ea 05/07/21 Nebulizer) miscellaneous medical supply 1 ea miscellaneous DAILY 99 days 09/29/21 #1 ea fluticasone 250 mcg-salmeterol 50 1 ea inhalation BID 30 days #60 ea 11/11/21 mcg/dose blistr powdr for inhalation (Advair Diskus) ropinirole 0.5 mg tablet 0.5 mg PO BEDTIME #90 tabs 08/21/22 albuterol sulfate 90 mcg/actuation 1 puff inhalation QID PRN for 11/21/22 aerosol inhaler (Ventolin HFA) dyspnea #18 ea plecanatide 3 mg tablet (Trulance) 3 mg PO DAILY #90 tabs 03/13/23 trazodone 100 mg tablet 100 mg PO DAILY 90 days #90 tabs 04/16/23 lansoprazole 30 mg capsule,delayed 30 mg PO DAILY #90 caps 05/09/23 release benzonatate 100 mg capsule 100 mg PO TID PRN cough #10 caps 05/11/23 dextromethorphan HBr 15 mg capsule 30 mg (2 x 15 mg) PO Q6-8H PRN 05/11/23 cough #12 caps prednisone 50 mg tablet 50 mg PO DAILY #4 tabs 05/11/23 Allergies Allergy/AdvReac Type Severity Reaction Status Date / Time ibuprofen [From Motrin] Allergy Severe HIVES,SWELL Verified 04/16/23 14:04 ING meperidine [Demerol] Allergy Unknown Vomiting Verified 04/16/23 14:04 morphine [MORPHINE] Allergy Unknown CHEST PAIN Verified 04/16/23 14:04 hydroxyzine AdvReac Mild mouth Verified 04/16/23 14:04 numbess SHELLFISH Allergy Unknown HIVES/ITCHI Uncoded 04/16/23 13:49 NG Review of Systems 2 Review of Systems: Constitutional : No Weight loss, No Fever, No Chills, No Night Sweats, No Fatigue, No Malaise ENT/Mouth : No Hearing loss, No Ear Pain, No Nasal Congestion, No Sinus Pain, No Hoarseness, No sore throat, No Rhinorrhea, No Swallowing Difficulty Eyes: No Eye Pain, No Swelling, No Redness, No Foreign Body, No Discharge, No Vision Changes Cardiovascular : No Chest Pain, No SOB, No Dyspnea on Exertion, No Orthopnea, No Edema, No Palpitations Respiratory : Complaining of coughing and wheezing Gastrointestinal : No Nausea, No Vomiting, No Diarrhea, No Constipation, No abdominal Pain, No Hematochezia, No Melena Genitourinary : no irregular bleeding, No Dysuria, No Urinary Frequency, No Hematuria, No Urinary Incontinence, No Urgency, No Flank Pain, No Urinary Flow Changes, No Hesitancy Musculoskeletal : No joint pain, No Myalgias, No Joint Swelling Skin : No Skin Lesions, No rash Neuro : No Weakness, No Numbness, No Paresthesias, No Loss of Consciousness, No Dizziness, No Headache Psych : No Anxiety/Panic, No Depression, No SI/HI/AH/VH, No Social Issues, Heme/Lymph: No Bruising, No Bleeding,No Lymphadenopathy Endocrine : No Polyuria, No Polydipsia, No Temperature Intolerance PMFSH Past Medical History Onset Date is defined in the Problem List Problems that require an onset date and time if occurred within 24 hrs of arrival to the ED Aortic Dissection and Rupture; Neurologic impairment; Cardiopulmonary Arrest; Endotracheal Intubation; Insertion or Replacement of Mechanical Circulatory Assist Device Medical History 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) COVID-19 Hx of supraventricular tachycardia Hx-TIA (transient ischemic attack) Back spasm Obesity Headache GERD (gastroesophageal reflux disease) Screening for hypothyroidism Screening for hypercholesterolemia Screening for diabetes mellitus (DM) Anxiety Depression Fibromyalgia Asthma Surgical History Hx of colonoscopy History of partial knee replacement Hx of tubal ligation History of endoscopy History of History of knee surgery History of cholecystectomy Family History Family History Mother High cholesterol Father Lupus Diabetes Thyroid disease FH: prostate cancer Brother Asthma Anxiety Depression Daughter Depression Anxiety Childhood autism Maternal Grandmother Glaucoma Other Mental problem Substance abuse Social History Social History Housing: House Alcohol intake: never Patient Tobacco Use Status: Never used Tobacco Smoked in Last 30 Days: No e-Cigarette/Vaping Use: Never Used Second Hand Smoke Exposure: Yes Use of substances other than those prescribed or required for medical reasons: No Advance Directives: No Advance Directives Information Provided: Yes Patient : No service: No Current occupational status: employed and disabled 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 Oriented X3. No acute distress. Eyes: Pupils equal, round and reactive to light. ENT: Pharynx normal. Neck: Normal inspection. Neck supple. No lymph nodes noted. No crepitus CVS: Normal heart rate and rhythm. Pulses normal. Normal S1 and S2 Respiratory: No respiratory distress. No wheezing, normal air movement, actively coughing/dry cough Abdomen: Soft and nontender. No rigidity. No distention. Skin: Skin warm and dry. Normal skin color. Normal skin turgor. Extremities: No lower extremity edema. No Lacerations. No Rash Neuro: Oriented X 3. No motor deficit. No sensory deficit. Moving all extremities. No slurred speech. CN 2 through 12 grossly intact Psych: calm, cooperative, normal affect Course Course Course Narrative: -patient was given p.o. prednisone and Tessalon Medical Decision Making Medical Decision Making [facility] Narrative: -my interpretation of labs: Patient negative for flu RSV and COVID. Hematology and chemistry normal. -my interpretation of chest x-ray: No infiltrate -my interpretation of EKG: Normal sinus rhythm, heart rate 71, no ST segment depression or elevation, no T-wave inversion, QTC 430 -patient likely having a viral URI, worsening the asthma symptoms -patient's oxygen saturation 98% on room Differential Diagnosis Differential Diagnoses: The differential diagnosis associated with the presentation includes (COVID, RSV, flu, viral URI, asthma) Lab Data [facility] Lab Attestation statement: I reviewed the patient's lab results. 05/11/23 03:20 05/11/23 03:20 Labs: Lab Results 05/11/23 05/11/23 Range/Units 03:20 03:43 WBC 9.2 (4.8-10.8) X10*3/uL RBC 4.65 (4.20-5.50) X10*6/uL Hgb 13.2 (12.0-16.0) g/dl Hct 39.9 (37.0-47.0) % MCV 85.8 (80.0-98.0) fL MCH 28.4 (27.0-33.0) pg MCHC 33.1 (31.0-35.0) g/dl RDW 12.5 (11.0-16.0) % Plt Count 272 (160-400) X10*3/uL MPV 10.0 (9.4-12.3) fL Immature Gran % (Auto) 0.4 (0.0-0.4) % Neut % (Auto) 65.8 (45-73) % Lymph % (Auto) 21.4 (20-40) % [place] % (Auto) 11.0 (2-11) % Eos % (Auto) 1.0 (0-4) % Baso % (Auto) 0.4 (0-2) % Lymph # (Auto) 2.0 (1.2-4.9) X10*3/uL [place] # (Auto) 1.0 (0.1-1.2) X10*3/uL Eos # (Auto) 0.1 (0.0-0.4) X10*3/uL Baso # (Auto) 0.0 (0.0-0.2) X10*3/uL Abs Immat Gran (auto) 0.04 H (0.00-0.03) X10*3/uL Absolute Neuts (auto) 6.1 (2.0-8.3) x10*3/uL Absolute Nucleated RBC 0.000 (0.0-0.012) X10*3/uL Nucleated RBC % (auto) 0.0 (0.0-0.2) /100WBC Sodium 141 (135-145) mmol/L Potassium 3.8 (3.3-5.1) mmol/L Chloride 104 (96-108) mmol/L Carbon Dioxide 28 (22-29) mmol/L Anion Gap 13 (12-20) BUN 15 (9-16) mg/dL Creatinine 0.69 (0.5-1.4) mg/dL Estim Creat Clear Calc 134.0 Estimated GFR > 60 Random Glucose 95 (60-115) mg/dL Calcium 9.2 (8.4-10.2) mg/dL Troponin I High Sens < 2.7 (<3.5-17.0) ng/L Influenza Type A (PCR) NEGATIVE (Negative) Influenza Type B (PCR) NEGATIVE (Negative) RSV RNA Qual (PCR) NEGATIVE (Negative) SARS-CoV-2 RNA (RT-PCR) NEGATIVE (Negative) S. pyogenes GrpA MEGAN Negative (Negative) Independent Interpretation I performed an independent interpretation of an: Plain X-Ray Radiology Impression Discussion of test interpretation with radiology: I have reviewed the radiologist's reading. Radiologist Impression: Lungs are clear. Cardiomediastinal contours are normal. Pulmonary vasculature is unremarkable. No consolidation, pneumothorax, or pleural effusion. No acute osseous findings. XR/XR chest 1V IMPRESSION: No acute cardiopulmonary findings. Discharge Plan Discharge Clinical Impression: Asthma, Upper respiratory infection, viral, Cough Patient Disposition: Home, Self-Care Instructions: Asthma (ED), Acute Cough (ED) Additional Instructions: Please follow-up with your primary care physician tomorrow. If you have any worsening or new symptoms, please return to the emergency room or call 911 Prescriptions: New prednisone 50 mg tablet 50 mg PO DAILY Qty: 4 0RF benzonatate 100 mg capsule 100 mg PO TID PRN (Reason: cough) Qty: 10 0RF dextromethorphan HBr 15 mg capsule 30 mg PO Q6-8H PRN (Reason: cough) Qty: 12 0RF No Action (DME) blood pressure monitor [Blood Pressure Kit] Kit See Rx Instructions .ROUTE .MEDSUPPLY Qty: 1 0RF Rx Instructions: As directed miscellaneous medical supply Misc 1 ea miscellaneous DAILY 99 Days Qty: 1 0RF fluticasone propion-salmeterol [Advair Diskus] 250-50 mcg/dose blister with device 1 ea inhalation BID 30 Days Qty: 60 3RF ropinirole 0.5 mg tablet 0.5 mg PO BEDTIME Qty: 90 2RF albuterol sulfate [Ventolin HFA] 90 mcg/actuation HFA aerosol inhaler 1 puff inhalation QID PRN (Reason: for dyspnea) Qty: 18 6RF Trulance 3 mg tablet 3 mg PO DAILY Qty: 90 1RF lansoprazole 30 mg capsule,delayed release(DR/EC) 30 mg PO DAILY Qty: 90 2RF acetaminophen [Tylenol] 325 mg tablet 650 mg PO Q6H PRN (Reason: fever or pain) Qty: 10 0RF (DME) AeroEclipse II Nebulizer [facility] See Rx Instructions .ROUTE .MEDSUPPLY Qty: 1 0RF Rx Instructions: As directed clonidine HCl 0.1 mg tablet 0.1 mg PO BID trazodone 100 mg tablet 100 mg PO DAILY 90 Days Qty: 90 2RF lamotrigine 150 mg tablet 150 mg PO DAILY aripiprazole 2 mg tablet 2 mg PO QAM sumatriptan succinate 25 mg tablet See Rx Instructions PO .COMPLEX PRN Rx Instructions: take 1 tab at onset of headache; if no relief may repeat 1 tab after at least 2 hrs; max = 4 tabs/24 hr orally PRN; escitalopram oxalate 20 mg tablet 20 mg PO DAILY
[2023-05-11] MEDS: Benzonatate 100 MG CAPSULE 200 MG PO (04:47)
[2023-05-11] MEDS: predniSONE 20 MG TABLET 60 MG PO (04:47)
== END 2023-05-11 04:51 | disposition home or self-care (01) ==
PROVIDERS: Emergency Provider Emergency Medicine; PCP Physician Assistant
DX: J06.9 Acute upper respiratory infection, unspecified (principal); R05.9 Cough, unspecified; R07.89 Other chest pain; R94.31 Abnormal electrocardiogram [ECG] [EKG]; Z20.828 Contact with and (suspected) exposure to other viral communicable diseases; Z20.822 Contact with and (suspected) exposure to COVID-19
CPT/HCPCS: 0241U; 71045; 80048; 84484; 85025; 87651; 93005; 99283; 99285

== ENCOUNTER → 2023-05-11 02:56 | Outpatient (BNV) | payer MEDICARE, MEDICAID, SELFPAY | PROVIDERS: Emergency Provider Emergency Medicine; PCP Physician Assistant; Visit Provider Internal Medicine Cardiovascular Disease | DX: R94.31 Abnormal electrocardiogram [ECG] [EKG] (principal) | CPT/HCPCS: 93010 ==

== ENCOUNTER 2023-05-16 08:02 | Outpatient (AMB) | payer MEDICARE, MEDICAID, SELFPAY ==
--- NOTE | 2023-05-16 08:07 | MHC.OFFWIV ---
Intake Vital Signs 05/16/23 08:08 Height 5 ft 4 in BP 104/62 Blood Pressure Location Rt brachial Position Sitting Pulse 75 Pulse Source Pulse Oximeter Temp 97.7 F Temp Source Oral Pulse Oximetry (%) 96 Oxygen Delivery Method Room Air Intake Visit Reasons: EST/dizzy, cough (lobby masked) Intake Note: pt is here for c.o dizzy, cough Patient Tobacco Use Status: Never used Tobacco Allergies ibuprofen [From Motrin] Allergy (Severe, Verified 05/16/23 08:09) HIVES,SWELLING meperidine [Demerol] Allergy (Unknown, Verified 05/16/23 08:09) Vomiting morphine [MORPHINE] Allergy (Unknown, Verified 05/16/23 08:09) CHEST PAIN hydroxyzine Adverse Reaction (Mild, Verified 05/16/23 08:09) mouth numbess SHELLFISH Allergy (Unknown, Uncoded 04/16/23 13:49) HIVES/ITCHING Do you need a note to return to daycare/school/sports/work: Yes HPI HPI Comments History of Present Illness Details This is a 48-year-old female with a past medical history of anxiety, depression, gastroesophageal reflux disease and asthma presenting for evaluation of a cough and lightheadedness that she has had for the past 1 week. Patient was seen in the emergency department on May 11 2023 for similar symptoms and had a negative chest x-ray and was negative for influenza, RSV and COVID-19. Patient is currently taking her prednisone 50 mg daily and her last dose is tomorrow morning. Patient reports intermittent chills without fevers, wheezing and chest congestion. Patient does not want to be retested for influenza, RSV and COVID-19. Patient is requesting a work note for tomorrow. 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) COVID-19 Hx of supraventricular tachycardia Hx-TIA (transient ischemic attack) Back spasm Obesity Headache GERD (gastroesophageal reflux disease) Screening for hypothyroidism Screening for hypercholesterolemia Screening for diabetes mellitus (DM) Anxiety Depression Fibromyalgia Asthma Surgical History Hx of colonoscopy History of partial knee replacement Hx of tubal ligation History of endoscopy History of History of knee surgery History of cholecystectomy Family History Mother High cholesterol Father Lupus Diabetes Thyroid disease FH: prostate cancer Brother Asthma Anxiety Depression Daughter Depression Anxiety Childhood autism Maternal Grandmother Glaucoma Other Mental problem Substance abuse Social History Housing: House Alcohol intake: never Patient Tobacco Use Status: Never used Tobacco e-Cigarette/Vaping Use: Never Used Second Hand Smoke Exposure: Yes service: No Current occupational status: employed and disabled 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 [employer] Cognitive needs: No Hearing needs: No Vision needs: No Review of Systems Const All systems reviewed & are unremarkable except as noted in HPI and below Eyes Reports as per HPI ENT Reports dizziness (resolved), Denies otalgia, Denies facial pain, Denies nasal congestion, Denies post nasal drip, Denies sinus pain and Denies sinus pressure Card Reports as per HPI and Denies dyspnea Resp Reports cough, Denies dyspnea, Denies stridor and Reports wheezing Neuro Reports dizziness (resolved) Psych Reports no additional complaints Aller/Immun Reports wheezing Physical Exam Vital Signs: Last Vital Signs Temp 97.7 F 05/16/23 08:08 Pulse 75 05/16/23 08:08 BP 104/62 05/16/23 08:08 Pulse Ox 96 05/16/23 08:08 Oxygen Delivery Method Room Air 05/16/23 08:08 Const General: cooperative, healthy appearing, comfortable and no acute distress Nutritional Appearance: obese Orientation/consciousness: patient oriented x3 Limitations: no limitations HEENT Head: Yes normal to inspection Ears: hearing grossly normal bilaterally, external ears normal, TM's normal bilaterally and EAC's normal General nose exam: Normal external nose present and Normal nares present Face and sinus: Yes normal facial exam, Yes sinuses nontender and No sinus tenderness Mouth: Normal oral and palatal mucosa present (There is no edema, exudates or erythema of the posterior oropharynx), oropharynx normal and no muffled voice Throat: Yes posterior oropharynx normal, Yes uvula midline, No abnormal tonsil and No postnasal drainage Eyes General: appearance normal, both eyes and all related structures Eyelids: Yes eyelids normal Conjunctivae: conjunctivae normal Sclerae: sclerae normal EOM: EOMs intact bilaterally Resp Effort & Inspection: normal respiratory effort, able to speak in complete sentences, no audible wheezes, no cough, no respiratory distress and no use of accessory muscles Auscultation: clear to auscultation bilaterally Cardio Rate: regular rate Rhythm: regular rhythm Skin General skin exam: no rashes or lesions noted Neuro General: patient oriented x3 Psych Appearance: grossly normal Mental Status: mental status grossly normal Insight: Good insight present (Psych) Judgement: Good judgement present (Psych) Assessment & Plan Assessment & Plan (1) Upper respiratory infection: Comment: Patient is seen and evaluated. She will complete her course of prednisone and use Mucinex OTC daily. Code(s): J06.9 - Acute upper respiratory infection, unspecified Plan: Mucinex OTC with increased clear fluids daily. Follow-up with primary care for increased shortness of breath, fevers, persistent lightheadedness or worsening symptoms. Coding Level of Care Code Est Pt Level 3 (64805) Diagnoses Upper respiratory infection J06.9 Time Spent (min) 20
[2023-05-16 08:08] VITALS: BP 104/62; PULSE 75; TEMP 36.5; O2SAT 96
== END 2023-05-16 08:57 | disposition home or self-care (01) ==
PROVIDERS: PCP Physician Assistant; Visit Provider Physician Assistant
DX: J06.9 Acute upper respiratory infection, unspecified (principal)
CPT/HCPCS: 99213

== ENCOUNTER 2023-08-11 15:31 | Emergency (ER) | payer MEDICARE, MEDICAID, SELFPAY ==
--- NOTE | ~2023-08-11 | US_ITS ---
EXAMINATION: US VENOUS ULTRASOUND WITH DOPPLER LOWER EXTREMITY, LEFT CLINICAL INFORMATION: Calf pain COMPARISON: Venous insufficiency ultrasound 2021 TECHNIQUE: Ultrasound of the deep veins is performed from the hip to the calf with compression sonography and color and pulse Doppler assessment. Spectral analysis with color-flow imaging is performed. FINDINGS: There is normal venous compression and respiratory variation and augmented flow. The visualized common femoral vein, superficial femoral vein, profunda femoral vein, popliteal vein, and the trifurcation region shows no evidence of deep venous thrombosis. Champion's cyst measuring 5 x 0.9 x 3.5 cm. US/US venous duplex LE LT IMPRESSION: No DVT demonstrated in the left lower extremity.
[2023-08-11 16:34] VITALS: BP 121/74; PULSE 66; RESP 16; TEMP 36.4; O2SAT 97; BMI 49.9
--- NOTE | 2023-08-11 16:34 | ED_ITS ---
HPI - General Adult General Chief complaint: Extremity Injury, Lower Stated complaint: left leg pain Time Seen by Provider: 08/11/23 16:52 Source: patient Mode of arrival: ambulatory Limitations: no limitations History of Present Illness HPI narrative: Patient is a 48-year-old female with history of asthma, fibromyalgia, depression, GERD presenting to the emergency department with complaint of pain behind left knee for the past week. She denies any fall or other trauma. Reports pain has progressively worsened. States pain increases with sitting in the car for more than 30 minutes and with ambulation. States that she has had difficulty getting upstairs due to the pain. She has been taking Tylenol as she is allergic to ibuprofen. Denies any numbness or tingling to her leg. MD complaint: Knee pain Onset (ago): week(s) Quality: aching Pain Consistency: constant Relieving factors: rest Exacerbating factors: movement Associated symptoms: denies other symptoms Treatments prior to arrival: other Related Data Home Medications ?Medication ?Instructions ?Recorded ?Confirmed aripiprazole 2 mg tablet 2 mg PO QAM 03/17/22 04/16/23 escitalopram oxalate 20 mg tablet 20 mg PO DAILY 03/17/22 04/16/23 sumatriptan succinate 25 mg tablet See Rx Instructions PO .COMPLEX PRN 03/17/22 04/16/23 lamotrigine 150 mg tablet 150 mg PO DAILY 05/08/22 04/16/23 Previous Rx's ?Medication ?Instructions ?Recorded acetaminophen 325 mg tablet 650 mg (2 x 325 mg) PO Q6H PRN 02/25/20 (Tylenol) fever or pain #10 tabs blood pressure monitor (Blood #1 ea 10/27/20 Pressure Kit) nebulizers (AeroEclipse II #1 ea 05/07/21 Nebulizer) miscellaneous medical supply 1 ea miscellaneous DAILY 99 days 09/29/21 #1 ea fluticasone 250 mcg-salmeterol 50 1 ea inhalation BID 30 days #60 ea 11/11/21 mcg/dose blistr powdr for inhalation (Advair Diskus) albuterol sulfate 90 mcg/actuation 1 puff inhalation QID PRN for 11/21/22 aerosol inhaler (Ventolin HFA) dyspnea #18 ea plecanatide 3 mg tablet (Trulance) 3 mg PO DAILY #90 tabs 03/13/23 trazodone 100 mg tablet 100 mg PO DAILY 90 days #90 tabs 04/16/23 lansoprazole 30 mg capsule,delayed 30 mg PO DAILY #90 caps 05/09/23 release ropinirole 0.5 mg tablet 0.5 mg PO BEDTIME #90 tabs 06/14/23 promethazine 25 mg tablet 25 mg PO TID PRN nausea and 06/19/23 vomiting 5 days #15 tabs amoxicillin 500 mg tablet 500 mg PO Q8H 7 days #21 tabs 06/21/23 baclofen 10 mg tablet 10 mg PO BEDTIME 7 days #7 tabs 06/21/23 lidocaine 5 % topical patch 1 patch topical DAILY #15 ea 08/11/23 Allergies Allergy/AdvReac Type Severity Reaction Status Date / Time ibuprofen [From Motrin] Allergy Severe HIVES,SWELL Verified 08/11/23 16:38 ING meperidine [Demerol] Allergy Unknown Vomiting Verified 08/11/23 16:38 morphine [MORPHINE] Allergy Unknown CHEST PAIN Verified 08/11/23 16:38 hydroxyzine AdvReac Mild mouth Verified 08/11/23 16:38 numbess Review of Systems Review of Systems: As per HPI. 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) COVID-19 Hx of supraventricular tachycardia Hx-TIA (transient ischemic attack) Back spasm Obesity Headache GERD (gastroesophageal reflux disease) Screening for hypothyroidism Screening for hypercholesterolemia Screening for diabetes mellitus (DM) Anxiety Depression Fibromyalgia Asthma Surgical History Hx of colonoscopy History of partial knee replacement Hx of tubal ligation History of endoscopy History of History of knee surgery History of cholecystectomy Family History Family History Mother High cholesterol Father Lupus Diabetes Thyroid disease FH: prostate cancer Brother Asthma Anxiety Depression Daughter Depression Anxiety Childhood autism Maternal Grandmother Glaucoma Other Mental problem Substance abuse Social History Social History Housing: House Alcohol intake: never Patient Tobacco Use Status: Never used Tobacco e-Cigarette/Vaping Use: Never Used Second Hand Smoke Exposure: Yes Advance Directives: No Advance Directives Information Provided: No Patient : No service: No Current occupational status: employed and disabled Current occupation: [employer] Cognitive needs: No Hearing needs: No Vision needs: No Physical Exam ED Vital Signs: Vital Signs - 24 hr 08/11/23 16:34 Temperature 97.5 F Pulse Rate 66 Respiratory Rate 16 Blood Pressure 121/74 Pulse Oximetry 97 Oxygen Delivery Method Room Air BMI result Body Mass Index 49.9 Vital signs have been reviewed and appear to be correct. Blood pressure normal. Heart rate normal. Respiratory rate normal. Temperature normal. Oxygen saturation normal. Const General: cooperative, healthy appearing and no acute distress Orientation/consciousness: oriented to person, oriented to place, oriented to time and patient oriented x3 Limitations: no limitations HENMT Head: Yes normocephalic and Yes atraumatic Ears: external ears normal General nose exam: Normal external nose present Face and sinus: Yes face symmetric Mouth: oropharynx normal and moist mucous membranes Throat: Yes uvula midline Eyes Pupils: Equal, round and reactive pupils present Neck Neck: Yes normal visual inspection and Yes supple Resp Effort & Inspection: normal respiratory effort and able to speak in complete sentences Auscultation: clear to auscultation bilaterally Cardio Rate: regular rate Rhythm: regular rhythm Heart sounds: S1 normal heart sound present and S2 normal heart sound present GI Palpation (GI): Soft to palpation and nontender Auscultation: normoactive bowel sounds General: Yes no CVA tenderness Back/Spine/Pelvis Back: no CVA tenderness Skin General skin exam: elasticity normal and turgor normal Neuro General: oriented to person, oriented to place, oriented to time, patient oriented x3, moves all extremities, no focal motor deficits and CN's II-XI intact bilaterally Cranial nerves: Yes Equal, round and reactive pupils present Cognition (Neuro): normal cognition Extrem General: Yes full ROM, Yes normal exam except as noted, Yes no pedal edema and Yes no calf tenderness Left lower extremity: knee Details: normal to inspection, tenderness Location: of the popliteal fossa, normal ROM and knee ligament exam normal Psych Mental Status: mental status grossly normal Affect: normal affect Thought process: Normal thought process present Course Course Course Narrative: This is an RME: Additional HPI, ROS, PE not included below will be deferred to primary provider. This is a [id number]-female, with a hx of asthma, fibromyalgia, depression, GERD, who presents to the ER with complaints of left posterior knee pain/calf pain x 1 week. No CP/SOB. VSS. No recent travel, surgeries, hospitalizations. Hx of blood clots Plan: Ultrasound left lower extremity Medical Decision Making Medical Decision Making MDM Narrative: Patient is a 48-year-old female with history of asthma, fibromyalgia, depression, GERD presenting to the emergency department with complaint of pain behind left knee for the past week. On exam patient is awake, A+Ox3, VS WNL, afebrile, normal neurological exam without focal deficits, physical exam findings as above. Given reported symptoms and physical exam findings, initial differential includes DVT, Champion's cyst, muscle strain. Ultrasound notable for champion cyst, no evidence of DVT. My interpretation is in agreement with the radiologist's interpretation. Patient updated on results and all questions answered. Will provide patient with Cuco wrap in the emergency department. Advised patient to continue using Tylenol for discomfort as she is allergic to ibuprofen. Advised patient to use Cuco wrap, keep leg elevated while at rest. Can apply warm compresses intermittently. Will prescribe topical lidocaine patches, noted that patient should not apply heat directly over the patches. Instructed patient to follow-up with primary care provider. Return precautions discussed at bedside. Patient verbalized understanding of and agreement with plan. Differential Diagnosis Differential Diagnoses: The differential diagnosis associated with the presentation includes As per MDM. Independent Interpretation I performed an independent interpretation of an: Ultrasound Interpretation: Champion's cyst noted behind left knee, no evidence of DVT. Radiology Impression Discussion of test interpretation with radiology: I have reviewed the radiolog ist's reading. Radiologist Impression: FINDINGS: There is normal venous compression and respiratory variation and augmented flow. The visualized common femoral vein, superficial femoral vein, profunda femoral vein, popliteal vein, and the trifurcation region shows no evidence of deep venous thrombosis. Champion's cyst measuring 5 x 0.9 x 3.5 cm. US/US venous duplex LE LT IMPRESSION: No DVT demonstrated in the left lower extremity. External Record Review External record reviewed: Inpatient record, Office record and Outpatient record Prescription Management I considered prescription management with: Pain Medication Discharge Plan Discharge Clinical Impression: Champion's cyst of knee Qualifiers: Laterality: left Qualified Code(s): M71.22 - Synovial cyst of popliteal space [Champion], left knee Patient Disposition: Home, Self-Care Instructions: How to Use an Elastic Bandage (ED), Bakers Cyst (ED) Additional Instructions: You were evaluated in the emergency department today for pain to the back of your left knee. Your ultrasound did not show evidence of a blood clot in your leg, also known as a DVT. The ultrasound did show evidence of a Champion's cyst which is likely the cause of your pain. You were provided with an Cuco wrap in the emergency department, please continue to use this at home to provide compression. You should keep your leg elevated while at rest. We recommend that you continue to use Tylenol for your discomfort. You are also being prescribed topical lidocaine patches which you can wear for up to 12 hours in a 24 hour period. Do not apply heat directly over the patches. Please follow-up with your primary care provider. Return to the emergency department if you develop increasing pain, change of color to your leg, fever or any other concerning symptoms. Prescriptions: New lidocaine 5 % adhesive patch,medicated 1 patch topical DAILY Qty: 15 0RF Rx Instructions: leave on most painful area for up to 12 hrs No Action (DME) blood pressure monitor [Blood Pressure Kit] Kit See Rx Instructions .ROUTE .MEDSUPPLY Qty: 1 0RF Rx Instructions: As directed miscellaneous medical supply Misc 1 ea miscellaneous DAILY 99 Days Qty: 1 0RF fluticasone propion-salmeterol [Advair Diskus] 250-50 mcg/dose blister with device 1 ea inhalation BID 30 Days Qty: 60 3RF albuterol sulfate [Ventolin HFA] 90 mcg/actuation HFA aerosol inhaler 1 puff inhalation QID PRN (Reason: for dyspnea) Qty: 18 6RF Trulance 3 mg tablet 3 mg PO DAILY Qty: 90 1RF lansoprazole 30 mg capsule,delayed release(DR/EC) 30 mg PO DAILY Qty: 90 2RF ropinirole 0.5 mg tablet 0.5 mg PO BEDTIME Qty: 90 2RF promethazine 25 mg tablet 25 mg PO TID PRN (Reason: nausea and vomiting) 5 Days Qty: 15 0RF amoxicillin 500 mg tablet 500 mg PO Q8H 7 Days Qty: 21 0RF baclofen 10 mg tablet 10 mg PO BEDTIME 7 Days Qty: 7 0RF acetaminophen [Tylenol] 325 mg tablet 650 mg PO Q6H PRN (Reason: fever or pain) Qty: 10 0RF (DME) AeroEclipse II Nebulizer Misc See Rx Instructions .ROUTE .MEDSUPPLY Qty: 1 0RF Rx Instructions: As directed trazodone 100 mg tablet 100 mg PO DAILY 90 Days Qty: 90 2RF lamotrigine 150 mg tablet 150 mg PO DAILY aripiprazole 2 mg tablet 2 mg PO QAM sumatriptan succinate 25 mg tablet See Rx Instructions PO .COMPLEX PRN Rx Instructions: take 1 tab at onset of headache; if no relief may repeat 1 tab after at least 2 hrs; max = 4 tabs/24 hr orally PRN; escitalopram oxalate 20 mg tablet 20 mg PO DAILY Print Language: Italian
[2023-08-11 18:23] VITALS: BP 119/69; PULSE 60; RESP 18; TEMP 36.8; O2SAT 96
== END 2023-08-11 18:23 | disposition home or self-care (01) ==
PROVIDERS: Emergency Provider Emergency Medicine; PCP Physician Assistant
DX: M71.22 Synovial cyst of popliteal space [Baker], left knee (principal); M79.605 Pain in left leg; R60.0 Localized edema
CPT/HCPCS: 93971; 99283

== ENCOUNTER 2023-08-17 20:01 | Emergency (ER) | payer MEDICARE, MEDICAID, SELFPAY ==
[2023-08-17 20:02] VITALS: BP 123/68; PULSE 82; RESP 18; TEMP 36.9; O2SAT 98; BMI 51.5
--- NOTE | 2023-08-17 20:03 | ED_ITS ---
HPI - General Adult General Chief complaint: Allergic Reaction Stated complaint: allergic reac. hives, thorat feeling weird, sob Time Seen by Provider: 08/17/23 22:14 Source: patient Mode of arrival: ambulatory Limitations: no limitations History of Present Illness HPI narrative: 40-year-old female with a history of morbid obesity, lymphedema, GERD, depression, anxiety, PVD, asthma, fibromyalgia who presents to the ER for evaluation of a possible allergic reaction after taking Aleve She states she has a known allergic reaction to ibuprofen. She thought she could take Aleve and did so at 6pm. Shortly after she started feeling very itchy all over. She states she felt her lips tingling and like something was in her throat. She felt SOB but denies wheezing. She denies any facial swelling, rashes, lip or tongue swelling. Given 50mg benadryl in triage. MD complaint: allergic reaction Onset (ago): hour(s) Location: face, chest, back, abdomen, left, right, upper extremity and lower extremity Severity: moderate Quality: other (itchy) Pain Consistency: constant Relieving factors: none Exacerbating factors: none Associated symptoms: shortness of breath and other (anxiety) Treatments prior to arrival: none Related Data Home Medications ?Medication ?Instructions ?Recorded ?Confirmed aripiprazole 2 mg tablet 2 mg PO QAM 03/17/22 04/16/23 escitalopram oxalate 20 mg tablet 20 mg PO DAILY 03/17/22 04/16/23 sumatriptan succinate 25 mg tablet See Rx Instructions PO .COMPLEX PRN 03/17/22 04/16/23 lamotrigine 150 mg tablet 150 mg PO DAILY 05/08/22 04/16/23 Previous Rx's ?Medication ?Instructions ?Recorded acetaminophen 325 mg tablet 650 mg (2 x 325 mg) PO Q6H PRN 02/25/20 (Tylenol) fever or pain #10 tabs blood pressure monitor (Blood #1 ea 10/27/20 Pressure Kit) nebulizers (AeroEclipse II #1 ea 05/07/21 Nebulizer) miscellaneous medical supply 1 ea miscellaneous DAILY 99 days 09/29/21 #1 ea fluticasone 250 mcg-salmeterol 50 1 ea inhalation BID 30 days #60 ea 11/11/21 mcg/dose blistr powdr for inhalation (Advair Diskus) albuterol sulfate 90 mcg/actuation 1 puff inhalation QID PRN for 11/21/22 aerosol inhaler (Ventolin HFA) dyspnea #18 ea plecanatide 3 mg tablet (Trulance) 3 mg PO DAILY #90 tabs 03/13/23 trazodone 100 mg tablet 100 mg PO DAILY 90 days #90 tabs 04/16/23 lansoprazole 30 mg capsule,delayed 30 mg PO DAILY #90 caps 05/09/23 release ropinirole 0.5 mg tablet 0.5 mg PO BEDTIME #90 tabs 06/14/23 promethazine 25 mg tablet 25 mg PO TID PRN nausea and 06/19/23 vomiting 5 days #15 tabs amoxicillin 500 mg tablet 500 mg PO Q8H 7 days #21 tabs 06/21/23 baclofen 10 mg tablet 10 mg PO BEDTIME 7 days #7 tabs 06/21/23 lidocaine 5 % topical patch 1 patch topical DAILY #15 ea 08/11/23 Allergies Allergy/AdvReac Type Severity Reaction Status Date / Time ibuprofen [From Motrin] Allergy Severe HIVES,SWELL Verified 08/17/23 20:04 ING meperidine [Demerol] Allergy Unknown Vomiting Verified 08/17/23 20:04 morphine [MORPHINE] Allergy Unknown CHEST PAIN Verified 08/17/23 20:04 hydroxyzine AdvReac Mild mouth Verified 08/17/23 20:04 numbess Review of Systems Review of Systems: Yes all other systems are reviewed and are negative PMFSH Past Medical History Medical History 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) COVID-19 Hx of supraventricular tachycardia Hx-TIA (transient ischemic attack) Back spasm Obesity Headache GERD (gastroesophageal reflux disease) Screening for hypothyroidism Screening for hypercholesterolemia Screening for diabetes mellitus (DM) Anxiety Depression Fibromyalgia Asthma Surgical History Hx of colonoscopy History of partial knee replacement Hx of tubal ligation History of endoscopy History of History of knee surgery History of cholecystectomy Family History Family History Mother High cholesterol Father Lupus Diabetes Thyroid disease FH: prostate cancer Brother Asthma Anxiety Depression Daughter Depression Anxiety Childhood autism Maternal Grandmother Glaucoma Other Mental problem Substance abuse Social History Social History Housing: House Alcohol intake: never Patient Tobacco Use Status: Never used Tobacco e-Cigarette/Vaping Use: Never Used Second Hand Smoke Exposure: Yes Advance Directives: No Advance Directives Information Provided: No service: No Current occupational status: employed and disabled 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 Cognitive needs: No Hearing needs: No Vision needs: No Physical Exam ED Vital Signs: Vital Signs - 24 hr 08/17/23 20:02 Temperature 98.5 F Pulse Rate 82 Respiratory Rate 18 Blood Pressure 123/68 Pulse Oximetry 98 Oxygen Delivery Method Room Air BMI result Body Mass Index 51.5 Appearance: Alert. Oriented X3. No acute distress. Head: normocephalic, atraumatic. Eyes: Pupils equal, round and reactive to light. ENT: Pharynx normal. No tonsillar swelling or exudate. Uvula midline, no swelling of the lips or tongue. Neck: Normal inspection. Neck supple. CVS: Normal heart rate and rhythm. Pulses normal. Respiratory: No respiratory distress. Breath sounds normal. Abdomen: Obese, Soft and nontender. +BS x4 Skin: Skin warm and dry. Normal skin color. Normal skin turgor. No rashes. Extremities: No lower extremity edema. No joint swelling. Neuro/psych: Oriented X 3. No motor deficit. No sensory deficit. CN II-XII intact. Normal speech and cognition. Course Course Course Narrative: This is an RME: Additional HPI, ROS, PE not included below will be deferred to primary provider. 48 year old female presents w/ difficulty breathing sp trying aleeve for the first time. Allergic to ibuprofen. Took alleve about an hour and half ago. Hasnt taken anything for the sx yet Speaking in full sentences, vss. Reevaluation(s) Reevaluation #1: Patient reassessed after 2nd dose of Benadryl. She states her symptoms are improved. She did receive 2 doses of Benadryl, will continue to observe in the emergency department until safe to drive home. Stable for discharge once feeling more awake and Benadryl has worn off. Time: 01:03 Medications Administered Discontinued Medications Generic Name Dose Route Start Last Admin Trade Name Macie PRN Reason Stop Dose Admin Diphenhydramine HCl 50 mg 08/17/23 20:03 08/17/23 20:07 Diphenhydramine Hcl 25 Mg Capsule PO 08/17/23 20:04 50 mg ONCE ONE Administration Diphenhydramine HCl 50 mg 08/17/23 23:11 08/17/23 23:49 Diphenhydramine Hcl 25 Mg Capsule PO 08/17/23 23:12 50 mg ONCE ONE Administration Famotidine 20 mg 08/17/23 22:22 08/17/23 22:34 Famotidine 20 Mg Tablet PO 08/17/23 22:23 20 mg ONCE ONE Administration Hydroxyzine HCl 50 mg 08/17/23 22:22 08/17/23 22:40 Hydroxyzine Hcl 50 Mg Tablet PO 08/17/23 22:23 Not Given ONCE ONE Prednisone 40 mg 08/17/23 22:22 08/17/23 22:34 Prednisone 20 Mg Tablet PO 08/17/23 22:23 40 mg ONCE ONE Administration Medical Decision Making Medical Decision Making MDM Narrative: 40-year-old female presents to the ER or evaluation of possible allergic reaction to Aleve. She is reporting all over body itching, sensation of something in her throat and tingling in the lips. She was given Benadryl in triage. She reports minimal improvement with this. She states she still feels all over itching, although tingling in the lips is better. She has no obvious swelling on exam no urticarial wheals on exam. Will administer Atarax, Pepcid, and prednisone. Will monitor closely in the emergency department 104 - patient feeling improved after Benadryl, steroid, Pepcid. Stable for discharge after effects of Benadryl have worn off so that she can safely drive Differential Diagnosis Differential Diagnoses: The differential diagnosis associated with the presentation includes allergic reaction, angioedema, anaphylaxis, anxiety attack Admission/Observation Consideration of admission/observation: Escalation of care including admission/observation considered External Record Review External record reviewed: Outpatient record and Prior outpatient labs Prescription Management I considered prescription management with: Other (antihistamine) Chronic Conditions Patient?s care impacted by: Hypertension and Other (morbid obesity) Discharge Plan Discharge Clinical Impression: Allergic reaction Qualifiers: Encounter type: initial encounter Qualified Code(s): T78.40XA - Allergy, unspecified, initial encounter Patient Disposition: Home, Self-Care Instructions: General Allergic Reaction (ED) Additional Instructions: Continue to take Benadryl as needed for itching. Do not take any NSAIDs, these should be added to your allergy list. If you develop new or worsening symptoms call 911 or come back to the ER for further evaluation. Prescriptions: No Action (DME) blood pressure monitor [Blood Pressure Kit] Kit See Rx Instructions .ROUTE .MEDSUPPLY Qty: 1 0RF Rx Instructions: As directed [facility] DA[facility] 99 Days Qty: 1 0RF fluticasone propion-salmeterol [Advair Diskus] 250-50 mcg/dose blister with device 1 ea inhalation BID 30 Days Qty: 60 3RF albuterol sulfate [Ventolin HFA] 90 mcg/actuation HFA aerosol inhaler 1 puff inhalation QID PRN (Reason: for dyspnea) Qty: 18 6RF Trulance 3 mg tablet 3 mg PO DAILY Qty: 90 1RF lansoprazole 30 mg capsule,delayed release(DR/EC) 30 mg PO DAILY Qty: 90 2RF ropinirole 0.5 mg tablet 0.5 mg PO BEDTIME Qty: 90 2RF promethazine 25 mg tablet 25 mg PO TID PRN (Reason: nausea and vomiting) 5 Days Qty: 15 0RF amoxicillin 500 mg tablet 500 mg PO Q8H 7 Days Qty: 21 0RF baclofen 10 mg tablet 10 mg PO BEDTIME 7 Days Qty: 7 0RF acetaminophen [Tylenol] 325 mg tablet 650 mg PO Q6H PRN (Reason: fever or pain) Qty: 10 0RF (DME) AeroEclipse II Nebulizer [facility] See Rx Instructions .ROUTE .MEDSUPPLY Qty: 1 0RF Rx Instructions: As directed lidocaine 5 % adhesive patch,medicated 1 patch topical DAILY Qty: 15 0RF Rx Instructions: leave on most painful area for up to 12 hrs trazodone 100 mg tablet 100 mg PO DAILY 90 Days Qty: 90 2RF lamotrigine 150 mg tablet 150 mg PO DAILY aripiprazole 2 mg tablet 2 mg PO QAM sumatriptan succinate 25 mg tablet See Rx Instructions PO .COMPLEX PRN Rx Instructions: take 1 tab at onset of headache; if no relief may repeat 1 tab after at least 2 hrs; max = 4 tabs/24 hr orally PRN; escitalopram oxalate 20 mg tablet 20 mg PO DAILY Referrals: Jeremy Sanches PA-C [Primary Care Provider] - Stand Alone Forms: Work/School Release Print Language: Slovenian
[2023-08-17] MEDS: diphenhydrAMINE HCL 25 MG CAPSULE 50 MG PO ×2 (20:07→23:49)
[2023-08-17] MEDS: predniSONE 20 MG TABLET 40 MG PO (22:34)
[2023-08-17] MEDS: Famotidine 20 MG TABLET PO (22:34)
--- NOTE | 2023-08-17 22:40 | PC.NURSE ---
hydroxyzine not given per pt allergy. pt states med creates mouth itchiness cas adame made aware
[2023-08-18 02:16] VITALS: BP 135/88; PULSE 78; RESP 16; TEMP 36.2; O2SAT 98
== END 2023-08-18 02:18 | disposition home or self-care (01) ==
PROVIDERS: Emergency Provider Emergency Medicine; PCP Physician Assistant
DX: T78.40XA Allergy, unspecified, initial encounter (principal); X58.XXXA Exposure to other specified factors, initial encounter; Z88.6 Allergy status to analgesic agent
CPT/HCPCS: 99282; 99283

== ENCOUNTER 2023-08-21 15:51 | Outpatient (REF) | payer MEDICARE, MEDICAID, SELFPAY ==
--- NOTE | ~2023-08-21 | MM_ITS ---
EXAMINATION: MM SCREENING DIGITAL BREAST TOMOSYNTHESIS, BILATERAL CLINICAL INFORMATION: Screening. Asymptomatic. COMPARISON: Mammography: 08/15/2022, 06/15/2021, 12/15/2018. TECHNIQUE: Digital breast tomosynthesis is performed in both the craniocaudal and mediolateral oblique views along with computer-aided detection (CAD). Synthesized 2D images are generated from the tomosynthesis. FINDINGS: The breasts are almost entirely fatty (ACR BI-RADS breast composition Category a). There are stable small oval nodules in the upper outer quadrants of both breasts, most likely lymph nodes. There are no suspicious masses, suspicious grouped calcifications, or areas of architectural distortion in either breast. The parenchymal pattern is stable from prior exams. No skin or axillary abnormalities. MM/MM tomosynthesis screening BI IMPRESSION: No mammographic evidence of malignancy. ASSESSMENT: BI-RADS BI-RADS 2 - Benign Findings RECOMMENDATION: Routine annual mammography screening. 1 year F/U This examination should not preclude the clinical evaluation of a suspicious palpable abnormality. This patient's information was entered into a reminder system with a target due date for their next mammogram.
== END 2023-08-21 15:52 | disposition home or self-care (01) ==
LOC: HO.MAMMO 15:51
PROVIDERS: PCP Physician Assistant; Visit Provider Physician Assistant
DX: Z12.31 Encounter for screening mammogram for malignant neoplasm of breast (principal)
CPT/HCPCS: 77063; 77067

== ENCOUNTER → 2023-08-21 16:00 | Outpatient (BNV) | payer MEDICARE, MEDICAID, SELFPAY | PROVIDERS: PCP Physician Assistant; Visit Provider Radiology Diagnostic Radiology | DX: Z12.31 Encounter for screening mammogram for malignant neoplasm of breast (principal) | CPT/HCPCS: 77063; 77067 ==

== ENCOUNTER 2023-09-06 22:18 | Emergency (ER) | payer MEDICARE, MEDICAID, SELFPAY ==
[2023-09-06 22:24] VITALS: BP 103/57; PULSE 82; RESP 20; TEMP 36.4; O2SAT 96; BMI 51.5
--- NOTE | 2023-09-07 03:53 | ED_ITS ---
HPI - General Adult General Chief complaint: Skin/Abscess/Foreign Body Stated complaint: cyst left leg painful Time Seen by Provider: 09/07/23 03:41 Source: patient Mode of arrival: ambulatory Limitations: no limitations History of Present Illness HPI narrative: Patient comes to the emergency room complaining of chronic pain in the lower extremity behind the knee. About a month ago, patient was diagnosed with a Champion's cyst measuring 5 cm x 1 cm x 3.5 cm. Patient has been having pain for about a month now. Related Data Home Medications ?Medication ?Instructions ?Recorded ?Confirmed aripiprazole 2 mg tablet 2 mg PO QAM 03/17/22 04/16/23 escitalopram oxalate 20 mg tablet 20 mg PO DAILY 03/17/22 04/16/23 sumatriptan succinate 25 mg tablet See Rx Instructions PO .COMPLEX PRN 03/17/22 04/16/23 lamotrigine 150 mg tablet 150 mg PO DAILY 05/08/22 04/16/23 Previous Rx's ?Medication ?Instructions ?Recorded acetaminophen 325 mg tablet 650 mg (2 x 325 mg) PO Q6H PRN 02/25/20 (Tylenol) fever or pain #10 tabs blood pressure monitor (Blood #1 ea 10/27/20 Pressure Kit) nebulizers (AeroEclipse II #1 ea 05/07/21 Nebulizer) miscellaneous medical supply 1 ea miscellaneous DAILY 99 days 09/29/21 #1 ea fluticasone 250 mcg-salmeterol 50 1 ea inhalation BID 30 days #60 ea 11/11/21 mcg/dose blistr powdr for inhalation (Advair Diskus) trazodone 100 mg tablet 100 mg PO DAILY 90 days #90 tabs 04/16/23 lansoprazole 30 mg capsule,delayed 30 mg PO DAILY #90 caps 05/09/23 release ropinirole 0.5 mg tablet 0.5 mg PO BEDTIME #90 tabs 06/14/23 promethazine 25 mg tablet 25 mg PO TID PRN nausea and 06/19/23 vomiting 5 days #15 tabs amoxicillin 500 mg tablet 500 mg PO Q8H 7 days #21 tabs 06/21/23 baclofen 10 mg tablet 10 mg PO BEDTIME 7 days #7 tabs 06/21/23 lidocaine 5 % topical patch 1 patch topical DAILY #15 ea 08/11/23 cholecalciferol (vitamin D3) 50 50 mcg PO DAILY 90 days #90 caps 08/21/23 mcg (2,000 unit) capsule albuterol sulfate 90 mcg/actuation 1 puff inhalation QID PRN for 08/28/23 aerosol inhaler (Ventolin HFA) dyspnea #18 ea plecanatide 3 mg tablet (Trulance) 3 mg PO DAILY #90 tabs 08/28/23 tramadol 50 mg tablet 50 mg PO BID PRN pain #5 tabs 09/07/23 Allergies Allergy/AdvReac Type Severity Reaction Status Date / Time ibuprofen [From Motrin] Allergy Severe HIVES,SWELL Verified 08/17/23 20:04 ING meperidine [Demerol] Allergy Unknown Vomiting Verified 08/17/23 20:04 morphine [MORPHINE] Allergy Unknown CHEST PAIN Verified 08/17/23 20:04 NSAIDS (Non-Steroidal Allergy Itching Verified 09/06/23 22:26 Anti-Inflamma hydroxyzine AdvReac Mild mouth Verified 08/17/23 20:04 numbess Review of Systems Review of Systems: Constitutional : No Weight loss, No Fever, No Chills, No Night Sweats, No Fat igue, No Malaise ENT/Mouth : No Hearing loss, No Ear Pain, No Nasal Congestion, No Sinus Pain, No Hoarseness, No sore throat, No Rhinorrhea, No Swallowing Difficulty Eyes: No Eye Pain, No Swelling, No Redness, No Foreign Body, No Discharge, No Vision Changes Cardiovascular : No Chest Pain, No SOB, No Dyspnea on Exertion, No Orthopnea, No Edema, No Palpitations Respiratory : No Cough, No Sputum, No Wheezing, No Smoke Exposure, No Dyspnea Gastrointestinal : No Nausea, No Vomiting, No Diarrhea, No Constipation, No abdominal Pain, No Hematochezia, No Melena Genitourinary : no irregular bleeding, No Dysuria, No Urinary Frequency, No Hematuria, No Urinary Incontinence, No Urgency, No Flank Pain, No Urinary Flow Changes, No Hesitancy Musculoskeletal : Complaining of pain behind the knee on the left side, No joint pain, No Myalgias, No Joint Swelling Skin : No Skin Lesions, No rash Neuro : No Weakness, No Numbness, No Paresthesias, No Loss of Consciousness, No Dizziness, No Headache Psych : No Anxiety/Panic, No Depression, No SI/HI/AH/VH, No Social Issues, Heme/Lymph: No Bruising, No Bleeding,No Lymphadenopathy Endocrine : No Polyuria, No Polydipsia, No Temperature Intolerance ON LICENSE OF [facility] Past Medical History Medical History 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) COVID-19 Hx of supraventricular tachycardia Hx-TIA (transient ischemic attack) Back spasm Obesity Headache GERD (gastroesophageal reflux disease) Screening for hypothyroidism Screening for hypercholesterolemia Screening for diabetes mellitus (DM) Anxiety Depression Fibromyalgia Asthma Surgical History Hx of colonoscopy History of partial knee replacement Hx of tubal ligation History of endoscopy History of History of knee surgery History of cholecystectomy Family History Family History Mother High cholesterol Father Lupus Diabetes Thyroid disease FH: prostate cancer Brother Asthma Anxiety Depression Daughter Depression Anxiety Childhood autism Maternal Grandmother Glaucoma Other Mental problem Substance abuse Social History Social History Housing: House Alcohol intake: never Patient Tobacco Use Status: Never used Tobacco Smoked in Last 30 Days: No e-Cigarette/Vaping Use: Never Used Second Hand Smoke Exposure: Yes Use of substances other than those prescribed or required for medical reasons: No Advance Directives: No Advance Directives Information Provided: No Patient : No service: No Current occupational status: employed and disabled 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 Cognitive needs: No Hearing needs: No Vision needs: No Physical Exam ED Vital Signs: Vital Signs - 24 hr 09/06/23 22:24 Temperature 97.5 F Pulse Rate 82 Respiratory Rate 20 Blood Pressure 103/57 L Pulse Oximetry 96 Oxygen Delivery Method Room Air BMI result Body Mass Index 51.5 Const Other: Appearance: Alert. Oriented X3. No acute distress. Eyes: Pupils equal, round and reactive to light. ENT: Pharynx normal. Neck: Normal inspection. Neck supple. No lymph nodes noted. No crepitus CVS: Normal heart rate and rhythm. Pulses normal. Normal S1 and S2 Respiratory: No respiratory distress. Breath sounds normal. No Wheezing. No rales Abdomen: Soft and nontender. No rigidity. No distention. Skin: Skin warm and dry. Normal skin color. Normal skin turgor. Extremities: No lower extremity edema. No Lacerations. No Rash, pain to palpation behind the left knee, palpable movable cyst Neuro: Oriented X 3. No motor deficit. No sensory deficit. Moving all extremities. No slurred speech. CN 2 through 12 grossly intact Psych: calm, cooperative, normal affect Medical Decision Making Medical Decision Making MDM Narrative: Patient has had pain behind the knee for over a month now, patient had an ultrasound done less than a month ago, showed no DVT and showed the Champion's cyst. -patient allergic to NSAIDs. Acetaminophen not helping with the pain. -discussed with the patient that she needs to be seen by either sports Medicine or Orthopedics, as this cyst may have to be drained if it does not pop by its of. -patient has an appointment pending with her PCP next week. Differential Diagnosis Differential Diagnoses: The differential diagnosis associated with the presentation includes (Champion's cyst) Discharge Plan Discharge Clinical Impression: Champion's cyst of knee Patient Disposition: Home, Self-Care Instructions: Bakers Cyst (ED) Additional Instructions: Please follow-up with your primary care physician tomorrow. If you have any worsening or new symptoms, please return to the emergency room or call 911 Prescriptions: New tramadol 50 mg tablet 50 mg PO BID PRN (Reason: pain) Qty: 5 0RF No Action (DME) blood pressure monitor [Blood Pressure Kit] Kit See Rx Instructions .ROUTE .MEDSUPPLY Qty: 1 0RF Rx Instructions: As directed miscellaneous medical supply Misc 1 ea miscellaneous DAILY 99 Days Qty: 1 0RF fluticasone propion-salmeterol [Advair Diskus] 250-50 mcg/dose blister with device 1 ea inhalation BID 30 Days Qty: 60 3RF lansoprazole 30 mg capsule,delayed release(DR/EC) 30 mg PO DAILY Qty: 90 2RF ropinirole 0.5 mg tablet 0.5 mg PO BEDTIME Qty: 90 2RF promethazine 25 mg tablet 25 mg PO TID PRN (Reason: nausea and vomiting) 5 Days Qty: 15 0RF amoxicillin 500 mg tablet 500 mg PO Q8H 7 Days Qty: 21 0RF baclofen 10 mg tablet 10 mg PO BEDTIME 7 Days Qty: 7 0RF cholecalciferol (vitamin D3) 50 mcg (2,000 unit) capsule 50 mcg PO DAILY 90 Days Qty: 90 1RF Trulance 3 mg tablet 3 mg PO DAILY Qty: 90 1RF albuterol sulfate [Ventolin HFA] 90 mcg/actuation HFA aerosol inhaler 1 puff inhalation QID PRN (Reason: for dyspnea) Qty: 18 6RF acetaminophen [Tylenol] 325 mg tablet 650 mg PO Q6H PRN (Reason: fever or pain) Qty: 10 0RF (DME) AeroEclipse II Nebulizer [facility] See Rx Instructions .ROUTE .MEDSUPPLY Qty: 1 0RF Rx Instructions: As directed lidocaine 5 % adhesive patch,medicated 1 patch topical DAILY Qty: 15 0RF Rx Instructions: leave on most painful area for up to 12 hrs trazodone 100 mg tablet 100 mg PO DAILY 90 Days Qty: 90 2RF lamotrigine 150 mg tablet 150 mg PO DAILY aripiprazole 2 mg tablet 2 mg PO QAM sumatriptan succinate 25 mg tablet See Rx Instructions PO .COMPLEX PRN Rx Instructions: take 1 tab at onset of headache; if no relief may repeat 1 tab after at least 2 hrs; max = 4 tabs/24 hr orally PRN; escitalopram oxalate 20 mg tablet 20 mg PO DAILY Print Language: Hungarian
[2023-09-07 03:56] VITALS: BP 101/67; PULSE 68; RESP 18; TEMP 36.5; O2SAT 95
[2023-09-07 04:26] VITALS: BP 101/67; PULSE 68; RESP 18; TEMP 36.5; O2SAT 95
== END 2023-09-07 04:27 | disposition home or self-care (01) ==
PROVIDERS: Emergency Provider Emergency Medicine; PCP Physician Assistant
DX: M71.22 Synovial cyst of popliteal space [Baker], left knee (principal)
CPT/HCPCS: 99283; 99284

== ENCOUNTER 2023-09-11 14:57 | Outpatient (AMB) | payer MEDICARE, MEDICAID, SELFPAY ==
--- NOTE | 2023-09-11 15:00 | A.OFFPC_ITS ---
Vital Signs 09/11/23 15:03 Height 5 ft 4 in Weight 306 lb 4 oz BMI 52.6 BP 110/78 Blood Pressure Location Lt brachial Position Sitting Pulse 83 Pulse Source Pulse Oximeter Pulse Oximetry (%) 96 Oxygen Delivery Method Room Air Intake Visit Reasons: [facility] ED Follow up 08/10 Intake Note: Patient is here to follow-up after a visit the emergency department at [facility] on 08/11/23, 09/07/23 [employer]ner Required: No [employer] Driver: Not Required per policy Accompanied by: Self / Same As Patient Allergies ibuprofen [From Motrin] Allergy (Severe, Verified 09/11/23 15:15) HIVES,SWELLING meperidine [Demerol] Allergy (Unknown, Verified 09/11/23 15:15) Vomiting morphine [MORPHINE] Allergy (Unknown, Verified 09/11/23 15:15) CHEST PAIN NSAIDS (Non-Steroidal Anti-Inflamma Allergy (Verified 09/11/23 15:15) Itching hydroxyzine Adverse Reaction (Mild, Verified 09/11/23 15:15) mouth numbess Tobacco use date assessed: 09/11/23 Dental Screening Dental Screen Date: 09/11/23 Did you have a dental visit in the last 12 months?: Yes Did you have a dental problem in the last 6 months where you did not have access to dental care?: No Was dental information given to patient?: Patient has dentist HPI [facility] ED Follow up 08/10 HPI Details Patient is a 48-year-old female here today for an ER follow-up visit. She was seen at the ER multiple times in July 2023 for acute in city is left posterior knee pain. She did undergo ultrasound which did not show DVT though did show a Champion cyst. Did not have x-ray done. She continues to left posterior knee pain that bothers her when standing or walking. She is unable to take NSAIDs so she has been taking Tylenol which only helps her pain a small bit. Obese: BMI today at 52.6. She reports previously was able to lose weight using weight watchers program. She reports losing 50 lb. Unfortunately has gained weight back due to stress eating. She is interested in a GLP 1 to help her lose weight. 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) COVID-19 Hx of supraventricular tachycardia Hx-TIA (transient ischemic attack) Back spasm Obesity Headache GERD (gastroesophageal reflux disease) Screening for hypothyroidism Screening for hypercholesterolemia Screening for diabetes mellitus (DM) Anxiety Depression Fibromyalgia Asthma Surgical History Hx of colonoscopy History of partial knee replacement Hx of tubal ligation History of endoscopy History of History of knee surgery History of cholecystectomy Family History Mother High cholesterol Father Lupus Diabetes Thyroid disease FH: prostate cancer Brother Asthma Anxiety Depression Daughter Depression Anxiety Childhood autism Maternal Grandmother Glaucoma Other Mental problem Substance abuse Social History Housing: House Alcohol intake: never Patient Tobacco Use Status: Never used Tobacco e-Cigarette/Vaping Use: Never Used Second Hand Smoke Exposure: Yes service: No Current occupational status: employed and disabled Current occupation: [employer] Cognitive needs: No Hearing needs: No Vision needs: Yes (Glasses) Questionnaire PHQ-9 Over the last 2 weeks, how often have you been bothered by any of the following problems? 1. Little interest or pleasure in doing things: not at all 2. Feeling down, depressed, or hopeless: nearly every day 3. Trouble falling or staying asleep, or sleeping too much: more than half the days 4. Feeling tired or having little energy: nearly every day 5. Poor appetite or overeating: nearly every day 6. Feeling bad about yourself - or that you are a failure or have let yourself or your family down: not at all 7. Trouble concentrating on things, such as reading the newspaper or watching television: not at all 8. Moving or speaking so slowly that other people could have noticed. Or the opposite - being so fidgety or restless that you have been moving around a lot more than usual: not at all 9. Thoughts that you would be better off or of hurting yourself in some way: not at all Total score: 11 Depression Screening Interpretation: Positive Depression Screening Follow-up: Ex isting condition and In treatment Depression Screening Done: Yes 22816 - PHQ-9 Billing: Yes Source: Developed by Drs. Terrell Sawant, Jong Mirza and colleagues, with an educational areli from [employer]. Thrive Questionnaire Date Thrive assessed: 09/11/23 I am a: Patient What is your living situation today?: I have a steady place to live Within the past 12 months, did the food you bought not last and you didn't have the money to get more?: Never true Within the past 12 months, did you worry whether your food would run out before you got money to buy more?: Never true Do you have trouble paying for medicines?: No Do you have trouble getting transportation to medical appointments?: No Do you have trouble paying your heating and electricity bill?: No Do you have trouble taking care of your child, family member or friend?: No Do you have trouble with day-to-day activities such as bathing, preparing meals, shopping, managing finances, etc.?: No Are you currently unemployed and looking for a job?: No Are you interested in more education?: No Currently or been in a relationship where the following occur: no concerns reported THRIVE Score: 0 AUDIT C Alcohol Use Questionnaire (AUDIT-C) 1. How often do you have a drink containing alcohol?: Never Total Score: 0 DANIEL-7 AMB Questionnaire DANIEL-7 Date DANIEL - 7 assessed: 09/11/23 Feeling nervous, anxious, or on edge: 2 = More than half the days Not being able to stop or control worryin = Nearly every day Worrying too much about different things: 3 = Nearly every day Trouble relaxin = Not at all Being so restless that it is hard to sit still: 0 = Not at all Becoming easily annoyed or irritable: 2 = More than half the days Feeling afraid as if something awful might happen: 2 = More than half the days Total DANIEL-7 score (0-4 normal; 5-9 mild; 10-14 moderate; 15-21 severe): 12 Source: Developed by Drs. Terrell Sawant, Jong Mirza and colleagues, with an educational areli from [employer]. DANIEL-7 Assessment Billing DANIEL-7 Assessment Tool: DANIEL-7 Assessment 29743 Review of Systems Const Denies headache(s) Eyes Denies loss of vision ENT Denies vertigo, Denies dizziness, Denies headache(s) and Denies sore throat Card Denies chest pain, Denies leg edema and Denies lightheadedness Resp Denies cough, Denies hemoptysis and Denies wheezing GI Denies abdominal pain, Denies melena, Denies constipation, Denies diarrhea and Denies vomiting Denies urinary frequency, Denies dysuria and Denies urinary urgency Musc Denies arthralgias, Denies joint swelling, Denies numbness and Denies tingling Neuro Denies Abnormal speech present, Denies behavioral changes, Denies vertigo, Denies dizziness, Denies headache(s), Denies loss of vision, Denies memory loss, Denies numbness and Denies tingling Psych Denies anxiety, Denies behavioral changes, Denies depression, Denies memory loss and Denies panic attacks Milo/Lymph Denies easy bleeding and Denies easy bruising Aller/Immun Denies wheezing Physical exam (Primary Care) Vital Signs: Last Vital Signs Pulse 83 09/11/23 15:03 BP 110/78 09/11/23 15:03 Pulse Ox 96 09/11/23 15:03 Oxygen Delivery Method Room Air 09/11/23 15:03 BMI result Body Mass Index 52.6 Tobacco/Smoking Status: Tobacco use Status Tobacco use date assessed 09/11/23 09/11/23 15:10 Patient Tobacco Use Status Never used Tobacco 09/11/23 15:10 e-Cigarette/Vaping Use Never Used 09/11/23 15:10 PHQ-9: PHQ-9 Score PHQ-9: Total score 11 09/11/23 15:17 Depression Screening Interpretation: Positive Depression Screening Follow-up: Existing condition and In treatment Thrive Assessment: Date of Thrive Assessment Date Thrive assessed 09/11/23 09/11/23 15:10 Currently or been in a relationship where the following occur: no concerns reported Const General: healthy appearing, no acute distress, alert and awake Nutritional Appearance: well nourished Orientation/consciousness: oriented to person, oriented to place and oriented to time HENMT Ears: TM's normal bilaterally General nose exam: Normal nasal mucous membranes and turbinates present Eyes Conjunctivae: conjunctivae normal Sclerae: sclerae normal Pupils: Equal, round and reactive pupils present Neck Neck: Yes no lymphadenopathy and Yes no JVD Thyroid: Thyroid normal Carotids: no bruits Resp Effort & Inspection: normal respiratory effort and not tachypneic Auscultation: no crackles, no rales, no rhonchi and no wheezes Cardio Rate: regular rate Rhythm: regular rhythm Heart sounds: no murmurs and normal S1 and S2 GI Palpation (GI): Soft to palpation, nontender, no hepatomegaly and no splenomegaly Auscultation: normal bowel sounds Skin General skin exam: no rashes or lesions noted and dry skin Neuro General: oriented to person, oriented to place and oriented to time Cranial nerves: Yes Equal, round and reactive pupils present Speech: No Abnormal speech present Gait exam (Neuro): Normal gait present Motor exam (neuro): no tremor noted Extrem Right upper extremity: full ROM Left upper extremity: full ROM Right lower extremity: full ROM; no edema Left lower extremity: full ROM; no edema Psych Mental Status: mental status grossly normal Speech and movement: Normal speech and movement present Affect: normal affect Attitude: cooperative Thought process: Normal thought process present Assessment and Plan Assessment & Plan (1) Bakers cyst: Code(s): M71.20 - Synovial cyst of popliteal space [Champion], unspecified knee Qualifiers: Laterality: left Qualified Code(s): M71.22 - Synovial cyst of popliteal space [Champion], left knee Plan: Has a small Champion's cyst behind left knee. She does report some pain and some decreased extension of left knee. Otherwise is able to tolerate the pain with Tylenol. Gave her options sepsis physical therapy and/or orthopedic evaluation though she would like to hold off on this for now. Explained to patient that her condition is self-limiting. (2) Obesity: Code(s): E66.9 - Obesity, unspecified Qualifiers: Body mass index: BMI 50.0-59.9 Obesity classification: adult class 3 (BMI >= 40) Obesity type: due to excess calories Serious obesity comorbidity presence: with serious comorbidity Qualified Code(s): E66.01 - Morbid (severe) obesity due to excess calories; Z68.43 - Body mass index [BMI] 50.0-59.9, adult Plan: Patient has done weight watchers in the past [facility] lost 50 lb though found it to be very expensive. Also finds it very expensive to eat healthy. Patient has unfortunately gained her weight back due to poor stress eating habits. She is interested in weight loss medication Wegovy. . (3) MDD (major depressive disorder), recurrent episode, moderate: Code(s): F33.1 - Major depressive disorder, recurrent, moderate Plan: Patient's PHQ-9 score positive for depression which has been existing condition for her. She continues on multiple mental health medications and does feel they are helpful. (4) Anxiety: Code(s): F41.9 - Anxiety disorder, unspecified Plan: Patient's daniel 7 score positive for anxiety which has been existing condition for her. Again is medicated with multiple mental health medications which have been helpful on stabilizing her anxiety and depression. Medications: New semaglutide (weight loss) (Wegovy) administer weeks 1 through 4 of therapy 0.25 mg (0.5 mL) subcut QWEEK 2 mL 0RF 4 weeks E66.01 - Morbid (severe) obesity due to excess calories Coding Level of Care Code Est Pt Level 4 (94470) Diagnoses Synovial cyst of left popliteal space M71.22 Laterality: left Class 3 severe obesity due to excess calories with serious comorbidity and body mass index (BMI) of 50.0 to 59.9 in adult E66.01; Z68.43 Body mass index: BMI 50.0-59.9 Obesity classification: adult class 3 (BMI >= 40) Obesity type: due to excess calories Serious obesity comorbidity presence: with serious comorbidity MDD (major depressive disorder), recurrent episode, moderate F33.1 Anxiety F41.9 Additional Codes DANIEL-7 Assessment Billing - DANIEL-7 Assessment Tool: DANIEL-7 Assessment [id number] ([id number])
[2023-09-11 15:03] VITALS: BP 110/78; PULSE 83; O2SAT 96; BMI 52.6
== END 2023-09-11 15:29 | disposition home or self-care (01) ==
PROVIDERS: PCP Physician Assistant; Visit Provider Physician Assistant
DX: M71.22 Synovial cyst of popliteal space [Baker], left knee (principal); E66.01 Morbid (severe) obesity due to excess calories; Z68.43 Body mass index [BMI] 50.0-59.9, adult; F33.1 Major depressive disorder, recurrent, moderate; F41.9 Anxiety disorder, unspecified
CPT/HCPCS: 99214

== ENCOUNTER 2023-10-25 10:37 | Outpatient (AMB) | payer MEDICARE, MEDICAID, SELFPAY ==
--- NOTE | 2023-10-25 10:38 | AM.OFFWIN_ITS ---
Intake Vital Signs 10/25/23 10:39 Height 5 ft 4 in Weight 306 lb BMI 52.5 BP 102/76 Blood Pressure Location Rt brachial Position Sitting Pulse 80 Pulse Source Pulse Oximeter Temp 97.9 F Temp Source Temporal Artery Scan Pulse Oximetry (%) 98 Intake Visit Reasons: EP LT leg pain Intake Note: pt is here for left leg pain Patient Tobacco Use Status: Never used Tobacco Allergies ibuprofen [From Motrin] Allergy (Severe, Verified 10/25/23 10:40) HIVES,SWELLING meperidine [Demerol] Allergy (Unknown, Verified 10/25/23 10:40) Vomiting morphine [MORPHINE] Allergy (Unknown, Verified 10/25/23 10:40) CHEST PAIN NSAIDS (Non-Steroidal Anti-Inflamma Allergy (Verified 10/25/23 10:40) Itching hydroxyzine Adverse Reaction (Mild, Verified 10/25/23 10:40) mouth numbess Do you need a note to return to daycare/school/sports/work: No HPI HPI Comments History of Present Illness Details Patient is a 48-year-old female complaining of excruciating pain behind her left knee. She states she has a documented and diagnosed Champion's cyst in that area which she has been using Tylenol for with no relief. She states she is allergic to NSAIDs and can not take them. She also has not been successful and wrapping it to cause compression. She states it is getting worse and is getting difficult to walk on it. 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) COVID-19 Hx of supraventricular tachycardia Hx-TIA (transient ischemic attack) Back spasm Obesity Headache GERD (gastroesophageal reflux disease) Screening for hypothyroidism Screening for hypercholesterolemia Screening for diabetes mellitus (DM) Anxiety Depression Fibromyalgia Asthma Surgical History Hx of colonoscopy History of partial knee replacement Hx of tubal ligation History of endoscopy History of History of knee surgery History of cholecystectomy Family History Mother High cholesterol Father Lupus Diabetes Thyroid disease FH: prostate cancer Brother Asthma Anxiety Depression Daughter Depression Anxiety Childhood autism Maternal Grandmother Glaucoma Other Mental problem Substance abuse Social History Housing: House Alcohol intake: never Patient Tobacco Use Status: Never used Tobacco e-Cigarette/Vaping Use: Never Used Second Hand Smoke Exposure: Yes service: No Current occupational status: employed and disabled 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 [employer] Cognitive needs: No Hearing needs: No Vision needs: Yes (Glasses) Review of Systems Const All systems reviewed & are unremarkable except as noted in HPI and below Physical Exam Vital Signs: Last Vital Signs Temp 97.9 F 10/25/23 10:39 Pulse 80 10/25/23 10:39 BP 102/76 10/25/23 10:39 Pulse Ox 98 10/25/23 10:39 BMI result Body Mass Index 52.5 Const General: cooperative, healthy appearing and acute distress Orientation/consciousness: patient oriented x3 Limitations: no limitations Eyes General: appearance normal, both eyes and all related structures Resp Effort & Inspection: normal respiratory effort and able to speak in complete sentences Skin General skin exam: no rashes or lesions noted Neuro General: patient oriented x3 Extrem Other: Limping gait Left lower extremity: knee Details: normal to inspection, tenderness (posterior knee), swelling (difficult to ascertain ) and normal ROM; no abrasions, no lacerations, no ecchymosis, no deformity and no unusual warmth Results Reviewed Results Reviewed: 08/21/2023: FINDINGS: There is normal venous compression and respiratory variation and augmented flow. The visualized common femoral vein, superficial femoral vein, profunda femoral vein, popliteal vein, and the trifurcation region shows no evidence of deep venous thrombosis. Champion's cyst measuring 5 x 0.9 x 3.5 cm. US/US venous duplex LE LT IMPRESSION: No DVT demonstrated in the left lower extremity Assessment & Plan Assessment & Plan (1) Bakers cyst: Code(s): M71.20 - Synovial cyst of popliteal space [Champion], unspecified knee Qualifiers: Laterality: left Qualified Code(s): M71.22 - Synovial cyst of popliteal space [Champion], left knee Plan: Patient has a well documented Champion's cyst on her left posterior knee. She has been seen several times for it in the emergency department. It appears to be getting worse. She can not take NSAIDs and Tylenol does not help. Encouraged her to use ice and rapid and sent a referral to Orthopedics and got her an appointment for October 28 at 1pm where she is hopeful to get a cortisone injection. Encouraged her to rest it but she states she can not take time off of work. Plan See above Orders: Referrals Orthopedics Referral M71.22 - Synovial cyst of popliteal space [Champion], left knee Coding Level of Care Code Est Pt Level 4 (78336) Diagnoses Synovial cyst of left popliteal space M71.22 Laterality: left
[2023-10-25 10:39] VITALS: BP 102/76; PULSE 80; TEMP 36.6; O2SAT 98; BMI 52.5
== END 2023-10-25 11:46 | disposition home or self-care (01) ==
PROVIDERS: PCP Physician Assistant; Visit Provider Physician Assistant
DX: M71.22 Synovial cyst of popliteal space [Baker], left knee (principal)
CPT/HCPCS: 99214

== ENCOUNTER 2023-12-18 08:02 | Outpatient (AMB) | payer MEDICARE, MEDICAID, SELFPAY ==
--- NOTE | 2023-12-18 08:03 | AM.OFFWIN_ITS ---
Intake Vital Signs 12/18/23 08:04 Height 5 ft 4 in Weight 309 lb BMI 53.0 BP 120/80 Blood Pressure Location Lt brachial Position Sitting Pulse 81 Pulse Source Pulse Oximeter Pulse Oximetry (%) 96 Oxygen Delivery Method Room Air Intake Visit Reasons: EP RT arm injury after fall Intake Note: Patient had a fall this morning and cant move right arm and has pain in wrist Patient Tobacco Use Status: Never used Tobacco Allergies ibuprofen [From Motrin] Allergy (Severe, Verified 12/18/23 08:05) HIVES,SWELLING meperidine [Demerol] Allergy (Unknown, Verified 12/18/23 08:05) Vomiting morphine [MORPHINE] Allergy (Unknown, Verified 12/18/23 08:05) CHEST PAIN NSAIDS (Non-Steroidal Anti-Inflamma Allergy (Verified 12/18/23 08:05) Itching hydroxyzine Adverse Reaction (Mild, Verified 12/18/23 08:05) mouth numbess Do you need a note to return to daycare/school/sports/work: No HPI HPI Comments History of Present Illness Details 48 y/o female patient who presents to [facility] walk in clinic with c/o right elbow pain. Pt reports falling at home today (~ 30 minutes ago) and landing on her Arm. 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) COVID-19 Hx of supraventricular tachycardia Hx-TIA (transient ischemic attack) Back spasm Obesity Headache GERD (gastroesophageal reflux disease) Screening for hypothyroidism Screening for hypercholesterolemia Screening for diabetes mellitus (DM) Anxiety Depression Fibromyalgia Asthma Surgical History Hx of colonoscopy History of partial knee replacement Hx of tubal ligation History of endoscopy History of History of knee surgery History of cholecystectomy Family History Mother High cholesterol Father Lupus Diabetes Thyroid disease FH: prostate cancer Brother Asthma Anxiety Depression Daughter Depression Anxiety Childhood autism Maternal Grandmother Glaucoma Other Mental problem Substance abuse Social History Housing: House Alcohol intake: never Patient Tobacco Use Status: Never used Tobacco e-Cigarette/Vaping Use: Never Used Second Hand Smoke Exposure: Yes service: No Current occupational status: employed and disabled 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 [employer] Cognitive needs: No Hearing needs: No Vision needs: Yes (Glasses) Review of Systems Const All systems reviewed & are unremarkable except as noted in HPI and below Physical Exam Vital Signs: Last Vital Signs Pulse 81 12/18/23 08:04 BP 120/80 12/18/23 08:04 Pulse Ox 96 12/18/23 08:04 Oxygen Delivery Method Room Air 12/18/23 08:04 BMI result Body Mass Index 53.0 Const General: cooperative and no acute distress Nutritional Appearance: obese Orientation/consciousness: patient oriented x3 Neuro General: patient oriented x3, gait normal and moves all extremities Extrem Right upper extremity: elbow/forearm Details: tenderness Location: of the distal humerus and of the medial epicondyle, abnormal ROM (limited due to pain) and abrasion; no swelling, no crepitus and no deformity Psych Speech and movement: Normal speech and movement present Assessment & Plan Assessment & Plan (1) Injury of right elbow: Code(s): S59.901A - Unspecified injury of right elbow, initial encounter Qualifiers: Encounter type: initial encounter Qualified Code(s): S59.901A - Un specified injury of right elbow, initial encounter Plan: DDx's: Fx elbow vs Strain/SPrain Ordered Xray NSAIDs and Acetaminophen Provided Elbow/shoulder immobilizer. Coding Level of Care Code Est Pt Level 4 (92796) Diagnoses Injury of right elbow, initial encounter S59.901A Encounter type: initial encounter Time Spent (min) 20
[2023-12-18 08:04] VITALS: BP 120/80; PULSE 81; O2SAT 96; BMI 53.0
== END 2023-12-18 09:05 | disposition home or self-care (01) ==
PROVIDERS: PCP Physician Assistant; Visit Provider Nurse Practitioner Family
DX: S59.901A Unspecified injury of right elbow, initial encounter (principal)
CPT/HCPCS: 99214

== ENCOUNTER 2023-12-18 08:22 | Outpatient (REF) | payer MEDICARE, MEDICAID, SELFPAY ==
--- NOTE | ~2023-12-18 | XR_ITS ---
EXAMINATION: XR ELBOW, RIGHT CLINICAL INFORMATION: Right elbow pain following fall. COMPARISON: None available. TECHNIQUE: AP, lateral, and oblique views of the right elbow. FINDINGS: No displaced fracture. Mild cortical irregularity along the lateral aspect of the radial head appears to represent small marginal osteophytes. No joint effusion making a fracture less likely, however, an acute, nondisplaced fracture cannot be entirely excluded and if there is focal tenderness, repeat imaging within 7-[address] could help further evaluate. Mild ulnotrochlear joint space narrowing with small marginal osteophytes. No osseous erosion. Tiny olecranon enthesophyte. Mild posterior soft tissue swelling. XR/XR elbow RT min 3V IMPRESSION: No displaced fracture. Mild cortical irregularity along the lateral aspect of the radial head appears to represent small marginal osteophytes. No joint effusion making a fracture less likely, however, an acute, nondisplaced fracture cannot be entirely excluded and if there is focal tenderness, repeat imaging within 7-[address] could help further evaluate. Mild ulnotrochlear osteoarthritis. Mild posterior soft tissue swelling. Electronically signed by: Yair Phillips MD 12/18/2023 11:19 AM EDT
== END 2023-12-18 08:23 | disposition home or self-care (01) ==
LOC: HO.HMGCX 08:22
PROVIDERS: PCP Physician Assistant; Visit Provider Nurse Practitioner Family
DX: S59.901A Unspecified injury of right elbow, initial encounter (principal)
CPT/HCPCS: 73080

== ENCOUNTER 2023-12-19 12:17 | Emergency (ER) | payer MEDICARE, MEDICAID, SELFPAY ==
--- NOTE | ~2023-12-19 | XR_ITS ---
EXAMINATION: XR ELBOW, RIGHT CLINICAL INFORMATION: Pain in right elbow COMPARISON: None available. TECHNIQUE: AP, lateral, and oblique views of the right elbow. FINDINGS: The bones and soft tissues are normal. No fracture or joint effusion. Alignment is anatomic. Joint spaces are maintained. XR/XR elbow RT min 3V IMPRESSION: Normal right elbow. Electronically signed by: Vickie Banks MD 12/19/2023 04:26 PM EDT
--- NOTE | ~2023-12-19 | XR_ITS ---
EXAMINATION: XR HUMERUS, RIGHT CLINICAL INFORMATION: Pain COMPARISON: None available. TECHNIQUE: AP and lateral views of the right humerus. FINDINGS: 3 views of right humerus including right shoulder and right elbow, reveal no fractures or osseous destruction. Soft tissues are unremarkable. XR/XR humerus RT IMPRESSION: No abnormal findings Electronically signed by: Vickie Banks MD 12/19/2023 04:25 PM EDT RP
[2023-12-19 12:33] VITALS: BP 97/65; PULSE 68; RESP 14; TEMP 36.7; O2SAT 98; BMI 53.2
--- NOTE | 2023-12-19 12:37 | ED.GENADULT ---
HPI - General Adult General Stated complaint: R arm pain fall yest Related Data Home Medications ?Medication ?Instructions ?Recorded ?Confirmed aripiprazole 2 mg tablet 2 mg PO QAM 03/17/22 04/16/23 escitalopram oxalate 20 mg tablet 20 mg PO DAILY 03/17/22 04/16/23 sumatriptan succinate 25 mg tablet See Rx Instructions PO .COMPLEX PRN 03/17/22 04/16/23 lamotrigine 150 mg tablet 150 mg PO DAILY 05/08/22 04/16/23 Previous Rx's ?Medication ?Instructions ?Recorded acetaminophen 325 mg tablet 650 mg (2 x 325 mg) PO Q6H PRN 02/25/20 (Tylenol) fever or pain #10 tabs blood pressure monitor (Blood #1 ea 10/27/20 Pressure Kit) nebulizers (AeroEclipse II #1 ea 05/07/21 Nebulizer) miscellaneous medical supply 1 ea miscellaneous DAILY 99 days 09/29/21 #1 ea fluticasone 250 mcg-salmeterol 50 1 ea inhalation BID 30 days #60 ea 11/11/21 mcg/dose blistr powdr for inhalation (Advair Diskus) trazodone 100 mg tablet 100 mg PO DAILY 90 days #90 tabs 04/16/23 lansoprazole 30 mg capsule,delayed 30 mg PO DAILY #90 caps 05/09/23 release ropinirole 0.5 mg tablet 0.5 mg PO BEDTIME #90 tabs 06/14/23 promethazine 25 mg tablet 25 mg PO TID PRN nausea and 06/19/23 vomiting 5 days #15 tabs lidocaine 5 % topical patch 1 patch topical DAILY #15 ea 08/11/23 albuterol sulfate 90 mcg/actuation 1 puff inhalation QID PRN for 08/28/23 aerosol inhaler (Ventolin HFA) dyspnea #18 ea tramadol 50 mg tablet 50 mg PO BID PRN pain #5 tabs 09/07/23 semaglutide (weight loss) 0.25 0.25 mg (0.5 mL) subcut QWEEK 4 09/11/23 mg/0.5 mL subcutaneous pen weeks #2 mL injector (Alba) cyclobenzaprine 10 mg tablet 10 mg PO BEDTIME 15 days #15 tabs 10/31/23 cholecalciferol (vitamin D3) 50 50 mcg PO DAILY 90 days #90 caps 11/16/23 mcg (2,000 unit) capsule Allergies Allergy/AdvReac Type Severity Reaction Status Date / Time ibuprofen [From Motrin] Allergy Severe HIVES,SWELL Verified 12/19/23 12:36 ING meperidine [Demerol] Allergy Unknown Vomiting Verified 12/19/23 12:36 morphine [MORPHINE] Allergy Unknown CHEST PAIN Verified 12/19/23 12:36 NSAIDS (Non-Steroidal Allergy Itching Verified 12/19/23 12:36 Anti-Inflamma hydroxyzine AdvReac Mild mouth Verified 12/19/23 12:36 numbess PMFSH Past Medical History Medical History 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) COVID-19 Hx of supraventricular tachycardia Hx-TIA (transient ischemic attack) Back spasm Obesity Headache GERD (gastroesophageal reflux disease) Screening for hypothyroidism Screening for hypercholesterolemia Screening for diabetes mellitus (DM) Anxiety Depression Fibromyalgia Asthma Surgical History Hx of colonoscopy History of partial knee replacement Hx of tubal ligation History of endoscopy History of History of knee surgery History of cholecystectomy Family History Family History Mother High cholesterol Father Lupus Diabetes Thyroid disease FH: prostate cancer Brother Asthma Anxiety Depression Daughter Depression Anxiety Childhood autism Maternal Grandmother Glaucoma Other Mental problem Substance abuse Social History Social History Housing: House Alcohol intake: never Patient Tobacco Use Status: Never used Tobacco e-Cigarette/Vaping Use: Never Used Second Hand Smoke Exposure: Yes service: No Current occupational status: employed and disabled 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 She reports tripping and falling yesterday. She had an x-ray of the elbow only yesterday which did not show any displaced fractures. She reports pain extending from the shoulder to the elbow of the right upper extremity today. Plan for x-rays of the right elbow and humerus. Discharge Plan Discharge Prescriptions: No Action (DME) blood pressure monitor [Blood Pressure Kit] Kit See Rx Instructions .ROUTE .MEDSUPPLY Qty: 1 0RF Rx Instructions: As directed miscellaneous medical supply Misc 1 ea miscellaneous DAILY 99 Days Qty: 1 0RF fluticasone propion-salmeterol [Advair Diskus] 250-50 mcg/dose blister with device 1 ea inhalation BID 30 Days Qty: 60 3RF lansoprazole 30 mg capsule,delayed release(DR/EC) 30 mg PO DAILY Qty: 90 2RF ropinirole 0.5 mg tablet 0.5 mg PO BEDTIME Qty: 90 2RF promethazine 25 mg tablet 25 mg PO TID PRN (Reason: nausea and vomiting) 5 Days Qty: 15 0RF albuterol sulfate [Ventolin HFA] 90 mcg/actuation HFA aerosol inhaler 1 puff inhalation QID PRN (Reason: for dyspnea) Qty: 18 6RF cyclobenzaprine 10 mg tablet 10 mg PO BEDTIME 15 Days Qty: 15 0RF cholecalciferol (vitamin D3) 50 mcg (2,000 unit) capsule 50 mcg PO DAILY 90 Days Qty: 90 1RF acetaminophen [Tylenol] 325 mg tablet 650 mg PO Q6H PRN (Reason: fever or pain) Qty: 10 0RF (DME) AeroEclipse II Nebulizer [facility] [place] See Rx Instructions .ROUTE .MEDSUPPLY Qty: 1 0RF Rx Instructions: As directed lidocaine 5 % adhesive patch,medicated 1 patch topical DAILY Qty: 15 0RF Rx Instructions: leave on most painful area for up to 12 hrs tramadol 50 mg tablet 50 mg PO BID PRN (Reason: pain) Qty: 5 0RF Wegovy 0.25 mg/0.5 mL pen injector 0.25 mg subcut QWEEK 28 Days Qty: 2 0RF Rx Instructions: administer weeks 1 through 4 of therapy trazodone 100 mg tablet 100 mg PO DAILY 90 Days Qty: 90 2RF lamotrigine 150 mg tablet 150 mg PO DAILY aripiprazole 2 mg tablet 2 mg PO QAM sumatriptan succinate 25 mg tablet See Rx Instructions PO .COMPLEX PRN Rx Instructions: take 1 tab at onset of headache; if no relief may repeat 1 tab after at least 2 hrs; max = 4 tabs/24 hr orally PRN; escitalopram oxalate 20 mg tablet 20 mg PO DAILY Print Language: Romanian
[2023-12-19 15:28] VITALS: BP 113/63; PULSE 71; RESP 16; TEMP 36.7; O2SAT 97
[2023-12-19 15:55] VITALS: BP 113/63; PULSE 71; RESP 16; TEMP 36.7; O2SAT 97
== END 2023-12-19 15:55 | disposition home or self-care (01) ==
PROVIDERS: Emergency Provider Emergency Medicine; PCP Physician Assistant
DX: M79.601 Pain in right arm (principal); M25.521 Pain in right elbow; Z91.81 History of falling
CPT/HCPCS: 73060; 73080; 99281; 99283

== ENCOUNTER 2024-01-10 14:48 | Outpatient (AMB) | payer MEDICARE, MEDICAID, SELFPAY ==
--- NOTE | 2024-01-10 15:19 | MHC.OFFVIS ---
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 Patient reports throbbing/aching pain in the entire right arm. Occasionally she has tingling in all of her fingers of the right hand. She was seen at [facility] walk in on 12/18/2023 and [facility] ED on 12/19/2023 due to exacerbation of pain. The ED provided her with a sling until her follow up with orthopedics. She expresses her arm hurts worse from the sling. Tylenol does not offer adequate relief and tramadol makes her sick. 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 The patient reports that at that time, she fell onto bilateral elbows, and has since been experiencing significant discomfort in her left elbow, primarily about the olecranon process. The patient states that her pain has improved significantly since date of injury, and her range of motion has now returned to normal, as she was not able to flex or extend at the elbow in the days immediately following injury. The patient was previously evaluated by both her primary care provider and the emergency department for this pain, and x-rays were taken previously they revealed no fracture or acute bony abnormality. The patient was given a sling to wear by the emergency department, but she states that the sling causes her more discomfort than just allowing the arm to hang down and using it normally. The patient does report some [id number] numbness and tingling in the ulnar nerve distribution of the right hand. No other acute complaints or concerns at this time. 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) COVID-19 Hx of supraventricular tachycardia Hx-TIA (transient ischemic attack) Back spasm Obesity Headache GERD (gastroesophageal reflux disease) Screening for hypothyroidism Screening for hypercholesterolemia Screening for diabetes mellitus (DM) Anxiety Depression Fibromyalgia Asthma Surgical History Hx of colonoscopy History of partial knee replacement Hx of tubal ligation History of endoscopy History of History of knee surgery History of cholecystectomy Family History Mother High cholesterol Father Lupus Diabetes Thyroid disease FH: prostate cancer Brother Asthma Anxiety Depression Daughter Depression Anxiety Childhood autism Maternal Grandmother Glaucoma Other Mental problem Substance abuse Social History Housing: House Alcohol intake: never Patient Tobacco Use Status: Never used Tobacco e-Cigarette/Vaping Use: Never Used Second Hand Smoke Exposure: Yes service: No Current occupational status: employed and disabled 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 Cognitive needs: No Hearing needs: No Vision needs: Yes (Glasses) Review of Systems Const All systems reviewed & are unremarkable except as noted in HPI and below Physical Exam Vital Signs: BMI result Body Mass Index 52.2 Extrem Other: Patient is alert, oriented, and in no acute distress. Neuro: Patient reports normal sensation of the tips of all digits of the right hand at this time Vascular: Cap refill brisk Pain: Patient reports tenderness to palpation about the olecranon process of the right elbow No tenderness to palpation of the medial or lateral epicondyles No tenderness to palpation of the radial head No other tenderness to palpation noted ROM: Patient is able to flex the elbow to approximately 140 degrees and extend to 0 degrees without difficulty Patient is able to pronate and supinate the right forearm fully without difficulty or pain No ligamentous laxity of the right elbow noted Skin: No lacerations or abrasions. General: No ecchymosis, erythema, or evidence of infection. Psych: Appears grossly normal Affect normal Attitude cooperative Results Reviewed Results Reviewed: X-rays obtained on 12/19/2023 and independently reviewed by me, Andrea Rene PA-C, demonstrate no fracture or acute bony abnormality of the right elbow. Assessment & Plan Assessment & Plan (1) Right elbow pain: Code(s): M25.521 - Pain in right elbow Category: Medical (2) Contusion of right elbow: Code(s): S50.01XA - Contusion of right elbow, initial encounter Category: Medical (3) Numbness and tingling of right hand: Code(s): R20.0 - Anesthesia of skin; R20.2 - Paresthesia of skin Category: Medical Plan 1. Contusion of right elbow 2. Pain of right elbow Patient is educated about this injury and the typical recovery course Patient is informed that there is no acute intervention indicated for anything in her right elbow Patient is informed that she will be referred to OT for range of motion, strengthening, stabilization of the right elbow Patient is amenable to this plan Patient is informed that if she is still experiencing symptoms in 6 weeks, she can return to the office for repeat evaluation, sooner with any acute concerns 3. Numbness and tingling of the right hand Symptoms intermittent, daily At this time, the patient is offered a nerve conduction study to assess the health of the nerves of the right upper extremity However, the patient states that she does not want a nerve conduction study at this time, as she has had 1 in the past and finds them extremely painful The patient inquires if she can have a few weeks to see if this numbness and tingling resolves on its own before getting a nerve conduction study Patient is given an appointment in 6 weeks for repeat evaluation of both elbow pain and numbness and tingling, and we will get a nerve conduction study ordered at that time if she is still experiencing numbness Patient is amenable to this plan Patient will follow-up in 6 weeks for reassessment, sooner with any acute concerns Orders: Orders OT Evaluation and Treatment Today M25.522 - Pain in left elbow Coding Level of Care Code New Pt Level 3 (50530) Diagnoses Right elbow pain M25.521 Contusion of right elbow S50.01XA Numbness and tingling of right hand R20.0; R20.2
[2024-01-10 15:20] VITALS: BMI 52.2
== END 2024-01-10 15:55 | disposition home or self-care (01) ==
LOC: HO.HOS 14:48
PROVIDERS: PCP Physician Assistant
DX: M25.521 Pain in right elbow (principal); S50.01XA Contusion of right elbow, initial encounter; R20.0 Anesthesia of skin; R20.2 Paresthesia of skin
CPT/HCPCS: 99203

== ENCOUNTER → 2024-01-10 14:48 | Outpatient (BNVA) | payer MEDICARE, MEDICAID, SELFPAY | PROVIDERS: PCP Physician Assistant | DX: M25.521 Pain in right elbow (principal); N20.0 Calculus of kidney; N20.2 Calculus of kidney with calculus of ureter; S50.01XA Contusion of right elbow, initial encounter; W01.0XXA Fall on same level from slipping, tripping and stumbling without subsequent striking against object, initial encounter; Y93.01 Activity, walking, marching and hiking; Y92.414 Local residential or business street as the place of occurrence of the external cause; Y99.9 Unspecified external cause status | CPT/HCPCS: 99202 ==

== ENCOUNTER 2024-01-27 23:24 | Emergency (ER) | payer MEDICARE, MEDICAID, SELFPAY ==
[2024-01-27 23:49] VITALS: BP 115/77; PULSE 102; RESP 18; TEMP 36.3; O2SAT 96; BMI 52.6
--- NOTE | 2024-01-27 23:53 | ECG_ITS ---
Test Reason : FAST HR Blood Pressure : / mmHG Vent. Rate : 093 BPM Atrial Rate : 093 BPM P-R Int : 152 ms QRS Dur : 082 ms QT Int : 370 ms P-R-T Axes : 032 047 054 degrees QTc Int : 460 ms Normal sinus rhythm Cannot rule out Anterior infarct (cited on or before 11-MAY-2023) Abnormal ECG When compared with ECG of 11-MAY-2023 02:56, No significant change was found Referred By: Generic ED Physician Electronically Signed By:ADY LR
[2024-01-28 00:11] LABS: MANUAL DIFF FLAG NO
[2024-01-28 00:13] LABS: Basophils Percent Auto 0.4 % (0-2); Eosinophils Absolute Auto 0.1 X10*3/uL (0.0-0.4); Eosinophils Percent Auto 0.9 % (0-4); Hematocrit 39.6 % (37.0-47.0); Hemoglobin 13.4 g/dl (12.0-16.0); Imm Gran Abs Auto 0.02 X10*3/uL (0.00-0.03); Imm Gran Pct Auto 0.2 % (0.0-0.4); Lymphocytes Absolute Auto 2.1 X10*3/uL (1.2-4.9); Mean Corpuscular HGB Conc 33.8 g/dl (31.0-35.0); Mean Corpuscular Hemoglobin 29.5 pg (27.0-33.0); Mean Platelet Volume 10.1 fL (9.4-12.3); Monocytes Absolute Auto 0.9 X10*3/uL (0.1-1.2); Monocytes Percent Auto 9.4 % (2-11); NRBC Pct Auto 0.2 /100WBC (0.0-0.2); Neutrophils Absolute Auto 6.1 x10*3/uL (2.0-8.3); Neutrophils Percent Auto 66.1 % (45-73); Platelet Count 284 X10*3/uL (160-400); Red Blood Count 4.55 X10*6/uL (4.20-5.50); Red Cell Distribution Width 12.7 % (11.0-16.0); White Blood Count 9.2 X10*3/uL (4.8-10.8)
[2024-01-28 00:26] LABS: Anion Gap 13 (12-20); Blood Urea Nitrogen 11 mg/dL (9-16); Calcium 9.4 mg/dL (8.4-10.2); Carbon Dioxide 23 mmol/L (22-29); Chloride 108 mmol/L (96-108); Creatinine Clr Calc Pharmacy 133.8; Estimated Glomerular Filt Rate > 60; Glucose Random 145 mg/dL (60-115); Potassium 3.4 mmol/L (3.3-5.1); Sodium 141 mmol/L (135-145)
[2024-01-28 00:42] LABS: Troponin-I High Sensitivity < 2.7 ng/L (<3.5-17.0)
--- NOTE | 2024-01-28 01:21 | ED.CHESTPAIN ---
HPI - Chest Pain General Chief Complaint: Chest Pain Stated Complaint: SVT Episode Time Seen by Provider: 01/28/24 01:19 Source: patient Mode of arrival: ambulatory Limitations: no limitations History of Present Illness ED Provider: FERMIN HPI narrative: 49 yo female with PMH of GERD, obesity, depression, RLS, HTN, asthma, SVT s/p ablation several years ago at [facility] reports she is not on any bblockers or heart medications was playing [employer] at 10pm when she felt her heart racing and she was dyspneic. It was very fast and her chest got tight. This lasted about 30 min and resolved after her HR went down. She denies any recent illness, infections, GI losses. She states she thought she was in SVT and it hasn't happened to this degree in a while. She has had random fluttering in the chest but nothing like this. complaint: other (tightness, palpitations) Onset (ago): hour(s) (10pm) Timing of current episode: now resolved Prior episodes: Yes Onset: during rest Pain location: substernal Pain radiation: none Severity: moderate Quality: tightness Relieving factors: nothing Exacerbating factors: other (resolved after 30 min) Associated symptoms: dyspnea and palpitations Treatment prior to arrival: none Related Data Home Medications ?Medication ?Instructions ?Recorded ?Confirmed aripiprazole 2 mg tablet 2 mg PO QAM 03/17/22 04/16/23 escitalopram oxalate 20 mg tablet 20 mg PO DAILY 03/17/22 04/16/23 sumatriptan succinate 25 mg tablet See Rx Instructions PO .COMPLEX PRN 03/17/22 04/16/23 lamotrigine 150 mg tablet 150 mg PO DAILY 05/08/22 04/16/23 Previous Rx's ?Medication ?Instructions ?Recorded acetaminophen 325 mg tablet 650 mg (2 x 325 mg) PO Q6H PRN 02/25/20 (Tylenol) fever or pain #10 tabs blood pressure monitor (Blood #1 ea 10/27/20 Pressure Kit) nebulizers (AeroEclipse II #1 ea 05/07/21 Nebulizer) miscellaneous medical supply 1 ea miscellaneous DAILY 99 days 09/29/21 #1 ea fluticasone 250 mcg-salmeterol 50 1 ea inhalation BID 30 days #60 ea 11/11/21 mcg/dose blistr powdr for inhalation (Advair Diskus) trazodone 100 mg tablet 100 mg PO DAILY 90 days #90 tabs 04/16/23 lansoprazole 30 mg capsule,delayed 30 mg PO DAILY #90 caps 05/09/23 release ropinirole 0.5 mg tablet 0.5 mg PO BEDTIME #90 tabs 06/14/23 promethazine 25 mg tablet 25 mg PO TID PRN nausea and 06/19/23 vomiting 5 days #15 tabs lidocaine 5 % topical patch 1 patch topical DAILY #15 ea 08/11/23 albuterol sulfate 90 mcg/actuation 1 puff inhalation QID PRN for 08/28/23 aerosol inhaler (Ventolin HFA) dyspnea #18 ea cyclobenzaprine 10 mg tablet 10 mg PO BEDTIME 15 days #15 tabs 10/31/23 cholecalciferol (vitamin D3) 50 50 mcg PO DAILY 90 days #90 caps 11/16/23 mcg (2,000 unit) capsule tramadol 50 mg tablet 50 mg PO BID pain 4 days #8 tabs 12/24/23 Allergies Allergy/AdvReac Type Severity Reaction Status Date / Time ibuprofen [From Motrin] Allergy Severe HIVES,SWELL Verified 01/27/24 23:51 ING shellfish derived Allergy Severe Angioedema Verified 01/27/24 23:51 meperidine [Demerol] Allergy Unknown Vomiting Verified 01/27/24 23:51 morphine [MORPHINE] Allergy Unknown CHEST PAIN Verified 01/27/24 23:51 NSAIDS (Non-Steroidal Allergy Itching Verified 01/27/24 23:51 Anti-Inflamma hydroxyzine AdvReac Mild mouth Verified 01/27/24 23:51 numbess Review of Systems Review of Systems: Constitutional : No Fever, No Chills ENT/Mouth : No sore throat, No Rhinorrhea, No Swallowing Difficulty Eyes: No Eye Pain, No Swelling, No Redness Cardiovascular : pos Chest Pain, positive SOB, No Orthopnea, no Edema, pos palpitations Respiratory : No Cough, No Sputum, No Wheezing, positive dyspnea Gastrointestinal : No Nausea, No Vomiting, No Diarrhea, No abdominal Pain, No Hematochezia, No Melena Genitourinary : No Dysuria, No Urinary Frequency, No Hematuria Musculoskeletal : No joint pain, No Myalgias Skin : No Skin Lesions, No rash Neuro : No Weakness, No Numbness, No Dizziness, No Headache Psych : No Anxiety/Panic, No Depression All other systems reviewed and are negative [facility] Past Medical History Attestation statement: The following information was validated with the patient. 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) COVID-19 Hx of supraventricular tachycardia Hx-TIA (transient ischemic attack) Back spasm Obesity Headache GERD (gastroesophageal reflux disease) Screening for hypothyroidism Screening for hypercholesterolemia Screening for diabetes mellitus (DM) Anxiety Depression Fibromyalgia Asthma Surgical History Hx of colonoscopy History of partial knee replacement Hx of tubal ligation History of endoscopy History of History of knee surgery History of cholecystectomy Family History Family History Mother High cholesterol Father Lupus Diabetes Thyroid disease FH: prostate cancer Brother Asthma Anxiety Depression Daughter Depression Anxiety Childhood autism Maternal Grandmother Glaucoma Other Mental problem Substance abuse Social History Social History Housing: House Alcohol intake: never Patient Tobacco Use Status: Never used Tobacco e-Cigarette/Vaping Use: Never Used Second Hand Smoke Exposure: Yes Advance Directives: No Advance Directives Information Provided: Yes Do you have a plan to hurt others: No Plan service: No Current occupational status: employed and disabled 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 Cognitive needs: No Hearing needs: No Vision needs: Yes (Glasses) Physical Exam Vital Signs: Vital Signs: Last Vital Signs Temp 98.7 F 01/28/24 01:26 Pulse 86 01/28/24 01:26 Resp 16 01/28/24 01:26 BP 108/72 01/28/24 01:26 Pulse Ox 96 01/28/24 01:26 O2 Del Method Room Air 01/28/24 01:26 BMI result Body Mass Index 52.6 Appearance: Alert. Oriented X3. No acute distress. Eyes: Pupils equal, round and reactive to light. ENT: Pharynx normal. Neck: Normal inspection. Neck supple. CVS: Normal heart rate and rhythm. Pulses normal. Respiratory: No respiratory distress. Breath sounds normal. Abdomen: Soft and nontender. Skin: Skin warm and dry. Normal skin color. Normal skin turgor. Extremities: No lower extremity edema. No calf ttp Neuro: Oriented X 3. No motor deficit. No sensory deficit. Medical Decision Making Medical Decision Making [facility] Narrative: 49 yo female with PMH of GERD, obesity, depression, RLS, HTN, asthma, SVT s/p ablation several years ago at [facility] here with c/o palpitations dyspnea and chest tightness while at rest. She was not in SVT on arrival. She is not on bblockers at home. At this time will obtain trop x 2, ddimer, CXR, basic lytes, TSH. If negative will refer to cardiology - she has not been on rate control medications for years. Differential Diagnosis Differential Diagnoses: The differential diagnosis associated with the presentation includes SVT, lyte abnormality, VTE Admission/Observation Consideration of admission/observation: Escalation of care including admission/observation considered negative trop x 2, ddimer negative, EKG nonischemic Lab Data [facility] Lab Attestation statement: I reviewed the patient's lab results. 01/28/24 00:06 01/28/24 00:06 Labs: Lab Results 01/28/24 01/28/24 Range/Units 00:06 02:08 WBC 9.2 (4.8-10.8) X10*3/uL RBC 4.55 (4.20-5.50) X10*6/uL Hgb 13.4 (12.0-16.0) g/dl Hct 39.6 (37.0-47.0) % MCV 87.0 (80.0-98.0) fL MCH 29.5 (27.0-33.0) pg MCHC 33.8 (31.0-35.0) g/dl RDW 12.7 (11.0-16.0) % Plt Count 284 (160-400) X10*3/uL MPV 10.1 (9.4-12.3) fL Immature Gran % (Auto) 0.2 (0.0-0.4) % Neut % (Auto) 66.1 (45-73) % Lymph % (Auto) 23.0 (20-40) % Spencer % (Auto) 9.4 (2-11) % Eos % (Auto) 0.9 (0-4) % Baso % (Auto) 0.4 (0-2) % Lymph # (Auto) 2.1 (1.2-4.9) X10*3/uL Spencer # (Auto) 0.9 (0.1-1.2) X10*3/uL Eos # (Auto) 0.1 (0.0-0.4) X10*3/uL Baso # (Auto) 0.0 (0.0-0.2) X10*3/uL Abs Immat Gran (auto) 0.02 (0.00-0.03) X10*3/uL Absolute Neuts (auto) 6.1 (2.0-8.3) x10*3/uL Absolute Nucleated RBC 0.020 H (0.0-0.012) X10*3/uL Nucleated RBC % (auto) 0.2 (0.0-0.2) /100WBC D-Dimer High Sensitivty < 150 NG/ML Sodium 141 (135-145) mmol/L Potassium 3.4 (3.3-5.1) mmol/L Chloride 108 (96-108) mmol/L Carbon Dioxide 23 (22-29) mmol/L Anion Gap 13 (12-20) BUN 11 (9-16) mg/dL Creatinine 0.71 (0.5-1.4) mg/dL Estim Creat Clear Calc 133.8 Estimated GFR > 60 Random Glucose 145 H (60-115) mg/dL Calcium 9.4 (8.4-10.2) mg/dL Troponin I High Sens < 2.7 < 2.7 (<3.5-17.0) ng/L TSH 1.86 (0.32-4.0) uIU/mL Independent Interpretation I performed an independent interpretation of an: EKG Interpretation: Rate: 93 Rhythm: NSR [place]: normal Normal P waves. Normal JAMIE. Normal QRS complex. ST T wave : normal no JEREMI qTC: 460 prior studies: no acute ischemia The study has been interpreted contemporaneously by me. . External Record Review External record reviewed: Office record Discharge Plan Discharge Clinical Impression: Heart palpitations Patient Disposition: Home, Self-Care Instructions: Heart Palpitations (ED) Additional Instructions: return for worsening symptoms or concerns negative troponin x 2, EKG negative ddimer negative please return for any worsening symptoms or concerns follow up with cardiology Prescriptions: No Action (DME) blood pressure monitor [Blood Pressure Kit] Kit See Rx Instructions .ROUTE .MEDSUPPLY Qty: 1 0RF Rx Instructions: As directed miscellaneous medical supply [facility] 1 ea miscellaneous DAILY 99 Days Qty: 1 0RF fluticasone propion-salmeterol [Advair Diskus] 250-50 mcg/dose blister with device 1 ea inhalation BID 30 Days Qty: 60 3RF lansoprazole 30 mg capsule,delayed release(DR/EC) 30 mg PO DAILY Qty: 90 2RF ropinirole 0.5 mg tablet 0.5 mg PO BEDTIME Qty: 90 2RF promethazine 25 mg tablet 25 mg PO TID PRN (Reason: nausea and vomiting) 5 Days Qty: 15 0RF albuterol sulfate [Ventolin HFA] 90 mcg/actuation HFA aerosol inhaler 1 puff inhalation QID PRN (Reason: for dyspnea) Qty: 18 6RF cyclobenzaprine 10 mg tablet 10 mg PO BEDTIME 15 Days Qty: 15 0RF cholecalciferol (vitamin D3) 50 mcg (2,000 unit) capsule 50 mcg PO DAILY 90 Days Qty: 90 1RF tramadol 50 mg tablet 50 mg PO BID 4 Days Qty: 8 0RF acetaminophen [Tylenol] 325 mg tablet 650 mg PO Q6H PRN (Reason: fever or pain) Qty: 10 0RF (DME) AeroEclipse II Nebulizer [facility] See Rx Instructions .ROUTE .MEDSUPPLY Qty: 1 0RF Rx Instructions: As directed lidocaine 5 % adhesive patch,medicated 1 patch topical DAILY Qty: 15 0RF Rx Instructions: leave on most painful area for up to 12 hrs trazodone 100 mg tablet 100 mg PO DAILY 90 Days Qty: 90 2RF lamotrigine 150 mg tablet 150 mg PO DAILY aripiprazole 2 mg tablet 2 mg PO QAM sumatriptan succinate 25 mg tablet See Rx Instructions PO .COMPLEX PRN Rx Instructions: take 1 tab at onset of headache; if no relief may repeat 1 tab after at least 2 hrs; max = 4 tabs/24 hr orally PRN; escitalopram oxalate 20 mg tablet 20 mg PO DAILY Referrals: [facility] [Provider Group] Print Language: Maldivian
[2024-01-28 01:26] VITALS: BP 108/72; PULSE 86; RESP 16; TEMP 37.1; O2SAT 96
[2024-01-28 02:07] LABS: TSH reflex Free T4 1.86 uIU/mL (0.32-4.0)
[2024-01-28 02:20] LABS: D Dimer High Sensitivity < 150 NG/ML
[2024-01-28 02:35] LABS: Troponin-I High Sensitivity < 2.7 ng/L (<3.5-17.0)
[2024-01-28 02:52] VITALS: BP 97/68; PULSE 89; RESP 15; TEMP 36.8; O2SAT 96
[2024-01-28 02:53] VITALS: BP 97/68; PULSE 89; RESP 15; TEMP 36.8; O2SAT 96
== END 2024-01-28 02:53 | disposition home or self-care (01) ==
PROVIDERS: Emergency Provider Emergency Medicine; PCP Physician Assistant
DX: R07.89 Other chest pain (principal); I10 Essential (primary) hypertension; R06.02 Shortness of breath; R00.2 Palpitations; Z79.899 Other long term (current) drug therapy
CPT/HCPCS: 36415; 80048; 84443; 84484; 85025; 85379; 93005; 99284; 99285

== ENCOUNTER 2024-02-11 17:37 | Emergency (ER) | payer MEDICARE, MEDICAID, SELFPAY ==
--- NOTE | ~2024-02-11 | US_ITS ---
EXAMINATION: US TRIPLEX LOWER EXTREMITY, LEFT CLINICAL INFORMATION: Left calf pain, swelling COMPARISON: Bilateral lower extremity duplex on 10/12/2021 TECHNIQUE: Color-flow triplex imaging with spectral analysis and compression Doppler were performed on the left lower extremity. FINDINGS: Respiratory variation, normal compression and augmented flow are noted throughout the left lower extremity. The visualized common femoral vein, superficial femoral vein, profunda femoral vein, popliteal vein and midcalf peroneal and posterior tibial venous segments show no evidence of deep venous thrombosis. There is no Champion's cyst. US/US venous duplex LE IMPRESSION: No evidence of deep venous thrombosis involving the left lower extremity. Electronically signed by: Allyssa Hernandez MD 02/11/2024 07:40 PM EDT
[2024-02-11 17:56] VITALS: BP 114/53; PULSE 88; RESP 20; TEMP 37.2; O2SAT 97; BMI 49.6
--- NOTE | 2024-02-11 17:58 | ED.LOWEXIN ---
HPI - Extremity Injury (Lower) General Chief Complaint: General Medical Stated Complaint: LT leg cyst Time Seen by Provider: 02/11/24 23:06 Source: patient, RN notes reviewed and old records reviewed Mode of arrival: ambulatory Limitations: no limitations History of Present Illness ED Provider: Aleyda HPI Narrative: 49-year-old female presents for evaluation of left leg pain. Patient states that she has been having pain for 6 months to her left posterior leg from the knee down her calf. She was seen here and diagnosed with a Champion's cyst. She would not follow up with anybody regarding this She reports that she is allergic to ibuprofen. She has had no relief with Tylenol and tramadol that she has not home She denies any swelling with the leg but reports that the pain is worse with any kind of movement Denies any falls, trauma to the area Denies any history of neuropathy Related Data Home Medications ?Medication ?Instructions ?Recorded ?Confirmed aripiprazole 2 mg tablet 2 mg PO QAM 03/17/22 04/16/23 escitalopram oxalate 20 mg tablet 20 mg PO DAILY 03/17/22 04/16/23 sumatriptan succinate 25 mg tablet See Rx Instructions PO .COMPLEX PRN 03/17/22 04/16/23 lamotrigine 150 mg tablet 150 mg PO DAILY 05/08/22 04/16/23 Previous Rx's ?Medication ?Instructions ?Recorded acetaminophen 325 mg tablet 650 mg (2 x 325 mg) PO Q6H PRN 02/25/20 (Tylenol) fever or pain #10 tabs blood pressure monitor (Blood #1 ea 10/27/20 Pressure Kit) nebulizers (AeroEclipse II #1 ea 05/07/21 Nebulizer) miscellaneous medical supply 1 ea miscellaneous DAILY 99 days 09/29/21 #1 ea fluticasone 250 mcg-salmeterol 50 1 ea inhalation BID 30 days #60 ea 11/11/21 mcg/dose blistr powdr for inhalation (Advair Diskus) trazodone 100 mg tablet 100 mg PO DAILY 90 days #90 tabs 04/16/23 lansoprazole 30 mg capsule,delayed 30 mg PO DAILY #90 caps 05/09/23 release ropinirole 0.5 mg tablet 0.5 mg PO BEDTIME #90 tabs 06/14/23 promethazine 25 mg tablet 25 mg PO TID PRN nausea and 06/19/23 vomiting 5 days #15 tabs lidocaine 5 % topical patch 1 patch topical DAILY #15 ea 08/11/23 albuterol sulfate 90 mcg/actuation 1 puff inhalation QID PRN for 08/28/23 aerosol inhaler (Ventolin HFA) dyspnea #18 ea cyclobenzaprine 10 mg tablet 10 mg PO BEDTIME 15 days #15 tabs 10/31/23 cholecalciferol (vitamin D3) 50 50 mcg PO DAILY 90 days #90 caps 11/16/23 mcg (2,000 unit) capsule tramadol 50 mg tablet 50 mg PO BID pain 4 days #8 tabs 12/24/23 cyclobenzaprine 10 mg tablet 10 mg PO TID PRN muscle spasm #20 02/11/24 tabs lidocaine 5 % topical patch 1 patch topical DAILY #15 ea 02/11/24 Allergies Allergy/AdvReac Type Severity Reaction Status Date / Time ibuprofen [From Motrin] Allergy Severe HIVES,SWELL Verified 02/11/24 17:59 ING shellfish derived Allergy Severe Angioedema Verified 02/11/24 17:59 meperidine [Demerol] Allergy Unknown Vomiting Verified 02/11/24 17:59 morphine [MORPHINE] Allergy Unknown CHEST PAIN Verified 02/11/24 17:59 NSAIDS (Non-Steroidal Allergy Itching Verified 02/11/24 17:59 Anti-Inflamma hydroxyzine AdvReac Mild mouth Verified 02/11/24 17:59 numbess Review of Systems Constitutional: Constitutional: Denies body ache(s), Denies chills and Denies fever(s) Eyes: Eyes: Denies blurry vision ENT: Denies vertigo and Denies dizziness Cardiovascular: Cardiovascular: Denies chest pain Gastrointestinal: Gastrointestinal: Denies abdominal pain, Denies nausea and Denies vomiting Musculoskeletal: Musculoskeletal: Denies back pain, Denies arthralgias, Denies joint swelling and Reports radiating pain into limb Integumentary/Breasts: Skin/Breast: Denies rash Neurologic: Denies vertigo and Denies dizziness PMFSH Past Medical History Medical History 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) COVID-19 Hx of supraventricular tachycardia Hx-TIA (transient ischemic attack) Back spasm Obesity Headache GERD (gastroesophageal reflux disease) Screening for hypothyroidism Screening for hypercholesterolemia Screening for diabetes mellitus (DM) Anxiety Depression Fibromyalgia Asthma Surgical History Hx of colonoscopy History of partial knee replacement Hx of tubal ligation History of endoscopy History of History of knee surgery History of cholecystectomy Family History Family History Mother High cholesterol Father Lupus Diabetes Thyroid disease FH: prostate cancer Brother Asthma Anxiety Depression Daughter Depression Anxiety Childhood autism Maternal Grandmother Glaucoma Other Mental problem Substance abuse Social History Social History Housing: House Alcohol intake: never Patient Tobacco Use Status: Never used Tobacco e-Cigarette/Vaping Use: Never Used Second Hand Smoke Exposure: Yes Advance Directives: No Advance Directives Information Provided: No Do you have a plan to hurt others: No Plan service: No Current occupational status: employed and disabled Current occupation: [employer] Cognitive needs: No Hearing needs: No Vision needs: Yes (Glasses) Physical Exam Vital Signs: Vital Signs: Last Vital Signs Temp 98.3 F 02/11/24 23:38 Pulse 65 02/11/24 23:38 Resp 16 02/11/24 23:38 BP 95/59 L 02/11/24 23:38 Pulse Ox 96 02/11/24 23:38 O2 Del Method Room Air 02/11/24 23:38 BMI result Body Mass Index 49.6 Const: General: healthy appearing, comfortable, no acute distress, alert and awake Nutritional Appearance: well nourished and obese centrally obese Orientation/consciousness: patient oriented x3 HEENT: Head: Yes normocephalic and Yes atraumatic Eyes: Eyelids: Yes eyelids normal Conjunctivae: conjunctivae normal Sclerae: sclerae normal Corneas: corneas normal Pupils: Equal, round and reactive pupils present EOM: EOMs intact bilaterally Neck: Neck: Yes full ROM Resp: Effort & Inspection: normal respiratory effort, able to speak in complete sentences and not labored Skin: General skin exam: elasticity normal Neuro: General: patient oriented x3 Cranial nerves: Yes Equal, round and reactive pupils present and Yes Bilaterally intact EOM present Cognition (Neuro): normal cognition Extrem: Other: There was no deformity to the left lower extremity. There is no edema, erythema, ecchymosis, mass. The patient is tender to palpation to the left calf extending to the left posterior popliteal fossa. She has full range of motion with flexion-extension left knee but this causes discomfort Course Course Course Narrative: This is an RME: Additional HPI, ROS, PE not included below will be deferred to primary provider. RME assessment and note performed by: Emerita Baptiste PA-C This is a 49 year old female, with a hx of champion's cyst, who presents to the ER with complaints of worsening left knee pain x 1 week. Seen previously for similar complaint, pt had appt on October 28 at 1PM but did not make the appointment. No chest pain or SOB. Plan: US LLE Medications Administered Discontinued Medications Generic Name Dose Route Start Last Admin Trade Name Freq PRN Reason Stop Dose Admin Cyclobenzaprine HCl 10 mg 02/11/24 23:15 02/11/24 23:36 Cyclobenzaprine Hcl 10 Mg Tablet PO 02/11/24 23:16 10 mg ONCE ONE Administration Medical Decision Making Medical Decision Making MDM Narrative: 49-year-old female presents for evaluation of left lower leg/calf pain. She had an ultrasound that ruled out DVT and also does not show any evidence of Champion's cyst. There was no evidence of skin infection, there was no evidence of ischemia. Plan to discharge the patient is symptomatic care and orthopedic referral Differential Diagnosis Differential Diagnoses: The differential diagnosis associated with the presentation includes Leg pain Radiculopathy DVT Champion's cyst Radiology Impression Discussion of test interpretation with radiology: I have reviewed the radiologist's reading. Radiologist Impression: FINDINGS: Respiratory variation, normal compression and augmented flow are noted throughout the left lower extremity. The visualized common femoral vein, superficial femoral vein, profunda femoral vein, popliteal vein and midcalf peroneal and posterior tibial venous segments show no evidence of deep venous thrombosis. There is no Champion's cyst. US/US venous duplex LE LT IMPRESSION: No evidence of deep venous thrombosis involving the left lower extremity. Electronically signed by: Allyssa Hernandez MD 02/11/2024 07:40 PM EDT Discharge Plan Discharge Clinical Impression: Acute pain of left lower extremity Patient Disposition: Home, Self-Care Instructions: Leg Pain (ED) Additional Instructions: Your ultrasound does not show any evidence of DVT/blood clot for Champion's cyst. Your pain is most likely muscular in origin. You may use lidocaine patches and cyclobenzaprine as needed for the pain The cyclobenzaprine may make you drowsy, do not drink alcohol or drive after taking it You may continue to use Tylenol for pain as well Prescriptions: New cyclobenzaprine 10 mg tablet 10 mg PO TID PRN (Reason: muscle spasm) Qty: 20 0RF lidocaine 5 % adhesive patch,medicated 1 patch topical DAILY Qty: 15 0RF Rx Instructions: leave on most painful area for up to 12 hrs No Action (DME) blood pressure monitor [Blood Pressure Kit] Kit See Rx Instructions .ROUTE .MEDSUPPLY Qty: 1 0RF Rx Instructions: As directed miscellaneous medical supply Misc 1 ea miscellaneous DAILY 99 Days Qty: 1 0RF fluticasone propion-salmeterol [Advair Diskus] 250-50 mcg/dose blister with device 1 ea inhalation BID 30 Days Qty: 60 3RF lansoprazole 30 mg capsule,delayed release(DR/EC) 30 mg PO DAILY Qty: 90 2RF ropinirole 0.5 mg tablet 0.5 mg PO BEDTIME Qty: 90 2RF promethazine 25 mg tablet 25 mg PO TID PRN (Reason: nausea and vomiting) 5 Days Qty: 15 0RF albuterol sulfate [Ventolin HFA] 90 mcg/actuation HFA aerosol inhaler 1 puff inhalation QID PRN (Reason: for dyspnea) Qty: 18 6RF cyclobenzaprine 10 mg tablet 10 mg PO BEDTIME 15 Days Qty: 15 0RF cholecalciferol (vitamin D3) 50 mcg (2,000 unit) capsule 50 mcg PO DAILY 90 Days Qty: 90 1RF tramadol 50 mg tablet 50 mg PO BID 4 Days Qty: 8 0RF acetaminophen [Tylenol] 325 mg tablet 650 mg PO Q6H PRN (Reason: fever or pain) Qty: 10 0RF (DME) AeroEclipse II Nebulizer Misc See Rx Instructions .ROUTE .MEDSUPPLY Qty: 1 0RF Rx Instructions: As directed lidocaine 5 % adhesive patch,medicated 1 patch topical DAILY Qty: 15 0RF Rx Instructions: leave on most painful area for up to 12 hrs trazodone 100 mg tablet 100 mg PO DAILY 90 Days Qty: 90 2RF lamotrigine 150 mg tablet 150 mg PO DAILY aripiprazole 2 mg tablet 2 mg PO QAM sumatriptan succinate 25 mg tablet See Rx Instructions PO .COMPLEX PRN Rx Instructions: take 1 tab at onset of headache; if no relief may repeat 1 tab after at least 2 hrs; max = 4 tabs/24 hr orally PRN; escitalopram oxalate 20 mg tablet 20 mg PO DAILY Referrals: Carson Armstrong MD [Physician] - (chronic left leg pain) Interventions: ED Discharge Assessment Last Done: 02/11/24 23:38 Discharge Date/Time: 02/11/24 23:41 Print Language: Japanese
[2024-02-11 22:52] VITALS: BP 95/59; PULSE 65; RESP 16; TEMP 36.8; O2SAT 96
[2024-02-11] MEDS: Cyclobenzaprine HCl 10 MG TABLET PO (23:36)
[2024-02-11 23:38] VITALS: BP 95/59; PULSE 65; RESP 16; TEMP 36.8; O2SAT 96
== END 2024-02-11 23:41 | disposition home or self-care (01) ==
PROVIDERS: Emergency Provider Emergency Medicine; PCP Physician Assistant
DX: M79.605 Pain in left leg (principal); R60.0 Localized edema
CPT/HCPCS: 93971; 99283; 99284

== ENCOUNTER 2024-02-18 09:34 | Outpatient (REF) | payer MEDICARE, MEDICAID, SELFPAY ==
--- NOTE | ~2024-02-18 | XR_ITS ---
EXAMINATION: XR KNEE, LEFT CLINICAL INFORMATION: Left knee pain. COMPARISON: Left knee radiographs dated 11/09/2019. TECHNIQUE: Three views of the left knee. FINDINGS: Mild medial compartment joint space narrowing. Tiny tricompartmental marginal osteophytes. No acute fracture or dislocation. No concerning lytic or blastic osseous lesion. Superior and inferior patellar enthesophytes. No joint effusion. XR/XR knee LT 3V IMPRESSION: Mild tricompartmental osteoarthritis. Electronically signed by: Yair Phillips MD 02/23/2024 01:11 PM EDT
[2024-02-18 11:34] LABS: Hematocrit 40.9 % (37.0-47.0); Hemoglobin 13.8 g/dl (12.0-16.0); Mean Corpuscular HGB Conc 33.7 g/dl (31.0-35.0); Mean Corpuscular Volume 88.9 fL (80.0-98.0); Platelet Count 271 X10*3/uL (160-400); Red Cell Distribution Width 12.6 % (11.0-16.0); White Blood Count 7.4 X10*3/uL (4.8-10.8)
[2024-02-18 12:53] LABS: Alanine Aminotransferase 26 U/L (0-31); Albumin Level 4.4 g/dL (3.5-5.0); Alkaline Phosphatase 49 U/L (39-117); Anion Gap 10 (12-20); Aspartate Amino Transferase 25 U/L (5-31); Bilirubin Total 0.5 mg/dL (0.0-1.0); Blood Urea Nitrogen 13 mg/dL (9-16); Calcium 9.4 mg/dL (8.4-10.2); Carbon Dioxide 29 mmol/L (22-29); Chloride 104 mmol/L (96-108); Estimated Glomerular Filt Rate > 60; Glucose Fasting 101 mg/dL (60-99); Potassium 4.3 mmol/L (3.3-5.1); Sodium 139 mmol/L (135-145); Total Protein 7.4 g/dL (6.5-8.0)
== END 2024-02-18 09:35 | disposition home or self-care (01) ==
LOC: HO.XRAY 09:34
PROVIDERS: PCP Physician Assistant; Visit Provider Physician Assistant
DX: Z00.00 Encounter for general adult medical examination without abnormal findings (principal); G89.29 Other chronic pain; M25.562 Pain in left knee; M71.22 Synovial cyst of popliteal space [Baker], left knee; D12.2 Benign neoplasm of ascending colon; I10 Essential (primary) hypertension; R51.9 Headache, unspecified; Z23 Encounter for immunization
CPT/HCPCS: 36415; 73562; 80053; 85027; 90471; 90656; 96127; 99396

== ENCOUNTER 2024-02-18 09:34 | Outpatient (AMB) | payer MEDICARE, MEDICAID, SELFPAY ==
[2024-02-18 09:35] VITALS: BP 92/64; PULSE 82; O2SAT 97; BMI 48.9
--- NOTE | 2024-02-18 09:35 | A.OFFPC_ITS ---
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: No Allergies ibuprofen [From Motrin] Allergy (Severe, Verified 02/18/24 09:51) HIVES,SWELLING shellfish derived Allergy (Severe, Verified 02/18/24 09:51) Angioedema meperidine [Demerol] Allergy (Unknown, Verified 02/18/24 09:51) Vomiting morphine [MORPHINE] Allergy (Unknown, Verified 02/18/24 09:51) CHEST PAIN NSAIDS (Non-Steroidal Anti-Inflamma Allergy (Verified 02/18/24 09:51) Itching hydroxyzine Adverse Reaction (Mild, Verified 02/18/24 09:51) mouth numbess Medication List - Last Reconciled 02/18/24 by Jeremy Sanches PA-C acetaminophen (Tylenol) 650 mg (2 x 325 mg) PO Q6H PRN albuterol sulfate 90 mcg/actuation (Ventolin HFA) 1 puff inhalation QID PRN aripiprazole 2 mg PO QAM blood pressure monitor (Blood Pressure Kit) As directed cholecalciferol (vitamin D3) 50 mcg PO DAILY 90 days cyclobenzaprine 10 mg PO TID PRN escitalopram oxalate 20 mg PO DAILY fluticasone propion-salmeterol 250-50 mcg/dose (Advair Diskus) 1 ea inhalation BID 30 days lamotrigine 150 mg PO DAILY lansoprazole 30 mg PO DAILY miscellaneous medical supply 1 ea miscellaneous DAILY 99 days nebulizers (AeroEclipse II Nebulizer) As directed ropinirole 0.5 mg PO BEDTIME sumatriptan succinate take 1 tab at onset of headache; if no relief may repeat 1 tab after at least 2 hrs; max = 4 tabs/24 hr orally PRN; tramadol 50 mg PO BID 4 days trazodone 100 mg PO DAILY 90 days Tobacco use date assessed: 02/18/24 Dental Screening Dental Screen Date: 02/18/24 Did you have a dental visit in the last 12 months?: Yes Did you have a dental problem in the last 6 months where you did not have access to dental care?: No Was dental information given to patient?: Patient has dentist HPI pe 2 HPI0 Details Patient is a 49-year-old here today for a routine annual physical ?Patient's past medical history significant for moderate persistent asthma, obesity, fibromyalgia, depression, GERD. Continues to have chronic left knee pain particular in the posterior aspect. Did have a Champion's cyst found months ago though recent ultrasound did not mentioned cyst. She denies any trauma to the left knee. She has been using tramadol, Tylenol, muscle relaxers, gabapentin though have not been effective. Has upcoming appointment with orthopedics and we are trying to get MRI to evaluate left knee for soft tissue issue. .. Depression: Report she has been having more depression and reports this is related to her continued left knee pain . She reports there has been lot family stress involved that triggers her depression. She is currently speaking with a mental health therapist and a psychiatrist whom increase her dose Lexapro. She has discontinued Lyrica .. GERD: She is now seeing a GI specialist is awaiting further workup her she reports recently getting an MRI of her pelvis. obesity> patient does understand her BMI is well over 40 though has time losing weight. 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) COVID-19 Hx of supraventricular tachycardia Hx-TIA (transient ischemic attack) Back spasm Obesity Headache GERD (gastroesophageal reflux disease) Screening for hypothyroidism Screening for hypercholesterolemia Screening for diabetes mellitus (DM) Anxiety Depression Fibromyalgia Asthma Surgical History Hx of colonoscopy History of partial knee replacement Hx of tubal ligation History of endoscopy History of History of knee surgery History of cholecystectomy Family History Mother High cholesterol Father Lupus Diabetes Thyroid disease FH: prostate cancer Brother Asthma Anxiety Depression Daughter Depression Anxiety Childhood autism Maternal Grandmother Glaucoma Other Mental problem Substance abuse Social History Housing: House Alcohol intake: never Patient Tobacco Use Status: Never used Tobacco e-Cigarette/Vaping Use: Never Used Second Hand Smoke Exposure: Yes service: No Current occupational status: employed and disabled 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 1. Little interest or pleasure in doing things: more than half the days 2. Feeling down, depressed, or hopeless: more than half the days 3. Trouble falling or staying asleep, or sleeping too much: more than half the days 4. Feeling tired or having little energy: more than half the days 5. Poor appetite or overeating: more than half the days 6. Feeling bad about yourself - or that you are a failure or have let yourself or your family down: not at all 7. Trouble concentrating on things, such as reading the newspaper or watching television: not at all 8. Moving or speaking so slowly that other people could have noticed. Or the opposite - being so fidgety or restless that you have been moving around a lot more than usual: not at all 9. Thoughts that you would be better off or of hurting yourself in some way: not at all Total score: 10 Depression Screening Interpretation: Positive Depression Screening Follow-up: Existing condition Depression Screening Done: Yes 34568 - PHQ-9 Billing: Yes Source: Developed by Drs. Terrell Sawant, Lorrie Altamirano, Jong Pereyra and colleagues, with an educational areli from [employer]. Thrive Questionnaire Date Thrive assessed: 02/18/24 I am a: Patient What is your living situation today?: I have a steady place to live Within the past 12 months, did the food you bought not last and you didn't have the money to get more?: I choose not to answer this question Within the past 12 months, did you worry whether your food would run out before you got money to buy more?: I choose not to answer this question Do you have trouble paying for medicines?: No Do you have trouble getting transportation to medical appointments?: No Do you have trouble paying your heating and electricity bill?: Yes Do you have trouble taking care of your child, family member or friend?: No Do you have trouble with day-to-day activities such as bathing, preparing meals, shopping, managing finances, etc.?: I choose not to answer this question Are you currently unemployed and looking for a job?: I choose not to answer this question Are you interested in more education?: I choose not to answer this question Please select the resources that you would like help with: None Currently or been in a relationship where the following occur: No concerns reported THRIVE Score: 1 AUDIT C Alcohol Use Questionnaire (AUDIT-C) 1. How often do you have a drink containing alcohol?: Monthly or less 2. How many drinks containing alcohol do you have on a typical day when you are drinking?: 1 or 2 3. How often do you have six or more drinks on one occasion?: Never Total Score: 1 DANIEL-7 AMB Questionnaire DANIEL-7 Date DANIEL - 7 assessed: 09/11/23 Feeling nervous, anxious, or on edge: 2 = More than half the days Not being able to stop or control worryin = Nearly every day Worrying too much about different things: 3 = Nearly every day Trouble relaxin = Not at all Being so restless that it is hard to sit still: 0 = Not at all Becoming easily annoyed or irritable: 2 = More than half the days Feeling afraid as if something awful might happen: 2 = More than half the days Total DANIEL-7 score (0-4 normal; 5-9 mild; 10-14 moderate; 15-21 severe): 12 Source: Developed by Drs. Terrell Sawant, Lorrie Altamirano, Jong Pereyra and colleagues, with an educational areli from [employer]. DANIEL-7 Assessment Billing DANIEL-7 Assessment Tool: DANIEL-7 Assessment 45735 Review of Systems Const Denies body aches, Denies chills, Denies excessive sweating, Denies fatigue, Denies fever(s) and Denies headache(s) Eyes Denies blurry vision ENT Denies dysphagia, Denies vertigo, Denies dizziness, Denies headache(s), Denies hearing loss and Denies tinnitus Card Denies chest pain, Denies chest pain with activity, Denies syncope, Denies irregular heart rhythm and Denies dyspnea Resp Denies chest congestion, Denies cough, Denies hemoptysis, Denies dyspnea and Denies wheezing GI Denies abdominal pain, Denies melena, Denies hematochezia, Denies coffee ground emesis, Denies dysphagia, Denies diarrhea, Denies nausea and Denies vomiting Denies urinary frequency, Denies dysuria, Denies urinary hesitancy and Denies urinary urgency Musc Denies arthralgias, Denies limited range of motion, Denies muscle cramps and Denies muscle weakness Skin/Breast Denies rash and Denies skin ulcer Neuro Denies Abnormal speech present, Denies confusion, Denies vertigo, Denies dizziness, Denies syncope, Denies headache(s), Denies memory loss and Denies seizure-like activity Psych Denies anxiety, Denies confusion, Denies depression, Denies memory loss, Denies panic attacks and Denies paranoia Endo Denies excessive sweating, Denies fatigue, Denies flushing, Denies polydipsia and Denies polyuria Aller/Immun Denies wheezing Physical exam (Primary Care) Vital Signs: Last Vital Signs Pulse 82 02/18/24 09:35 BP 92/64 02/18/24 09:35 Pulse Ox 97 02/18/24 09:35 Oxygen Delivery Method Room Air 02/18/24 09:35 BMI result Body Mass Index 48.9 BMI Assessment/Plan discussion: High BMI High, discussed plan: lifestyle, weight reduction, dietary and physical activity Tobacco/Smoking Status: Tobacco use Status Tobacco use date assessed 02/18/24 02/18/24 09:43 Patient Tobacco Use Status Never used Tobacco 02/18/24 09:35 e-Cigarette/Vaping Use Never Used 02/18/24 09:35 PHQ-9: PHQ-9 Score PHQ-9: Total score 10 02/18/24 09:35 Depression Screening Interpretation: Positive Depression Screening Follow-up: Existing condition Thrive Assessment: Date of Thrive Assessment Date Thrive assessed 02/18/24 02/18/24 09:35 Currently or been in a relationship where the following occur: No concerns reported Const General: cooperative, comfortable, no acute distress, alert and awake; No confusion Orientation/consciousness: oriented to person, oriented to place, patient oriented x3 and No confusion [facility] Head: Yes normocephalic Ears: external ears normal and TM's normal bilaterally Face and sinus: No sinus tenderness Mouth: Normal oral and palatal mucosa present and tongue normal Teeth and gingiva: dentition normal and gingiva normal Throat: Yes posterior oropharynx normal, Yes tonsils normal and Yes uvula midline Eyes Conjunctivae: conjunctivae normal Sclerae: sclerae normal Pupils: Equal, round and reactive pupils present EOM: EOMs intact bilaterally Direct Ophthalmoscopy: No no photophobia Neck Neck: Yes no lymphadenopathy, No tender and Yes no JVD Thyroid: Thyroid normal Carotids: no bruits Chest Chest palpation & inspection: no tenderness Resp Effort & Inspection: normal respiratory effort, no audible wheezes, not labored and no stridor Auscultation: no crackles, no rales, no rhonchi and no wheezes Cardio Jugular venous distension: no JVD Rate: regular rate, not bradycardic and not tachycardic Rhythm: regular rhythm Bruits: no carotid bruits Peripheral pulses: Peripheral pulses 2+ throughout GI Inspection: Yes normal to inspection, No abdominal wall ecchymosis and No visible herniation Palpation (GI): Soft to palpation, nontender, no guarding, not rigid and No hepatosplenomegaly present Auscultation: normoactive bowel sounds General: Yes no CVA tenderness Back/Spine/Pelvis Back: no CVA tenderness and No back tenderness Cervical Spine: cervical ROM normal Thoracic/Lumbar Spine: thoracic and lumbar spine normal to inspection, straight leg raise negative bilaterally, No thoraco-lumbar ROM limited and No lumbar spinal tenderness Skin Lesions: no lesions Rashes: no rashes Wounds: no wounds Neuro General: oriented to person, oriented to place, patient oriented x3, CN's II-XI intact bilaterally and No confusion Cranial nerves: Yes Equal, round and reactive pupils present and Yes Normal accommodation reflex present Cognition (Neuro): normal cognition Speech: No Abnormal speech present Gait exam (Neuro): Normal gait present Motor exam (neuro): 5/5 motor strength present throughout Extrem Right upper extremity: full ROM; no cyanosis Left upper extremity: full ROM; no cyanosis Right lower extremity: no edema Left lower extremity: no edema Knee images: 2 1. DIFFICULT TO ASSESS NEEDED DUE TO BODY HABITUS. LEFT KNEE TENDER TO PALPATION IN THE AREA OUTLINED. SOME LIMITED RANGE OF MOTION DUE TO PAIN AND STIFFNESS. NO NOTABLE SURROUNDING ERYTHEMA. Psych Appearance: grossly normal Mental Status: mental status grossly normal Affect: normal affect Attitude: cooperative Thought process: Normal thought process present Office Procedures Flu Questionnaire Does the patient have a severe egg allergy?: No Does the patient have severe life threatening allergies?: No Does the patient have a fever or illness today?: No Has the patient ever had Guillain-[place] Syndrome?: No Has the patient ever had any past reaction to a flu shot?: No Immunizations Fluarix Triv [id number] (PF) 45 mcg (15 mcg x 3)/0.5 mL IM syringe Performing Provider: Jeremy Sanches PA-C [place] [facility] [place] [facility] Administered by: KIRSTIE Hancock on 02/18/24 09:44 2 Dose Route Admin Location Dispensed Lot Number Expiration Date NDC 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 Operator 0.5 mL IM Left Deltoid 0.5 mL [id number] 10/27/24 [id number] [place] 2 VIS Given Date VIS Provided VIS Publication Date 02/18/24 Single Vaccine 20 Eligibility Eligibility Date Funding Source Not [facility] Eligible 02/18/24 Private Coding Level of Care Code Est Pt Prev Care 40-64y(66574) Diagnoses Adult general medical exam Z00.00 Chronic pain of left knee M25.562; G89.29 Synovial cyst of left popliteal space M71.22 Laterality: left Adenomatous polyp of ascending colon D12.2 Colon location: ascending Additional Codes DANIEL-7 Assessment Billing - DANIEL-7 Assessment Tool: DANIEL-7 Assessment 55235 ([id number]) Assessment & Plan Assessment & Plan (1) Adult general medical exam: Code(s): Z00.00 - Encounter for general adult medical examination without abnormal findings Category: Medical Plan: As per HPI (2) Chronic pain of left knee: Code(s): M25.562 - Pain in left knee; G89.29 - Other chronic pain Category: Medical Plan: Patient continues to have left knee pain particularly in the posterior region. Does have some limited range of motion. She can not recall any recent trauma to her left knee. Patient has been using Tylenol, tramadol, muscle relaxers and gabapentin without any significant relief of her left knee pain. Will try to get x-ray to evaluate the bony structure. Will try to get MRI to evaluate for atraumatic minus school tear. Does have upcoming appointment with orthopedics for evaluation of her knee pain as well. (3) Bakers cyst: Code(s): M71.20 - Synovial cyst of popliteal space [Champion], unspecified knee Category: Medical Qualifiers: Laterality: left Qualified Code(s): M71.22 - Synovial cyst of popliteal space [Champion], left knee Plan: Patient did have a Champion cyst over the posterior aspect of her left knee though most recent ultrasound did not mentioned any Champion cyst. (4) Adenomatous colon polyp: Code(s): D12.6 - Benign neoplasm of colon, unspecified Category: Medical Qualifiers: Colon location: ascending Qualified Code(s): D12.2 - Benign neoplasm of ascending colon Plan: Had colonoscopy in 2020, needed repeat in 3 years due to fair prep and polyp tubular adenoma found. Orders: Orders 2 Comprehensive [place]. Panel Fast Today I10 - Essential (primary) hypertension Complete Blood Count no Diff Today I10 - Essential (primary) hypertension Influenza [id number] Immunization Today Z23 - Encounter for immunization XR knee LT 3V Today G89.29 - Other chronic pain, M25.562 - Pain in left knee Microalbumin, Random (w Creat) Today I10 - Essential (primary) hypertension Referrals 2 Gastroenterology Referral D12.2 - Benign neoplasm of ascending colon Medications: Changed 2 From sumatriptan succinate take 1 tab at onset of headache; if no relief may repeat 1 tab after at least 2 hrs; max = 4 tabs/24 hr orally PRN; R51.9 - Headache, unspecified To sumatriptan succinate 25 mg orally PRN; 30 days 9 tabs 3RF migraine headache R51.9 - Headache, unspecified
== END 2024-02-18 10:13 | disposition home or self-care (01) ==
PROVIDERS: PCP Physician Assistant; Visit Provider Physician Assistant
DX: Z00.00 Encounter for general adult medical examination without abnormal findings (principal); M25.562 Pain in left knee; G89.29 Other chronic pain; M71.22 Synovial cyst of popliteal space [Baker], left knee; D12.2 Benign neoplasm of ascending colon

== ENCOUNTER 2024-02-19 10:30 | Outpatient (RCR) | payer MEDICARE, MEDICAID, SELFPAY ==
--- NOTE | 2024-02-15 12:55 | MHC.OT.EP ---
[address] [phone] Occupational Therapy Plan of Care Patient Name: Emerita Plata Date of Evaluation: 02/14/24 Diagnosis: Pain Location: L elbow Pain Score: 2 Pain Scale Used: Numeric (0 - 10) Aggravating Factors: Movement ; cannot carry anything heavy, cannot weight bear Alleviating Factors: Assessment: Pt is a R hand dominant female who reports falling on B elbows on 12/22/23. When pain did not improve pt saw the MD for a follow up to discuss decreased strength and pain. Pt had an X-ray which was negative for fractures. Pt has full AROM of her L UE, she has a small pocket of edema (4cm) at the base of her elbow and when palpated pt. reports pain/ tenderness. She reports an inability to carry grocery bags, and weight bear into her L UE. She has been referred to skilled OT therapy to address pain, and increase strength, and the functional use of her R UE. 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 Thank you once again for your referral.
== END 2024-08-26 10:58 | disposition home or self-care (01) ==
LOC: HO.OT 10:30
PROVIDERS: PCP Physician Assistant
DX: M25.522 Pain in left elbow (principal)
CPT/HCPCS: 97110; 97140; 97166; 97535

== ENCOUNTER 2024-02-22 19:43 | Outpatient (REF) | payer MEDICARE, MEDICAID, SELFPAY ==
--- NOTE | ~2024-02-22 | MR_ITS ---
EXAMINATION: MR KNEE WITHOUT CONTRAST, LEFT CLINICAL INFORMATION: Chronic left knee pain. Evaluate for a meniscal tear. COMPARISON: Left knee radiographs dated 02/18/2024. TECHNIQUE: MRI of the knee without contrast was performed using routine sequences on a high-field scanner. FINDINGS: MENISCI: Medial Meniscus: Irregular inner margin tearing involving the posterior aspect of the meniscal body and extending through the posterior horn and root. Lateral Meniscus: Minimal inner margin blunting of the meniscal body. LIGAMENTS: Cruciate: Intact Collateral: Intact EXTENSOR MECHANISM: Intact ARTICULAR CARTILAGE/BONE: Patellofemoral Compartment: Central and medial trochlear articular cartilage signal heterogeneity with fissuring and minimal subchondral cystic change. Tiny marginal osteophytes. Medial Compartment: Minimal articular cartilage signal heterogeneity with tiny marginal osteophytes. Lateral Compartment: Minimal articular cartilage signal heterogeneity with tiny marginal osteophytes. JOINT FLUID AND BURSAE: Small joint effusion and trace Champion's cyst. MR/MR knee LT wo con IMPRESSION: 1. Irregular inner margin tearing involving the posterior aspect of the medial meniscal body and extending through the posterior horn and root. 2. Minimal inner margin blunting of the lateral meniscal body. 3. Mild tricompartmental osteoarthritis. Small joint effusion and trace Champion's cyst. Electronically signed by: Yair Phillips MD 02/23/2024 01:45 PM EDT
== END 2024-02-22 19:44 | disposition home or self-care (01) ==
LOC: HO.MRI 19:43
PROVIDERS: PCP Physician Assistant; Visit Provider Physician Assistant
DX: M23.307 Other meniscus derangements, unspecified meniscus, left knee (principal); M25.562 Pain in left knee; G89.29 Other chronic pain
CPT/HCPCS: 73721

== ENCOUNTER 2024-02-26 14:22 | Outpatient (AMB) | payer MEDICARE, MEDICAID, SELFPAY ==
--- NOTE | 2024-02-26 14:25 | MHC.OFFVIS ---
Vital Signs 02/26/24 14:27 Height 5 ft 4.5 in Weight 304 lb BMI 51.4 Intake Visit Reasons: new prob - Pain in left knee Intake Note: Emerita is a 49 year old female who presents today for a new problem visit with complaints of left knee pain. She had a fall in November but is unsure if it is related to her knee pain. Patient allergic to NSAIDs, Tylenol does not offer her adequate relief. The patient states that she has had a cortisone injection into her right knee as well as a cortisone injection given ?into my brain?. The patient states that neither of those injections gave her good relief. Most of the pain is along the posterior aspect of her left thigh and the anterior aspect of her lower leg. She denies any medial sided knee pain. Accompanied by: Cousin Allergies ibuprofen [From Motrin] Allergy (Severe, Verified 02/26/24 14:27) HIVES,SWELLING shellfish derived Allergy (Severe, Verified 02/26/24 14:27) Angioedema meperidine [Demerol] Allergy (Unknown, Verified 02/26/24 14:27) Vomiting morphine [MORPHINE] Allergy (Unknown, Verified 02/26/24 14:27) CHEST PAIN NSAIDS (Non-Steroidal Anti-Inflamma Allergy (Verified 02/26/24 14:27) Itching hydroxyzine Adverse Reaction (Mild, Verified 02/26/24 14:27) mouth numbess Medication List - Last Reconciled 02/27/24 by Rashard Andrade MD acetaminophen (Tylenol) 650 mg (2 x 325 mg) PO Q6H PRN albuterol sulfate 90 mcg/actuation (Ventolin HFA) 1 puff inhalation QID PRN aripiprazole 2 mg PO QAM blood pressure monitor (Blood Pressure Kit) As directed cholecalciferol (vitamin D3) 50 mcg PO DAILY 90 days cyclobenzaprine 10 mg PO TID PRN escitalopram oxalate 20 mg PO DAILY fluticasone propion-salmeterol 250-50 mcg/dose (Advair Diskus) 1 ea inhalation BID 30 days lamotrigine 150 mg PO DAILY lansoprazole 30 mg PO DAILY miscellaneous medical supply 1 ea miscellaneous DAILY 99 days nebulizers (AeroEclipse II Nebulizer) As directed oxycodone 5 mg PO BID PRN 4 days ropinirole 0.5 mg PO BEDTIME sumatriptan succinate 25 mg orally PRN; 30 days trazodone 100 mg PO DAILY 90 days PFSH Medical History 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) COVID-19 Hx of supraventricular tachycardia Hx-TIA (transient ischemic attack) Back spasm Obesity Headache GERD (gastroesophageal reflux disease) Screening for hypothyroidism Screening for hypercholesterolemia Screening for diabetes mellitus (DM) Anxiety Depression Fibromyalgia Asthma Surgical History Hx of colonoscopy History of partial knee replacement Hx of tubal ligation History of endoscopy History of History of knee surgery History of cholecystectomy Family History Mother High cholesterol Father Lupus Diabetes Thyroid disease FH: prostate cancer Brother Asthma Anxiety Depression Daughter Depression Anxiety Childhood autism Maternal Grandmother Glaucoma Other Mental problem Substance abuse Social History Housing: House Alcohol intake: never Patient Tobacco Use Status: Never used Tobacco e-Cigarette/Vaping Use: Never Used Second Hand Smoke Exposure: Yes service: No Current occupational status: employed and disabled 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 [employer] Cognitive needs: No Hearing needs: No Vision needs: Yes (Glasses) Physical Exam Vital Signs: BMI result Body Mass Index 51.4 Const Other: Well-nourished well-developed very friendly female awake alert and oriented x3 in no acute distress Extrem Other: Left knee examination shows a minimal effusion, minimal crepitus with range of motion, no joint line tenderness, negative Alex's test Office Procedures Joint Injection/Aspiration Joint Injection/Aspiration Primary Site: left knee Prep: site was prepped using aseptic technique Injected: 40 mg of, DepoMedrol and 1% plain lidocaine Procedure: The patient tolerated the procedure well Coding 07700 - Large joint Procedure code (CPT) selection complete Results Reviewed Results Reviewed: MRI of the patient's left knee shows minimal diffuse degenerative changes as well as possible small tear of the medial meniscus, no acute bony abnormalities Assessment & Plan Assessment & Plan (1) Left knee pain: Code(s): M25.562 - Pain in left knee Category: Medical Plan Ms. Plata presents with left knee pain most likely due to early degenerative joint disease, deconditioning and a possible small tear of her medial meniscus. The risks and benefits of a left knee cortisone injection were discussed at length with the patient. The patient wished to proceed. She tolerated the injection well. She does not wish to go to formal physical therapy at this time. Based on the patient's symptoms and the small size of her possible medial meniscus tear I am not sure that an arthroscopic surgery would be successful in giving her lasting relief. The patient is encouraged to begin an exercise program. She will contact me prior to her follow-up appointment in 3 months should any questions or concerns arise. Feel free to call me at any time should questions regarding her orthopedic management arise. I spent 21 minutes in reviewing the patient's records and imaging studies, seeing the patient and documenting in the medical record. Orders: Orders AMB Joint Injection/Aspiration 02/26/24 M25.562 - Pain in left knee Coding Level of Care Code New Pt Level 3 (57753) Complex EM visit Add On G2211 Diagnoses Left knee pain M25.562 CPT Codes Coding - 24282 Large joint: 25962 - Large joint ([id number])
[2024-02-26 14:27] VITALS: BMI 51.4
== END 2024-02-26 15:00 | disposition home or self-care (01) ==
PROVIDERS: PCP Physician Assistant; Visit Provider Orthopaedic Surgery
DX: M25.562 Pain in left knee (principal)
CPT/HCPCS: 20610; 99203

== ENCOUNTER → 2024-02-26 14:22 | Outpatient (BNVA) | payer MEDICARE, MEDICAID, SELFPAY | PROVIDERS: PCP Physician Assistant; Visit Provider Orthopaedic Surgery | DX: M25.562 Pain in left knee (principal) | CPT/HCPCS: 20610; 99202; J1010; J2003 ==

== ENCOUNTER 2024-04-15 10:20 | Outpatient (AMB) | payer MEDICARE, MEDICAID, SELFPAY ==
--- NOTE | 2024-04-15 11:04 | AM.OFFWIN_ITS ---
Intake Vital Signs 04/15/24 11:17 Weight 303 lb BP 100/68 Blood Pressure Location Rt brachial Position Sitting Pulse 71 Pulse Source Pulse Oximeter Temp 98 F Temp Source Oral Pulse Oximetry (%) 98 Oxygen Delivery Method Room Air Intake Visit Reasons: EP coughing, chest pain, wheezing Intake Note: Patient here for cough,vomiting, fever, chest tightness and wheezing that started Sunday. Patient Tobacco Use Status: Never used Tobacco Allergies ibuprofen [From Motrin] Allergy (Severe, Verified 04/15/24 11:18) HIVES,SWELLING shellfish derived Allergy (Severe, Verified 04/15/24 11:18) Angioedema meperidine [Demerol] Allergy (Unknown, Verified 04/15/24 11:18) Vomiting morphine [MORPHINE] Allergy (Unknown, Verified 04/15/24 11:18) CHEST PAIN NSAIDS (Non-Steroidal Anti-Inflamma Allergy (Verified 04/15/24 11:18) Itching hydroxyzine Adverse Reaction (Mild, Verified 04/15/24 11:18) mouth numbess Do you need a note to return to daycare/school/sports/work: Yes HPI HPI Comments History of Present Illness Details History The patient is a 49-year-old female presenting with acute respiratory symptoms, including a progressive cough and wheezing, exacerbating her underlying asthma. The symptoms began four days prior to the presentation and have worsened progressively. The patient frequently experiences bronchitis or pneumonia when ill, but reports this episode as more severe than previous ones. She describes persistent coughing, leading to emesis, and significant body aches. The wheezing, especially pronounced the prior night, caused considerable distress, and she has been unable to locate her rescue inhaler for relief. She also reports headaches accompanied by febrile episodes, with the fever responding to acetaminophen. Patient denies ear pain but acknowledges a sensation of earwax accumulation. She reports no sinus pain and no known exposure to other illness, although she works in a public environment where exposure is possible. On examination, the patient has compromised energy levels and reports discomfort with deep breathing. She has used albuterol as a rescue inhaler previously but hasn't had access during this episode. There is a history of taking prednisone for similar exacerbations, which has been effective. Her medical history includes known drug allergies to ibuprofen, shellfish, and Zanes. Notably, there are no allergies to penicillin. The patient denies significant psychological distress but mentions using escitalopram for anxiety. A recent EKG was within normal limits. Physical Exam General: Cooperative, healthy appearing, comfortable and no acute distress Orientation/consciousness: Patient oriented x3 Limitations: No limitations Head: Normal to inspection Ears: Hearing grossly normal bilaterally, external ears normal, wax present obstructing view Nose: Normal external nose present, Normal nares present and No nasal discharge present Face and sinus: Normal facial exam and Yes sinuses nontender Mouth: Normal oral and palatal mucosa present and moist mucous membranes Throat: Yes tonsils normal, Yes uvula midline. Posterior oropharynx erythema Eyes: Appearance normal, both eyes and all related structures Neck: Normal visual inspection Respiratory: Clear to auscultation bilaterally. Normal respiratory effort, able to speak in complete sentences, Actively coughing, no respiratory distress, not tachypneic, no tripod positioning and no use of accessory muscles. Wheezing reported at night, pain with deep breath Cardiovascular: Regular rate and rhythm. 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) COVID-19 Hx of supraventricular tachycardia Hx-TIA (transient ischemic attack) Back spasm Obesity Headache GERD (gastroesophageal reflux disease) Screening for hypothyroidism Screening for hypercholesterolemia Screening for diabetes mellitus (DM) Anxiety Depression Fibromyalgia Asthma Surgical History Hx of colonoscopy History of partial knee replacement Hx of tubal ligation History of endoscopy History of History of knee surgery History of cholecystectomy Family History Mother High cholesterol Father Lupus Diabetes Thyroid disease FH: prostate cancer Brother Asthma Anxiety Depression Daughter Depression Anxiety Childhood autism Maternal Grandmother Glaucoma Other Mental problem Substance abuse Social History Housing: House Alcohol intake: never Patient Tobacco Use Status: Never used Tobacco e-Cigarette/Vaping Use: Never Used Second Hand Smoke Exposure: Yes service: No Current occupational status: employed and disabled 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[employer] Cognitive needs: No Hearing needs: No Vision needs: Yes (Glasses) Review of Systems Const All systems reviewed & are unremarkable except as noted in HPI and below Physical Exam Vital Signs: Last Vital Signs Temp 98 F 04/15/24 11:17 Pulse 71 04/15/24 11:17 BP 100/68 04/15/24 11:17 Pulse Ox 98 04/15/24 11:17 Oxygen Delivery Method Room Air 04/15/24 11:17 Assessment & Plan Assessment & Plan (1) URI, acute: Code(s): J06.9 - Acute upper respiratory infection, unspecified Plan: Plan - Prescribe a short course of oral prednisone 20 mg daily for five days to address the asthma exacerbation and improve respiratory symptoms. - Initiate a Z-Suhail azithromycin as an anti-inflammatory and antibacterial, given patient's tolerance and history indicating no QT prolongation issues. - Provide Tessalon Perles for night-time symptomatic relief of cough while emphasizing the importance of productive coughing during the day. - Advise obtaining a chest x-ray immediately to assess for possible pneumonia; if confirmed, add Augmentin for bacterial coverage. - Albuterol inhaler twas just refilled by PCP, encouraged pt to pick it up at [facility] - Recommend Debrox drops for earwax management and arrange for follow-up ear irrigation if needed. - Test for influenza, COVID-19, and RSV to identify any viral cause of symptoms; results to guide isolation and further management. - Issue a note for temporary work exemption while instructing on mask usage to mitigate transmission risk. Patient was informed and verbally consented to the use of an ambient scribe for clinic note documentation during this visit Orders: Orders XR chest 2V Today R05.9 - Cough, unspecified SARS-CoV2/FLU/RSV Today J06.9 - Acute upper respiratory infection, unspecified Medications: New azithromycin For 250 mg dose pack: take 500 mg today (day 1), then 250 mg for 4 days (days 2-5) PO 6 tabs 0RF benzonatate 200 mg PO TID PRN 14 caps 0RF cough prednisone 20 mg PO QAM 5 tabs 0RF Coding Level of Care Code Est Pt Level 4 (10254) Diagnoses URI, acute J06.9
[2024-04-15 11:17] VITALS: BP 100/68; PULSE 71; TEMP 36.6; O2SAT 98
== END 2024-04-15 11:52 | disposition home or self-care (01) ==
PROVIDERS: PCP Physician Assistant; Visit Provider Physician Assistant
DX: J06.9 Acute upper respiratory infection, unspecified (principal)

== ENCOUNTER 2024-04-15 10:20 | Outpatient (REF) | payer MEDICARE, MEDICAID, SELFPAY ==
[2024-04-15 14:04] LABS: Influenza A PCR NEGATIVE (Negative); Influenza B PCR NEGATIVE (Negative); Resp Syncy Virus RNA Qual PCR NEGATIVE (Negative); SARS COV2 PCR INHOUSE NEGATIVE (Negative)
== END 2024-04-15 10:21 | disposition home or self-care (01) ==
LOC: HO.LAB 10:20
PROVIDERS: PCP Physician Assistant; Visit Provider Physician Assistant
DX: J06.9 Acute upper respiratory infection, unspecified (principal); R05.9 Cough, unspecified
CPT/HCPCS: 0241U; 71046; 99212

== ENCOUNTER 2024-04-15 11:41 | Outpatient (REF) | payer MEDICARE, MEDICAID, SELFPAY ==
--- NOTE | ~2024-04-15 | XR_ITS ---
EXAMINATION: XR CHEST CLINICAL INFORMATION: R05.9 - Cough, unspecified COMPARISON: X-ray 05/11/2023 TECHNIQUE: 2 views of the chest were obtained. FINDINGS: The cardiomediastinal silhouette is within normal limits. The lungs are well expanded. There is no focal consolidation, edema, or effusion. Mild bronchial wall thickening in the lower lungs. No pneumothorax. No acute osseous abnormality. XR/XR chest 2V IMPRESSION: Mild bronchial wall thickening can be seen with small airway disease. Electronically signed by: Alexandr Barrett MD 04/15/2024 04:34 PM EST
== END 2024-04-15 11:42 | disposition home or self-care (01) ==
LOC: HO.HMGCX 11:41
PROVIDERS: PCP Physician Assistant; Visit Provider Physician Assistant
DX: Z13.89 Encounter for screening for other disorder (principal)
CPT/HCPCS: 71046

== ENCOUNTER 2024-04-19 12:38 | Emergency (ER) | payer MEDICARE, MEDICAID, SELFPAY ==
--- NOTE | ~2024-04-19 | XR_ITS ---
EXAMINATION: XR CHEST CLINICAL INFORMATION: Cough, SOB COMPARISON: Chest radiograph 04/15/2024 TECHNIQUE: 2 views of the chest were obtained. FINDINGS: Similar degree of bronchial wall thickening. No pneumothorax. Trachea is midline. Cardiac and mediastinal silhouette is enlarged. No large pleural effusion. Osseous structures are intact. Soft tissues are unremarkable. XR/XR chest 2V IMPRESSION: Similar degree of bronchial wall thickening. Electronically signed by: Vamsi De La O MD 04/19/2024 03:07 PM [facility]
[2024-04-19 12:49] VITALS: BP 117/68; PULSE 74; RESP 18; TEMP 36.5; O2SAT 97; BMI 51.8
--- NOTE | 2024-04-19 12:49 | ED_ITS ---
HPI - SOB/Dyspnea General Chief Complaint: Upper Respiratory Symptoms Stated Complaint: diff breathing Time Seen by Provider: 04/19/24 13:04 Source: patient Mode of arrival: ambulatory Limitations: no limitations History of Present Illness ED Provider: Марина Dudley PA-C HPI Narrative: 49-year-old female with history of morbid obesity, asthma, HTN, GERD, depression, constipation, lymphedema, fibromyalgia, anxiety, PVD who presents to the ER for evaluation of ongoing cough and not feeling well after being diagnosed with bronchitis earlier this week. She was seen at the walk-in clinic where she was prescribed azithromycin and Augmentin for possible early pneumonia. She has been also taking prednisone prescribed by the walk-in clinic. She has been using her albuterol inhaler with minimal relief. She reports the Tessalon that she was prescribed is helping her cough at night. She does have ongoing coughing during the day, not bringing up any phlegm. She denies any associated chest pain but has overall body aches and generally not feeling well. No abdominal pain, nausea, vomiting, diarrhea. MD elicited complaint: shortness of breath and cough Pertinent past history: asthma Onset (ago): day(s) Context: recent illness Timing: constant Severity: moderate Exacerbating factors: exertion and coughing Relieving factors: other (Tessalon) Known history of: asthma Associated symptoms: cough and wheezing Treatment prior to arrival: none Related Data Home oxygen amount: none Home Medications ?Medication ?Instructions ?Recorded ?Confirmed aripiprazole 2 mg tablet 2 mg PO QAM 03/17/22 02/27/24 escitalopram oxalate 20 mg tablet 20 mg PO DAILY 03/17/22 02/27/24 lamotrigine 150 mg tablet 150 mg PO DAILY 05/08/22 02/27/24 Previous Rx's ?Medication ?Instructions ?Recorded acetaminophen 325 mg tablet 650 mg (2 x 325 mg) PO Q6H PRN 02/25/20 (Tylenol) fever or pain #10 tabs blood pressure monitor (Blood #1 ea 10/27/20 Pressure Kit) nebulizers (AeroEclipse II #1 ea 05/07/21 Nebulizer) miscellaneous medical supply 1 ea miscellaneous DAILY 99 days 09/29/21 #1 ea fluticasone 250 mcg-salmeterol 50 1 ea inhalation BID 30 days #60 ea 11/11/21 mcg/dose blistr powdr for inhalation (Advair Diskus) trazodone 100 mg tablet 100 mg PO DAILY 90 days #90 tabs 04/16/23 cholecalciferol (vitamin D3) 50 50 mcg PO DAILY 90 days #90 caps 11/16/23 mcg (2,000 unit) capsule cyclobenzaprine 10 mg tablet 10 mg PO TID PRN muscle spasm #20 02/11/24 tabs sumatriptan succinate 25 mg tablet 25 mg PO .COMPLEX PRN migraine 02/18/24 headache 30 days #9 tabs ropinirole 0.5 mg tablet 0.5 mg PO BEDTIME #90 tabs 03/30/24 albuterol sulfate 90 mcg/actuation 1 puff inhalation QID PRN for 03/31/24 aerosol inhaler (Ventolin HFA) dyspnea #18 ea lansoprazole 30 mg capsule,delayed 30 mg PO DAILY #90 caps 04/08/24 release azithromycin 250 mg tablet See Rx Instructions PO .COMPLEX #6 04/15/24 tabs benzonatate 200 mg capsule 200 mg PO TID PRN cough #14 caps 04/15/24 prednisone 20 mg tablet 20 mg PO QAM #5 tabs 04/15/24 amoxicillin 875 mg-potassium 1 tab PO Q12H #14 tabs 04/16/24 clavulanate 125 mg tablet albuterol sulfate 5 mg/mL(0.5 %) 5 mg inhalation Q6H PRN shortness 04/19/24 solution for nebulization of breath or wheezing #75 mL nebulizers #1 ea 04/19/24 Allergies Allergy/AdvReac Type Severity Reaction Status Date / Time ibuprofen [From Motrin] Allergy Severe HIVES,SWELL Verified 04/19/24 12:51 ING shellfish derived Allergy Severe Angioedema Verified 04/19/24 12:51 meperidine [Demerol] Allergy Unknown Vomiting Verified 04/19/24 12:51 morphine [MORPHINE] Allergy Unknown CHEST PAIN Verified 04/19/24 12:51 NSAIDS (Non-Steroidal Allergy Itching Verified 04/19/24 12:51 Anti-Inflamma hydroxyzine AdvReac Mild mouth Verified 04/19/24 12:51 numbess Review of Systems 2 Review of Systems: Yes all other systems are reviewed and are negative PMFSH Past Medical History Medical History 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) COVID-19 Hx of supraventricular tachycardia Hx-TIA (transient ischemic attack) Back spasm Obesity Headache GERD (gastroesophageal reflux disease) Screening for hypothyroidism Screening for hypercholesterolemia Screening for diabetes mellitus (DM) Anxiety Depression Fibromyalgia Asthma Surgical History Hx of colonoscopy History of partial knee replacement Hx of tubal ligation History of endoscopy History of History of knee surgery History of cholecystectomy Family History Family History Mother High cholesterol Father Lupus Diabetes Thyroid disease FH: prostate cancer Brother Asthma Anxiety Depression Daughter Depression Anxiety Childhood autism Maternal Grandmother Glaucoma Other Mental problem Substance abuse Social History Social History Housing: House Alcohol intake: never Patient Tobacco Use Status: Never used Tobacco e-Cigarette/Vaping Use: Never Used Second Hand Smoke Exposure: Yes Advance Directives: No Advance Directives Information Provided: No Do you have a plan to hurt others: No Plan service: No Current occupational status: employed and disabled 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 Cognitive needs: No Hearing needs: No Vision needs: Yes (Glasses) Physical Exam 2 Vital Signs: Vital Signs: Last Vital Signs Temp 97.3 F 04/19/24 16:19 Pulse 82 04/19/24 16:19 Resp 18 04/19/24 16:19 BP 104/59 L 04/19/24 16:19 Pulse Ox 98 04/19/24 16:19 O2 Del Method Room Air 04/19/24 16:19 BMI result Body Mass Index 51.8 Appearance: Alert. Oriented X3. No acute distress. Head: normocephalic, atraumatic. Eyes: Pupils equal, round and reactive to light. ENT: Pharynx normal. No tonsillar swelling or exudate. Neck: Normal inspection. Neck supple. CVS: Normal heart rate and rhythm. Pulses normal. Respiratory: No respiratory distress. Breath sounds with end expiratory wheezes throughout. speaking in complete sentences. Abdomen: Obese, Soft and nontender. +BS x4 Skin: Skin warm and dry. Normal skin color. Normal skin turgor. No rashes. Extremities: + nonpitting lower extremity edema. No joint swelling. Neuro/psych: Oriented X 3. No motor deficit. No sensory deficit. CN II-XII intact. Normal speech and cognition. steady gait Course Course Course Narrative: This is a Rapid Medical Exam performed in triage by Laury Gonzalez PA-C. Full HPI, ROS and PE to be performed by primary ED provider. 49-year-old female with a past medical history lymphedema, obesity, HTN, GERD, RLS, asthma, anxiety, fibromyalgia, presenting to the ED c/o SOB, cough, chest tightnesss x8 days.Went to on Sunday and was told she had beginning stages of PNA was Rx Z-giovanny & Amox & Prednisone w/o relief (Completed Z-giovanny today, still on Amox). denies fever PE: Dry cough appreciated, talking in complete sentences. Faint bibasilar expiratory wheeze noted Plan: EKG, labs, CXR, viral studies, ED bronchodilator protocol Medications Administered Discontinued Medications Generic Name Dose Route Start Last Admin Trade Name Freq PRN Reason Stop Dose Admin Albuterol Sulfate 2.5 mg/ 0 mg 04/19/24 13:11 04/19/24 13:22 Albuterol/Ipratropium 3 ml INHALE 04/19/24 13:12 5 dose ONCE ONE Administration Medical Decision Making Medical Decision Making [facility] Narrative: 49-year-old female with history of morbid obesity, asthma, HTN, GERD, depression, constipation, lymphedema, fibromyalgia, anxiety, PVD who presents to the ER for evaluation of ongoing cough and not feeling well after being diagnosed with bronchitis earlier this week. VSS on arrival. wheezing in triage, bronchodilator protocol ordered. given 7.5mg neb with significant improvement in lung sounds she is on augmentin, completed a zpack. she is also on prednisone cxr today is similar to the one earlier this week, bronchial wall thickening, no PNA labs reassuring. saturating well and no resp distress. she is asking for an rx for neb machine. provided. stable for d/c home with ongoing treatment for bronchitis Differential Diagnosis Differential Diagnoses: The differential diagnosis associated with the presentation includes strep, covid, flu, rsv, other viral syndrome, bronchitis, pneumonia, acute asthma exacerbation Admission/Observation Consideration of admission/observation: Escalation of care including admission/observation considered Lab Data [facility] Lab Attestation statement: I reviewed the patient's lab results. no leukocytosis, no major metabolic derangement 04/19/24 13:03 04/19/24 13:03 Labs: Lab Results 04/19/24 Range/Units 13:03 WBC 9.7 (4.8-10.8) X10*3/uL RBC 4.35 (4.20-5.50) X10*6/uL Hgb 13.0 (12.0-16.0) g/dl Hct 38.5 (37.0-47.0) % MCV 88.5 (80.0-98.0) fL MCH 29.9 (27.0-33.0) pg MCHC 33.8 (31.0-35.0) g/dl RDW 12.4 (11.0-16.0) % Plt Count 306 (160-400) X10*3/uL MPV 10.1 (9.4-12.3) fL Immature Gran % (Auto) 1.7 H (0.0-0.4) % Neut % (Auto) 76.2 H (45-73) % Lymph % (Auto) 16.0 L (20-40) % [place] % (Auto) 5.0 (2-11) % Eos % (Auto) 0.5 (0-4) % Baso % (Auto) 0.6 (0-2) % Lymph # (Auto) 1.6 (1.2-4.9) X10*3/uL [place] # (Auto) 0.5 (0.1-1.2) X10*3/uL Eos # (Auto) 0.1 (0.0-0.4) X10*3/uL Baso # (Auto) 0.1 (0.0-0.2) X10*3/uL Abs Immat Gran (auto) 0.16 H (0.00-0.03) X10*3/uL Absolute Neuts (auto) 7.4 (2.0-8.3) x10*3/uL Absolute Nucleated RBC 0.000 (0.0-0.012) X10*3/uL Nucleated RBC % (auto) 0.0 (0.0-0.2) /100WBC PT 11.2 (10.9-12.4) SEC INR 1.0 (0.9-1.1) Sodium 139 (135-145) mmol/L Potassium 4.1 (3.3-5.1) mmol/L Chloride 107 (96-108) mmol/L Carbon Dioxide 26 (22-29) mmol/L Anion Gap 10 L (12-20) BUN 14 (9-16) mg/dL Creatinine 0.66 (0.5-1.4) mg/dL Estim Creat Clear Calc 142.5 Estimated GFR > 60 Random Glucose 115 (60-115) mg/dL Calcium 8.7 D (8.4-10.2) mg/dL Magnesium 2.2 (1.6-2.6) mg/dL Total Bilirubin 0.3 (0.0-1.0) mg/dL Direct Bilirubin 0.1 (0.0-0.5) mg/dL AST 26 (5-31) U/L ALT 32 H (0-31) U/L Alkaline Phosphatase 52 (39-117) U/L Troponin I High Sens < 2.7 (<3.5-17.0) ng/L Total Protein 7.3 (6.5-8.0) g/dL Albumin 4.1 (3.5-5.0) g/dL Influenza Type A (PCR) NEGATIVE (Negative) Influenza Type B (PCR) NEGATIVE (Negative) RSV RNA Qual (PCR) NEGATIVE (Negative) SARS-CoV-2 RNA (RT-PCR) NEGATIVE (Negative) Independent Interpretation I performed an independent interpretation of an: EKG and Plain X-Ray Interpretation: no focal opacitiy ekg w/ normal sinus rhythm, hr 72 bpm, no significant change from sept. no st segment elevations or depressions Radiology Impression Discussion of test interpretation with radiology: I have reviewed the radiologist's reading. External Record Review External record reviewed: Office record, Outpatient record, Prior outpatient labs and Prior outpatient radiology Prescription Management I considered prescription management with: Antiviral and Antibiotic Chronic Conditions Patient?s care impacted by: Hypertension and Other (asthma) Critical Care Time Critical Care Time Critical Care Time: No Discharge Plan Discharge Clinical Impression: Bronchitis Patient Disposition: Home, Self-Care Instructions: Acute Bronchitis (ED) Additional Instructions: your x-ray today did not show any evidence of pneumonia your symptoms are most likely due to a viral process Finish your previously prescribed steroids and antibiotics Recommend Mucinex 1200 mg 2 times a day for the next 3-5 days. Use the prescribed nebulizer every 4-6 hours as needed for shortness of breaths and wheezing. Continue Tessalon for cough. You can also take [id number] cold and flu medications/cough medications as needed for your symptoms. Rest and drink plenty of fluids. Follow-up with your doctor. If you develop new or worsening symptoms call 911 or come back to the ER for further evaluation. Prescriptions: New (DME) nebulizers [facility] [place] See Rx Instructions .Route Qty: 1 0RF Rx Instructions: As directed albuterol sulfate 5 mg/mL solution for nebulization 5 mg inhalation Q6H PRN (Reason: shortness of breath or wheezing) Qty: 75 0RF No Action (DME) blood pressure monitor [Blood Pressure Kit] Kit See Rx Instructions .ROUTE .MEDSUPPLY Qty: 1 0RF Rx Instructions: As directed miscellaneous medical supply [facility] [place] 1 ea miscellaneous DAILY 99 Days Qty: 1 0RF fluticasone propion-salmeterol [Advair Diskus] 250-50 mcg/dose blister with device 1 ea inhalation BID 30 Days Qty: 60 3RF cholecalciferol (vitamin D3) 50 mcg (2,000 unit) capsule 50 mcg PO DAILY 90 Days Qty: 90 1RF ropinirole 0.5 mg tablet 0.5 mg PO BEDTIME Qty: 90 2RF albuterol sulfate [Ventolin HFA] 90 mcg/actuation HFA aerosol inhaler 1 puff inhalation QID PRN (Reason: for dyspnea) Qty: 18 6RF lansoprazole 30 mg capsule,delayed release(DR/EC) 30 mg PO DAILY Qty: 90 2RF amoxicillin-pot clavulanate 875-125 mg tablet 1 tab PO Q12H Qty: 14 0RF acetaminophen [Tylenol] 325 mg tablet 650 mg PO Q6H PRN (Reason: fever or pain) Qty: 10 0RF (DME) AeroEclipse II Nebulizer [facility] [place] See Rx Instructions .ROUTE .MEDSUPPLY Qty: 1 0RF Rx Instructions: As directed cyclobenzaprine 10 mg tablet 10 mg PO TID PRN (Reason: muscle spasm) Qty: 20 0RF trazodone 100 mg tablet 100 mg PO DAILY 90 Days Qty: 90 2RF lamotrigine 150 mg tablet 150 mg PO DAILY aripiprazole 2 mg tablet 2 mg PO QAM escitalopram oxalate 20 mg tablet 20 mg PO DAILY sumatriptan succinate 25 mg tablet 25 mg PO .COMPLEX PRN (Reason: migraine headache) 30 Days Qty: 9 3RF Rx Instructions: 25 mg orally PRN; benzonatate 200 mg capsule 200 mg PO TID PRN (Reason: cough) Qty: 14 0RF prednisone 20 mg tablet 20 mg PO QAM Qty: 5 0RF azithromycin 250 mg tablet See Rx Instructions PO .COMPLEX Qty: 6 0RF Rx Instructions: For 250 mg dose pack: take 500 mg today (day 1), then 250 mg for 4 days (days 2-5) PO Referrals: Jeremy Sanches PA-C [Primary Care Provider] - Interventions: ED Discharge Assessment Last Done: 04/19/24 16:19 Discharge Date/Time: 04/19/24 16:19 Print Language: Latvian
--- NOTE | 2024-04-19 12:53 | ECG_ITS ---
Test Reason : SOB Blood Pressure : / mmHG Vent. Rate : 072 BPM Atrial Rate : 072 BPM P-R Int : 140 ms QRS Dur : 074 ms QT Int : 380 ms P-R-T Axes : 010 003 019 degrees QTc Int : 416 ms Normal sinus rhythm Cannot rule out Inferior infarct , age undetermined Cannot rule out Anterior infarct (cited on or before 11-MAY-2023) - findings could be related to body habitus Abnormal ECG When compared with ECG of 27-JAN-2024 23:50, No significant change was found Referred By: Laury Gonzalez Electronically Signed By:MATTHEW BORDEN
[2024-04-19 13:12] VITALS: PULSE 69; RESP 25; O2SAT 97
[2024-04-19 13:12] LABS: MANUAL DIFF FLAG NO
[2024-04-19 13:14] LABS: Basophils Absolute Auto 0.1 X10*3/uL (0.0-0.2); Basophils Percent Auto 0.6 % (0-2); Eosinophils Absolute Auto 0.1 X10*3/uL (0.0-0.4); Eosinophils Percent Auto 0.5 % (0-4); Hematocrit 38.5 % (37.0-47.0); Imm Gran Abs Auto 0.16 X10*3/uL (0.00-0.03); Imm Gran Pct Auto 1.7 % (0.0-0.4); Lymphocytes Absolute Auto 1.6 X10*3/uL (1.2-4.9); Mean Corpuscular HGB Conc 33.8 g/dl (31.0-35.0); Mean Corpuscular Hemoglobin 29.9 pg (27.0-33.0); Mean Corpuscular Volume 88.5 fL (80.0-98.0); Mean Platelet Volume 10.1 fL (9.4-12.3); Monocytes Absolute Auto 0.5 X10*3/uL (0.1-1.2); Neutrophils Absolute Auto 7.4 x10*3/uL (2.0-8.3); Neutrophils Percent Auto 76.2 % (45-73); Platelet Count 306 X10*3/uL (160-400); Red Blood Count 4.35 X10*6/uL (4.20-5.50); Red Cell Distribution Width 12.4 % (11.0-16.0); White Blood Count 9.7 X10*3/uL (4.8-10.8)
[2024-04-19] MEDS: Albuterol Sulfate 2.5 MG, Albuterol/Iprat 2.5/0.5MG 3 ML 3 ML INHALE (13:22)
[2024-04-19 13:25] LABS: Prothrombin Time 11.2 SEC (10.9-12.4)
[2024-04-19 13:27] LABS: Alanine Aminotransferase 32 U/L (0-31); Albumin Level 4.1 g/dL (3.5-5.0); Alkaline Phosphatase 52 U/L (39-117); Anion Gap 10 (12-20); Aspartate Amino Transferase 26 U/L (5-31); Bilirubin Direct 0.1 mg/dL (0.0-0.5); Bilirubin Total 0.3 mg/dL (0.0-1.0); Blood Urea Nitrogen 14 mg/dL (9-16); Calcium 8.7 mg/dL (8.4-10.2); Carbon Dioxide 26 mmol/L (22-29); Chloride 107 mmol/L (96-108); Creatinine Clr Calc Pharmacy 142.5; Estimated Glomerular Filt Rate > 60; Glucose Random 115 mg/dL (60-115); Magnesium 2.2 mg/dL (1.6-2.6); Potassium 4.1 mmol/L (3.3-5.1); Sodium 139 mmol/L (135-145); Total Protein 7.3 g/dL (6.5-8.0)
[2024-04-19 13:40] LABS: Troponin-I High Sensitivity < 2.7 ng/L (<3.5-17.0)
[2024-04-19 14:00] VITALS: BP 104/59; PULSE 82; RESP 18; TEMP 36.3; O2SAT 98
[2024-04-19 14:01] LABS: Influenza A PCR NEGATIVE (Negative); Influenza B PCR NEGATIVE (Negative); Resp Syncy Virus RNA Qual PCR NEGATIVE (Negative); SARS COV2 PCR INHOUSE NEGATIVE (Negative)
[2024-04-19 16:19] VITALS: BP 104/59; PULSE 82; RESP 18; TEMP 36.3; O2SAT 98
== END 2024-04-19 16:19 | disposition home or self-care (01) ==
PROVIDERS: Physician Assistant; Emergency Provider Emergency Medicine Emergency Medical Services; PCP Physician Assistant
DX: J40 Bronchitis, not specified as acute or chronic (principal); R05.9 Cough, unspecified; R06.02 Shortness of breath; R60.0 Localized edema; Z03.818 Encounter for observation for suspected exposure to other biological agents ruled out
CPT/HCPCS: 0241U; 71046; 80048; 80076; 83735; 84484; 85025; 85610; 93005; 94640; 99284

== ENCOUNTER → 2024-04-19 12:53 | Outpatient (BNV) | payer MEDICARE, MEDICAID, SELFPAY | PROVIDERS: Emergency Provider Emergency Medicine Emergency Medical Services; PCP Physician Assistant; Visit Provider Internal Medicine | DX: R94.31 Abnormal electrocardiogram [ECG] [EKG] (principal) | CPT/HCPCS: 93010 ==

== ENCOUNTER 2024-05-02 10:00 | Outpatient (REF) | payer MEDICARE, SELFPAY ==
[2024-05-03 04:08] LABS: HBS Num1 1.04 mIU/mL (0-7.99); ~Hepatitis B Surface Antibody NONREACTIVE (Nonreactive)
[2024-05-06 03:08] LABS: Varicella IgG Antibody 5.01 S/CO
[2024-05-06 23:24] LABS: Rubella IgG Antibody 3.23 Index
== END 2024-05-02 10:01 | disposition home or self-care (01) ==
LOC: HO.HMGCLDS 10:00
PROVIDERS: PCP Physician Assistant; Visit Provider Physician Assistant
DX: Z23 Encounter for immunization (principal); Z78.9 Other specified health status
CPT/HCPCS: 36415; 86706; 86735; 86762; 86765; 86787

== ENCOUNTER 2024-05-07 09:54 | Outpatient (AMB) | payer MEDICARE, SELFPAY ==
--- NOTE | 2024-05-07 10:09 | AM.OFFVISNUR ---
Intake Visit Reasons: Hep B injection Allergies ibuprofen [From Motrin] Allergy (Severe, Verified 04/19/24 12:51) HIVES,SWELLING shellfish derived Allergy (Severe, Verified 04/19/24 12:51) Angioedema meperidine [Demerol] Allergy (Unknown, Verified 04/19/24 12:51) Vomiting morphine [MORPHINE] Allergy (Unknown, Verified 04/19/24 12:51) CHEST PAIN NSAIDS (Non-Steroidal Anti-Inflamma Allergy (Verified 04/19/24 12:51) Itching hydroxyzine Adverse Reaction (Mild, Verified 04/19/24 12:51) mouth numbess Immunizations Recombivax HB (PF) 10 mcg/mL intramuscular suspension Performing Provider: Jeremy Sanches PA-C [facility] [place] [facility] Administered by: Divina Ferreira LPN on 05/07/24 10:09 Dose Route Admin Location Dispensed Lot Number Expiration Date NVC [employer] 1 mL IM Left Deltoid 1 mL [id number] 12/21/25 [id number] [employer] VIS Given Date VIS Provided VIS Publication Date 05/07/24 Single Vaccine 22 Eligibility Eligibility Date Funding Source Not [facility] Eligible 05/07/24 Private Assessment & Plan Assessment & Plan Orders: Orders Hepatitis B Adult Immunization Today Z23 - Encounter for immunization Medications: New Recombivax HB (PF) (hepatitis B virus vacc.rec(PF)) 1.0 mL IM ONCE 1 mL 0RF immunization due NS Z23 - Encounter for immunization
== END 2024-05-07 10:14 | disposition home or self-care (01) ==
PROVIDERS: PCP Physician Assistant; Visit Provider Physician Assistant
DX: Z23 Encounter for immunization (principal)

== ENCOUNTER → 2024-05-07 09:54 | Outpatient (BNVA) | payer MEDICARE, SELFPAY | PROVIDERS: PCP Physician Assistant; Visit Provider Physician Assistant | DX: Z23 Encounter for immunization (principal) | CPT/HCPCS: 90471; 90746 ==

== ENCOUNTER 2024-05-26 10:39 | Emergency (ER) | payer MEDICARE, MEDICAID, SELFPAY ==
[2024-05-26 11:21] VITALS: BP 109/69; PULSE 76; RESP 18; TEMP 36.4; O2SAT 97; BMI 47.2
--- NOTE | 2024-05-26 11:21 | ED_ITS ---
HPI - General Adult General Chief complaint: Extremity Injury, Lower Stated complaint: l leg pain unable to walk on it Time Seen by Provider: 05/26/24 16:49 Source: patient Mode of arrival: ambulatory Limitations: no limitations History of Present Illness ED Provider: Rosa Maria Rao PA-C HPI narrative: Patient is a 49 year old assigned female at with a history of left meniscus injury, chronic left knee pain, GERD, HTN, MDD, RLS, PVD, asthma, fibromyalgia, depression, and anxiety presenting to the emergency department today with acute on chronic left knee pain. Patient states that she recently had an MRI and was told that her left meniscus is injured but her pain has increased. Patient states that she is supposed to see an [facility] orthopedist but not until the first week of June. Patient denies any dizziness, lightheadedness, abdominal pain, nausea, vomiting, fever, chills, blurry vision, double vision, loss of vision, chest pain, difficulty breathing, shortness of breath, back pain, night sweats, pain with urination, increased urinary frequency, increased urinary urgency, blood in her urine or stool, syncope or a near syncopal episode, recent trauma or falls, bowel incontinence, bladder incontinence, or any other complaints at this time. Relieving factors: none Exacerbating factors: movement Associated symptoms: denies other symptoms Treatments prior to arrival: none Related Data Home Medications ?Medication ?Instructions ?Recorded ?Confirmed aripiprazole 2 mg tablet 2 mg PO QAM 03/17/22 02/27/24 escitalopram oxalate 20 mg tablet 20 mg PO DAILY 03/17/22 02/27/24 lamotrigine 150 mg tablet 150 mg PO DAILY 05/08/22 02/27/24 Previous Rx's ?Medication ?Instructions ?Recorded acetaminophen 325 mg tablet 650 mg (2 x 325 mg) PO Q6H PRN 02/25/20 (Tylenol) fever or pain #10 tabs blood pressure monitor (Blood #1 ea 10/27/20 Pressure Kit) nebulizers (AeroEclipse II #1 ea 05/07/21 Nebulizer) miscellaneous medical supply 1 ea miscellaneous DAILY 99 days 09/29/21 #1 ea fluticasone 250 mcg-salmeterol 50 1 ea inhalation BID 30 days #60 ea 11/11/21 mcg/dose blistr powdr for inhalation (Advair Diskus) trazodone 100 mg tablet 100 mg PO DAILY 90 days #90 tabs 04/16/23 cholecalciferol (vitamin D3) 50 50 mcg PO DAILY 90 days #90 caps 11/16/23 mcg (2,000 unit) capsule cyclobenzaprine 10 mg tablet 10 mg PO TID PRN muscle spasm #20 02/11/24 tabs sumatriptan succinate 25 mg tablet 25 mg PO .COMPLEX PRN migraine 02/18/24 headache 30 days #9 tabs ropinirole 0.5 mg tablet 0.5 mg PO BEDTIME #90 tabs 03/30/24 albuterol sulfate 90 mcg/actuation 1 puff inhalation QID PRN for 03/31/24 aerosol inhaler (Ventolin HFA) dyspnea #18 ea lansoprazole 30 mg capsule,delayed 30 mg PO DAILY #90 caps 04/08/24 release azithromycin 250 mg tablet See Rx Instructions PO .COMPLEX #6 04/15/24 tabs benzonatate 200 mg capsule 200 mg PO TID PRN cough #14 caps 04/15/24 prednisone 20 mg tablet 20 mg PO QAM #5 tabs 04/15/24 amoxicillin 875 mg-potassium 1 tab PO Q12H #14 tabs 04/16/24 clavulanate 125 mg tablet albuterol sulfate 5 mg/mL(0.5 %) 5 mg inhalation Q6H PRN shortness 04/19/24 solution for nebulization of breath or wheezing #75 mL nebulizers #1 ea 04/19/24 prednisone 20 mg tablet 20 mg PO DAILY 7 days #7 tabs 05/26/24 Allergies Allergy/AdvReac Type Severity Reaction Status Date / Time ibuprofen [From Motrin] Allergy Severe HIVES,SWELL Verified 05/26/24 11:24 ING shellfish derived Allergy Severe Angioedema Verified 05/26/24 11:24 meperidine [Demerol] Allergy Unknown Vomiting Verified 05/26/24 11:24 morphine [MORPHINE] Allergy Unknown CHEST PAIN Verified 05/26/24 11:24 NSAIDS (Non-Steroidal Allergy Itching Verified 05/26/24 11:24 Anti-Inflamma hydroxyzine AdvReac Mild mouth Verified 05/26/24 11:24 numbess Review of Systems Constitutional: Constitutional: Reports no additional constitutional complaints, Denies chills, Denies fever(s) and Denies night sweats Eyes: Eyes: Reports no additional eye complaints, Denies blurry vision, Denies change in vision, Denies diplopia, Denies eye discharge, Denies loss of vision and Denies eye pain ENT: Denies dizziness Cardiovascular: Cardiovascular: Reports no additional cardiovascular complaints, Denies chest pain, Denies lightheadedness, Denies Loss of Con sciousness and Denies dyspnea Respiratory: Respiratory: Reports no additional respiratory complaints and Denies dyspnea Gastrointestinal: Gastrointestinal: Reports no additional gastrointestinal complaints, Denies abdominal pain, Denies melena, Denies hematochezia, Denies change in bowel habits and Denies change in stool character Genitourinary: Genitourinary: Denies hematuria, Denies urinary frequency, Denies dysuria, Denies urinary incontinence, Denies urinary hesitancy and Denies urinary urgency Musculoskeletal: Musculoskeletal: Reports no additional musculoskeletal complaints, Denies numbness and Denies tingling Comments: worsening left knee pain Neurologic: Denies dizziness, Denies loss of vision, Denies numbness and Denies tingling Psychiatric: Psychiatric: Reports no additional psychiatric complaints Endocrine: Endocrine: Reports no additional endocrine complaints Hematologic/Lymphatic: Hematologic/Lymphatic: Reports no additional hematologic/lymphatic complaints Allergic/Immunologic: Allergic/Immunologic: Reports no additional allergic/immunologic complaints PMFSH Past Medical History Attestation statement: The following information was validated with the patient. 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) COVID-19 Hx of supraventricular tachycardia Hx-TIA (transient ischemic attack) Back spasm Obesity Headache GERD (gastroesophageal reflux disease) Screening for hypothyroidism Screening for hypercholesterolemia Screening for diabetes mellitus (DM) Anxiety Depression Fibromyalgia Asthma Surgical History Hx of colonoscopy History of partial knee replacement Hx of tubal ligation History of endoscopy History of History of knee surgery History of cholecystectomy Family History Family History Mother High cholesterol Father Lupus Diabetes Thyroid disease FH: prostate cancer Brother Asthma Anxiety Depression Daughter Depression Anxiety Childhood autism Maternal Grandmother Glaucoma Other Mental problem Substance abuse Social History Social History Housing: House Alcohol intake: never Patient Tobacco Use Status: Never used Tobacco e-Cigarette/Vaping Use: Never Used Second Hand Smoke Exposure: Yes Advance Directives: No Advance Directives Information Provided: No Do you have a plan to hurt others: No Plan service: No Current occupational status: employed and disabled 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 [employer] Cognitive needs: No Hearing needs: No Vision needs: Yes (Glasses) Physical Exam ED Vital Signs: Vital Signs - 24 hr 05/26/24 11:21 05/26/24 16:54 05/26/24 17:06 Temperature 97.6 F 97.3 F 97.3 F Pulse Rate 76 80 80 Respiratory Rate 18 16 16 Blood Pressure 109/69 105/61 105/61 Pulse Oximetry 97 98 98 Oxygen Delivery Method Room Air Room Air Room Air BMI result Body Mass Index 47.2 Const General: cooperative, no acute distress, alert and awake Nutritional Appearance: well nourished Orientation/consciousness: patient oriented x3 Limitations: no limitations HENMT Head: Yes normal to inspection and Yes atraumatic Ears: hearing grossly normal bilaterally and external ears normal General nose exam: Normal external nose present, no nasal discharge noted and no epistaxis Face and sinus: Yes normal facial exam, No abrasion and No laceration Mouth: Normal oral and palatal mucosa present, no drooling and no muffled voice Eyes General: appearance normal, both eyes and all related structures Periorbital: periorbital findings normal Eyelids: Yes eyelids normal Conjunctivae: conjunctivae normal Pupils: Equal, round and reactive pupils present EOM: EOMs intact bilaterally Neck Neck: Yes normal visual inspection, Yes full ROM and Yes no lymphadenopathy Chest Chest palpation & inspection: normal inspection of the chest Resp Effort & Inspection: normal respiratory effort and able to speak in complete sentences GI Inspection: Yes normal to inspection Neuro General: patient oriented x3 and moves all extremities Cranial nerves: Yes Equal, round and reactive pupils present Cognition (Neuro): normal cognition Extrem General: Yes normal to inspection, Yes full ROM and Yes capillary refill normal Psych Appearance: grossly normal Mental Status: mental status grossly normal Affect: normal affect Attitude: cooperative Thought process: Normal thought process present Thought content: Normal thought content present Insight: Good insight present (Psych) Course Course Course Narrative: RME performed by Rosa Maria Rao PA-C. Patient is a 49 year old assigned female at presenting to the emergency department with left knee pain. Patient states she has a known meniscus injury but cannot get into our orthopedic group until the first week of June and her pain has become worse. Detailed physical exam and review of systems are deferred to the pressure controller. Patient placed back in the waiting room pending room availability. Medications Administered Discontinued Medications Generic Name Dose Route Start Last Admin Trade Name Macie PRN Reason Stop Dose Admin Methylprednisolone Sodium Succinate 60 mg 05/26/24 16:51 05/26/24 16:59 Methylprednisolone Sod Succ 125 Mg/2 Ml Vial IM 05/26/24 16:52 60 mg ONCE ONE Administration Procedures Orthopedic Splinting/Casting Injury #1: Side: left Lower Extremity Injury Location: knee Lower Extremity Immobilizer: [employer] Medical Decision Making Medical Decision Making [facility] Narrative: Patient is a 49 year old assigned female at with a history of left meniscus injury, chronic left knee pain, GERD, HTN, MDD, RLS, PVD, asthma, fibromyalgia, depression, and anxiety presenting to the emergency department today with acute on chronic left knee pain. Patient's physical exam was unremarkable. I explained my physical exam findings to the patient. I answered all questions asked by the patient. I had an extensive conversation with the patient about how best I can help her given her allergies and chronicity of the pain. Together, through shared decision making, we determined the patient would be treated with an BOOM wrap to the left knee, IM solu-medrol, and oral prednisone with outpatient follow up with orthopedics. Patient's left knee was placed in an BOOM wrap, without incident. Patient's PMS was intact prior to and after BOOM placement. Patient was offered crutches but declined because she has a set at home. I stressed the importance of the patient taking her medication as directed (either prescribed or as the over the counter packaging recommends). I stressed the importance of the patient following up with her primary care provider and her orthopedic provider. I stressed the importance of the patient returning to the emergency department immediately if her symptoms were to worsen or if she were to develop any dizziness, shortness of breath, difficulty breathing, chest pain, blurry vision, loss of vision, nausea, vomiting, abdominal pain, fever, chills, back pain, or any other complaints. Patient verbalized agreement and understanding with this treatment plan and discharge. Differential Diagnosis Differential Diagnoses: The differential diagnosis associated with the presentation includes Acute on chronic left knee pain Left meniscus tear Admission/Observation Consideration of admission/observation: Escalation of care including admissio n/observation considered Patient would have been admitted to the hospital had her clinical presentation warranted hospital admission. Discharge Plan Discharge Clinical Impression: Knee sprain, Injury of meniscus of knee Patient Disposition: Home, Self-Care Instructions: Knee Sprain (DC), Crutch Instructions (ED), How to Use an Elastic Bandage (ED) Additional Instructions: Follow up with your primary care provider and your orthopedic provider. Return to the emergency department immediately if your symptoms worsen or if you develop any dizziness, shortness of breath, difficulty breathing, chest pain, blurry vision, loss of vision, nausea, vomiting, abdominal pain, fever, chills, back pain, or any other complaints. Prescriptions: New prednisone 20 mg tablet 20 mg PO DAILY 7 Days Qty: 7 0RF No Action (DME) blood pressure monitor [Blood Pressure Kit] Kit See Rx Instructions .ROUTE .MEDSUPPLY Qty: 1 0RF Rx Instructions: As directed miscellaneous medical supply Misc 1 ea miscellaneous DAILY 99 Days Qty: 1 0RF fluticasone propion-salmeterol [Advair Diskus] 250-50 mcg/dose blister with device 1 ea inhalation BID 30 Days Qty: 60 3RF cholecalciferol (vitamin D3) 50 mcg (2,000 unit) capsule 50 mcg PO DAILY 90 Days Qty: 90 1RF ropinirole 0.5 mg tablet 0.5 mg PO BEDTIME Qty: 90 2RF albuterol sulfate [Ventolin HFA] 90 mcg/actuation HFA aerosol inhaler 1 puff inhalation QID PRN (Reason: for dyspnea) Qty: 18 6RF lansoprazole 30 mg capsule,delayed release(DR/EC) 30 mg PO DAILY Qty: 90 2RF amoxicillin-pot clavulanate 875-125 mg tablet 1 tab PO Q12H Qty: 14 0RF acetaminophen [Tylenol] 325 mg tablet 650 mg PO Q6H PRN (Reason: fever or pain) Qty: 10 0RF (DME) AeroEclipse II Nebulizer Misc See Rx Instructions .ROUTE .MEDSUPPLY Qty: 1 0RF Rx Instructions: As directed (DME) nebulizers Misc See Rx Instructions .Route Qty: 1 0RF Rx Instructions: As directed albuterol sulfate 5 mg/mL solution for nebulization 5 mg inhalation Q6H PRN (Reason: shortness of breath or wheezing) Qty: 75 0RF cyclobenzaprine 10 mg tablet 10 mg PO TID PRN (Reason: muscle spasm) Qty: 20 0RF trazodone 100 mg tablet 100 mg PO DAILY 90 Days Qty: 90 2RF lamotrigine 150 mg tablet 150 mg PO DAILY aripiprazole 2 mg tablet 2 mg PO QAM escitalopram oxalate 20 mg tablet 20 mg PO DAILY sumatriptan succinate 25 mg tablet 25 mg PO .COMPLEX PRN (Reason: migraine headache) 30 Days Qty: 9 3RF Rx Instructions: 25 mg orally PRN; benzonatate 200 mg capsule 200 mg PO TID PRN (Reason: cough) Qty: 14 0RF prednisone 20 mg tablet 20 mg PO QAM Qty: 5 0RF azithromycin 250 mg tablet See Rx Instructions PO .COMPLEX Qty: 6 0RF Rx Instructions: For 250 mg dose pack: take 500 mg today (day 1), then 250 mg for 4 days (days 2-5) PO Referrals: Jeremy Sanches PA-C [Primary Care Provider] - Stand Alone Forms: Work/School Release Interventions: ED Discharge Assessment Last Done: 05/26/24 17:06 Discharge Date/Time: 05/26/24 17:09 Print Language: Bhutanese
[2024-05-26 16:54] VITALS: BP 105/61; PULSE 80; RESP 16; TEMP 36.3; O2SAT 98
[2024-05-26] MEDS: methylPREDNISolone Sod Succ 125 MG/2 ML VIAL 60 MG IM (16:59)
[2024-05-26 17:06] VITALS: BP 105/61; PULSE 80; RESP 16; TEMP 36.3; O2SAT 98
--- NOTE | 2024-05-26 17:06 | PC.NURSE ---
pt reevaluated by provider, pt agreeable to karey wrap w medication and discharge to follow up outpt w ortho. pt medicated per JUN.
--- OUTSIDE RECORDS SUMMARY | 2024-05-26 20:08 | XMS_ITS | Clinical Summary ---
Author Organization [facility] Address [address] [place] [address] Care Team Providers Care Cement Mason Name Role Phone Jeremy Sanches Primary Care Provider Medical History Medical History Date Comments Unspecified asthma(493.90) 06/02/2005 DX:Un specified asthma(493.90) Esophageal reflux 06/02/2005 DX:Esophageal reflux Depressive disorder, not els ewhere classified 06/02/2005 DX:Depressive disorder, not elsewhere classified Lumbago 06/02/2005 DX:Lumbago Unspecified disorder of eye movements 06/02/2005 DX:Unspecified disorder of eye movements Paroxysmal supraventricular tachycardia (CMS/HCC) 07/18/2006 DX:Paroxysmal supraventricul ar tachycardia (HCC) Family History Medical History Relation Name Comments Diabetes Father hypertension, t hryoid problem Other: alive and well Mother Relation Name Status Comments Father Mother Social History Tobacco Use Types Packs/Day Years Used Date Smoking Tobacco: Never Smokeless Tobacco: Never Alcohol Use Standard Drinks/Week Comments No 0 (1 standard drink = 0.6 oz pur e alcohol) Sex and Gender Information Value Date Recorded Sex Assigned at Not on file Gender Identity Not on file Sexual Orientation Not on file Obstetrics History Plan of Treatment Health Maintenance Due Date Last Done Comments Breast Cancer Screening 1975 Pneumococcal Vaccine: Pediat rics (0 to 5 Years) and At-Risk Patients (6 to 64 Years) (1 of 2 - PCV) 1981 DTaP,Tdap,and Td Vaccines (1 - Tdap) 1994 Hepatitis B Vaccines (1 of 3 - 19+ 3-dose series) 1994 Cervical Cancer Screening: P ap Smear 01/03/1996 Colorectal Cancer Screening: Colonoscopy 04/02/2022 Depression Screening 04/02/2022 HIV Screening 04/02/2022 Hepatitis C Screening 04/02/2022 Social Influencers of Health Screening 04/02/2022 COVID-19 Vaccine ( - 2023-2 5 season) 2023 Influenza Vaccine (#1) 2023 HIB Vaccines Aged Out No longer eligi ble based on patient's age to complete this topic HPV Vaccines Aged Out No longer eligi ble based on patient's age to complete this topic Hepatitis A Vaccines Aged Out No long er eligible based on patient's age to complete this topic IPV Vaccines Aged Out No longer eligi ble based on patient's age to complete this topic MMR Vaccines Aged Out No longer eligi ble based on patient's age to complete this topic Meningococcal ACWY Vaccine Aged Out N o longer eligible based on patient's age to complete this topic RSV Immunization Patients Un paris 20 months Aged Out No longer eligible b ased on patient's age to complete this topic Varicella Vaccines Aged Out No longer eligible based on patient's age to complete this topic Care Teams Cement Mason Relationship Specialty Start Date End Date Jeremy Sanches PA [address] [place] [address] [address] [place] [address] PCP - General Internal Medicine 09/06/21
== END 2024-05-26 17:09 | disposition home or self-care (01) ==
LOC: HO.ED 17:07
PROVIDERS: Emergency Provider Emergency Medicine; PCP Physician Assistant
DX: S83.8X2A Sprain of other specified parts of left knee, initial encounter (principal); X58.XXXA Exposure to other specified factors, initial encounter; M25.562 Pain in left knee; Y93.9 Activity, unspecified; Y92.9 Unspecified place or not applicable; Y99.9 Unspecified external cause status
CPT/HCPCS: 96372; 99282; 99284; J2919

== ENCOUNTER 2024-06-03 09:48 | Outpatient (AMB) | payer MEDICARE, MEDICAID, SELFPAY ==
--- NOTE | 2024-06-03 09:52 | MHC.OFFVIS ---
Vital Signs 06/03/24 09:53 Height 5 ft 4 in Weight 275 lb BMI 47.2 Intake Visit Reasons: Left knee pain and giving way Intake Note: Emerita is a 49 year old female who presents with complaints of progressively worsening left knee pain and giving way. The patient describes her pain as sharp and severe in nature. Her pain has gotten worse over the last few months in spite of continued non operative treatments. She is not able to take anti-inflammatory medicines because of an allergy. She has tried Tylenol which gives her minimal relief. She has also had a cortisone injection given into her left knee several months ago which gave her minimal relief. She states that her knee pain and mechanical symptoms have gotten worse since that time. She was seen in the emergency room approximately 1 week ago because of increased pain. She states that her left knee will give out several times per day. She has tried physical therapy exercises which aggravated her pain. Allergies ibuprofen [From Motrin] Allergy (Severe, Verified 06/03/24 09:53) HIVES,SWELLING shellfish derived Allergy (Severe, Verified 06/03/24 09:53) Angioedema meperidine [Demerol] Allergy (Unknown, Verified 06/03/24 09:53) Vomiting morphine [MORPHINE] Allergy (Unknown, Verified 06/03/24 09:53) CHEST PAIN NSAIDS (Non-Steroidal Anti-Inflamma Allergy (Verified 06/03/24 09:53) Itching hydroxyzine Adverse Reaction (Mild, Verified 06/03/24 09:53) mouth numbess Medication List - Last Reconciled 06/03/24 by Rashard Andrade MD acetaminophen (Tylenol) 650 mg (2 x 325 mg) PO Q6H PRN albuterol sulfate 5 mg inhalation Q6H PRN albuterol sulfate 90 mcg/actuation (Ventolin HFA) 1 puff inhalation QID PRN aripiprazole 2 mg PO QAM blood pressure monitor (Blood Pressure Kit) As directed cholecalciferol (vitamin D3) 50 mcg PO DAILY 90 days cyclobenzaprine 10 mg PO TID PRN escitalopram oxalate 20 mg PO DAILY fluticasone propion-salmeterol 250-50 mcg/dose (Advair Diskus) 1 ea inhalation BID 30 days lamotrigine 150 mg PO DAILY lansoprazole 30 mg PO DAILY miscellaneous medical supply 1 ea miscellaneous DAILY 99 days nebulizers (AeroEclipse II Nebulizer) As directed nebulizers As directed ropinirole 0.5 mg PO BEDTIME sumatriptan succinate 25 mg orally PRN; 30 days trazodone 100 mg PO DAILY 90 days PFS Medical History 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) COVID-19 Hx of supraventricular tachycardia Hx-TIA (transient ischemic attack) Back spasm Obesity Headache GERD (gastroesophageal reflux disease) Screening for hypothyroidism Screening for hypercholesterolemia Screening for diabetes mellitus (DM) Anxiety Depression Fibromyalgia Asthma Surgical History Hx of colonoscopy History of partial knee replacement Hx of tubal ligation History of endoscopy History of History of knee surgery History of cholecystectomy Family History Mother High cholesterol Father Lupus Diabetes Thyroid disease FH: prostate cancer Brother Asthma Anxiety Depression Daughter Depression Anxiety Childhood autism Maternal Grandmother Glaucoma Other Mental problem Substance abuse Social History Housing: House Alcohol intake: never Patient Tobacco Use Status: Never used Tobacco e-Cigarette/Vaping Use: Never Used Second Hand Smoke Exposure: Yes service: No Current occupational status: employed and disabled Current occupation: [employer] Cognitive needs: No Hearing needs: No Vision needs: Yes (Glasses) Physical Exam Vital Signs: BMI result Body Mass Index 47.2 Const Other: Well-nourished well-developed very friendly female awake alert and oriented x3 in no acute distress Extrem Other: Bilateral lower extremity examination shows good capillary refill, no skin lesions noted, normal sensation light touch Left knee examination shows a minimal effusion, mild crepitus with range of motion, tenderness along her medial joint line, positive Alex's test, no instability Results Reviewed Results Reviewed: Standing full weight-bearing x-rays of the patient's left knee show mild diffuse joint space narrowing, no acute bony abnormalities MRI of the patient's left knee shows mild to moderate degenerative changes as well as a tear of the medial meniscus Assessment & Plan Assessment & Plan (1) Tear of medial meniscus of left knee: Code(s): S83.242A - Other tear of medial meniscus, current injury, left knee, initial encounter Category: Medical Plan Ms. Plata presents with progressively worsening left knee pain and mechanical symptoms due to early degenerative joint disease as well as a tear of her medial meniscus. I had a lengthy discussion with the patient regarding the treatment options. At this point she has failed continued non operative treatments. The risks and benefits of left knee arthroscopic surgery were discussed at length with the patient. The patient wishes proceed with surgery. Surgery will most likely involve left knee arthroscopic partial medial meniscectomy. The patient does understand that she may not get 100% relief of her symptoms depending on the severity of her degenerative changes. The patient also understands that some of her symptoms may be related to her obesity. The patient will be scheduled for next available date. She will follow up as instructed. Feel free to call me at any time should questions regarding her orthopedic management arise. I spent 20 minutes in reviewing the patient's records and imaging studies, seeing the patient and documenting in the medical record. Coding Level of Care Code Est Pt Level 3 (38461) Complex EM visit Add On G2211 Diagnoses Tear of medial meniscus of left knee S83.242A
[2024-06-03 09:53] VITALS: BMI 47.2
--- OUTSIDE RECORDS SUMMARY | 2024-06-03 10:26 | XMS_ITS | Clinical Summary ---
Author Organization [facility] Address [address] [place] [address] Care Team Providers Care Soap Worker Name Role Phone Jeremy Sanches Primary Care [...] age to complete this topic Care Teams Soap Worker Relationship Specialty Start Date End Date Jeremy Sanches PA [address] [place] [address] [address] [place] [address] PCP - General Internal Medicine 09/06/21
== END 2024-06-03 10:21 | disposition home or self-care (01) ==
PROVIDERS: PCP Physician Assistant; Visit Provider Orthopaedic Surgery
DX: S83.242A Other tear of medial meniscus, current injury, left knee, initial encounter (principal); M17.12 Unilateral primary osteoarthritis, left knee
CPT/HCPCS: 99213; G2211

== ENCOUNTER → 2024-06-03 09:48 | Outpatient (BNVA) | payer MEDICARE, MEDICAID, SELFPAY | PROVIDERS: PCP Physician Assistant; Visit Provider Orthopaedic Surgery | DX: S83.242A Other tear of medial meniscus, current injury, left knee, initial encounter (principal) | CPT/HCPCS: 99212 ==

== ENCOUNTER 2024-06-09 11:37 | Outpatient (AMB) | payer MEDICARE, SELFPAY ==
--- NOTE | 2024-06-09 11:49 | AM.OFFVISNUR ---
Intake Visit Reasons: 2nd Hep B vaccine Allergies ibuprofen [From Motrin] Allergy (Severe, Verified 06/03/24 09:53) HIVES,SWELLING shellfish derived Allergy (Severe, Verified 06/03/24 09:53) Angioedema meperidine [Demerol] Allergy (Unknown, Verified 06/03/24 09:53) Vomiting morphine [MORPHINE] Allergy (Unknown, Verified 06/03/24 09:53) CHEST PAIN NSAIDS (Non-Steroidal Anti-Inflamma Allergy (Verified 06/03/24 09:53) Itching hydroxyzine Adverse Reaction (Mild, Verified 06/03/24 09:53) mouth numbess Immunizations Recombivax HB (PF) 10 mcg/mL intramuscular suspension Performing Provider: Jeremy Sanches PA-C Performing [facility] Administered by: Divina Ferreira LPN on 06/09/24 11:49 Dose Route Admin Location Dispensed Lot Number Expiration Date [facility] [place] [employer] 1 mL IM Left Deltoid 1 mL [id number] 12/21/25 [id number] [employer] VIS Given Date VIS Provided VIS Publication Date 06/09/24 Single Vaccine 22 Eligibility Eligibility Date Funding Source Not [facility] Eligible 06/09/24 Private Assessment & Plan Assessment & Plan Orders: Orders Hepatitis B Adult Immunization Today Z23 - Encounter for immunization Medications: New Recombivax HB (PF) (hepatitis B virus vacc.rec(PF)) 1.0 mL IM ONCE 1 mL 0RF NS Z23 - Encounter for immunization Coding
== END 2024-06-09 11:48 | disposition home or self-care (01) ==
PROVIDERS: PCP Physician Assistant; Visit Provider Physician Assistant
DX: Z23 Encounter for immunization (principal)

== ENCOUNTER → 2024-06-09 11:37 | Outpatient (BNVA) | payer MEDICARE, SELFPAY | PROVIDERS: PCP Physician Assistant; Visit Provider Physician Assistant | DX: Z23 Encounter for immunization (principal) | CPT/HCPCS: 90471; 90746 ==

== ENCOUNTER → 2024-06-10 10:24 | Outpatient (BNVA) | payer MEDICARE, MEDICAID, SELFPAY | PROVIDERS: PCP Physician Assistant; Visit Provider Surgery ==

== ENCOUNTER 2024-06-24 08:03 | Outpatient (AMB) | payer MEDICARE, MEDICAID, SELFPAY ==
--- OUTSIDE RECORDS SUMMARY | 2024-06-24 08:08 | XMS_ITS | Clinical Summary ---
Author Organization [facility] Address [address] [place] [address] Care Team Providers Care Material Yard Clerk Name Role Phone Jeremy Sanches Primary Care [...] drink = 0.6 oz pur e alcohol) Comments Unknown Sex and Gender Information Value Date Recorded Sex Assigned at Not on file Legal Sex Female 3:43 AM EST Gender Identity Not on file Sexual Orientation Not on file Obstetrics History Plan of Treatment Health Maintenance Due Date Last Done Comments Breast Cancer Screening 1975 DTaP,Tdap,and Td Vaccines (1 - Tdap) 1994 Hepatitis B Vaccines (1 of 3 - 19+ 3-dose series) 1994 Pneumococcal Vaccine: Pediat rics (0 to 5 Years) and At-Risk Patients (6 to 64 Years) (1 of 2 - PCV) 1994 Cervical Cancer Screening: P ap Smear [...] patient's age to complete this topic Meningococcal B Vacine Aged Out No lo nger eligible based on patient's age to complete this topic RSV Immunization Patients Un paris 20 months Aged Out No longer eligible b ased on patient's age to complete this topic Varicella Vaccines Aged Out No longer eligible based on patient's age to complete this topic Care Teams Material Yard Clerk Relationship Specialty Start Date End Date Jeremy Sanches PA PCP - General Internal Medicine 09/06/21
--- NOTE | 2024-06-24 09:05 | A.OFFVIS_ITS ---
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 Allergies ibuprofen [From Motrin] Allergy (Severe, Verified 06/24/24 09:05) HIVES,SWELLING shellfish derived Allergy (Severe, Verified 06/24/24 09:05) Angioedema meperidine [Demerol] Allergy (Unknown, Verified 06/24/24 09:05) Vomiting morphine [MORPHINE] Allergy (Unknown, Verified 06/24/24 09:05) CHEST PAIN NSAIDS (Non-Steroidal Anti-Inflamma Allergy (Verified 06/24/24 09:05) Itching hydroxyzine Adverse Reaction (Mild, Verified 06/24/24 09:05) mouth numbess Medication List - Last Reconciled 06/24/24 by Ivan Dominique MD albuterol sulfate 5 mg inhalation Q6H PRN albuterol sulfate 90 mcg/actuation (Ventolin HFA) 1 puff inhalation QID PRN aripiprazole 2 mg PO QAM blood pressure monitor (Blood Pressure Kit) As directed cholecalciferol (vitamin D3) 50 mcg PO DAILY 90 days escitalopram oxalate 20 mg PO DAILY lamotrigine 150 mg PO DAILY lansoprazole 30 mg PO DAILY nebulizers (AeroEclipse II Nebulizer) As directed nebulizers As directed ropinirole 0.5 mg PO BEDTIME HPI 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: Details: Start time: 8.56am, End time: 9.56am ?I spent 55 minutes speaking with the patient on the phone plus an additional 5 minutes reviewing and updating records for a total of 60 minutes HPI Comments Details: Previous weight loss efforts: WW x3 Wakes up: 7am, Sleeps: 11pm Breakfast: 8am (eggs, pancakes) Lunch: 12pm (salad, sandwich) Dinner: 6pm (chicken, beef, pasta) Snacks: 3pm (chips, popcorn), occ at 8pm (same) Exercise: none Fluids: Coffee: none, tea: none, soda: Coke zero, or Pepsi Max, juice: none, ETOH: none PFSH Medical History (Updated 06/24/24 @ 09:13 by Ivan Dominique MD) Sleep apnea History of CVA (cerebrovascular accident) Morbid obesity 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) COVID-19 Hx of supraventricular tachycardia Hx-TIA (transient ischemic attack) Back spasm Obesity Headache GERD (gastroesophageal reflux disease) Screening for hypothyroidism Screening for hypercholesterolemia Screening for diabetes mellitus (DM) Anxiety Depression Fibromyalgia Asthma Surgical History Hx of colonoscopy History of partial knee replacement Hx of tubal ligation History of endoscopy History of History of knee surgery History of cholecystectomy Family History Mother High cholesterol Father Lupus Diabetes Thyroid disease FH: prostate cancer Brother Asthma Anxiety Depression Daughter Depression Anxiety Childhood autism Maternal Grandmother Glaucoma Other Mental problem Substance abuse Social History Housing: House Alcohol intake: never Patient Tobacco Use Status: Never used Tobacco e-Cigarette/Vaping Use: Never Used Second Hand Smoke Exposure: Yes service: No Current occupational status: employed and disabled 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 [employer] Cognitive needs: No Hearing needs: No Vision needs: Yes (Glasses) Telehealth Telehealth Telehealth Platform: Telephone Location of provider rendering services: practice address Location of patient: address on file Patient Identification confirmed using: Name, : Yes Telehealth method: voice only Patient verbally consented to treatment: Yes Patient verbally consented to billing insurance company: Yes Patient informed of any privacy concerns related to visit: Yes Minutes spent on Phone/Video with Pt.: 60 Assessment & Plan Assessment & Plan (1) Morbid obesity: Code(s): E66.01 - Morbid (severe) obesity due to excess calories Category: Medical Plan: 1.? Plan for lap sleeve gastrectomy. If diaphragmatic or ventral hernias are present at time of surgery, these will be repaired laparoscopically as well. I emphasized the importance of close follow-up, adherence to instructions and good communication. The surgery does not replace the need to change your lifestlyle which is the cause of the obesity problem. The surgery provides the motivation to try again to change your lifestyle, it reduces the appetite and make the transition to a better lifestyle easier and doubles the amount of weight you would lose compared to doing the lifestyle change without the surgery. You will need to be on a liquid diet with protein shakes for 2 weeks before surgery to maximize weight loss and boost your nutritional status to recover better from surgery and also for the first two weeks after surgery to let the stomach heal before we introduce other foods. After the first 2 weeks we will introduce protein bars and soft foods like scrambled eggs, cottage cheese and yogurt and after the 6th week will introduce meat, fish and cooked vegetables in small amounts. Over time you should be able to eat everything in small amounts. Side effects like nausea, vomiting, heartburn or abdominal pain are not common in the practice unless you are not following in the practice. This operation requires lifetime commitment to following in our practice and communication with me. You will much less weight and experience side effects if you don?t communicate or not following in the practice. Complications are rare and in our practice is about 1/10 of the national average. However, you can develop bleeding that may require transfusion (hasn?t happened for year in the practice), you may from complications (we did not have any deaths in the practice) and infections. Infections are usually a result of breakdown in communication or not understanding or following directions correctly. They are difficult to treat, they can happen during the first 6 weeks, they may require to be in the hospital for weeks or even months, not being able to eat by mouth and you may have drains and surgeries to try and correct the issue. Other risks and complications include possible conversion to an open procedure, leaks, small bowel obstruction, blood clots, cardiac, or pulmonary complications, as terminal press operator complications such as ulcers, insufficient weight loss and vitamin deficiencies. 2. Nutritional counseling. Start with one CELEBRATE REBUILD protein (buy at hospital's gift shop) shake (ONE scoop in 8oz low fat unsweetened almond milk each) at 8am-10am, 1 protein bar (CELEBRATE protein bars, [facility] at [facility]) at 11am-1pm, one CELEBRATE REBUILD protein shake (ONE scoop in 8oz low fat unsweetened almond milk each) at 2pm-4pm, dinner at 5pm (10 forks of protein and 10 forks of salad/vegetables) AND one more protein bar after dinner at 7pm- 9pm. If hungry, you can have another HALF protein bar at 10pm-11pm. So you do 2 protein shakes, 2 to 2.5 protein bars and one meal per day. Meal to include lean meat (beef, fish, pork, turkey, chicken), or upper sorbian yogurt, or egg whites, or beans with a salad with olive oil and fruits (berries, pears, apples, kiwi). Avoid salt, breads, potatoes, rice, pasta, desserts. 3. You will receive a link of our software [email or web address] to generate an individualized nutritional and exercise plan specific for you. Please send me a screenshot of the plans you will generate 3. Each shake would be drunk slowly, like coffee in a period of 2 hours. 4. Cut each bar in 4 pieces and eat each piece in 30min ?to make each bar last 2 hours. 5. I emphasized the importance of measuring accurately the food portion and measure it when serving the food in plate 6. The meal portions include 10 full-size forks of meat and 10 full-size forks of salad. You always eat the meat portion but you can replace up to 5 forks for salad/vegetables with rice, potatoes or pasta, or a fruit ?if you like. The less you do it the better weight loss will be. 7. One full-size fork is what it can be scooped on the fork without falling aside and not what can be bit with the fork. Use regular forks like those you find in a typical restaurant. 8.? Please buy the body composition scale we discussed and send me weight measurements as soon as possible and then once a week. Always include your diet and exercise plan. 9. The best choice would be to purchase a stationary bike, elliptical or treadmill at home that can track calories. Let me know if you do so I can give you an exercise plan. 10. Goal is to lose at least 1.5-2lbs per week 11. Goal to lose 10% of your weight before surgery, which is about 30lbs. Ultimate weight goal: 266lbs before surgery 12. Please follow the diet plan exactly without any change. If you don't like something about the plan or you feel hungry you need to communicate with me so I can help you revise the plan. You should not change the plan yourself 13. To be scheduled for EGD to assess the stomach's anatomy. The possibility of biopsies was discussed. Patient needs to avoid use of NSAIDs and aspirin for 1 week prior to EGD. You must be on liquids only the day before your endoscopy. Risks of perforation and bleeding was discussed with the patient. This will be an outpatient procedure with IV sedation. Orders: Orders Insulin Today E66.01 - Morbid (severe) obesity due to excess calories Hemoglobin A1c Today E66.01 - Morbid (severe) obesity due to excess calories H Pylori Breath Test Today E66.01 - Morbid (severe) obesity due to excess calories Lipid Panel Today E66.01 - Morbid (severe) obesity due to excess calories IRON PROFILE Today E66.01 - Morbid (severe) obesity due to excess calories Vitamin B12 and Folate Today E66.01 - Morbid (severe) obesity due to excess calories Zinc Today E66.01 - Morbid (severe) obesity due to excess calories C Reactive Protein Today E66.01 - Morbid (severe) obesity due to excess calories Vitamin B1 Today E66.01 - Morbid (severe) obesity due to excess calories Vitamin A Today E66.01 - Morbid (severe) obesity due to excess calories Ferritin Today E66.01 - Morbid (severe) obesity due to excess calories US abdomen comp w elastography Today E66.01 - Morbid (severe) obesity due to ex cess calories XR chest 2V Today E66.01 - Morbid (severe) obesity due to excess calories FL upper GI w air Today E66.01 - Morbid (severe) obesity due to excess calories Complete Blood Count Auto Diff Today E66.01 - Morbid (severe) obesity due to excess calories Comprehensive Met. Panel Today E66.01 - Morbid (severe) obesity due to excess calories TSH reflex Free T4 Today E66.01 - Morbid (severe) obesity due to excess calories Vitamin D 25-OH Total Today E66.01 - Morbid (severe) obesity due to excess calories ECG 12 lead EKG Today E66.01 - Morbid (severe) obesity due to excess calories Referrals Behavioral Health Referral E66.01 - Morbid (severe) obesity due to excess calories Nutrition/Dietitian Referral E66.01 - Morbid (severe) obesity due to excess calories
[2024-06-24 09:30] VITALS: BMI 50.8
== END 2024-06-24 09:57 | disposition home or self-care (01) ==
LOC: HO.HBS 08:03
PROVIDERS: PCP Physician Assistant; Visit Provider Surgery
DX: E66.01 Morbid (severe) obesity due to excess calories (principal); E66.813 Obesity, class 3; Z68.43 Body mass index [BMI] 50.0-59.9, adult
CPT/HCPCS: 99215

== ENCOUNTER → 2024-06-24 08:03 | Outpatient (REF) | payer MEDICARE, MEDICAID, SELFPAY ==
--- NOTE | 2024-06-24 13:53 | ECG_ITS ---
Test Reason : PREOP Blood Pressure : */* mmHG Vent. Rate : 81 BPM Atrial Rate : 81 BPM P-R Int : 140 ms QRS Dur : 74 ms QT Int : 362 ms P-R-T Axes : 44 38 40 degrees QTcB Int : 420 ms Normal sinus rhythm Possible Left atrial enlargement Borderline ECG When compared with ECG of 19-Apr-2024 12:59, No significant change was found Referred By: Jeremy Sanches Electronically Signed By: MATTHEW BORDEN
[2024-06-24 14:13] LABS: MANUAL DIFF FLAG NO
[2024-06-24 14:40] LABS: Basophils Absolute Auto 0.1 X10*3/uL (0.0-0.2); Basophils Percent Auto 0.7 % (0-2); Eosinophils Absolute Auto 0.1 X10*3/uL (0.0-0.4); Eosinophils Percent Auto 0.8 % (0-4); Hematocrit 42.3 % (37.0-47.0); Hemoglobin 14.1 g/dl (12.0-16.0); Imm Gran Abs Auto 0.02 X10*3/uL (0.00-0.03); Imm Gran Pct Auto 0.3 % (0.0-0.4); Lymphocytes Percent Auto 26.4 % (20-40); Mean Corpuscular HGB Conc 33.3 g/dl (31.0-35.0); Mean Corpuscular Hemoglobin 29.5 pg (27.0-33.0); Mean Corpuscular Volume 88.5 fL (80.0-98.0); Mean Platelet Volume 10.5 fL (9.4-12.3); Monocytes Absolute Auto 0.6 X10*3/uL (0.1-1.2); Neutrophils Absolute Auto 4.7 x10*3/uL (2.0-8.3); Neutrophils Percent Auto 63.8 % (45-73); Platelet Count 312 X10*3/uL (160-400); Red Blood Count 4.78 X10*6/uL (4.20-5.50); Red Cell Distribution Width 12.5 % (11.0-16.0); White Blood Count 7.4 X10*3/uL (4.8-10.8)
[2024-06-24 14:47] LABS: Estimated Average Glucose 114 mg/dL; Hemoglobin A1C 137.9552 umol/L; Hemoglobin A1c % 5.6 % (<6.0); Total Hemoglobin (HGBA1C) 3615.3595 umol/L
[2024-06-24 15:13] LABS: Alanine Aminotransferase 39 U/L (0-31); Albumin Level 4.4 g/dL (3.5-5.0); Alkaline Phosphatase 49 U/L (39-117); Anion Gap 12 (12-20); Aspartate Amino Transferase 38 U/L (5-31); Bilirubin Total 0.5 mg/dL (0.0-1.0); Blood Urea Nitrogen 13 mg/dL (9-16); C Reactive Protein 0.27 mg/dL (< or = 0.50); Calcium 9.4 mg/dL (8.4-10.2); Carbon Dioxide 26 mmol/L (22-29); Chloride 105 mmol/L (96-108); Cholesterol 161 mg/dL (<200); Estimated Glomerular Filt Rate > 60; Glucose Random 93 mg/dL (60-115); HDL Cholesterol 51 mg/dL (>40); Iron 86 mcg/dL (30-160); LDL Cholesterol Calculated 81 mg/dL (<100); Percent Iron Saturation 30 % (15-50); Potassium 4.1 mmol/L (3.3-5.1); Sodium 139 mmol/L (135-145); Total Iron Binding Capacity 286 mcg/dL (228-428); Total Protein 8.1 g/dL (6.5-8.0); Triglycerides 146 mg/dL (<150); Unsaturated Iron Binding 200 ug/dL
[2024-06-24 15:29] LABS: Ferritin 166 ng/mL (10-250); Vitamin D 25-OH Total 23.2 ng/mL (>30)
[2024-06-24 15:37] LABS: Folate 10.8 ng/mL (> or = 4.0); Vitamin B12 364 pg/mL (200-900)
[2024-06-24 15:48] LABS: Insulin 20 uU/mL (2-29)
--- OUTSIDE RECORDS SUMMARY | 2024-06-24 17:10 | XMS_ITS | Clinical Summary ---
Author Organization [facility] Address [address] [place] [address] Care Team Providers Care Outboard Motorboat Operator Name Role Phone Jeremy Sanches Primary Care [...] age to complete this topic Care Teams Outboard Motorboat Operator Relationship Specialty Start Date End Date Jeremy Sanches PA PCP - General Internal Medicine 09/06/21
== END ==
LOC: HO.CARD 08:03
PROVIDERS: Surgery; PCP Physician Assistant; Visit Provider Physician Assistant
DX: Z01.818 Encounter for other preprocedural examination (principal); E66.01 Morbid (severe) obesity due to excess calories; L20.84 Intrinsic (allergic) eczema; Z79.899 Other long term (current) drug therapy; F41.1 Generalized anxiety disorder
CPT/HCPCS: 36415; 80053; 80061; 82306; 82607; 82728; 82746; 83036; 83525; 83540; 84425; 84443; 84590; 84630; 85025; 86140; 93005; 99212

== ENCOUNTER 2024-06-24 13:00 | Outpatient (AMB) | payer MEDICARE, MEDICAID, SELFPAY ==
--- NOTE | 2024-06-24 13:04 | A.OFFPC_ITS ---
Vital Signs 06/24/24 13:08 Height 5 ft 4 in Weight 300 lb 2 oz BMI 51.5 BP 110/60 Blood Pressure Location Lt brachial Position Sitting Pulse 83 Pulse Source Pulse Oximeter Temp 96.6 F L Temp Source Temporal Artery Scan Pulse Oximetry (%) 95 Oxygen Delivery Method Room Air Intake Visit Reasons: left knee arthroscopy with Dr. Andrade 07/04/24 Intake Note: Patient is here for a Pre-op for Left knee arthroscope scheduled with Dr Andrade ([facility]) on 07/04/24. Program Checker Required: No Armored Transport Service Manager: Not Required per policy Accompanied by: Self / Same As Patient Allergies ibuprofen [From Motrin] Allergy (Severe, Verified 06/24/24 13:21) HIVES,SWELLING shellfish derived Allergy (Severe, Verified 06/24/24 13:21) Angioedema meperidine [Demerol] Allergy (Unknown, Verified 06/24/24 13:21) Vomiting morphine [MORPHINE] Allergy (Unknown, Verified 06/24/24 13:21) CHEST PAIN NSAIDS (Non-Steroidal Anti-Inflamma Allergy (Verified 06/24/24 13:21) Itching hydroxyzine Adverse Reaction (Mild, Verified 06/24/24 13:21) mouth numbess Medication List - Last Reconciled 06/24/24 by Jeremy Sanches PA-C albuterol sulfate 5 mg inhalation Q6H PRN albuterol sulfate 90 mcg/actuation (Ventolin HFA) 1 puff inhalation QID PRN aripiprazole 2 mg PO QAM blood pressure monitor (Blood Pressure Kit) As directed cholecalciferol (vitamin D3) 50 mcg PO DAILY 90 days escitalopram oxalate 20 mg PO DAILY lamotrigine 150 mg PO DAILY lansoprazole 30 mg PO DAILY nebulizers (AeroEclipse II Nebulizer) As directed nebulizers As directed ropinirole 0.5 mg PO BEDTIME Tobacco use date assessed: 06/24/24 Dental Screening Dental Screen Date: 06/24/24 Did you have a dental visit in the last 12 months?: Yes Did you have a dental problem in the last 6 months where you did not have access to dental care?: No Was dental information given to patient?: Patient has dentist HPI left knee arthroscopy with Dr. Andrade 07/04/24 HPI Details Patient is a 49-year-old here today for a preop visit. Due for left knee arthroscopic surgery. ?Patient's past medical history significant for moderate persistent asthma, obesity, fibromyalgia, depression, GERD. Patient has no past medical history significant for Congestive heart failure, mi or CVA. She is not on any anticoagulation or antiplatelet therapy. Continues to have chronic left knee pain particular in the posterior aspect. He has followed up with [facility] about her MRI of the knee in 2023 which did show Irregular inner margin tearing involving the posterior aspect of the medial meniscal body and extending through the posterior horn. Unfortunately her knee pain and swelling did not improve and high gotten worse. She is due for endoscopic repair of the meniscus. .. 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) COVID-19 Hx of supraventricular tachycardia Hx-TIA (transient ischemic attack) Back spasm Obesity Headache GERD (gastroesophageal reflux disease) Screening for hypothyroidism Screening for hypercholesterolemia Screening for diabetes mellitus (DM) Anxiety Depression Fibromyalgia Asthma Surgical History Hx of colonoscopy History of partial knee replacement Hx of tubal ligation History of endoscopy History of History of knee surgery History of cholecystectomy Family History Mother High cholesterol Father Lupus Diabetes Thyroid disease FH: prostate cancer Brother Asthma Anxiety Depression Daughter Depression Anxiety Childhood autism Maternal Grandmother Glaucoma Other Mental problem Substance abuse Social History Housing: House Alcohol intake: never Patient Tobacco Use Status: Never used Tobacco e-Cigarette/Vaping Use: Never Used Second Hand Smoke Exposure: Yes service: No Current occupational status: employed and disabled 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 1. Little interest or pleasure in doing things: nearly every day 2. Feeling down, depressed, or hopeless: more than half the days 3. Trouble falling or staying asleep, or sleeping too much: nearly every day 4. Feeling tired or having little energy: nearly every day 5. Poor appetite or overeating: nearly every day 6. Feeling bad about yourself - or that you are a failure or have let yourself or your family down: nearly every day 7. Trouble concentrating on things, such as reading the newspaper or watching television: nearly every day 8. Moving or speaking so slowly that other people could have noticed. Or the opposite - being so fidgety or restless that you have been moving around a lot more than usual: not at all 9. Thoughts that you would be better off or of hurting yourself in some way: not at all Total score: 20 Depression Screening Interpretation: Positive Depression Screening Done: Yes Source: Developed by Drs. Terrell Sawant, Lorrie Altamirano, Jong Pereyra and colleagues, with an educational areli from [employer]. Thrive Questionnaire Date Thrive assessed: 05/07/24 AUDIT C Alcohol Use Questionnaire (AUDIT-C) 1. How often do you have a drink containing alcohol?: Monthly or less 2. How many drinks containing alcohol do you have on a typical day when you are drinking?: 1 or 2 Total Score: 1 DANIEL-7 AMB Questionnaire DANIEL-7 Date DANIEL - 7 assessed: 06/24/24 Feeling nervous, anxious, or on edge: 2 = More than half the days Not being able to stop or control worryin = Nearly every day Worrying too much about different things: 3 = Nearly every day Trouble relaxin = More than half the days Being so restless that it is hard to sit still: 2 = More than half the days Becoming easily annoyed or irritable: 2 = More than half the days Feeling afraid as if something awful might happen: 1 = Several days Total DANIEL-7 score (0-4 normal; 5-9 mild; 10-14 moderate; 15-21 severe): 15 Source: Developed by Drs. Terrell Sawant, Lorrie Altamirano, Jong Pereyra and colleagues, with an educational areli from [employer]. Review of Systems Const Denies headache(s) Eyes Denies loss of vision ENT Denies vertigo, Denies dizziness, Denies headache(s) and Denies sore throat Card Denies chest pain, Denies leg edema and Denies lightheadedness Resp Denies cough, Denies hemoptysis and Denies wheezing GI Denies abdominal pain, Denies melena, Denies constipation, Denies diarrhea and Denies vomiting Denies urinary frequency, Denies dysuria and Denies urinary urgency Musc Denies arthralgias, Denies joint swelling, Denies numbness and Denies tingling Neuro Denies Abnormal speech present, Denies behavioral changes, Denies vertigo, Denies dizziness, Denies headache(s), Denies loss of vision, Denies memory loss, Denies numbness and Denies tingling Psych Denies anxiety, Denies behavioral changes, Denies depression, Denies memory loss and Denies panic attacks Milo/Lymph Denies easy bleeding and Denies easy bruising Aller/Immun Denies wheezing Physical exam (Primary Care) Vital Signs: Last Vital Signs Temp 96.6 F L 06/24/24 13:08 Pulse 83 06/24/24 13:08 BP 110/60 06/24/24 13:08 Pulse Ox 95 06/24/24 13:08 Oxygen Delivery Method Room Air 06/24/24 13:08 BMI result Body Mass Index 51.5 BMI Assessment/Plan discussion: High BMI High, discussed plan: lifestyle, weight reduction, dietary and physical activity Tobacco/Smoking Status: Tobacco use Status Tobacco use date assessed 06/24/24 06/24/24 13:14 Patient Tobacco Use Status Never used Tobacco 06/24/24 13:14 e-Cigarette/Vaping Use Never Used 06/24/24 13:14 PHQ-9: PHQ-9 Score PHQ-9: Total score 20 06/24/24 13:26 Depression Screening Interpretation: Positive Thrive Assessment: Date of Thrive Assessment Date Thrive assessed 05/07/24 06/24/24 13:14 Const General: healthy appearing, no acute distress, alert and awake Nutritional Appearance: well nourished Orientation/consciousness: oriented to person, oriented to place and oriented to time HENMT Ears: TM's normal bilaterally General nose exam: Normal nasal mucous membranes and turbinates present Eyes Conjunctivae: conjunctivae normal Sclerae: sclerae normal Pupils: Equal, round and reactive pupils present Neck Neck: Yes no lymphadenopathy and Yes no JVD Thyroid: Thyroid normal Carotids: no bruits Resp Effort & Inspection: normal respiratory effort and not tachypneic Auscultation: no crackles, no rales, no rhonchi and no wheezes Cardio Rate: regular rate Rhythm: regular rhythm Heart sounds: no murmurs and normal S1 and S2 GI Palpation (GI): Soft to palpation, nontender, no hepatomegaly and no splenomegaly Auscultation: normal bowel sounds Skin General skin exam: no rashes or lesions noted and dry skin Neuro General: oriented to person, oriented to place and oriented to time Cranial nerves: Yes Equal, round and reactive pupils present Speech: No Abnormal speech present Gait exam (Neuro): Normal gait present Motor exam (neuro): no tremor noted Extrem Other: LEFT KNEE: RANGE OF MOTION, AMBULATING WITH AN ANTALGIC GAIT Right upper extremity: full ROM Left upper extremity: full ROM Right lower extremity: full ROM; no edema Left lower extremity: full ROM; no edema Psych Mental Status: mental status grossly normal Speech and movement: Normal speech and movement present Affect: normal affect Attitude: cooperative Thought process: Normal thought process present Coding Level of Care Code Est Pt Level 4 (23878) Diagnoses Pre-op evaluation Z Intrinsic eczema Eczema type: intrinsic Assessment & Plan Assessment & Plan (1) Pre-op evaluation: Code(s): Z. - Encounter for other preprocedural examination Category: Medical Plan: Patient's vitals stable. Most recent vitals and EKGs stable. Patient medically clear needed procedure. (2) Eczema: Code(s): L30.9 - Dermatitis, unspecified Category: Medical Qualifiers: Eczema type: intrinsic Qualified Code(s): L20.84 - Intrinsic (allergic) eczema Plan: Noted eczema like patch over her lower extremity Will supply with topical steroid cream to use p.r.n. Orders: Orders Basic Metabolic Panel Today - Encounter for other preprocedural examination ECG 12 lead EKG Today - Encounter for other preprocedural examination Complete Blood Count no Diff Today - Encounter for other preprocedural examination Medications: New triamcinolone acetonide 0.1% 1 appl topical DAILY 30 grams 0RF 15 days L20.84 - Intrinsic (allergic) eczema
[2024-06-24 13:08] VITALS: BP 110/60; PULSE 83; TEMP 35.9; O2SAT 95; BMI 51.5
--- OUTSIDE RECORDS SUMMARY | 2024-06-24 15:55 | XMS_ITS | Clinical Summary ---
Author Organization [facility] Address [address] [place] [address] Care Team Providers Care Healthcare Consulting Manager Name Role Phone Jeremy Sanches Primary Care Provider [phone] Medical History Medical History Date Comments Unspecified [...] age to complete this topic Care Teams Healthcare Consulting Manager Relationship Specialty Start Date End Date Jeremy Sanches PA PCP - General Internal Medicine 09/06/21
== END 2024-06-24 13:35 | disposition home or self-care (01) ==
PROVIDERS: PCP Physician Assistant; Visit Provider Physician Assistant
DX: Z01.818 Encounter for other preprocedural examination (principal); L20.84 Intrinsic (allergic) eczema

== ENCOUNTER → 2024-06-24 13:53 | Outpatient (BNV) | payer MEDICARE, MEDICAID, SELFPAY | PROVIDERS: PCP Physician Assistant; Visit Provider Internal Medicine | DX: I51.7 Cardiomegaly (principal) | CPT/HCPCS: 93010 ==

== ENCOUNTER 2024-07-04 05:55 | Day surgery (SDC) | payer MEDICARE, MEDICAID, SELFPAY ==
[2024-07-02 09:47] VITALS: BMI 47.2
--- NOTE | 2024-07-03 11:58 | HO.ANESPROP2 ---
Documented by User: Nicci Felix NP 07/03/24 12:00 HPI - Anesthesia Eval Consult details Narrative: 49yo F for Left Knee Arthroscopy,partial medial meniscectomy BMI 47 PMFSH Active Problems Active Problems: All Active Problems Eczema (Acute) Pre-op evaluation (Acute) Sleep apnea (Acute) Morbid obesity (Acute) Tear of medial meniscus of left knee (Acute) Need for MMR vaccine (Acute) Hepatitis B vaccination status unknown (Acute) URI, acute (Acute) Adenomatous colon polyp (Acute) Chronic pain of left knee (Acute) Derangement of meniscus of left knee (Acute) Numbness and tingling of right hand (Acute) Contusion of right elbow (Acute) Right elbow pain (Acute) Left elbow pain (Acute) Left knee pain (Acute) Bakers cyst (Acute) Muscle spasm (Acute) Upper respiratory infection (Acute) Elevated fasting blood sugar (Acute) COVID-19 virus infection (Acute) Constipation by delayed colonic transit (Acute) Morbid obesity due to excess calories (Acute) Lymphedema (Acute) Pelvic floor dysfunction in female (Acute) Tinea corporis (Acute) GERD (gastroesophageal reflux disease) (Acute) Constipation (Acute) HTN (hypertension) (Acute) GERD (gastroesophageal reflux disease) (Acute) Back spasm (Acute) Obesity (Acute) MDD (major depressive disorder), recurrent episode, moderate (Acute) RLS (restless legs syndrome) (Acute) Frequent headaches (Acute) Screening for breast cancer (Acute) Adult general medical exam (Acute) COVID-19 (Acute) Abnormal EKG (Acute) SOB (shortness of breath) on exertion (Acute) Lower extremity edema (Acute) Elevated liver enzymes (Acute) Lymphedema of both lower extremities (Acute) Peripheral vascular disease (Acute) Lower extremity edema (Acute) Asthma (Acute) Fibromyalgia (Acute) Depression (Acute) Anxiety (Acute) Past Medical History Medical History Benign tumor of pituitary gland Sleep apnea History of CVA (cerebrovascular accident) Morbid obesity 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) COVID-19 Hx of supraventricular tachycardia Hx-TIA (transient ischemic attack) Back spasm Obesity Headache GERD (gastroesophageal reflux disease) Screening for hypothyroidism Screening for hypercholesterolemia Screening for diabetes mellitus (DM) Anxiety Depression Fibromyalgia Asthma Family History Family History Mother High cholesterol Father Lupus Diabetes Thyroid disease FH: prostate cancer Brother Asthma Anxiety Depression Daughter Depression Anxiety Childhood autism Maternal Grandmother Glaucoma Other Mental problem Substance abuse Family history of problems with anesthesia: No Surgical History Surgical History Hx of colonoscopy History of partial knee replacement Hx of tubal ligation History of endoscopy History of History of knee surgery History of cholecystectomy History of Problems with Anesthesia: No Social History Social History Housing: House Are you a primary careers counsellor to a significant other at home: No Do you presently have visiting nurse or other home services: No Alcohol intake: never Patient Tobacco Use Status: Never used Tobacco e-Cigarette/Vaping Use: Never Used Second Hand Smoke Exposure: Yes Use of substances other than those prescribed or required for medical reasons: Yes Substance Use Frequency: Daily Have you been hit, kicked, punched, or otherwise hurt by someone within the past year? 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 [employer] Cognitive needs: No Hearing needs: No Vision needs: Yes (Glasses) Meds Allergies Allergy/AdvReac Type Severity Reaction Status Date / Time ibuprofen [From Motrin] Allergy Severe HIVES,SWELL Verified 07/04/24 06:16 ING shellfish derived Allergy Severe Angioedema Verified 07/04/24 06:16 meperidine [Demerol] Allergy Unknown Vomiting Verified 07/04/24 06:16 morphine [MORPHINE] Allergy Unknown CHEST PAIN Verified 07/04/24 06:16 NSAIDS (Non-Steroidal Allergy Itching Verified 07/04/24 06:16 Anti-Inflamma tramadol AdvReac Intermediate GI upset Verified 07/04/24 06:16 hydroxyzine AdvReac Mild mouth Verified 07/04/24 06:16 numbess Active Medications: Current Medications Cefazolin Sodium/Dextrose (Ancef) 2 gm in 50 mls @ 100 mls/hr IV PREOP ONE Stop: 07/04/24 06:07 Home Medications ?Medication ?Instructions ?Recorded ?Confirmed ?Last Taken ?Type aripiprazole 2 mg tablet 2 mg PO QAM 03/17/22 07/04/24 Unknown History escitalopram oxalate 20 mg tablet 20 mg PO DAILY 03/17/22 07/04/24 Unknown History lamotrigine 150 mg tablet 150 mg PO DAILY 05/08/22 07/04/24 Unknown History Probiotic Acidophilus 07/04/24 07/04/24 Unknown History trazodone 100 mg tablet 200 mg PO BEDTIME PRN insomnia 07/04/24 07/04/24 Unknown History Exam Height,Weight and Vital Signs: Height 5 ft 4 in Weight 124.738 kg Assessment and Plan Assessment Anesthesia Assessment: Chart Reviewed Final Anesthetic Review Family History of Problems with Anesthesia: No History of Problems with Anesthesia: No Documented by User: Shoshana Rivers MD 07/04/24 08:31 PMFSH Past Medical History Medical History Benign tumor of pituitary gland Sleep apnea History of CVA (cerebrovascular accident) Morbid obesity 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) COVID-19 Hx of supraventricular tachycardia Hx-TIA (transient ischemic attack) Back spasm Obesity Headache GERD (gastroesophageal reflux disease) Screening for hypothyroidism Screening for hypercholesterolemia Screening for diabetes mellitus (DM) Anxiety Depression Fibromyalgia Asthma Family History Family History Mother High cholesterol Father Lupus Diabetes Thyroid disease FH: prostate cancer Brother Asthma Anxiety Depression Daughter Depression Anxiety Childhood autism Maternal Grandmother Glaucoma Other Mental problem Substance abuse Surgical History Surgical History Hx of colonoscopy History of partial knee replacement Hx of tubal ligation History of endoscopy History of History of knee surgery History of cholecystectomy Social History Social History Housing: House Are you a primary careers counsellor to a significant other at home: No Do you presently have visiting nurse or other home services: No Alcohol intake: never Patient Tobacco Use Status: Never used Tobacco e-Cigarette/Vaping Use: Never Used Second Hand Smoke Exposure: Yes Use of substances other than those prescribed or required for medical reasons: Yes Substance Use Frequency: Daily Have you been hit, kicked, punched, or otherwise hurt by someone within the past year? 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 [employer] Cognitive needs: No Hearing needs: No Vision needs: Yes (Glasses) Meds Allergies Allergy/AdvReac Type Severity Reaction Status Date / Time ibuprofen [From Motrin] Allergy Severe HIVES,SWELL Verified 07/04/24 06:16 ING shellfish derived Allergy Severe Angioedema Verified 07/04/24 06:16 meperidine [Demerol] Allergy Unknown Vomiting Verified 07/04/24 06:16 morphine [MORPHINE] Allergy Unknown CHEST PAIN Verified 07/04/24 06:16 NSAIDS (Non-Steroidal Allergy Itching Verified 07/04/24 06:16 Anti-Inflamma tramadol AdvReac Intermediate GI upset Verified 07/04/24 06:16 hydroxyzine AdvReac Mild mouth Verified 07/04/24 06:16 numbess Home Medications ?Medication ?Instructions ?Recorded ?Confirmed ?Last Taken ?Type aripiprazole 2 mg tablet 2 mg PO QAM 03/17/22 07/04/24 Unknown History escitalopram oxalate 20 mg tablet 20 mg PO DAILY 03/17/22 07/04/24 Unknown History lamotrigine 150 mg tablet 150 mg PO DAILY 05/08/22 07/04/24 Unknown History Probiotic Acidophilus 07/04/24 07/04/24 Unknown History trazodone 100 mg tablet 200 mg PO BEDTIME PRN insomnia 07/04/24 07/04/24 Unknown History Exam Airway Mallampati Class: III TM Dist: <=3cm Neck ROM: Full Loose/Missing/Broken Teeth: Yes, Upper and Lower Heart: rrr Lungs: cta Assessment and Plan Final Anesthetic Review NPO: Yes ASA Class: III Final Preanesthetic Review: No Changes in Pt Med Stat, Meds/Allgs Chart Reviewed, Consent Obtained/Reviewed and Anes Risks/Benef Reviewed Patient Risk: Intermediate Procedure Risk: Low Anesthetic Plan Anesthetic Plan: GA Disposition: Standard PACU
[2024-07-04] VITALS (14 sets, daily range): BP systolic 106–152; BP diastolic 65–99; PULSE 81–97; RESP 12–20; TEMP 36.1–36.6; O2SAT 94–98; BMI 50.3
[2024-07-04] MEDS: Lactated Ringers 1,000 ML 100 ML IVCONT (06:42)
[2024-07-04] MEDS: Acetaminophen 1,000 MG/100 ML PIGGYBACK 400 MG IV (07:35)
[2024-07-04] MEDS: ceFAZolin Sodium/Dextrose,Iso 2 GM/50 ML PIGGYBACK IV (07:35)
[2024-07-04] MEDS: Scopolamine 1.5 MG PATCH.TD.3 EAR-BEHIND (07:38)
--- NOTE | 2024-07-04 08:40 | P.OP_ITS ---
Operative Note Operative Note Date of Service: 07/04/24 Narrative: After the patient was identified as Emerita Plata and her left knee was initialed by myself they were brought to the operating room where general anesthesia was induced by the anesthesiologist in routine fashion. The patient was given 2 g of IV Ancef preoperatively for infection prophylaxis. The patient's left lower extremity was prepped and draped in sterile fashion. A formal time-out was completed. Marcaine was injected into the planned incision sites as well as the patient's left knee joint. A #11 scalpel blade was used to make an anterolateral portal 1 cm proximal to the joint line and 1 cm lateral to the patellar tendon. Blunt trocar technique was used to enter the suprapatellar pouch with the knee in extension. Diagnostic arthroscopy showed multiple bands of thickened plica which would be excised at the end of the procedure. There were no loose bodies or abnormalities found in either the medial or lateral gutters. The articular surface of the patella showed diffuse grade 1 degenerative changes. The trochlear groove articular surface showed diffuse grade 1 degenerative changes. The patient's knee was flexed to 45 degrees and a valgus force was placed upon it. The medial compartment was entered. An anteromedial portal was made 1 cm proximal to the joint line and 1 cm medial to the patellar tendon. Probing of the medial meniscus showed a radial tear of the anterior horn. A partial medial meniscectomy was performed using the arthroscopic shaver. Following the partial meniscectomy the remainder of the meniscus tissue was stable. There were diffuse grades 1 and 2 degenerative changes of the medial femoral condyle as well as grade 1 degenerative changes of the medial tibial plateau. The articular surface of the medial femoral condyle was then made smooth using the arthroscopic shaver. The articular surface of the medial tibial plateau was already smooth so no chondroplasty was indicated. The patient's knee was placed into a neutral position. There was no injury to t he anterior cruciate ligament. The patient's knee was then placed in the figure of 4 position and the lateral compartment was entered. There was no evidence of lateral meniscus tearing. There were minimal degenerative changes of the lateral femoral condyle and lateral tibial plateau. The patient's knee was once again brought into extension and the suprapatellar pouch was entered. The arthroscopic shaver and the ArthroCare Wand were used to excise the thickened bands of plica. The knee joint was irrigated and then drained. All arthroscopic instruments were removed. The 2 portals were closed with 3-0 nylon interrupted suture. The knee joint was injected with Marcaine. Dry sterile dressing and Cuco bandages were placed over the patient's knee. The patient was awoken and extubated in the operating room. The patient was transferred to the recovery room in stable condition.
--- NOTE | 2024-07-04 08:40 | PM.OP ---
Brief Operative Note Date of Service: 07/04/24 Pre-op diagnosis: Left knee medial meniscus tear, left knee degenerative joint disease Post-op diagnosis: same Procedure: Left knee arthroscopic partial medial meniscectomy, left knee arthroscopic chondroplasty of the medial femoral condyle Implants: none Surgeon: Rashard Andrade MD Anesthesia: GLMA Was an Freight And Passenger Agent used for this Procedure?: No Estimated blood loss (mL): 10 Pathology: none sent Condition: stable Disposition: PACU
[2024-07-04] MEDS: fentaNYL citrate/PF 100 MCG/2 ML VIAL 25 MCG IVPUSH ×3 (08:45→09:00)
[2024-07-04] MEDS: cefTRIAXone sodium 1 GM VIAL IVPUSH (09:04)
== END 2024-07-04 10:54 | disposition home or self-care (01) ==
PROVIDERS: PCP Physician Assistant; Visit Provider Orthopaedic Surgery
PROC: (CPT 29870; principal; 2024-07-04 07:30)
DX: S83.242A Other tear of medial meniscus, current injury, left knee, initial encounter (principal); M25.562 Pain in left knee; M23.52 Chronic instability of knee, left knee; M67.52 Plica syndrome, left knee; M17.12 Unilateral primary osteoarthritis, left knee; X58.XXXA Exposure to other specified factors, initial encounter; Y93.9 Activity, unspecified; Y92.9 Unspecified place or not applicable; Y99.9 Unspecified external cause status; M79.7 Fibromyalgia; J45.909 Unspecified asthma, uncomplicated; F41.9 Anxiety disorder, unspecified; F32.A Depression, unspecified; Z86.73 Personal history of transient ischemic attack (TIA), and cerebral infarction without residual deficits; Z79.01 Long term (current) use of anticoagulants; Z79.51 Long term (current) use of inhaled steroids; Z79.899 Other long term (current) drug therapy; Z88.6 Allergy status to analgesic agent; Z88.5 Allergy status to narcotic agent; Z98.890 Other specified postprocedural states
CPT/HCPCS: 29881; J0131; J0171; J0690; J0696; J1100; J2003; J2250; J2405; J2704; J2795; J3010

== ENCOUNTER → 2024-07-04 05:55 | Outpatient (BNV) | payer MEDICARE, MEDICAID, SELFPAY | PROVIDERS: PCP Physician Assistant; Visit Provider Orthopaedic Surgery | DX: S83.242A Other tear of medial meniscus, current injury, left knee, initial encounter (principal) | CPT/HCPCS: 29881 ==

== ENCOUNTER 2024-07-17 10:37 | Outpatient (AMB) | payer MEDICARE, MEDICAID, SELFPAY ==
--- NOTE | 2024-07-17 10:41 | MHC.OFFVIS ---
Vital Signs 07/17/24 10:42 Height 5 ft 4 in Weight 293 lb BMI 50.3 Intake Visit Reasons: PO LT knee 07/04/24 DR Intake Note: Emerita is a 49 year old female who presents with complaints of mild to moderate discomfort in her left knee after undergoing left knee arthroscopic surgery on 07/04/2024. She denies any fevers or chills. She continues with her home stretching program. She has not yet returned to work. Allergies ibuprofen [From Motrin] Allergy (Severe, Verified 07/17/24 10:42) HIVES,SWELLING shellfish derived Allergy (Severe, Verified 07/17/24 10:42) Angioedema meperidine [Demerol] Allergy (Unknown, Verified 07/17/24 10:42) Vomiting morphine [MORPHINE] Allergy (Unknown, Verified 07/17/24 10:42) CHEST PAIN NSAIDS (Non-Steroidal Anti-Inflamma Allergy (Verified 07/17/24 10:42) Itching tramadol Adverse Reaction (Intermediate, Verified 07/17/24 10:42) GI upset hydroxyzine Adverse Reaction (Mild, Verified 07/17/24 10:42) mouth numbess Medication List - Last Reviewed 07/17/24 by KIRSTIE Oquendo albuterol sulfate 5 mg inhalation Q6H PRN albuterol sulfate 90 mcg/actuation (Ventolin HFA) 1 puff inhalation QID PRN aripiprazole 2 mg PO QAM blood pressure monitor (Blood Pressure Kit) As directed cholecalciferol (vitamin D3) 50 mcg PO DAILY 90 days escitalopram oxalate 20 mg PO DAILY lamotrigine 150 mg PO DAILY lansoprazole 30 mg PO DAILY nebulizers (AeroEclipse II Nebulizer) As directed nebulizers As directed oxycodone 5 mg PO Q24H PRN [Probiotic Acidophilus ] ropinirole 0.5 mg PO BEDTIME trazodone 200 mg PO BEDTIME PRN triamcinolone acetonide 0.1% 1 appl topical DAILY 15 days PFSH Medical History Benign tumor of pituitary gland Sleep apnea History of CVA (cerebrovascular accident) Morbid obesity 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) COVID-19 Hx of supraventricular tachycardia Hx-TIA (transient ischemic attack) Back spasm Obesity Headache GERD (gastroesophageal reflux disease) Screening for hypothyroidism Screening for hypercholesterolemia Screening for diabetes mellitus (DM) Anxiety Depression Fibromyalgia Asthma Surgical History Hx of colonoscopy History of partial knee replacement Hx of tubal ligation History of endoscopy History of History of knee surgery History of cholecystectomy Family History Mother High cholesterol Father Lupus Diabetes Thyroid disease FH: prostate cancer Brother Asthma Anxiety Depression Daughter Depression Anxiety Childhood autism Maternal Grandmother Glaucoma Other Mental problem Substance abuse Social History Housing: House Are you a primary child adolescent care to a significant other at home: No Do you presently have visiting nurse or other home services: No Alcohol intake: never Patient Tobacco Use Status: Never used Tobacco e-Cigarette/Vaping Use: Never Used Second Hand Smoke Exposure: Yes service: No Current occupational status: employed and disabled 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 Plata is doing fairly well after undergoing left knee arthroscopic surgery on 07/04/2024. Her sutures were removed and Steri-Strips placed over her incisions. She will continue to progress to activities as tolerated. I am okay with her returning to work over the next few weeks as her discomfort allows. She will contact me prior to her follow-up appointment in 2 months should any questions or concerns arise. Feel free to call me at any time should questions regarding her orthopedic management arise. Coding Level of Care Code Global (86461) Diagnoses Left knee pain M25.562
[2024-07-17 10:42] VITALS: BMI 50.3
--- OUTSIDE RECORDS SUMMARY | 2024-07-17 12:23 | XMS_ITS | Clinical Summary ---
Author Organization [facility] Address [address] [place] [address] Care Team Providers Care Animation Camera Operator Name Role Phone Jeremy Sanches Primary [...] age to complete this topic Care Teams Animation Camera Operator Relationship Specialty Start Date End Date Jeremy Sanches PA PCP - General Internal Medicine 09/06/21
== END 2024-07-17 11:00 | disposition home or self-care (01) ==
LOC: HO.HOS 10:38
PROVIDERS: PCP Physician Assistant; Visit Provider Orthopaedic Surgery
DX: M25.562 Pain in left knee (principal)
CPT/HCPCS: 99024

== ENCOUNTER → 2024-07-17 10:37 | Outpatient (BNVA) | payer MEDICARE, MEDICAID, SELFPAY | PROVIDERS: PCP Physician Assistant; Visit Provider Orthopaedic Surgery | DX: M25.562 Pain in left knee (principal) | CPT/HCPCS: 99212 ==

== ENCOUNTER 2024-08-25 09:06 | Outpatient (REF) | payer MEDICARE, MEDICAID, SELFPAY ==
--- OUTSIDE RECORDS SUMMARY | 2024-08-25 09:57 | XMS_ITS | Clinical Summary ---
Author Organization [facility] Address [id number] [place] [id number] Care Team Providers Care Plow Mechanic Name Role Phone Jeremy Sanches Primary Care Provider Medical History Medical History Date Comments Unspecified asthma(493.90) 06/02/2005 DX:Un specified asthma(493.90) Esophageal reflux 06/02/2005 DX:Esophageal reflux Depressive disorder, not els ewhere classified 06/02/2005 DX:Depressive disorder, not elsewhere classified Lumbago 06/02/2005 DX:Lumbago Unspecified disorder of eye movements 06/02/2005 DX:Unspecified disorder of eye movements Paroxysmal supraventricular tachycardia (CMS/HCC V24) 07/18/2006 DX:Paroxysmal supraventricul ar tachycardia (HCC) Family [...] Influencers of Health Screening 04/02/2022 COVID-19 Vaccine (2023-2 5 season) 2023 Influenza Vaccine (Season Ended) 2024 HIB Vaccines Aged Out No longer eligi [...] age to complete this topic Meningococcal B Vaccine Aged Out No l onger eligible based on patient's age to complete this topic RSV Immunization Patients Un paris 20 months Aged Out No longer eligible b ased on patient's age to complete this topic Varicella Vaccines Aged Out No longer eligible based on patient's age to complete this topic Care Teams Plow Mechanic Relationship Specialty Start Date End Date Jeremy Sanches PA PCP - General Internal Medicine 09/06/21
== END 2024-08-25 09:07 | disposition home or self-care (01) ==
LOC: HO.MAMMO 09:06
PROVIDERS: PCP Physician Assistant; Visit Provider Physician Assistant
DX: Z12.31 Encounter for screening mammogram for malignant neoplasm of breast (principal)
CPT/HCPCS: 77063; 77067

== ENCOUNTER → 2024-08-25 09:29 | Outpatient (BNV) | payer MEDICARE, MEDICAID, SELFPAY | PROVIDERS: PCP Physician Assistant; Visit Provider Internal Medicine | DX: Z12.31 Encounter for screening mammogram for malignant neoplasm of breast (principal) | CPT/HCPCS: 77063; 77067 ==

== ENCOUNTER 2024-09-20 09:18 | Outpatient (AMB) | payer MEDICARE, MEDICAID, SELFPAY ==
[2024-09-20 09:20] VITALS: BP 118/80; PULSE 79; TEMP 36.6; O2SAT 98; BMI 50.3
--- NOTE | 2024-09-20 09:20 | MHC.OFFWIV ---
Intake Vital Signs 09/20/24 09:20 Height 5 ft 4 in Weight 293 lb BMI 50.3 BP 118/80 Blood Pressure Location Rt brachial Position Sitting Pulse 79 Pulse Source Pulse Oximeter Temp 97.8 F Temp Source Oral Pulse Oximetry (%) 98 Oxygen Delivery Method Room Air Intake Visit Reasons: EP- SOB, Light headed Patient Tobacco Use Status: Never used Tobacco Allergies ibuprofen [From Motrin] Allergy (Severe, Verified 09/20/24 09:27) HIVES,SWELLING shellfish derived Allergy (Severe, Verified 09/20/24 09:27) Angioedema meperidine [Demerol] Allergy (Unknown, Verified 09/20/24 09:27) Vomiting morphine [MORPHINE] Allergy (Unknown, Verified 09/20/24 09:27) CHEST PAIN NSAIDS (Non-Steroidal Anti-Inflamma Allergy (Verified 09/20/24 09:27) Itching tramadol Adverse Reaction (Intermediate, Verified 09/20/24 09:27) GI upset hydroxyzine Adverse Reaction (Mild, Verified 09/20/24 09:27) mouth numbess Do you need a note to return to daycare/school/sports/work: No HPI EP- SOB, Light headed HPI Details Patient is a 49-year-old female with extensive past medical history / comorbidities including Morbid obesity, TIAs, possible [place], arrhythmias, who comes to the walk-in clinic complaining of shortness of breath, generalized weakness and lightheadedness since an episode of exertion yesterday. she denies being sick prior to this starting, and denies fever or chills, cough, chest pain or discomfort, nausea vomiting or diarrhea,trauma, or other significant symptoms. 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) COVID-19 Hx of supraventricular tachycardia Hx-TIA (transient ischemic attack) Back spasm Obesity Headache GERD (gastroesophageal reflux disease) Screening for hypothyroidism Screening for hypercholesterolemia Screening for diabetes mellitus (DM) Anxiety Depression Fibromyalgia Asthma Surgical History Hx of colonoscopy History of partial knee replacement Hx of tubal ligation History of endoscopy History of History of knee surgery History of cholecystectomy Family History Mother High cholesterol Father Lupus Diabetes Thyroid disease FH: prostate cancer Brother Asthma Anxiety Depression Daughter Depression Anxiety Childhood autism Maternal Grandmother Glaucoma Other Mental problem Substance abuse Social History Housing: House Are you a primary auto care center manager to a significant other at home: No Do you presently have visiting nurse or other home services: No Alcohol intake: never Patient Tobacco Use Status: Never used Tobacco e-Cigarette/Vaping Use: Never Used Second Hand Smoke Exposure: Yes service: No Current occupational status: employed and disabled 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[employer] Cognitive needs: No Hearing needs: No Vision needs: Yes (Glasses) Review of Systems Const All systems reviewed & are unremarkable except as noted in HPI and below Neuro Denies confusion Psych Denies confusion Physical Exam Vital Signs: Last Vital Signs Temp 97.8 F 09/20/24 09:20 Pulse 79 09/20/24 09:20 BP 118/80 09/20/24 09:20 Pulse Ox 98 09/20/24 09:20 Oxygen Delivery Method Room Air 09/20/24 09:20 BMI result Body Mass Index 50.3 Const General: cooperative, alert, awake, Physically active, in distress, tired appearing and well groomed; No healthy appearing, comfortable, confusion, diaphoretic, intoxicated appearing, lethargic, patient obtunded or poor hygiene Nutritional Appearance: obese Orientation/consciousness: patient oriented x3, No confusion, No patient obtunded and No lethargic Limitations: no limitations Neck Neck: Yes normal visual inspection, Yes full ROM, Yes no lymphadenopathy, Yes trachea midline and Yes supple Chest Chest palpation & inspection: normal palpation of entire chest wall Resp Effort & Inspection: normal respiratory effort, able to speak in complete sentences, no audible wheezes, no cough, no grunting, not labored, no nasal flaring, no pursed lip breathing, respiratory distress, no retractions, no stridor, no tracheal deviation, tripod positioning, no use of accessory muscles, No prolonged expiratory phase and symmetric chest movement Auscultation: clear to auscultation bilaterally, no crackles, no rales, no rhonchi, no wheezes, diminished lung sounds, No rub present and no vesicular sounds Cardio Rate: regular rate Rhythm: regular rhythm Heart sounds: S1 normal heart sound present and S2 normal heart sound present Skin Other: Good color, warm and dry Neuro General: patient oriented x3, No confusion and No patient obtunded Psych Appearance: grossly normal Mental Status: mental status grossly normal Speech and movement: Normal speech and movement present Attitude: cooperative Thought process: Normal thought process present Insight: Good insight present (Psych) Judgement: Good judgement present (Psych) Assessment & Plan Assessment & Plan (1) Shortness of breath: Code(s): R06.02 - Shortness of breath Plan: Patient is a 49-year-old female with extensive past medical history / comorbidities including Morbid obesity, TIAs, possible [place], arrhythmias, who comes to the walk-in clinic complaining of shortness of breath, generalized weakness and lightheadedness since an episode of exertion yesterday. She is still symptomatic on exam, and although her vital signs are stable, her history and presentation are concerning for likely cardiac cause of symptoms. she agreed to be transported by ambulance to emergency department. Her request his [facility], however I told her that if her EKG shows she needs to go to [facility], the ambulance will need to take her there. She was amenable to this. Expect will be called in. Coding Level of Care Code Est Pt Level 4 (73519) Diagnoses Shortness of breath R06.02
== END 2024-09-20 10:27 | disposition home or self-care (01) ==
LOC: HO.HMCWIC 09:18
PROVIDERS: PCP Physician Assistant; Visit Provider Physician Assistant Medical
DX: R06.02 Shortness of breath (principal)

== ENCOUNTER → 2024-09-20 09:18 | Outpatient (BNVA) | payer MEDICARE, MEDICAID, SELFPAY | PROVIDERS: PCP Physician Assistant; Visit Provider Physician Assistant Medical | DX: R06.02 Shortness of breath (principal) | CPT/HCPCS: 99212 ==

== ENCOUNTER 2024-09-20 10:37 | Emergency (ER) | payer MEDICARE, MEDICAID, SELFPAY ==
--- NOTE | ~2024-09-20 | XR_ITS ---
CLINICAL HISTORY: dyspnea 2 view chest x-ray Comparison: CR/SR - XR CHEST 2V - 04/19/24 13:59 EST Findings: No consolidation or effusion. Normal size heart. No acute fracture. IMPRESSION: 1. No acute findings. This document has been electronically signed by: John Delarosa MD on 09/20/2024 11:24:50
[2024-09-20 10:44] VITALS: BP 127/65; BP 95/55; PULSE 68; PULSE 70; RESP 18; TEMP 36.7; O2SAT 100; O2SAT 99; BMI 51.5
--- NOTE | 2024-09-20 10:44 | ED_ITS ---
HPI - Chest Pain General Chief Complaint: Dyspnea Stated Complaint: SOB Time Seen by Provider: 09/20/24 10:39 Source: patient and EMS Mode of arrival: EMS Limitations: no limitations History of Present Illness ED Provider: HPI narrative: 49-year-old woman states she lifted some heavy bags yesterday, and was having midsternal chest pain, went to urgent care today and was sent to emergency department, she states she is significantly anxious, endorsing chest pain has been going on for the past 1 day, no fevers or chills reported. Chest pain is left-sided nonradiating not associated with nausea vomiting or diaphoresis. Related Data Home Medications ?Medication ?Instructions ?Recorded ?Confirmed aripiprazole 2 mg tablet 2 mg PO QAM 03/17/22 07/17/24 escitalopram oxalate 20 mg tablet 20 mg PO DAILY 03/17/22 07/17/24 Probiotic Acidophilus 07/04/24 07/17/24 trazodone 100 mg tablet 200 mg PO BEDTIME PRN insomnia 07/04/24 07/17/24 lamotrigine 200 mg tablet 200 mg PO DAILY 09/20/24 Previous Rx's ?Medication ?Instructions ?Recorded blood pressure monitor (Blood #1 ea 10/27/20 Pressure Kit) nebulizers (AeroEclipse II #1 ea 05/07/21 Nebulizer) cholecalciferol (vitamin D3) 50 50 mcg PO DAILY 90 days #90 caps 11/16/23 mcg (2,000 unit) capsule ropinirole 0.5 mg tablet 0.5 mg PO BEDTIME #90 tabs 03/30/24 albuterol sulfate 90 mcg/actuation 1 puff inhalation QID PRN for 03/31/24 aerosol inhaler (Ventolin HFA) dyspnea #18 ea lansoprazole 30 mg capsule,delayed 30 mg PO DAILY #90 caps 04/08/24 release albuterol sulfate 5 mg/mL(0.5 %) 5 mg inhalation Q6H PRN shortness 04/19/24 solution for nebulization of breath or wheezing #75 mL nebulizers #1 ea 04/19/24 triamcinolone acetonide 0.1 % 1 appl topical DAILY 15 days #30 06/24/24 topical ointment grams Allergies Allergy/AdvReac Type Severity Reaction Status Date / Time ibuprofen [From Motrin] Allergy Severe HIVES,SWELL Verified 09/20/24 10:47 ING shellfish derived Allergy Severe Angioedema Verified 09/20/24 10:47 meperidine [Demerol] Allergy Unknown Vomiting Verified 09/20/24 10:47 morphine [MORPHINE] Allergy Unknown CHEST PAIN Verified 09/20/24 10:47 NSAIDS (Non-Steroidal Allergy Itching Verified 09/20/24 10:47 Anti-Inflamma tramadol AdvReac Intermediate GI upset Verified 09/20/24 10:47 hydroxyzine AdvReac Mild mouth Verified 09/20/24 10:47 numbess Review of Systems 2 Constitutional: Constitutional: [facility] Past Medical History Medical History Benign tumor of pituitary gland Sleep apnea History of CVA (cerebrovascular accident) Morbid obesity 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) COVID-19 Hx of supraventricular tachycardia Hx-TIA (transient ischemic attack) Back spasm Obesity Headache GERD (gastroesophageal reflux disease) Screening for hypothyroidism Screening for hypercholesterolemia Screening for diabetes mellitus (DM) Anxiety Depression Fibromyalgia Asthma Surgical History Hx of colonoscopy History of partial knee replacement Hx of tubal ligation History of endoscopy History of History of knee surgery History of cholecystectomy Family History Family History Mother High cholesterol Father Lupus Diabetes Thyroid disease FH: prostate cancer Brother Asthma Anxiety Depression Daughter Depression Anxiety Childhood autism Maternal Grandmother Glaucoma Other Mental problem Substance abuse Social History Social History Housing: House Are you a primary residential child care counselor to a significant other at home: No Do you presently have visiting nurse or other home services: No Alcohol intake: never Patient Tobacco Use Status: Never used Tobacco e-Cigarette/Vaping Use: Never Used Second Hand Smoke Exposure: Yes Advance Directives: No Advance Directives Information Provided: Yes Do you have a plan to hurt others: No Plan service: No Current occupational status: employed and disabled 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 [employer] Cognitive needs: No Hearing needs: No Vision needs: Yes (Glasses) Physical Exam 2 Vital Signs: Vital Signs: Last Vital Signs Temp 98.0 F 09/20/24 11:23 Pulse 82 09/20/24 12:42 Resp 16 09/20/24 12:42 BP 126/75 09/20/24 12:42 Pulse Ox 98 09/20/24 12:42 O2 Del Method Room Air 09/20/24 12:42 BMI result Body Mass Index 51.5 Const: Other: * Gen: ?Anxious, tachypneic, not oxygen dependent * CV: RRR, no obvious murmurs appreciated * Resp: ?No wheezing rales rhonchi no stridor moving air well * Abd: ?Bowel sounds are present, no tenderness no rebound no rigidity * MSK: FROM, strength 5/5 all extremities, lymphedema no pitting edema chronic venous stasis changes * Skin: Warm, dry, intact, * Neuro: ?Alert and oriented x3, moving upper and lower extremities symmetrically, no obvious facial asymmetry noted Medications Administered Discontinued Medications Generic Name Dose Route Start Last Admin Trade Name Freq PRN Reason Stop Dose Admin Diazepam 4 mg 09/20/24 10:55 09/20/24 11:23 Diazepam 2 Mg Tablet PO 09/20/24 10:56 4 mg ONCE ONE Administration Medical Decision Making Medical Decision Making [facility] Narrative: Presenting with chest pain since yesterday, significant anxiety, considerations for workup as below, pain since yesterday, unlikely to be cardiac EKG without any changes underlying ACS No hypoxic tachycardic to suspect PE Disposition to be determined based on workup 13:30 patient feels better, vital signs and workup has been reassuring we will be discharging Differential Diagnosis Differential Diagnoses: The differential diagnosis associated with the presentation includes ACS, pneumothorax, aortic dissection, PE, Boerhaave syndrome, CHF, pneumonia Admission/Observation Consideration of admission/observation: Escalation of care including admission/observation considered Lab Data [facility] Lab Attestation statement: I reviewed the patient's lab results. 09/20/24 11:47 09/20/24 11:47 Labs: Lab Results 09/20/24 Range/Units 11:47 WBC 6.3 (4.8-10.8) X10*3/uL RBC 4.93 (4.20-5.50) X10*6/uL Hgb 14.5 (12.0-16.0) g/dl Hct 42.7 (37.0-47.0) % MCV 86.6 (80.0-98.0) fL MCH 29.4 (27.0-33.0) pg MCHC 34.0 (31.0-35.0) g/dl RDW 12.3 (11.0-16.0) % Plt Count 269 (160-400) X10*3/uL MPV 10.3 (9.4-12.3) fL Immature Gran % (Auto) 0.5 H (0.0-0.4) % Neut % (Auto) 65.6 (45-73) % Lymph % (Auto) 24.2 (20-40) % [place] % (Auto) 8.1 (2-11) % Eos % (Auto) 0.8 (0-4) % Baso % (Auto) 0.8 (0-2) % Lymph # (Auto) 1.5 (1.2-4.9) X10*3/uL [place] # (Auto) 0.5 (0.1-1.2) X10*3/uL Eos # (Auto) 0.1 (0.0-0.4) X10*3/uL Baso # (Auto) 0.1 (0.0-0.2) X10*3/uL Abs Immat Gran (auto) 0.03 (0.00-0.03) X10*3/uL Absolute Neuts (auto) 4.1 (2.0-8.3) x10*3/uL Absolute Nucleated RBC 0.000 (0.0-0.012) X10*3/uL Nucleated RBC % (auto) 0.0 (0.0-0.2) /100WBC Sodium 140 (135-145) mmol/L Potassium 4.3 (3.3-5.1) mmol/L Chloride 104 (96-108) mmol/L Carbon Dioxide 27 (22-29) mmol/L Anion Gap 13 (12-20) BUN 13 (9-16) mg/dL Creatinine 0.58 (0.5-1.4) mg/dL Estim Creat Clear Calc 161.6 Estimated GFR > 60 Random Glucose 98 (60-115) mg/dL Calcium 9.3 (8.4-10.2) mg/dL Troponin I High Sens < 2.7 (<3.5-17.0) ng/L B-Natriuretic Peptide < 10 (<100) pg/mL Independent Interpretation I performed an independent interpretation of an: EKG (69 otherwise normal ECG without dysrhythmia, AV genia blocks or ST-T changes to suspect underlying ACS, my independent interpretation) and Plain X-Ray (My independent chest xray interpretation: Lungs: Lungs are clear bilaterally without evidence of focal consolidation, pleural effusion, or pneumothorax. Cardiac silhouette is unremarkable, no obvious mediastinal widening, no obvious bony abnormalities such as fractures. Impression: Normal chest X-r) Radiology Impression Discussion of test interpretation with radiology: I have reviewed the radiologist's reading. Discharge Plan Discharge Clinical Impression: Chest pain, precordial Dyspnea Qualifiers: Dyspnea type: unspecified Qualified Code(s): R06.00 - Dyspnea, unspecified Patient Disposition: Home, Self-Care Additional Instructions: You were evaluated with shortness of breath, anxiety, you chest x-ray, EKG, cardiac enzymes, heart failure markers, physical examination and overall visit has been reassuring, did not find any acute findings, follow up with the primary care physician, take all your regular medications for anxiety and scribed, other issues or concerns come back to the ER Prescriptions: No Action (DME) blood pressure monitor [Blood Pressure Kit] Kit See Rx Instructions .ROUTE .MEDSUPPLY Qty: 1 0RF Rx Instructions: As directed cholecalciferol (vitamin D3) 50 mcg (2,000 unit) capsule 50 mcg PO DAILY 90 Days Qty: 90 1RF ropinirole 0.5 mg tablet 0.5 mg PO BEDTIME Qty: 90 2RF albuterol sulfate [Ventolin HFA] 90 mcg/actuation HFA aerosol inhaler 1 puff inhalation QID PRN (Reason: for dyspnea) Qty: 18 6RF lansoprazole 30 mg capsule,delayed release(DR/EC) 30 mg PO DAILY Qty: 90 2RF (DME) nebulizers [AeroEclipse II Nebulizer] Misc See Rx Instructions .ROUTE .MEDSUPPLY Qty: 1 0RF Rx Instructions: As directed (DME) nebulizers Misc See Rx Instructions .Route Qty: 1 0RF Rx Instructions: As directed albuterol sulfate 5 mg/mL solution for nebulization 5 mg inhalation Q6H PRN (Reason: shortness of breath or wheezing) Qty: 75 0RF trazodone 100 mg tablet 200 mg PO BEDTIME PRN (Reason: insomnia) Probiotic Acidophilus 100 units aripiprazole 2 mg tablet 2 mg PO QAM escitalopram oxalate 20 mg tablet 20 mg PO DAILY lamotrigine 200 mg tablet 200 mg PO DAILY triamcinolone acetonide 0.1 % ointment 1 appl topical DAILY 15 Days Qty: 30 0RF Referrals: Jeremy Sanches PA-C [Primary Care Provider] - Print Language: Mozambican
--- NOTE | 2024-09-20 10:46 | ECG_ITS ---
Test Reason : cp Blood Pressure : */* mmHG Vent. Rate : 69 BPM Atrial Rate : 69 BPM P-R Int : 142 ms QRS Dur : 78 ms QT Int : 394 ms P-R-T Axes : 21 22 30 degrees QTcB Int : 422 ms Normal sinus rhythm Normal ECG When compared with ECG of 24-Jun-2024 13:48, No significant change was found Referred By: Iglesia Nelson Electronically Signed By: DAQUAN TRUONG MD
[2024-09-20 11:23] VITALS: BP 102/68; PULSE 73; RESP 19; TEMP 36.7; O2SAT 98
[2024-09-20] MEDS: diazePAM 2 MG TABLET 4 MG PO (11:23)
[2024-09-20 11:50] LABS: MANUAL DIFF FLAG NO
[2024-09-20 12:00] LABS: Basophils Absolute Auto 0.1 X10*3/uL (0.0-0.2); Basophils Percent Auto 0.8 % (0-2); Eosinophils Absolute Auto 0.1 X10*3/uL (0.0-0.4); Eosinophils Percent Auto 0.8 % (0-4); Hematocrit 42.7 % (37.0-47.0); Hemoglobin 14.5 g/dl (12.0-16.0); Imm Gran Abs Auto 0.03 X10*3/uL (0.00-0.03); Imm Gran Pct Auto 0.5 % (0.0-0.4); Lymphocytes Absolute Auto 1.5 X10*3/uL (1.2-4.9); Lymphocytes Percent Auto 24.2 % (20-40); Mean Corpuscular Hemoglobin 29.4 pg (27.0-33.0); Mean Corpuscular Volume 86.6 fL (80.0-98.0); Mean Platelet Volume 10.3 fL (9.4-12.3); Monocytes Absolute Auto 0.5 X10*3/uL (0.1-1.2); Monocytes Percent Auto 8.1 % (2-11); Neutrophils Absolute Auto 4.1 x10*3/uL (2.0-8.3); Neutrophils Percent Auto 65.6 % (45-73); Platelet Count 269 X10*3/uL (160-400); Red Blood Count 4.93 X10*6/uL (4.20-5.50); Red Cell Distribution Width 12.3 % (11.0-16.0); White Blood Count 6.3 X10*3/uL (4.8-10.8)
[2024-09-20 12:05] LABS: Anion Gap 13 (12-20); Blood Urea Nitrogen 13 mg/dL (9-16); Calcium 9.3 mg/dL (8.4-10.2); Carbon Dioxide 27 mmol/L (22-29); Chloride 104 mmol/L (96-108); Creatinine Clr Calc Pharmacy 161.6; Estimated Glomerular Filt Rate > 60; Glucose Random 98 mg/dL (60-115); Potassium 4.3 mmol/L (3.3-5.1); Sodium 140 mmol/L (135-145)
[2024-09-20 12:13] LABS: B Type Natriuretic Peptide < 10 pg/mL (<100)
[2024-09-20 12:17] LABS: Troponin-I High Sensitivity < 2.7 ng/L (<3.5-17.0)
[2024-09-20 12:42] VITALS: BP 126/75; PULSE 82; RESP 16; O2SAT 98
[2024-09-20 13:53] VITALS: BP 126/75; PULSE 82; RESP 16; TEMP 36.3; O2SAT 98
== END 2024-09-20 13:53 | disposition home or self-care (01) ==
PROVIDERS: Emergency Provider Emergency Medicine; PCP Physician Assistant
DX: R07.89 Other chest pain (principal); R06.00 Dyspnea, unspecified; Z79.899 Other long term (current) drug therapy
CPT/HCPCS: 36415; 71046; 80048; 83880; 84484; 85025; 93005; 99212; 99283; 99284

== ENCOUNTER → 2024-09-20 10:45 | Outpatient (BNV) | payer MEDICARE, MEDICAID, SELFPAY | PROVIDERS: Emergency Provider Emergency Medicine; PCP Physician Assistant; Visit Provider Radiology Diagnostic Radiology | DX: R06.00 Dyspnea, unspecified (principal) | CPT/HCPCS: 71046 ==

== ENCOUNTER → 2024-09-20 10:46 | Outpatient (BNV) | payer MEDICARE, MEDICAID, SELFPAY | PROVIDERS: Emergency Provider Emergency Medicine; PCP Physician Assistant; Visit Provider Internal Medicine Cardiovascular Disease | DX: R07.9 Chest pain, unspecified (principal) | CPT/HCPCS: 93010 ==

== ENCOUNTER 2024-10-13 16:32 | Emergency (ER) | payer MEDICARE, MEDICAID, SELFPAY ==
--- NOTE | ~2024-10-13 | XR_ITS ---
CLINICAL HISTORY: chest pain, palpitations Two views of the chest. COMPARISON: XR chest dated 09/20/24 at 11:17 EDT FINDINGS: Normal heart and mediastinal contours. No consolidation. No pleural effusion or pneumothorax. No acute fracture. IMPRESSION: 1. No consolidation. This document has been electronically signed by: Bryson Mcclendon MD on 10/13/2024 17:14:50
--- NOTE | 2024-10-13 16:33 | ECG_ITS ---
Test Reason : CHEST PAIN Blood Pressure : */* mmHG Vent. Rate : 85 BPM Atrial Rate : 85 BPM P-R Int : 136 ms QRS Dur : 80 ms QT Int : 348 ms P-R-T Axes : 28 11 32 degrees QTcB Int : 414 ms Normal sinus rhythm Possible Left atrial enlargement Cannot rule out Anterior infarct , age undetermined Abnormal ECG When compared with ECG of 20-Sep-2024 10:46, No significant change was found Referred By: Generic ED Physician Electronically Signed By: Roberto Espino
--- NOTE | 2024-10-13 16:42 | ED_ITS ---
HPI - General Adult General Chief complaint: Chest Pain Stated complaint: chest pain Time Seen by Provider: 10/13/24 17:19 Source: patient Mode of arrival: ambulatory Limitations: no limitations History of Present Illness ED Provider: HPI narrative: Patient's history of obesity hypertension anxiety depression sleep apnea fibromyalgia was at work sudden noticed left-sided chest pain without any palpitation patient is localized in mid sternum radiating to the left side of the chest no diaphoresis no nausea no vomiting patient is seen here for similar pain on 09/19 and workup was negative patient felt dizzy and short of breath with nausea Related Data Home Medications ?Medication ?Instructions ?Recorded ?Confirmed aripiprazole 2 mg tablet 2 mg PO QAM 03/17/22 07/17/24 escitalopram oxalate 20 mg tablet 20 mg PO DAILY 03/17/22 07/17/24 Probiotic Acidophilus 07/04/24 07/17/24 trazodone 100 mg tablet 200 mg PO BEDTIME PRN insomnia 07/04/24 07/17/24 lamotrigine 200 mg tablet 200 mg PO DAILY 09/20/24 Previous Rx's ?Medication ?Instructions ?Recorded blood pressure monitor (Blood #1 ea 10/27/20 Pressure Kit) nebulizers (AeroEclipse II #1 ea 05/07/21 Nebulizer) cholecalciferol (vitamin D3) 50 50 mcg PO DAILY 90 days #90 caps 11/16/23 mcg (2,000 unit) capsule ropinirole 0.5 mg tablet 0.5 mg PO BEDTIME #90 tabs 03/30/24 albuterol sulfate 90 mcg/actuation 1 puff inhalation QID PRN for 03/31/24 aerosol inhaler (Ventolin HFA) dyspnea #18 ea lansoprazole 30 mg capsule,delayed 30 mg PO DAILY #90 caps 04/08/24 release albuterol sulfate 5 mg/mL(0.5 %) 5 mg inhalation Q6H PRN shortness 04/19/24 solution for nebulization of breath or wheezing #75 mL nebulizers #1 ea 04/19/24 triamcinolone acetonide 0.1 % 1 appl topical DAILY 15 days #30 06/24/24 topical ointment grams Allergies Allergy/AdvReac Type Severity Reaction Status Date / Time ibuprofen [From Motrin] Allergy Severe HIVES,SWELL Verified 10/13/24 16:46 ING shellfish derived Allergy Severe Angioedema Verified 10/13/24 16:46 meperidine [Demerol] Allergy Unknown Vomiting Verified 10/13/24 16:46 NSAIDS (Non-Steroidal Allergy Itching Verified 10/13/24 16:46 Anti-Inflamma tramadol AdvReac Intermediate GI upset Verified 10/13/24 16:46 hydroxyzine AdvReac Mild mouth Verified 10/13/24 16:46 numbess Review of Systems 2 Review of Systems: Yes all other systems are reviewed and are negative [facility] Past Medical History Medical History Benign tumor of pituitary gland Sleep apnea History of CVA (cerebrovascular accident) Morbid obesity 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) COVID-19 Hx of supraventricular tachycardia Hx-TIA (transient ischemic attack) Back spasm Obesity Headache GERD (gastroesophageal reflux disease) Screening for hypothyroidism Screening for hypercholesterolemia Screening for diabetes mellitus (DM) Anxiety Depression Fibromyalgia Asthma Surgical History Hx of colonoscopy History of partial knee replacement Hx of tubal ligation History of endoscopy History of History of knee surgery History of cholecystectomy Family History Family History Mother High cholesterol Father Lupus Diabetes Thyroid disease FH: prostate cancer Brother Asthma Anxiety Depression Daughter Depression Anxiety Childhood autism Maternal Grandmother Glaucoma Other Mental problem Substance abuse Social History Social History Housing: House Are you a primary healthcare social worker to a significant other at home: No Do you presently have visiting nurse or other home services: No Alcohol intake: never Patient Tobacco Use Status: Never used Tobacco Smoked in Last 30 Days: No e-Cigarette/Vaping Use: Never Used Second Hand Smoke Exposure: Yes Use of substances other than those prescribed or required for medical reasons: No Advance Directives: No Advance Directives Information Provided: No service: No Current occupational status: employed and disabled 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 Oriented X3. No acute distress. Eyes: No pallor or icterus ENT: Pharynx normal. Oral Mucosa moist Neck: Normal inspection. Neck supple. CVS: Normal heart rate and rhythm. Pulses normal. Respiratory: No respiratory distress. Equal air entry bilateral, no wheezing/rales/rhonchi Abdomen: Soft and nontender. Bowel sounds are present, no mass palpable, no CVA tenderness Skin: Skin warm and dry. Normal skin color. Normal skin turgor. Extremities: No lower extremity edema. No calf tenderness Neuro: Oriented X 3. No motor deficit. No sensory deficit.No cerebellar signs , cranial nerves II-XII intact Course Course Course Narrative: RME performed by Rosa Maria Rao PA-C. Patient is a 49 year old assigned female at presenting to the emergency department with palpitations and chest pain. Detailed physical exam and review of systems are deferred to the pediatric physical therapy assistant. EKG, labs, imaging, and swabs ordered. Patient placed back in the waiting room pending room availability and results. Medications Administered Discontinued Medications Generic Name Dose Route Start Last Admin Trade Name Macie PRN Reason Stop Dose Admin Midazolam HCl 1 mg 10/13/24 18:13 10/13/24 18:26 Midazolam Hcl 2 Mg/2 Ml Vial IVPUSH 10/13/24 18:14 1 mg ONCE ONE Administration Morphine Sulfate 4 mg 10/13/24 17:27 10/13/24 17:39 Morphine Sulfate 4 Mg/Ml Cartridge IVPUSH 10/13/24 17:28 4 mg ONCE ONE Administration Protocol Ondansetron HCl 4 mg 10/13/24 17:27 10/13/24 17:39 Ondansetron Hcl 4 Mg/2 Ml Vial IVPUSH 10/13/24 17:28 4 mg ONCE ONE Administration Medical Decision Making Medical Decision Making [facility] Narrative: Patient has frequent chest pain and shortness a breath 2 sets of cardiac enzymes negative D-dimer negative for PE EKG without any ischemic changes patient has been here with similar complaint in the past with history of anxiety likely noncardiac chest pain Differential Diagnosis Differential Diagnoses: The differential diagnosis associated with the presentation includes Anxiety/noncardiac chest pain/ACS/PE Admission/Observation Consideration of admission/observation: Escalation of care including admission/observation considered Lab Data MDM Lab Attestation statement: I reviewed the patient's lab results. 10/13/24 17:07 10/13/24 17:07 Labs: Lab Results 10/13/24 10/13/24 Range/Units 17:07 19:22 WBC 8.6 (4.8-10.8) X10*3/uL RBC 4.99 (4.20-5.50) X10*6/uL Hgb 14.5 (12.0-16.0) g/dl Hct 43.0 (37.0-47.0) % MCV 86.2 (80.0-98.0) fL MCH 29.1 (27.0-33.0) pg MCHC 33.7 (31.0-35.0) g/dl RDW 12.3 (11.0-16.0) % Plt Count 316 (160-400) X10*3/uL MPV 10.2 (9.4-12.3) fL Immature Gran % (Auto) 0.5 H (0.0-0.4) % Neut % (Auto) 64.6 (45-73) % Lymph % (Auto) 25.0 (20-40) % [place] % (Auto) 8.6 (2-11) % Eos % (Auto) 0.8 (0-4) % Baso % (Auto) 0.5 (0-2) % Lymph # (Auto) 2.2 (1.2-4.9) X10*3/uL [place] # (Auto) 0.7 (0.1-1.2) X10*3/uL Eos # (Auto) 0.1 (0.0-0.4) X10*3/uL Baso # (Auto) 0.0 (0.0-0.2) X10*3/uL Abs Immat Gran (auto) 0.04 H (0.00-0.03) X10*3/uL Absolute Neuts (auto) 5.6 (2.0-8.3) x10*3/uL Absolute Nucleated RBC 0.000 (0.0-0.012) X10*3/uL Nucleated RBC % (auto) 0.0 (0.0-0.2) /100WBC PT 11.7 (10.9-12.4) SEC INR 1.0 (0.9-1.1) D-Dimer High Sensitivty < 150 NG/ML Sodium 141 (135-145) mmol/L Potassium 3.9 (3.3-5.1) mmol/L Chloride 105 (96-108) mmol/L Carbon Dioxide 28 (22-29) mmol/L Anion Gap 12 (12-20) BUN 12 (9-16) mg/dL Creatinine 0.66 (0.5-1.4) mg/dL Estim Creat Clear Calc 153.2 Estimated GFR > 60 Random Glucose 91 (60-115) mg/dL Calcium 9.7 (8.4-10.2) mg/dL Magnesium 2.3 (1.6-2.6) mg/dL Total Bilirubin 0.4 (0.0-1.0) mg/dL AST 23 (5-31) U/L ALT 24 (0-31) U/L Alkaline Phosphatase 57 (39-117) U/L Troponin I High Sens < 2.7 < 2.7 (<3.5-17.0) ng/L Total Protein 7.6 (6.5-8.0) g/dL Albumin 4.6 (3.5-5.0) g/dL TSH 1.23 (0.32-4.0) uIU/mL Beta HCG, Quant < 2 mIU/mL Influenza Type A (PCR) NEGATIVE (Negative) Influenza Type B (PCR) NEGATIVE (Negative) RSV RNA Qual (PCR) NEGATIVE (Negative) SARS-CoV-2 RNA (RT-PCR) NEGATIVE (Negative) Independent Interpretation I performed an independent interpretation of an: EKG Interpretation: Normal sinus rhythm heart rate 85 beats per minute normal interval no acute STT wave changes no acute ischemia Discharge Plan Discharge Clinical Impression: Chest pain, Anxiety Patient Disposition: Home, Self-Care Instructions: Chest Pain (ED) Additional Instructions: Your chest pain is likely musculoskeletal/anxiety Your blood workup and cardiac enzymes are normal Follow up with your PCP for further evaluation Prescriptions: No Action (DME) blood pressure monitor [Blood Pressure Kit] Kit See Rx Instructions .ROUTE .MEDSUPPLY Qty: 1 0RF Rx Instructions: As directed cholecalciferol (vitamin D3) 50 mcg (2,000 unit) capsule 50 mcg PO DAILY 90 Days Qty: 90 1RF ropinirole 0.5 mg tablet 0.5 mg PO BEDTIME Qty: 90 2RF albuterol sulfate [Ventolin HFA] 90 mcg/actuation HFA aerosol inhaler 1 puff inhalation QID PRN (Reason: for dyspnea) Qty: 18 6RF lansoprazole 30 mg capsule,delayed release(DR/EC) 30 mg PO DAILY Qty: 90 2RF (DME) nebulizers [AeroEclipse II Nebulizer] Misc See Rx Instructions .ROUTE .MEDSUPPLY Qty: 1 0RF Rx Instructions: As directed (DME) nebulizers Misc See Rx Instructions .Route Qty: 1 0RF Rx Instructions: As directed albuterol sulfate 5 mg/mL solution for nebulization 5 mg inhalation Q6H PRN (Reason: shortness of breath or wheezing) Qty: 75 0RF trazodone 100 mg tablet 200 mg PO BEDTIME PRN (Reason: insomnia) Probiotic Acidophilus 100 units aripiprazole 2 mg tablet 2 mg PO QAM escitalopram oxalate 20 mg tablet 20 mg PO DAILY lamotrigine 200 mg tablet 200 mg PO DAILY triamcinolone acetonide 0.1 % ointment 1 appl topical DAILY 15 Days Qty: 30 0RF Interventions: ED Discharge Assessment Last Done: 10/13/24 20:30 Discharge Date/Time: 10/13/24 20:31 Print Language: Panamanian
[2024-10-13 16:43] VITALS: BP 104/69; PULSE 81; RESP 18; TEMP 36.4; O2SAT 98; BMI 44.3
[2024-10-13 17:21] LABS: MANUAL DIFF FLAG NO
[2024-10-13] MEDS: ondansetron HCL 4 MG/2 ML VIAL IVPUSH (17:39)
[2024-10-13] MEDS: Morphine Sulfate 4 MG/ML CARTRIDGE IVPUSH (17:39)
[2024-10-13 17:42] LABS: Basophils Percent Auto 0.5 % (0-2); Eosinophils Absolute Auto 0.1 X10*3/uL (0.0-0.4); Eosinophils Percent Auto 0.8 % (0-4); Hemoglobin 14.5 g/dl (12.0-16.0); Imm Gran Abs Auto 0.04 X10*3/uL (0.00-0.03); Imm Gran Pct Auto 0.5 % (0.0-0.4); Lymphocytes Absolute Auto 2.2 X10*3/uL (1.2-4.9); Mean Corpuscular HGB Conc 33.7 g/dl (31.0-35.0); Mean Corpuscular Hemoglobin 29.1 pg (27.0-33.0); Mean Corpuscular Volume 86.2 fL (80.0-98.0); Mean Platelet Volume 10.2 fL (9.4-12.3); Monocytes Absolute Auto 0.7 X10*3/uL (0.1-1.2); Monocytes Percent Auto 8.6 % (2-11); Neutrophils Absolute Auto 5.6 x10*3/uL (2.0-8.3); Neutrophils Percent Auto 64.6 % (45-73); Platelet Count 316 X10*3/uL (160-400); Red Blood Count 4.99 X10*6/uL (4.20-5.50); Red Cell Distribution Width 12.3 % (11.0-16.0); White Blood Count 8.6 X10*3/uL (4.8-10.8)
[2024-10-13 17:44] LABS: Alanine Aminotransferase 24 U/L (0-31); Albumin Level 4.6 g/dL (3.5-5.0); Alkaline Phosphatase 57 U/L (39-117); Anion Gap 12 (12-20); Aspartate Amino Transferase 23 U/L (5-31); Bilirubin Total 0.4 mg/dL (0.0-1.0); Blood Urea Nitrogen 12 mg/dL (9-16); Calcium 9.7 mg/dL (8.4-10.2); Carbon Dioxide 28 mmol/L (22-29); Chloride 105 mmol/L (96-108); Creatinine Clr Calc Pharmacy 153.2; Estimated Glomerular Filt Rate > 60; Glucose Random 91 mg/dL (60-115); Magnesium 2.3 mg/dL (1.6-2.6); Potassium 3.9 mmol/L (3.3-5.1); Sodium 141 mmol/L (135-145); Total Protein 7.6 g/dL (6.5-8.0)
[2024-10-13 17:48] LABS: HCG Quantitative < 2 mIU/mL; Troponin-I High Sensitivity < 2.7 ng/L (<3.5-17.0)
[2024-10-13 17:49] LABS: Prothrombin Time 11.7 SEC (10.9-12.4)
[2024-10-13 17:58] LABS: D Dimer High Sensitivity < 150 NG/ML
[2024-10-13 17:59] LABS: TSH reflex Free T4 1.23 uIU/mL (0.32-4.0)
[2024-10-13 18:04] LABS: Influenza A PCR NEGATIVE (Negative); Influenza B PCR NEGATIVE (Negative); Resp Syncy Virus RNA Qual PCR NEGATIVE (Negative); SARS COV2 PCR INHOUSE NEGATIVE (Negative)
--- NOTE | 2024-10-13 18:04 | PC.NURSE ---
Pt c/o sudden increase in MD NHAN aware. Pt remains in [facility]
--- OUTSIDE RECORDS SUMMARY | 2024-10-13 18:10 | XMS_ITS | Patient Health Record ---
[facility] Organization [facility] Address [address] [place] [address] Care Team Providers Care Printed Circuit Board Reworker Name Role Phone Walt Eaton MD Primary Care Provider Lashell Washburn Unavailable [phone] Allergies Allergen (clinical drug ingredient) Drug/Non Drug Allergy documented on EMR Reaction Allergy Type Onset Date Status ibuprofen Advil Throat closes Drug Allergy Act billy meperidine Demerol vomiting Drug Allergy Active morphine Morphine Chest pain Drug Allergy Active Adhesive Tape hives Drug Allergy Act billy Shrimp/Shell Fish hives Drug Allergy Active Latex itchy Drug Allergy Active Reason For Referral No Information Medications Medication SIG (Take, Route, Fr equency, Duration) Notes Start Date End Date Status Lyrica 150 MG (Schedule V Drug) TA KE ONE CAPSULE BY MOUTH TWICE A DAY Oral for 30 Active Sertraline HCl 100 MG TAKE 1&1/2 TABLETS BY MOUTH DAILY Oral for 90 Active Medrol 4 MG as directed Orally 04/17/2018 Active Topiramate 25 MG PLEASE SEE ATTACHED FOR DETAILED DIRECTIONS Oral for 30 Active Omeprazole 20 MG 1 capsule Orally Once a day 04/17 Active Walking Boot/Pneumatic As directed Wear Daily for Until further notice 04/17/2018 Active Amitriptyline HCl 10 MG TAKE 1 TABLET BY MOUTH EVERYDAY AT BEDTIME Oral for 90 Active Lipitor 20 MG 1 tablet Orally Once a day Active Wellbutrin Active Social History Tobacco Use: Social History Observation Description Date Details (start date - stop date) Never Smoker NA - NA Tobacco Use/Smoking Question Answer Notes Are you a: nonsmoker Additional Findings: Tobacco Non-User Current no n-smoker Alcohol Screen Question Answer Notes Did you have a drink containing alcohol in the p ast year? No Points 0 Interpretation Negative Tobacco use other than smoking: Question Answer Notes Are you an other tobacco user? No Plan Of Treatment Pending Test Test Name Order Date MRI : Ankle, left 04/17/2018 X ray : Ankle, left 3V 04/17/2018 X ray : Foot, left 2V 04/17/2018 Insurance Providers Payer Name Payer Address Payer Phone Subscriber Number Group Number Insured Name Patient Relationship to Insured Coverage Start Date Coverage End Date [employer] [address] [place] [address] [id number] Emerita Plata Self - patient is the insured Medical (General) History Medical History History ICD Code Anxiety Arthritis asthma Back,Hip,and Knee pain Broken bones Cholesterol Depression Fibromyalgia Gall bladder problems Headaches/Migraines Hiatal hernia Reflux Stroke Bone implants/screws Surgical History Surgery Date(Month/Year) eye surgery gall bladder knee surgery knee replacement tumor removal
[2024-10-13 18:15] VITALS: BP 130/74; PULSE 72; RESP 14; O2SAT 98
--- NOTE | 2024-10-13 18:15 | ECG_ITS ---
Test Reason : CP Blood Pressure : */* mmHG Vent. Rate : 65 BPM Atrial Rate : 65 BPM P-R Int : 144 ms QRS Dur : 80 ms QT Int : 396 ms P-R-T Axes : 6 25 28 degrees QTcB Int : 411 ms Normal sinus rhythm Anterior infarct (cited on or before 13-Oct-2024) Abnormal ECG When compared with ECG of 13-Oct-2024 16:34, No significant change was found Referred By: Darrin Mondragon Electronically Signed By: Roberto Espino
[2024-10-13] MEDS: Midazolam HCl 2 MG/2 ML VIAL 1 MG IVPUSH (18:26)
[2024-10-13 19:48] LABS: Troponin-I High Sensitivity < 2.7 ng/L (<3.5-17.0)
[2024-10-13 20:25] VITALS: BP 99/68; PULSE 78; RESP 20; TEMP 36.4; O2SAT 98
[2024-10-13 20:30] VITALS: BP 99/68; PULSE 78; RESP 18; TEMP 36.4
== END 2024-10-13 20:31 | disposition home or self-care (01) ==
PROVIDERS: Physician Assistant Medical; Emergency Provider Internal Medicine; PCP Physician Assistant
DX: R07.9 Chest pain, unspecified (principal); F41.9 Anxiety disorder, unspecified; Z03.818 Encounter for observation for suspected exposure to other biological agents ruled out; I10 Essential (primary) hypertension; J45.909 Unspecified asthma, uncomplicated; Z86.73 Personal history of transient ischemic attack (TIA), and cerebral infarction without residual deficits; Z79.899 Other long term (current) drug therapy
CPT/HCPCS: 0241U; 36415; 71046; 80053; 83735; 84443; 84484; 84702; 85025; 85379; 85610; 93005; 96374; 96375; 99284; 99285; J2250; J2270; J2405

== ENCOUNTER → 2024-10-13 16:33 | Outpatient (BNV) | payer MEDICARE, MEDICAID, SELFPAY | PROVIDERS: Emergency Provider Internal Medicine; PCP Physician Assistant; Visit Provider Internal Medicine Cardiovascular Disease | DX: R94.31 Abnormal electrocardiogram [ECG] [EKG] (principal); R07.9 Chest pain, unspecified; I25.2 Old myocardial infarction | CPT/HCPCS: 93010 ==

== ENCOUNTER → 2024-10-13 16:43 | Outpatient (BNV) | payer MEDICARE, MEDICAID, SELFPAY | PROVIDERS: Emergency Provider Internal Medicine; PCP Physician Assistant; Visit Provider Radiology Diagnostic Radiology | DX: R07.9 Chest pain, unspecified (principal); R00.2 Palpitations | CPT/HCPCS: 71046 ==

== ENCOUNTER 2024-10-16 10:35 | Outpatient (AMB) | payer MEDICARE, MEDICAID, SELFPAY ==
--- NOTE | 2024-10-16 10:36 | A.OFFPC_ITS ---
Vital Signs 10/16/24 10:47 Height 5 ft 9 in Weight 298 lb 6 oz BMI 44.1 BP 104/70 Blood Pressure Location Lt brachial Position Sitting Respiration 17 Pulse 70 Pulse Source Pulse Oximeter Temp 97.3 F Temp Source Temporal Artery Scan Pulse Oximetry (%) 95 Oxygen Delivery Method Room Air Intake Visit Reasons: Chest pain, Anxiety Coding Machine Operator Required: No Accompanied by: Self / Same As Patient Allergies ibuprofen (From Motrin) Allergy (Severe, Verified 10/16/24 11:04) HIVES,SWELLING shellfish derived Allergy (Severe, Verified 10/16/24 11:04) Angioedema meperidine (Demerol) Allergy (Unknown, Verified 10/16/24 11:04) Vomiting NSAIDS (Non-Steroidal Anti-Inflamma Allergy (Verified 10/16/24 11:04) Itching morphine Adverse Reaction (Intermediate, Verified 10/16/24 11:18) Chest Pain tramadol Adverse Reaction (Intermediate, Verified 10/16/24 11:04) GI upset hydroxyzine Adverse Reaction (Mild, Verified 10/16/24 11:04) mouth numbess Medication List - Last Reconciled 10/16/24 by Jeremy Sanches PA-C albuterol sulfate 5 mg inhalation Q6H PRN albuterol sulfate 90 mcg/actuation (Ventolin HFA) 1 puff inhalation QID PRN aripiprazole 2 mg PO QAM blood pressure monitor (Blood Pressure Kit) As directed cholecalciferol (vitamin D3) 50 mcg PO DAILY 90 days escitalopram oxalate 20 mg PO DAILY lamotrigine 200 mg PO DAILY lansoprazole 30 mg PO DAILY nebulizers (AeroEclipse II Nebulizer) As directed nebulizers As directed [Probiotic Acidophilus ] ropinirole 0.5 mg PO BEDTIME trazodone 200 mg PO BEDTIME PRN triamcinolone acetonide 0.1% 1 appl topical DAILY 15 days Tobacco use date assessed: 06/24/24 Dental Screening Dental Screen Date: 06/24/24 HPI Chest pain, Anxiety HPI Details The patient is a 49-year-old female presenting with chest pain. The chest pain began on Sunday and has been persistent since then, described as constant pressure with occasional sharp pains. The pain does not worsen with eating or physical activity, and there is no relief from [id number]-[id number] medications due to allergies. The patient has a history of possible left atrial enlargement and anterior infarction noted on previous EKGs. Despite these findings, recent tests showed no elevated troponins, suggesting no acute heart damage. The patient has a family history of heart disease, with relatives having experienced heart attacks. The patient also has asthma, which could contribute to her symptoms of shortness of breath. However, asthma medication does not alleviate her symptoms, indicating a possible cardiac origin. 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) COVID-19 Hx of supraventricular tachycardia Hx-TIA (transient ischemic attack) Back spasm Obesity Headache GERD (gastroesophageal reflux disease) Screening for hypothyroidism Screening for hypercholesterolemia Screening for diabetes mellitus (DM) Anxiety Depression Fibromyalgia Asthma Surgical History Hx of colonoscopy History of partial knee replacement Hx of tubal ligation History of endoscopy History of History of knee surgery History of cholecystectomy Family History Mother High cholesterol Father Lupus Diabetes Thyroid disease FH: prostate cancer Brother Asthma Anxiety Depression Daughter Depression Anxiety Childhood autism Maternal Grandmother Glaucoma Other Mental problem Substance abuse Social History Housing: House Are you a primary career discovery teacher to a significant other at home: No Do you presently have visiting nurse or other home services: No Alcohol intake: never Patient Tobacco Use Status: Never used Tobacco e-Cigarette/Vaping Use: Never Used Second Hand Smoke Exposure: Yes service: No Current occupational status: employed and disabled 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 1. Little interest or pleasure in doing things: more than half the days 2. Feeling down, depressed, or hopeless: more than half the days 3. Trouble falling or staying asleep, or sleeping too much: more than half the days 4. Feeling tired or having little energy: nearly every day 5. Poor appetite or overeating: more than half the days 6. Feeling bad about yourself - or that you are a failure or have let yourself or your family down: more than half the days 7. Trouble concentrating on things, such as reading the newspaper or watching television: more than half the days 8. Moving or speaking so slowly that other people could have noticed. Or the opposite - being so fidgety or restless that you have been moving around a lot more than usual: several days 9. Thoughts that you would be better off or of hurting yourself in some way: not at all Total score: 16 79556 - PHQ-9 Billing: Yes Source: Developed by Drs. Terrell Sawant, Lorrie Altamirano, Jong Pereyra and colleagues, with an educational areli from [employer]. Thrive Questionnaire Date Thrive assessed: 10/15/24 I am a: Patient What is your living situation today?: I have a steady place to live Within the past 12 months, did the food you bought not last and you didn't have the money to get more?: Never true Within the past 12 months, did you worry whether your food would run out before you got money to buy more?: Never true Do you have trouble paying for medicines?: No Do you have trouble getting transportation to medical appointments?: No Do you have trouble paying your heating and electricity bill?: Yes Do you have trouble taking care of your child, family member or friend?: No Do you have trouble with day-to-day activities such as bathing, preparing meals, shopping, managing finances, etc.?: No Are you currently unemployed and looking for a job?: No Currently or been in a relationship where the following occur: No concerns reported THRIVE Score: 1 AUDIT C Alcohol Use Questionnaire (AUDIT-C) 1. How often do you have a drink containing alcohol?: Never 3. How often do you have six or more drinks on one occasion?: Never Total Score: 0 DANIEL-7 AMB Questionnaire DANIEL-7 Date DANIEL - 7 assessed: 06/24/24 Feeling nervous, anxious, or on edge: 3 = Nearly every day Not being able to stop or control worryin = Nearly every day Worrying too much about different things: 3 = Nearly every day Trouble relaxin = More than half the days Being so restless that it is hard to sit still: 1 = Several days Becoming easily annoyed or irritable: 2 = More than half the days Feeling afraid as if something awful might happen: 0 = Not at all Total DANIEL-7 score (0-4 normal; 5-9 mild; 10-14 moderate; 15-21 severe): 14 Source: Developed by Drs. Terrell Sawant, Lorrie Altamirano, Jong Pereyra and colleagues, with an educational areli from [employer]. DANIEL-7 Assessment Billing DANIEL-7 Assessment Tool: DANIEL-7 Assessment 25782 Review of Systems Const Denies headache(s) Eyes Denies loss of vision ENT Denies vertigo, Denies dizziness, Denies headache(s) and Denies sore throat Card Reports chest pain, Reports chest pain at rest, Denies leg edema, Denies lightheadedness and Reports dyspnea on exertion Resp Denies cough, Denies hemoptysis, Reports dyspnea on exertion and Denies wheezing GI Denies abdominal pain, Denies melena, Denies constipation, Denies diarrhea and Denies vomiting Denies urinary frequency, Denies dysuria and Denies urinary urgency Musc Denies arthralgias, Denies joint swelling, Denies numbness and Denies tingling Neuro Denies Abnormal speech present, Denies behavioral changes, Denies vertigo, Denies dizziness, Denies headache(s), Denies loss of vision, Denies memory loss, Denies numbness and Denies tingling Psych Denies anxiety, Denies behavioral changes, Denies depression, Denies memory loss and Denies panic attacks Milo/Lymph Denies easy bleeding and Denies easy bruising Aller/Immun Denies wheezing Physical exam (Primary Care) Vital Signs: Last Vital Signs Temp 97.3 F 10/16/24 10:47 Pulse 70 10/16/24 10:47 Resp 17 10/16/24 10:47 BP 104/70 10/16/24 10:47 Pulse Ox 95 10/16/24 10:47 Oxygen Delivery Method Room Air 10/16/24 10:47 BMI result Body Mass Index 44.1 Tobacco/Smoking Status: Tobacco use Status Tobacco use date assessed 06/24/24 10/16/24 10:36 Patient Tobacco Use Status Never used Tobacco 10/16/24 10:36 e-Cigarette/Vaping Use Never Used 10/16/24 10:36 PHQ-9: PHQ-9 Score PHQ-9: Total score 16 10/16/24 13:21 Thrive Assessment: Date of Thrive Assessment Date Thrive assessed 10/15/24 10/16/24 10:36 Currently or been in a relationship where the following occur: No concerns reported Const General: healthy appearing, no acute distress, alert and awake Nutritional Appearance: well nourished Orientation/consciousness: oriented to person, oriented to place and oriented to time HENMT Ears: TM's normal bilaterally General nose exam: Normal nasal mucous membranes and turbinates present Eyes Conjunctivae: conjunctivae normal Sclerae: sclerae normal Pupils: Equal, round and reactive pupils present Neck Neck: Yes no lymphadenopathy and Yes no JVD Thyroid: Thyroid normal Carotids: no bruits Resp Effort & Inspection: normal respiratory effort and not tachypneic Auscultation: no crackles, no rales, no rhonchi and no wheezes Cardio Rate: regular rate Rhythm: regular rhythm Heart sounds: no murmurs and normal S1 and S2 GI Palpation (GI): Soft to palpation, nontender, no hepatomegaly and no splenomegaly Auscultation: normal bowel sounds Skin General skin exam: no rashes or lesions noted and dry skin Neuro General: oriented to person, oriented to place and oriented to time Cranial nerves: Yes Equal, round and reactive pupils present Speech: No Abnormal speech present Gait exam (Neuro): Normal gait present Motor exam (neuro): no tremor noted Extrem Right upper extremity: full ROM Left upper extremity: full ROM Right lower extremity: full ROM; no edema Left lower extremity: full ROM; no edema Psych Mental Status: mental status grossly normal Speech and movement: Normal speech and movement present Affect: normal affect Attitude: cooperative Thought process: Normal thought process present Coding Level of Care Code Est Pt Level 4 (00728) Diagnoses Chest pain, unspecified type R07.9 Chest pain type: unspecified Dyspnea on exertion R06.09 Left atrial enlargement I51.7 Additional Codes DANIEL-7 Assessment Billing - DANIEL-7 Assessment Tool: DANIEL-7 Assessment 11632 ([id number]) PHQ-9 - 85188 - PHQ-9 Billing: Yes ([id number]) Assessment & Plan Assessment & Plan (1) Chest pain: Code(s): R07.9 - Chest pain, unspecified Category: Medical Qualifiers: Chest pain type: unspecified Qualified Code(s): R07.9 - Chest pain, unspecified Plan: The plan includes conducting a cardiac stress test to evaluate for any cardiac abnormalities during exertion. An echocardiogram is also recommended to assess for structural heart disease, given the history of possible left atrial enlargement. A referral to a floor covering contractor will be made for further evaluation and management. Will supply patient with a muscle relaxer to help try and reduce any musculoskeletal pain that could be causing her chronic chest pain (2) Dyspnea on exertion: Code(s): R06.09 - Other forms of dyspnea Category: Medical Plan: As per HPI will send for cardiac testing (3) Left atrial enlargement: Code(s): I51.7 - Cardiomegaly Category: Medical Plan: Noted question inferior infarct and left atrial enlargement on previous EKGs. For now troponins have not been elevated when she is presents to the ER with chest pain. Orders: Orders CA stress test Today R06.09 - Other forms of dyspnea, R07.9 - Chest pain, unspecified, R94.31 - Abnormal electrocardiogram [ECG] [EKG] CA echo transthoracic complete Today I51.7 - Cardiomegaly Referrals Cardiology Referral R07.9 - Chest pain, unspecified Medications: New tizanidine 2 mg PO Q8H 21 tabs 0RF muscle spasticity 7 days R07.9 - Chest pain, unspecified
[2024-10-16 10:47] VITALS: BP 104/70; PULSE 70; RESP 17; TEMP 36.3; O2SAT 95; BMI 44.1
--- OUTSIDE RECORDS SUMMARY | 2024-10-16 12:04 | XMS_ITS | Patient Health Record ---
Author Organization [facility] Address [address] [place] [address] Care Team Providers Care Pharmacy Associate Name Role Phone Walt Eaton MD Primary Care Provider Lashell Washburn Unavailable [phone] Allergies Allergen (clinical drug ingredient) Drug/Non Drug [...] Medicare National [employer] [address] [place] [address] [id number] Emerita Plata Self - patient is the insured Medical (General) History Medical History History ICD Code Anxiety Arthritis asthma Back,Hip,and Knee pain Broken bones Cholesterol Depression Fibromyalgia Gall bladder problems Headaches/Migraines Hiatal hernia Reflux Stroke Bone implants/screws Surgical History Surgery Date(Month/Year) eye surgery gall bladder knee surgery knee replacement tumor removal
== END 2024-10-16 11:20 | disposition home or self-care (01) ==
PROVIDERS: PCP Physician Assistant; Visit Provider Physician Assistant
DX: R07.9 Chest pain, unspecified (principal); R06.09 Other forms of dyspnea; I51.7 Cardiomegaly

== ENCOUNTER → 2024-10-16 10:35 | Outpatient (BNVA) | payer MEDICARE, MEDICAID, SELFPAY | PROVIDERS: PCP Physician Assistant; Visit Provider Physician Assistant | DX: R07.9 Chest pain, unspecified (principal); R06.09 Other forms of dyspnea; I51.7 Cardiomegaly | CPT/HCPCS: 96127; 99212 ==

== ENCOUNTER → 2024-10-17 12:30 | Outpatient (REF) | payer MEDICARE, MEDICAID, SELFPAY ==
--- OUTSIDE RECORDS SUMMARY | 2024-10-17 12:32 | XMS_ITS | Patient Health Record ---
Author Organization [facility] Address [address] [place] [address] Care Team Providers Care Faro Dealer Name Role Phone Walt Eaton MD Primary Care Provider Lashell Washburn Unavailable [phone] Allergies Allergen (clinical drug ingredient) Drug/Non Drug [...] Medicare National [employer] [address] [place] [address] [id number] Emerita Plata Self - patient is the insured Medical (General) History Medical History History ICD Code Anxiety Arthritis asthma Back,Hip,and Knee pain Broken bones Cholesterol Depression Fibromyalgia Gall bladder problems Headaches/Migraines Hiatal hernia Reflux Stroke Bone implants/screws Surgical History Surgery Date(Month/Year) eye surgery gall bladder knee surgery knee replacement tumor removal
--- NOTE | 2024-10-17 12:37 | CA_ITS ---
Transthoracic Echocardiogram Patient (Last, First, Middle): Emerita Plata, Gender: Female Date of : 1975 Age: 49 Procedure Date: 10/17/2024 Procedure Type: Transthoracic Echocardiogram Location: OP Height: 175.26 cm Weight: 135.17 kg BSA: 2.45 m2 Heart Rate: 74 bpm BP: 104 / 70 mmHg Global Compensation Analyst: MAYTE Referring MD: Jeremy Sanches PA-C Symptoms: I51.7 - Cardiomegaly Study Quality: Adequate w contrast ECG Rhythm: Sinus Conclusions: - Normal left ventricular size and systolic function. There is mildly increased left ventricular wall thickness. The visually estimated ejection fraction is between 55-60%. - E/E prime ratio is between 8 and 15 consistent with indeterminate filling pressures. - Normal right ventricular cavity size and systolic function. Findings Procedure Information Contrast agent, definity, is being given per protocol without apparent complications. The quality of the study was technically difficult. Left Ventricle Normal left ventricular size and systolic function. There is mildly increased left ventricular wall thickness. The visually estimated ejection fraction is between 55-60%. There is no evidence of regional wall motion abnormalities. Abnormal diastolic function is noted. Spectral Doppler is indicative of an impaired relaxation filling pattern. E/E prime ratio is between 8 and 15 consistent with indeterminate filling pressures. Right Ventricle Normal right ventricular cavity size and systolic function. Atria The left atrium is normal in size. The right atrium was not well visualized. Aortic Valve Normal aortic valve structure and function. There is no aortic valve stenosis. There is no aortic valve regurgitation. Mitral Valve Likely normal mitral valve structure and function. There is no mitral valve regurgitation. There is no mitral valve stenosis. Pulmonic Valve The pulmonic valve is likely normal. Tricuspid Valve Normal tricuspid valve structure. There is trace tricuspid valve regurgitation. Tricuspid regurgitation envelope is inadequate for calculation of right ventricular systolic pressure. Normal right atrial pressure. Great Vessels All visible segments of the aorta are normal in size. The visualized portions of the pulmonary artery and branches are normal. Venous The inferior vena cava is normal in size and collapses greater than 50% with inspiration. Pericardium/Pleural There is no evidence of pericardial effusion. Prior Study Comparison No prior study available for comparison. Measurements 2D Linear Measurements IVSd: 1.17 0.6-0.9/0.6-1.0 cm LVIDd: 3.92 3.9-5.3/4.2-5.9 cm LVIDd Index: 1.60 2.4-3.2/2.2-3.1 cm/m2 LVIDs: 2.98 2.0-3.6 cm LVPWd: 0.94 0.7-1.1 cm LA Diam: 4.30 2.7-3.8/3.0-4.0 cm LAIDs Index: 1.76 1.5-2.3 cm/m2 LV Mass: 165.61 67-162/88-224 g LV Mass Index: 67.59 43-95/49-115 g/m2 LVOT Diam: 2.00 3.0+(-)1.3 cm 2D Systolic Function EF 4C: 62.90 >55% EF 2C: 62.30 >55% EF BiP: 61.90 >55% Mitral Valve MV Pk E: 0.82 MV PK A: 0.97 MV Decel Time: 233.00 E/A: 0.80 E'Lateral: 8.49 E'Medial: 7.18 E/E' Med: 11.40 E/E' Lat: 9.60 PHT: 68.00 MVA PHT: 3.24 Decel Navajo: 3.52 Aortic Valve AoV Pk Scooter: 1.49 AoV Pk Grad: 9.00 LISA: 2.77 LVOT LVOT Pk Scooter: 1.22 LVOT Mn Scooter: 0.89 LVOT VTI: 0.25 LVOT Pk Grad: 6.00 LVOT Mn Grad: 4.00 LVOT Diam: 2.00 LVOT Area: 3.14 Diastolic Function MV Pk E: 0.82 MV Pk A: 0.97 E/A: 0.80 E'Medial: 7.18 E/E' Med: 11.40 E' Laterial: 8.49 E/E' Lat: 9.60 Right Ventricle TAPSE (mm): 23.40 Tricuspid Valve RA Press: 3.00 Great Vessels Aorta Sinus of Valsalva: 2.70 2.0-3.5 cm Ao Asc: 2.90 2.1-3.4 cm Pulmonary Veins Pulm Vein S/D 1.30 Pulmonary Valve PV Pk Scooter: 0.92 Peak PV Grad: 3.00 Updated in Other Vendor System with Status of Final Roberto Espino MD electronically signed on 10/18/2024 11:27:48 PM with status of Final
== END ==
LOC: HO.CARD 12:30
PROVIDERS: PCP Physician Assistant; Visit Provider Physician Assistant
DX: I51.7 Cardiomegaly (principal)
CPT/HCPCS: 93306; Q9957

== ENCOUNTER → 2024-10-17 12:37 | Outpatient (BNV) | payer MEDICARE, MEDICAID, SELFPAY | PROVIDERS: PCP Physician Assistant; Visit Provider Internal Medicine Cardiovascular Disease | DX: I51.7 Cardiomegaly (principal); I51.89 Other ill-defined heart diseases | CPT/HCPCS: 93306 ==

== ENCOUNTER → 2024-10-21 07:58 | Outpatient (REF) | payer MEDICARE, MEDICAID, SELFPAY ==
--- NOTE | 2024-10-21 08:02 | CA_ITS ---
Acquisition Time: 2024-10-21 08:09:45 Total Exercise Time: 00:03:00 Test Indications: CP, SOB Medications: SEE H&P Protocol: PARDEEP Max HR: 148 BPM 86% of Pred: 171 BPM Max BP: 142/80 mmHG Max Work Load: 4.6 METS Exercise stress test with exercise 3 mins of Pardeep Protocol, requesting to stop due SOB and dizziness, achieving 86% MPHR, with reports of 7/10 left sided constant chest discomfort that lauri to 8 with exercise, without any arrythmias, with normotensive response to exercise. Nondiagnostic EKG for ischemia. In recovery, pt feeling back to baseline. Will request Pharmacological stress test with Lexiscan. Test reviewed with Dr. López. Referred By: Jeremy Sanches Electronically Signed By: Tyler Mercedes
--- OUTSIDE RECORDS SUMMARY | 2024-10-21 08:03 | XMS_ITS | Patient Health Record ---
Author Organization [facility] Address [address] [place] [address] Care Team Providers Care Tufting Supervisor Name Role Phone Walt Eaton MD Primary Care Provider Lashell Washburn Unavailable [phone] Allergies Allergen (clinical drug ingredient) Drug/Non Drug [...] Medicare National Gov[employer] [address] [place] [address] [id number] Emerita Plata Self - patient is the insured Medical (General) History Medical History History ICD Code Anxiety Arthritis asthma Back,Hip,and Knee pain Broken bones Cholesterol Depression Fibromyalgia Gall bladder problems Headaches/Migraines Hiatal hernia Reflux Stroke Bone implants/screws Surgical History Surgery Date(Month/Year) eye surgery gall bladder knee surgery knee replacement tumor removal
== END ==
LOC: HO.CARD 07:58
PROVIDERS: PCP Physician Assistant; Visit Provider Physician Assistant
DX: R07.9 Chest pain, unspecified (principal); R06.09 Other forms of dyspnea; R94.31 Abnormal electrocardiogram [ECG] [EKG]
CPT/HCPCS: 93017

== ENCOUNTER → 2024-10-21 08:02 | Outpatient (BNV) | payer MEDICARE, MEDICAID, SELFPAY | PROVIDERS: PCP Physician Assistant | DX: R07.2 Precordial pain (principal); R06.02 Shortness of breath | CPT/HCPCS: 93016; 93018 ==

== ENCOUNTER 2024-11-04 10:33 | Outpatient (REF) | payer MEDICARE, MEDICAID, SELFPAY ==
--- OUTSIDE RECORDS SUMMARY | 2024-11-04 11:28 | XMS_ITS | Clinical Summary ---
Author Organization [facility] Address [id number] [place] [address] Care Team Providers Care Financial Quantitative Analyst Name Role Phone Jeremy Sanches Primary Care [...] 5 Years) and At-Risk Patients (6 to 49 Years) (1 of 2 - PCV) 1994 Cervical Cancer Screening: P ap Smear 01/03/1996 Colorectal Cancer Screening: Colonoscopy 04/02/2022 Depression Screening 04/02/2022 HIV Screening 04/02/2022 Hepatitis C Screening 04/02/2022 Social Influencers of Health Screening 04/02/2022 COVID-19 Vaccine (2023-2 5 season) 2023 Influenza Vaccine (#1) 2024 HIB Vaccines Aged Out No longer [...] age to complete this topic Care Teams Financial Quantitative Analyst Relationship Specialty Start Date End Date Jeremy Sanches PA PCP - General Internal Medicine 09/06/21
--- OUTSIDE RECORDS SUMMARY | 2024-11-04 11:28 | XMS_ITS | Patient Health Record ---
Author Organization [facility] Address [address] [place] [address] Care Team Providers Care Truck Manager Name Role Phone Walt Eaton MD Primary Care Provider Lashell Washburn Unavailable [phone] Allergies Allergen (clinical drug ingredient) Drug/Non Drug Allergy documented on EMR Reaction Allergy Type Onset Date Status ibuprofen Advil Throat closes Drug Allergy Act billy meperidine Demerol vomiting Drug Allergy Active morphine Morphine Chest pain Drug Allergy Active Adhesive Tape hives Drug Allergy Act bilyl Shrimp/Shell Fish hives Drug Allergy Active Latex itchy Drug Allergy Active Reason For Referral No Information Medications Medication SIG (Take, Route, Fr equency, Duration) Notes Start Date End Date Status Lyrica 150 MG (Schedule V Drug) TA KE ONE CAPSULE BY MOUTH TWICE A DAY Oral; Duration: 30 Active Sertraline HCl 100 MG TAKE 1&1/2 TABLETS BY MOUTH DAILY Oral; Duration: 90 Active Medrol 4 MG as directed Orally 04/17/2018 Active Topiramate 25 MG PLEASE SEE ATTACHED FOR DETAILED DIRECTIONS Oral; Duration: 30 Active Omeprazole 20 MG 1 capsule Orally Once a day 04/17 Active Walking Boot/Pneumatic As directed Wear Daily; Duration: Until further notice 04/17/2018 Active Amitriptyline HCl 10 MG TAKE 1 TABLET BY MOUTH EVERYDAY AT BEDTIME Oral; Duration: 90 Active Lipitor 20 MG 1 tablet [...] Medicare National Govt S[employer] [address] [place] [address] [id number] Emerita Plata Self - patient is the insured Medical (General) History Medical History History ICD Code Anxiety Arthritis asthma Back,Hip,and Knee pain Broken bones Cholesterol Depression Fibromyalgia Gall bladder problems Headaches/Migraines Hiatal hernia Reflux Stroke Bone implants/screws Surgical History Surgery Date(Month/Year) eye surgery gall bladder knee surgery knee replacement tumor removal
[2024-11-04 14:26] LABS: Alanine Aminotransferase 27 U/L (0-31); Albumin Level 4.7 g/dL (3.5-5.0); Alkaline Phosphatase 51 U/L (39-117); Anion Gap 13 (12-20); Aspartate Amino Transferase 27 U/L (5-31); Blood Urea Nitrogen 15 mg/dL (9-16); Calcium 9.2 mg/dL (8.4-10.2); Carbon Dioxide 26 mmol/L (22-29); Chloride 104 mmol/L (96-108); Estimated Glomerular Filt Rate > 60; Potassium 4.0 mmol/L (3.3-5.1); Sodium 139 mmol/L (135-145); Total Protein 7.5 g/dL (6.5-8.0)
== END 2024-11-04 10:34 | disposition home or self-care (01) ==
LOC: HO.HMGCLDS 10:33
PROVIDERS: PCP Physician Assistant; Visit Provider Physician Assistant
DX: R73.01 Impaired fasting glucose (principal)
CPT/HCPCS: 36415; 80053

== ENCOUNTER 2024-11-22 16:38 | Emergency (ER) | payer MEDICARE, MEDICAID, SELFPAY ==
--- NOTE | ~2024-11-22 | XR_ITS ---
CLINICAL HISTORY: L sided cp, SOB 2 view chest x-ray Comparison: CR - XR CHEST 2V - 10/13/24 17:03 EDT CR - XR CHEST 2V - 09/20/24 11:17 EDT Findings: The lungs are clear. Normal size heart. No acute fracture. IMPRESSION: 1. No acute findings. This document has been electronically signed by: Era Brennan MD on 11/22/2024 17:38:30
--- NOTE | 2024-11-22 16:41 | ECG_ITS ---
Test Reason : cp Blood Pressure : */* mmHG Vent. Rate : 70 BPM Atrial Rate : 70 BPM P-R Int : 144 ms QRS Dur : 80 ms QT Int : 386 ms P-R-T Axes : 38 18 50 degrees QTcB Int : 416 ms Normal sinus rhythm Cannot rule out Anterior infarct (cited on or before 13-Oct-2024) Abnormal ECG When compared with ECG of 13-Oct-2024 18:18, No significant change was found Referred By: Generic ED Physician Electronically Signed By: Roberto Espino
[2024-11-22 16:46] VITALS: BP 98/64; PULSE 75; RESP 18; TEMP 36.7; O2SAT 96; BMI 50.5
--- NOTE | 2024-11-22 16:46 | ED.CHESTPAIN ---
HPI - Chest Pain General Chief Complaint: Chest Pain Stated Complaint: chest pain Time Seen by Provider: 11/22/24 18:12 Source: patient Mode of arrival: ambulatory Limitations: no limitations History of Present Illness ED Provider: William AZUL HPI narrative: The patient is a 49-year-old female with history of recurrent chest pain, chronic arthralgias, pituitary tumor, morbid obesity, lymphedema, peripheral vascular disease, frequent headaches, restless leg syndrome, depression, hypertension, fibromyalgia, NELLY, anxiety, and GERD, presenting to the ED for evaluation of left-sided chest pain which began 2 hours prior to arrival in the ED. The patient reports yesterday she experienced 1 hour of pain under her left breast which was not reproducible with deep respiration, palpation, or movement. The patient reports the pain resolved after 1 hour without intervention. However today patient's pain returned and lasted 2 hours prompting ED evaluation. The patient describes pain as more severe in her left chest, radiating to left flank, without associated dysuria, hematuria, or urinary complaint. The patient describes the pain as a sharp throbbing sensation. The patient reports mild associated nausea but denies any vomiting, diarrhea, fever/chills, diaphoresis, pleurisy, cough, shortness of breath, abdominal pain, recent sick contacts, or recent trauma. The patient has multiple medication allergies and states she is only able to take Tylenol, took Tylenol around 1 hour prior to arrival in the ED and denies any improvement in symptoms. 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 Related Data Home Medications ?Medication ?Instructions ?Recorded ?Confirmed aripiprazole 2 mg tablet 2 mg PO QAM 03/17/22 10/16/24 escitalopram oxalate 20 mg tablet 20 mg PO DAILY 03/17/22 10/16/24 Probiotic Acidophilus 07/04/24 10/16/24 trazodone 100 mg tablet 200 mg PO BEDTIME PRN insomnia 07/04/24 10/16/24 lamotrigine 200 mg tablet 200 mg PO DAILY 09/20/24 10/16/24 Previous Rx's ?Medication ?Instructions ?Recorded blood pressure monitor (Blood #1 ea 10/27/20 Pressure Kit) nebulizers (AeroEclipse II #1 ea 05/07/21 Nebulizer) cholecalciferol (vitamin D3) 50 50 mcg PO DAILY 90 days #90 caps 11/16/23 mcg (2,000 unit) capsule ropinirole 0.5 mg tablet 0.5 mg PO BEDTIME #90 tabs 03/30/24 albuterol sulfate 90 mcg/actuation 1 puff inhalation QID PRN for 03/31/24 aerosol inhaler (Ventolin HFA) dyspnea #18 ea lansoprazole 30 mg capsule,delayed 30 mg PO DAILY #90 caps 04/08/24 release albuterol sulfate 5 mg/mL(0.5 %) 5 mg inhalation Q6H PRN shortness 04/19/24 solution for nebulization of breath or wheezing #75 mL nebulizers #1 ea 04/19/24 triamcinolone acetonide 0.1 % 1 appl topical DAILY 15 days #30 06/24/24 topical ointment grams tizanidine 2 mg tablet 2 mg PO Q8H muscle spasticity 7 10/16/24 days #21 tabs Allergies Allergy/AdvReac Type Severity Reaction Status Date / Time ibuprofen (From Motrin) Allergy Severe HIVES,SWELL Verified 11/22/24 16:48 ING shellfish derived Allergy Severe Angioedema Verified 11/22/24 16:48 meperidine (Demerol) Allergy Unknown Vomiting Verified 11/22/24 16:48 NSAIDS (Non-Steroidal Allergy Itching Verified 11/22/24 16:48 Anti-Inflamma morphine AdvReac Intermediate Chest Pain Verified 11/22/24 16:48 tramadol AdvReac Intermediate GI upset Verified 11/22/24 16:48 hydroxyzine AdvReac Mild mouth Verified 11/22/24 16:48 numbess Review of Systems Review of Systems: Yes all other systems are reviewed and are negative PMFSH Past Medical History Medical History Benign tumor of pituitary gland Sleep apnea History of CVA (cerebrovascular accident) Morbid obesity 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) COVID-19 Hx of supraventricular tachycardia Hx-TIA (transient ischemic attack) Back spasm Obesity Headache GERD (gastroesophageal reflux disease) Screening for hypothyroidism Screening for hypercholesterolemia Screening for diabetes mellitus (DM) Anxiety Depression Fibromyalgia Asthma Surgical History Hx of colonoscopy History of partial knee replacement Hx of tubal ligation History of endoscopy History of History of knee surgery History of cholecystectomy Family History Family History Mother High cholesterol Father Lupus Diabetes Thyroid disease FH: prostate cancer Brother Asthma Anxiety Depression Daughter Depression Anxiety Childhood autism Maternal Grandmother Glaucoma Other Mental problem Substance abuse Social History Social History Housing: House Are you a primary geriatric personal care aide to a significant other at home: No Do you presently have visiting nurse or other home services: No Alcohol intake: never Patient Tobacco Use Status: Never used Tobacco Smoked in Last 30 Days: No e-Cigarette/Vaping Use: Never Used Second Hand Smoke Exposure: Yes Use of substances other than those prescribed or required for medical reasons: No Advance Directives: No Advance Directives Information Provided: No service: No Current occupational status: employed and disabled Current occupation: [employer] Cognitive needs: No Hearing needs: No Vision needs: Yes (Glasses) Physical Exam Vital Signs: Vital Signs: Last Vital Signs Temp 98.3 F 11/22/24 20:16 Pulse 69 11/22/24 20:16 Resp 16 11/22/24 20:16 BP 89/51 L 11/22/24 20:16 Pulse Ox 96 11/22/24 20:16 O2 Del Method Room Air 11/22/24 20:16 BMI result Body Mass Index 50.5 CONSTITUTIONAL: The patient appears morbidly obese, but otherwise non-toxic and in no acute distress. Vital signs as documented. HEAD: Atraumatic, normocephalic. EYES: EOMs grossly intact, pupils equal, conjunctiva clear, no exudate. ENT: Nares patent, no discharge. Airway patent, no audible stridor, visible mucosa is pink and moist without noted lesions. NECK: Trachea is midline, no obvious masses or gross abnormalities. CHEST: Symmetric movement, normal appearance. No tenderness to palpation, no reproduction of pain with palpation of the left chest wall. LUNGS: LS present and CTAB, no w/r/r. Non-labored work of breathing. CARDIAC: Regular Rhythm, S1/S2 appreciated, no murmurs, rubs or gallops. ABDOMEN: Abdomen soft and non-tender x4 quadrants, no palpable masses or organomegaly. Negative CVAT bilaterally. : Deferred. EXTREMITIES: Normal tone, moves all extremities spontaneously without reported pain. No obvious acute injury or deformity noted. NEURO: Alert and oriented x3, CN II-XII appear grossly intact. Cerebellar Functioning grossly intact. No obvious sensory or motor deficits. Speech clear and appropriate. PSYCH: flattened affect, appropriate eye contact, fluid speech, with appropriate response to questioning. No reported suicidality or homicidality. SKIN: Warm, dry, color appropriate, normal turgor. No rashes noted. Course Course Course Narrative: 11/22/24 1646 LATHA Babcock This is a Rapid Medical Examination (RME) performed by Tico Clemente PA-C in triage. Full HPI, ROS, assessment and treatment plan per primary provider in the Main ED. Hx: 49 yo F hx of anxiety, depression, asthma, GERD, HTN, SVT s/p ablation here w/ chest pain that began approximately 2 hours ago while seated at work. pain is 9/10, localized to L side of chest, has been worsening since onset. reports mild dizziness, nausea without vomiting and shortness of breath. no improvement in sx. Plan: labs, EKG, chest xr Medications Administered Discontinued Medications Generic Name Dose Route Start Last Admin Trade Name Freq PRN Reason Stop Dose Admin Al Hydroxide/Mg Hydroxide 30 ml 11/22/24 18:38 11/22/24 18:47 Magnesium Hydrox/Alum Hydrox 30 Ml Oral.Susp PO 11/22/24 18:39 30 ml ONCE ONE Administration Famotidine 20 mg 11/22/24 18:38 11/22/24 18:47 Famotidine 20 Mg Tablet PO 11/22/24 18:39 20 mg ONCE ONE Administration Lidocaine HCl 15 ml 11/22/24 18:38 11/22/24 18:47 Lidocaine Hcl Viscous 2 % 15 Ml Solution PO 11/22/24 18:39 15 ml ONCE ONE Administration Medical Decision Making Medical Decision Making [facility] Narrative: 6:47 PM 11/22/2024 (Tico AZUL): The patient is a 49-year-old female presenting to the ED for evaluation of left-sided chest pain which began at rest 2 hours ago. Patient is unable to reproduce the pain, denies exacerbation by direct palpation, movement, straining against pushing or pulling of the upper extremities, or deep respiration. The patient's exam is benign. The patient's EKG is nonischemic, initial troponin is negative, remainder of laboratory workup is unremarkable, no leukocytosis, anemia, electrolyte abnormality, CHELITA, LFT abnormality, or elevated lipase. The patient's chest x-ray shows no acute process. The patient describes the pain as radiating into the left flank, as such we will obtain a urinalysis to rule out UTI. The patient will be treated with GI cocktail and we will obtain a repeat troponin. Pending unremarkable repeat troponin the patient is safe for discharge. Of note the patient reports she has a cardiology appointment scheduled for Sunday for evaluation of this recurrent chest pain. 8:15 PM 11/22/2024 (Tico AZUL): The patient's repeat troponin is negative. We will await results of urinalysis and plan for discharge. 9:09 PM 11/22/2024 (Tico AZUL): The patient's urinalysis is negative for infection. Patient will be discharged to follow up with Cardiology on Sunday. Admission/Observation Consideration of admission/observation: Escalation of care including admission/observation considered Lab Data MDM Lab Attestation statement: I reviewed the patient's lab results. 11/22/24 17:01 11/22/24 17:01 Labs: Lab Results 11/22/24 11/22/24 11/22/24 Range/Units 17:01 19:42 19:56 WBC 9.2 (4.8-10.8) X10*3/uL RBC 4.70 (4.20-5.50) X10*6/uL Hgb 14.0 (12.0-16.0) g/dl Hct 41.8 (37.0-47.0) % MCV 88.9 (80.0-98.0) fL MCH 29.8 (27.0-33.0) pg MCHC 33.5 (31.0-35.0) g/dl RDW 12.4 (11.0-16.0) % Plt Count 280 (160-400) X10*3/uL MPV 10.2 (9.4-12.3) fL Immature Gran % (Auto) 0.3 (0.0-0.4) % Neut % (Auto) 63.9 (45-73) % Lymph % (Auto) 25.4 (20-40) % Pine % (Auto) 8.5 (2-11) % Eos % (Auto) 1.1 (0-4) % Baso % (Auto) 0.8 (0-2) % Lymph # (Auto) 2.3 (1.2-4.9) X10*3/uL Pine # (Auto) 0.8 (0.1-1.2) X10*3/uL Eos # (Auto) 0.1 (0.0-0.4) X10*3/uL Baso # (Auto) 0.1 (0.0-0.2) X10*3/uL Abs Immat Gran (auto) 0.03 (0.00-0.03) X10*3/uL Absolute Neuts (auto) 5.9 (2.0-8.3) x10*3/uL Absolute Nucleated RBC 0.000 (0.0-0.012) X10*3/uL Nucleated RBC % (auto) 0.0 (0.0-0.2) /100WBC Sodium 137 (135-145) mmol/L Potassium 3.6 (3.3-5.1) mmol/L Chloride 105 (96-108) mmol/L Carbon Dioxide 24 (22-29) mmol/L Anion Gap 12 (12-20) BUN 14 (9-16) mg/dL Creatinine 0.65 (0.5-1.4) mg/dL Estim Creat Clear Calc 142.5 Estimated GFR > 60 Random Glucose 88 (60-115) mg/dL Calcium 9.3 (8.4-10.2) mg/dL Magnesium 2.2 (1.6-2.6) mg/dL Total Bilirubin 0.6 (0.0-1.0) mg/dL AST 25 (5-31) U/L ALT 28 (0-31) U/L Alkaline Phosphatase 58 (39-117) U/L Troponin I High Sens < 2.7 < 2.7 (<3.5-17.0) ng/L Total Protein 7.8 (6.5-8.0) g/dL Albumin 4.8 (3.5-5.0) g/dL Lipase 24 (8-78) U/L Urine Color Yellow Urine Appearance Clear Urine pH 5.0 (5.0-9.0) Ur Specific [place] 1.025 (1.005-1.025) Urine Protein Negative (Neg-Trace) mg/dL Urine Glucose (UA) Negative (Negative) mg/dL Urine Ketones Negative (Negative) mg/dL Urine Blood Negative (Negative) Urine Nitrite Negative (Negative) Ur Leukocyte Esterase Small (1+) H (Negative) Urine RBC 0-2 (0-2) /HPF Urine WBC 0-5 (0-5) /HPF Ur Squamous Epith Cells 3-5 (0-2) /HPF Urine Bacteria Trace (None Seen) Hyaline Casts 0-2 (0-2) /LPF Independent Interpretation I performed an independent interpretation of an: EKG (EKG shows sinus rhythm with a rate of 70, no evidence of acute ischemia, no ST elevation, no ectopy. QTC 416. Compared to previous on 10/13/2024 there are no acute morphology changes.) Radiology Impression Discussion of test interpretation with radiology: I have reviewed the radiologist's reading. Radiologist Impression: 2 view chest x-ray Comparison: CR - XR CHEST 2V - 10/13/24 17:03 EDT CR - XR CHEST 2V - 09/20/24 11:17 EDT Findings: The lungs are clear. Normal size heart. No acute fracture. IMPRESSION: 1. No acute findings. This document has been electronically signed by: Era Brennan MD on 11/22/2024 17:38:30 Discharge Plan Discharge Clinical Impression: Atypical chest pain Patient Disposition: Home, Self-Care Instructions: Chest Pain (ED), Noncardiac Chest Pain (ED) Additional Instructions: Thank you for choosing [facility]'s Emergency Department for your care today. Thankfully your laboratory evaluation, EKG, chest x-ray, and exam today are all reassuring. There is no evidence of any acute cardiac, pulmonary, infectious, metabolic, or other dangerous cause for your symptoms. At this time there is no indication for admission to the hospital or continued ED observation, and it is safe to discharge you home. 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 Please also follow up with your primary care physician for re-evaluation, additional management of your symptoms, and continued preventative care. If you do not have a primary care physician, please call the [facility] at [phone] to establish a new primary care physician. While waiting to establish your new primary care physician, you can call our Walk-in Care [facility] at [phone] for non-emergency needs. Please return to the emergency department if you develop a severe or sudden change in your symptoms, a fever over 100.4 that does not improve with Tylenol or Ibuprofen, recurrent vomiting, or any other new or worsening symptoms or concerns. Prescriptions: No Action (DME) blood pressure monitor [Blood Pressure Kit] Kit See Rx Instructions .ROUTE .MEDSUPPLY Qty: 1 0RF Rx Instructions: As directed cholecalciferol (vitamin D3) 50 mcg (2,000 unit) capsule 50 mcg PO DAILY 90 Days Qty: 90 1RF ropinirole 0.5 mg tablet 0.5 mg PO BEDTIME Qty: 90 2RF albuterol sulfate [Ventolin HFA] 90 mcg/actuation HFA aerosol inhaler 1 puff inhalation QID PRN (Reason: for dyspnea) Qty: 18 6RF lansoprazole 30 mg capsule,delayed release(DR/EC) 30 mg PO DAILY Qty: 90 2RF (DME) nebulizers [AeroEclipse II Nebulizer] Mis See Rx Instructions .ROUTE .MEDSUPPLY Qty: 1 0RF Rx Instructions: As directed (DME) nebulizers Mis See Rx Instructions .Route Qty: 1 0RF Rx Instructions: As directed albuterol sulfate 5 mg/mL solution for nebulization 5 mg inhalation Q6H PRN (Reason: shortness of breath or wheezing) Qty: 75 0RF trazodone 100 mg tablet 200 mg PO BEDTIME PRN (Reason: insomnia) Probiotic Acidophilus 100 units aripiprazole 2 mg tablet 2 mg PO QAM escitalopram oxalate 20 mg tablet 20 mg PO DAILY lamotrigine 200 mg tablet 200 mg PO DAILY tizanidine 2 mg tablet 2 mg PO Q8H 7 Days Qty: 21 0RF triamcinolone acetonide 0.1 % ointment 1 appl topical DAILY 15 Days Qty: 30 0RF Referrals: Jeremy Sanches PA-C [Primary Care Provider, Internal Medicine] Clinical Impression: Atypical chest pain Print Language: Polish
[2024-11-22 17:11] LABS: MANUAL DIFF FLAG NO
[2024-11-22 17:13] LABS: Hematocrit 41.8 % (37.0-47.0); Hemoglobin 14.0 g/dl (12.0-16.0); Imm Gran Abs Auto 0.03 X10*3/uL (0.00-0.03); Imm Gran Pct Auto 0.3 % (0.0-0.4); Lymphocytes Absolute Auto 2.3 X10*3/uL (1.2-4.9); Mean Corpuscular HGB Conc 33.5 g/dl (31.0-35.0); Mean Corpuscular Hemoglobin 29.8 pg (27.0-33.0); Mean Corpuscular Volume 88.9 fL (80.0-98.0); NRBC Abs Auto 0.000 X10*3/uL (0.0-0.012); NRBC Pct Auto 0.0 /100WBC (0.0-0.2); Platelet Count 280 X10*3/uL (160-400); Red Blood Count 4.70 X10*6/uL (4.20-5.50); White Blood Count 9.2 X10*3/uL (4.8-10.8)
[2024-11-22 17:34] LABS: Alanine Aminotransferase 28 U/L (0-31); Albumin Level 4.8 g/dL (3.5-5.0); Alkaline Phosphatase 58 U/L (39-117); Anion Gap 12 (12-20); Aspartate Amino Transferase 25 U/L (5-31); Blood Urea Nitrogen 14 mg/dL (9-16); Calcium 9.3 mg/dL (8.4-10.2); Carbon Dioxide 24 mmol/L (22-29); Chloride 105 mmol/L (96-108); Creatinine Clr Calc Pharmacy 142.5; Estimated Glomerular Filt Rate > 60; Lipase 24 U/L (8-78); Magnesium 2.2 mg/dL (1.6-2.6); Potassium 3.6 mmol/L (3.3-5.1); Sodium 137 mmol/L (135-145); Total Protein 7.8 g/dL (6.5-8.0)
[2024-11-22 17:49] LABS: Troponin-I High Sensitivity < 2.7 ng/L (<3.5-17.0)
[2024-11-22 18:27] VITALS: BP 98/49; PULSE 65; RESP 14; TEMP 36.6; O2SAT 96
[2024-11-22] MEDS: Lidocaine HCl Viscous 2 % 15 ML SOLUTION PO (18:47)
[2024-11-22] MEDS: Magnesium Hydrox/Alum Hydrox 30 ML ORAL.SUSP PO (18:47)
[2024-11-22 20:07] LABS: Appearance Urine Clear; Glucose Urine UA Negative (Negative); PH 5.0 (5.0-9.0); Specific Gravity - Urine 1.025 (1.005-1.025); UMIC TRIGGER UACC YES
[2024-11-22 20:10] LABS: Troponin-I High Sensitivity < 2.7 ng/L (<3.5-17.0)
[2024-11-22 20:16] VITALS: BP 89/51; PULSE 69; RESP 16; TEMP 36.8; O2SAT 96
[2024-11-22 20:52] LABS: UACC Culture Trigger YES
[2024-11-22 21:32] VITALS: BP 89/51; PULSE 69; RESP 16; TEMP 36.8; O2SAT 96
== END 2024-11-22 21:33 | disposition home or self-care (01) ==
PROVIDERS: Physician Assistant; Physician Assistant Medical; Emergency Provider Emergency Medicine; PCP Physician Assistant
DX: R07.89 Other chest pain (principal); R11.2 Nausea with vomiting, unspecified; R06.02 Shortness of breath; I10 Essential (primary) hypertension; Z86.73 Personal history of transient ischemic attack (TIA), and cerebral infarction without residual deficits
CPT/HCPCS: 36415; 71046; 80053; 81001; 83690; 83735; 84484; 85025; 87086; 87147; 93005; 99283; 99285

== ENCOUNTER → 2024-11-22 16:41 | Outpatient (BNV) | payer MEDICARE, MEDICAID, SELFPAY | PROVIDERS: Emergency Provider Emergency Medicine; PCP Physician Assistant; Visit Provider Internal Medicine Cardiovascular Disease | DX: R94.31 Abnormal electrocardiogram [ECG] [EKG] (principal); R07.89 Other chest pain | CPT/HCPCS: 93010 ==

== ENCOUNTER → 2024-11-22 16:48 | Outpatient (BNV) | payer MEDICARE, MEDICAID, SELFPAY | PROVIDERS: PCP Physician Assistant; Visit Provider Radiology Diagnostic Radiology | DX: R52 Pain, unspecified (principal) | CPT/HCPCS: 71046 ==

== ENCOUNTER 2024-11-24 09:28 | Outpatient (AMB) | payer MEDICARE, MEDICAID, SELFPAY ==
--- NOTE | 2024-11-24 09:36 | MHC.OFFVIS ---
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/SOB Allergies ibuprofen (From Motrin) Allergy (Severe, Verified 11/22/24 16:48) HIVES,SWELLING shellfish derived Allergy (Severe, Verified 11/22/24 16:48) Angioedema meperidine (Demerol) Allergy (Unknown, Verified 11/22/24 16:48) Vomiting NSAIDS (Non-Steroidal Anti-Inflamma Allergy (Verified 11/22/24 16:48) Itching morphine Adverse Reaction (Intermediate, Verified 11/22/24 16:48) Chest Pain tramadol Adverse Reaction (Intermediate, Verified 11/22/24 16:48) GI upset hydroxyzine Adverse Reaction (Mild, Verified 11/22/24 16:48) mouth numbess Medication List - Last Reconciled 11/24/24 by Jude López MD albuterol sulfate 5 mg inhalation Q6H PRN albuterol sulfate 90 mcg/actuation (Ventolin HFA) 1 puff inhalation QID PRN aripiprazole 2 mg PO QAM blood pressure monitor (Blood Pressure Kit) As directed cholecalciferol (vitamin D3) 50 mcg PO DAILY 90 days escitalopram oxalate 20 mg PO DAILY lamotrigine 200 mg PO DAILY lansoprazole 30 mg PO DAILY nebulizers (AeroEclipse II Nebulizer) As directed nebulizers As directed [Probiotic Acidophilus ] ropinirole 0.5 mg PO BEDTIME tizanidine 2 mg PO Q8H 7 days trazodone 200 mg PO BEDTIME PRN triamcinolone acetonide 0.1% 1 appl topical DAILY 15 days HPI Comments Details: The patient is a 49-year-old female presenting with chest pain and shortness of breath. The chest pain is random, often accompanied by shortness of breath, and primarily located under the left breast, sometimes radiating to the upper left chest. She has a history of supraventricular tachycardia (SVT) treated with ablation approximately 10 to 15 years ago, with no ongoing issues reported since the procedure. The patient also has asthma, which does not appear to exacerbate her chest pain. A recent stress test was inconclusive. The patient has sleep apnea but does not use a CPAP machine. 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) COVID-19 Hx of supraventricular tachycardia Hx-TIA (transient ischemic attack) Back spasm Obesity Headache GERD (gastroesophageal reflux disease) Screening for hypothyroidism Screening for hypercholesterolemia Screening for diabetes mellitus (DM) Anxiety Depression Fibromyalgia Asthma Surgical History Hx of colonoscopy History of partial knee replacement Hx of tubal ligation History of endoscopy History of History of knee surgery History of cholecystectomy Family History Mother High cholesterol Father Lupus Diabetes Thyroid disease FH: prostate cancer Brother Asthma Anxiety Depression Daughter Depression Anxiety Childhood autism Maternal Grandmother Glaucoma Other Mental problem Substance abuse Social History Housing: House Are you a primary patient care technician instructor to a significant other at home: No Do you presently have visiting nurse or other home services: No Alcohol intake: never Patient Tobacco Use Status: Never used Tobacco e-Cigarette/Vaping Use: Never Used Second Hand Smoke Exposure: Yes service: No Current occupational status: employed and disabled 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 Cognitive needs: No Hearing needs: No Vision needs: Yes (Glasses) Review of Systems Const Denies chills, Denies daytime sleepiness, Denies fatigue, Denies fever(s), Denies frequent falls, Reports headache(s), Denies night sweats, Denies snoring, Denies weakness, Denies weight gain and Denies weight loss Eyes Denies loss of vision ENT Reports dizziness, Reports headache(s) and Denies hearing loss Card Reports chest pain, Reports chest pain at rest, Reports chest pain with activity, Denies syncope, Denies rapid heart rate, Denies edema, Denies claudication, Denies leg edema, Denies lightheadedness, Denies palpitations, Reports dyspnea, Reports dyspnea on exertion and Denies orthopnea Resp Denies cough, Denies excessive phlegm production, Reports dyspnea, Reports dyspnea on exertion, Denies snoring and Denies wheezing GI Denies abdominal pain, Denies hematochezia, Denies change in bowel habits, Denies change in stool character, Denies heartburn, Reports nausea and Denies vomiting Denies hematuria, Denies urinary frequency and Denies dysuria Musc Denies arthralgias, Denies muscle weakness, Denies numbness and Denies tingling Skin/Breast Denies nail changes and Denies rash Neuro Denies Abnormal speech present, Reports dizziness, Denies syncope, Denies frequent falls, Reports headache(s), Denies loss of vision, Denies memory loss, Denies numbness, Denies tingling and Denies weakness Psych Denies depression and Denies memory loss Endo Denies fatigue and Denies palpitations Aller/Immun Denies wheezing Physical Exam Vital Signs: Last Vital Signs Pulse 79 11/24/24 09:37 BP 100/60 11/24/24 09:37 BMI result Body Mass Index 49.6 Const General: comfortable and no acute distress Orientation/consciousness: patient oriented x3 HEENT Other: Unremarkable Head: Yes normal to inspection Neck Neck: Yes normal visual inspection Chest Chest palpation & inspection: normal inspection of the chest Resp Auscultation: clear to auscultation bilaterally Cardio Palpation: normal PMI Heart sounds: S1 normal heart sound present, S2 normal heart sound present, no gallops, no murmurs and no rubs GI Palpation (GI): Soft to palpation Back/Spine/Pelvis Other: unremarkable Skin General skin exam: no rashes or lesions noted Neuro General: patient oriented x3 Speech: No Abnormal speech present Extrem General: Yes normal to inspection Psych Mental Status: mental status grossly normal Assessment & Plan Assessment & Plan (1) Chest pain: Code(s): R07.9 - Chest pain, unspecified Category: Medical Qualifiers: Chest pain type: unspecified Qualified Code(s): R07.9 - Chest pain, unspecified (2) Abnormal stress test: Code(s): R94.39 - Abnormal result of other cardiovascular function study Category: Medical Plan EKG with underlying sinus rhythm at 70/Min; no ischemic changes; normal MD and corrected QT. multiple prior EKGs are unremarkable. Numerous high sensitivity troponins are also normal. Cardiac BNP is normal. In the stress test, she was able to do about 3 minutes on the Pardeep protocol, had shortness of breath and dizziness with chest pain, but no EKG evidence of ischemia. Overall, suspect probable noncardiac chest pain. For definitive evaluation, recommend coronary CTA. If this is unremarkable, then reassurance only. Orders: Orders Basic Metabolic Panel Today R07.9 - Chest pain, unspecified CT Cardiac Coronary Angio Today I25.10 - Atherosclerotic heart disease of ramona coronary artery without angina pectoris, R07.9 - Chest pain, unspecified Coding Level of Care Code New Pt Level 3 (27874) Complex EM visit Add On G2211 Diagnoses Chest pain, unspecified type R07.9 Chest pain type: unspecified Abnormal stress test R94.39
[2024-11-24 09:37] VITALS: BP 100/60; PULSE 79; BMI 49.6
--- OUTSIDE RECORDS SUMMARY | 2024-11-24 10:16 | XMS_ITS | Clinical Summary ---
Author Organization [facility] Address [id number] [place] [id number] Care Team Providers Care [employer] Name Role Phone Jeremy Sanches Primary Care [...] Smear 01/03/1996 Colorectal Cancer Screening: Colonoscopy 04/02/2022 HIV Screening 04/02/2022 Hepatitis C Screening 04/02/2022 Social Influencers of Health Screening 04/02/2022 COVID-19 Vaccine ( - 2023-2 5 season) 2023 Depression Screening 04/30/2024 Influenza Vaccine (#1) 2024 HIB Vaccines Aged [...] age to complete this topic Care Teams [employer] Relationship Specialty Start Date End Date Jeremy Sanches PA PCP - General Internal Medicine 09/06/21
--- OUTSIDE RECORDS SUMMARY | 2024-11-24 10:16 | XMS_ITS | Patient Health Record ---
[facility] Address [address] [place] [address] Care Team Providers Care Supervisor Brake Repair Name Role Phone Walt Eaton MD Primary Care Provider Lashell Washburn Unavailable [phone] Allergies Allergen (clinical drug ingredient) Drug/Non Drug [...] Inc [address] [place] [address] [id number] Emerita Plata Self - patient is the insured Medical (General) History Medical History History ICD Code Anxiety Arthritis asthma Back,Hip,and Knee pain Broken bones Cholesterol Depression Fibromyalgia Gall bladder problems Headaches/Migraines Hiatal hernia Reflux Stroke Bone implants/screws Surgical History Surgery Date(Month/Year) eye surgery gall bladder knee surgery knee replacement tumor removal
--- OUTSIDE RECORDS SUMMARY | 2024-11-24 10:17 | XMS_ITS | Clinical Summary ---
Author Organization [facility] Address [address] [place] [address] Phone Care Team Providers Care Valet Cashier Name Role Phone Jeremy Sanches Primary Care Provider + Allergies Active Allergy Reactions Criticality Noted Date Comments Demerol (Meperidine) Vomiting 09/13/2016 Ibuprofen Bronchospasm 09/13/2016 Morphine High 09/13/2016 Shellfish Containing Products Hives 2016 Medications pregabalin (LYRICA) 25 MG capsule Take 25 mg by mouth 2 (two) times a day. Active buPROPion (WELLBUTRIN XL) 300 MG ER 24 hr tablet Take 300 mg by mouth daily. Active sertraline (ZOLOFT) 50 MG tablet Take 50 mg by mouth daily. Active topiramate (TOPAMAX) 50 MG tablet Take 50 mg by mouth 2 (two) times a day. Active Social History Tobacco Use Types Packs/Day Years Used Date Smoking Tobacco: Never Education Answer Date Recorded Are you interested in more education? Not on andrew e 08/25/2022 Are you concerned about learning? Not on file 08/25/2022 No 08/25/2022 No 08/25/2022 Digital Access Answer Date Recorded No 09/25/2022 No 09/25/2022 No 09/25/2022 Reliable internet access at home? Not on file 09/25/2022 Device with a working camera? Not on file Comments Unknown Sex and Gender Information Value Date Recorded Sex Assigned at Not on file Legal Sex Female 10:27 AM EDT Gender Identity Not on file Sexual Orientation Not on file Last Filed Vital Signs Vital Sign Reading Time Taken Comments Blood Pressure 98/64 06/20/2013 1:58 AM EST Pulse 68 06/20/2013 1:58 AM EST Temperature 36.8 C (98.2 F) 06/20/2013 1:58 AM EST Respiratory Rate 16 06/20/2013 1:58 AM EST Oxygen Saturation - - Inhaled Oxygen Concentration - - Weight 113.5 kg (250 lb 3.2 oz) 06/20/2013 1:58 AM EST Height 163.8 cm (5' 4.5 ) 06/20/2013 1:58 AM EST Body Mass Index 42.28 06/20/2013 1:58 AM EST Plan of Treatment Health Maintenance Due Date Last Done Comments LIPID PANEL 1975 DEPRESSION SCREENING 1987 HEPATITIS C SCREENING 1993 HIV ONE-TIME SCREENING (18-6 5 YEARS) 1993 PAP SMEAR 01/03/1996 SMOKING STATUS SCREENING (On ce After 26 Yrs) 2001 Adult Td,Tdap Booster 05/05/2012 05/05/2002 MAMMOGRAM 2015 COLOGUARD 01/03/2020 COLONOSCOPY 01/03/2020 COLORECTAL CANCER SCREENING 01/03/2020 FIT TEST 01/03/2020 FOBT 01/03/2020 SIGMOIDOSCOPY 01/03/2020 VIRTUAL COLONOSCOPY 01/03/2020 COVID-19 VACCINE (2 - 2023-2 5 season) 2023 07/26/2020 PNEUMOCOCCAL VACCINES (0-49 years) Aged Out 2009 No longer eligible based on patient's age to complete this topic HEPATITIS A VACCINES Aged Out No long er eligible based on patient's age to complete this topic HIB VACCINES Aged Out No longer eligi ble based on patient's age to complete this topic MENINGOCOCCAL VACCINES (ACWY) Aged Out No longer eligible based on patient's age to complete this topic MENINGOCOCCAL VACCINES (B) Aged Out N o longer eligible based on patient's age to complete this topic Medical Devices Not on file [facility] & B [facility] REPLAC[facility] MEDIC[facility] PART A & B [facility] MEDIC[facility]PLAC[facility] MEDIC[facility] PART A & B [facility] MEDICARE REPLACEMENT [place] B [facility] MEDIC[facility] RE[facility] MEDIC[facility] REPL[facility] MEDICARE PART A & B [facility] MEDICARE REPLACEMENT Care Teams Valet Cashier Relationship Specialty Start Date End Date Jeremy Sanches PA [address] [place] [address] PCP - General Physician Recreation Program Coordinator 05/27/24 Additional Source Comments The information contained in this document represents components of the legal health record. It is not the complete legal health record.[facility]
== END 2024-11-24 10:08 | disposition home or self-care (01) ==
PROVIDERS: PCP Physician Assistant; Visit Provider Internal Medicine
DX: R07.9 Chest pain, unspecified (principal); R94.39 Abnormal result of other cardiovascular function study
CPT/HCPCS: 99213; G2211

== ENCOUNTER → 2024-11-24 09:28 | Outpatient (BNVA) | payer MEDICARE, MEDICAID, SELFPAY | PROVIDERS: PCP Physician Assistant; Visit Provider Internal Medicine | DX: R07.9 Chest pain, unspecified (principal); R94.39 Abnormal result of other cardiovascular function study; R06.02 Shortness of breath; E66.01 Morbid (severe) obesity due to excess calories; Z68.42 Body mass index [BMI] 45.0-49.9, adult | CPT/HCPCS: 99212 ==

== ENCOUNTER 2024-12-19 13:01 | Outpatient (AMB) | payer MEDICARE, MEDICAID, SELFPAY ==
--- OUTSIDE RECORDS SUMMARY | 2024-12-19 13:03 | XMS_ITS | Patient Health Record ---
[facility] Address [address] [place] [address] Care Team Providers Care Tower Technician Name Role Phone Walt Eaton MD Primary Care Provider Lashell Washburn Unavailable [phone] Allergies Allergen (clinical drug ingredient) Drug/Non Drug [...] Inc [address] [place] [address] [id number] Emerita Plata Self - patient is the insured Medical (General) History Medical History History ICD Code Anxiety Arthritis asthma Back,Hip,and Knee pain Broken bones Cholesterol Depression Fibromyalgia Gall bladder problems Headaches/Migraines Hiatal hernia Reflux Stroke Bone implants/screws Surgical History Surgery Date(Month/Year) eye surgery gall bladder knee surgery knee replacement tumor removal
--- OUTSIDE RECORDS SUMMARY | 2024-12-19 13:03 | XMS_ITS | Clinical Summary ---
Author Organization [facility] Address [address] [place] [address] Care Team Providers Care Real Estate Sales Associate Name Role Phone Jeremy Sanches Primary Care [...] age to complete this topic Care Teams Real Estate Sales Associate Relationship Specialty Start Date End Date Jeremy Sanches PA PCP - General Internal Medicine 09/06/21
--- NOTE | 2024-12-19 13:26 | AM.OFFVISNUR ---
Intake Visit Reasons: Hep B vaccine #3 Allergies ibuprofen (From Motrin) Allergy (Severe, Verified 11/22/24 16:48) HIVES,SWELLING shellfish derived Allergy (Severe, Verified 11/22/24 16:48) Angioedema meperidine (Demerol) Allergy (Unknown, Verified 11/22/24 16:48) Vomiting NSAIDS (Non-Steroidal Anti-Inflamma Allergy (Verified 11/22/24 16:48) Itching morphine Adverse Reaction (Intermediate, Verified 11/22/24 16:48) Chest Pain tramadol Adverse Reaction (Intermediate, Verified 11/22/24 16:48) GI upset hydroxyzine Adverse Reaction (Mild, Verified 11/22/24 16:48) mouth numbess Immunizations Recombivax HB (PF) 10 mcg/mL intramuscular suspension Performing Provider: Jeremy Sanches PA-C [facility] Administered by: Yamilex Wang RN on 12/19/24 13:27 Dose Route Admin Location Dispensed Lot Number Expiration Date [facility] Machinist Mate 1 mL IM Left Deltoid 1 mL [id number] 11/25/26 55311-432-39 Anne Fogarty [employer]SUMER HE Total Dispensed Waste 1 mL 0 % VIS Given Date VIS Provided VIS Publication Date 12/19/24 Single Vaccine 22 Eligibility Eligibility Date Funding Source Not [facility] Eligible 12/19/24 Private Assessment & Plan Assessment & Plan Orders: Orders Hepatitis B Adult Immunization Today Z23 - Encounter for immunization Coding
== END 2024-12-19 13:44 | disposition home or self-care (01) ==
LOC: HO.HMCH 13:01
PROVIDERS: PCP Physician Assistant; Visit Provider Physician Assistant
DX: Z23 Encounter for immunization (principal)

== ENCOUNTER → 2024-12-19 13:01 | Outpatient (BNVA) | payer MEDICARE, MEDICAID, SELFPAY | PROVIDERS: PCP Physician Assistant; Visit Provider Physician Assistant | DX: Z23 Encounter for immunization (principal) | CPT/HCPCS: 90471; 90746 ==

== ENCOUNTER 2025-01-29 14:21 | Outpatient (AMB) | payer MEDICARE, MEDICAID, SELFPAY ==
--- NOTE | 2025-01-29 14:26 | A.OFFVIS_ITS ---
Vital Signs 01/29/25 14:27 Height 5 ft 4 in Weight 301 lb 4 oz BMI 51.7 BP 112/78 Blood Pressure Location Rt brachial Position Sitting Pulse 80 Pulse Source Pulse Oximeter Pulse Oximetry (%) 95 Oxygen Delivery Method Room Air Intake Visit Reasons: INP-Neoplasm unspec beha of nerve sys Intake Note: Neoplasm of unspecified behavior of endocrine glands and other parts of nervous system Caterers Helper Required: No Accompanied by: Self / Same As Patient Allergies ibuprofen (From Motrin) Allergy (Severe, Verified 01/29/25 14:26) HIVES,SWELLING shellfish derived Allergy (Severe, Verified 01/29/25 14:26) Angioedema meperidine (Demerol) Allergy (Unknown, Verified 01/29/25 14:26) Vomiting NSAIDS (Non-Steroidal Anti-Inflamma Allergy (Verified 01/29/25 14:26) Itching morphine Adverse Reaction (Intermediate, Verified 01/29/25 14:26) Chest Pain tramadol Adverse Reaction (Intermediate, Verified 01/29/25 14:26) GI upset hydroxyzine Adverse Reaction (Mild, Verified 01/29/25 14:26) mouth numbess Medication List - Last Reconciled 01/29/25 by Maryanne Orozco MD albuterol sulfate 90 mcg/actuation (Ventolin HFA) 1 puff inhalation QID PRN aripiprazole 2 mg PO QAM benzonatate 100 mg PO TID blood pressure monitor (Blood Pressure Kit) As directed cholecalciferol (vitamin D3) 50 mcg PO DAILY 90 days escitalopram oxalate 20 mg PO DAILY gabapentin 1-2 caps orally bedtime; lamotrigine 200 mg PO DAILY lansoprazole 30 mg PO DAILY nebulizers (AeroEclipse II Nebulizer) As directed nebulizers As directed [Probiotic Acidophilus ] ropinirole 1 mg PO BEDTIME 90 days sumatriptan succinate take 1 tab at onset of headache; if no relief may repeat 1 tab after at least 2 hrs; max = 4 tabs/24 hr PO sumatriptan succinate 25 mg PO trazodone 200 mg PO BEDTIME PRN triamcinolone acetonide 0.1% 1 appl topical DAILY 15 days HPI Comments Details: 50y/o female comes for neurological evaluation . In 2014- she had surgery to remove a benign pituitary mass at [facility] by .she was told that she needs imaging every 3-5 years - she kasper snot remember her last MRI. Her initial symptoms were headaches and blurry vision. 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 she has daily headaches .It can be occipital, unilateral, frontal , with light and noise sensitivty , pounding pain with some visual aura. she has nausea with her headaches. she takes tylenol and it helps sometimes. The headaches can last 30 min to 1 2hrs. she wakes up with headaches everyday for past 2 mths she has h/o NELLY more than 5 years ago - but unable to use CPAP - does not have an outlet in her [address]year old house. she takes trazadone, snores loudly has excessive daytime sleepiness. 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) COVID-19 Hx of supraventricular tachycardia Hx-TIA (transient ischemic attack) Back spasm Obesity Headache GERD (gastroesophageal reflux disease) Screening for hypothyroidism Screening for hypercholesterolemia Screening for diabetes mellitus (DM) Anxiety Depression Fibromyalgia Asthma Surgical History Hx of colonoscopy History of partial knee replacement Hx of tubal ligation History of endoscopy History of History of knee surgery History of cholecystectomy Family History Mother High cholesterol Father Lupus Diabetes Thyroid disease FH: prostate cancer Brother Asthma Anxiety Depression Daughter Depression Anxiety Childhood autism Maternal Grandmother Glaucoma Other Mental problem Substance abuse Social History Housing: House Are you a primary patient care secretary to a significant other at home: No Do you presently have visiting nurse or other home services: No Alcohol intake: never Patient Tobacco Use Status: Never used Tobacco e-Cigarette/Vaping Use: Never Used Second Hand Smoke Exposure: Yes service: No Current occupational status: employed and disabled 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 [employer] Cognitive needs: No Hearing needs: No Vision needs: Yes (Glasses) Physical Exam Vital Signs: Last Vital Signs Pulse 80 01/29/25 14:27 BP 112/78 01/29/25 14:27 Pulse Ox 95 01/29/25 14:27 Oxygen Delivery Method Room Air 01/29/25 14:27 BMI result Body Mass Index 51.7 Const General: cooperative and comfortable Nutritional Appearance: obese Orientation/consciousness: patient oriented x3 Neuro Other: mild dysconjugate gaze mallampatti grade 4 General: patient oriented x3, tone normal and moves all extremities Cranial nerves: Yes Facial sensation intact/muscles of mastication intact, Yes Bilaterally intact EOM present, Yes Nystagmus not present, Yes Normal facial strength present, Yes Midline tongue present, Yes Symmetric palate elevation present and Yes Ability to bilaterally elevate shoulders present Cognition (Neuro): normal cognition Gait exam (Neuro): Antalgic gait present Motor exam (neuro): 5/5 motor strength present throughout and Normal motor muscle tone present throughout Deep tendon reflexes (DTR's): Right triceps reflex intensity grade: 2+, Left triceps reflex intensity grade: 2+, Rt Biceps (C5, C6): 2+, Left biceps reflex intensity grade: 2+, Right brachioradialis reflex intensity grade: 2+, Left brachioradialis reflex intensity grade: 2+, Right patellar reflex intensity grade: 2+ and Left patellar reflex intensity grade: 2+ Coordination: cymgzi-of-[id number] test normal Assessment & Plan Assessment & Plan (1) Chronic migraine with aura: Code(s): G43.E09 - Chronic migraine with aura, not intractable, without status migrainosus Category: Medical Qualifiers: Status migrainosus presence: without status migrainosus Intractability: intractable Qualified Code(s): G43.E19 - Chronic migraine with aura, intractable, without status migrainosus (2) Obstructive sleep apnea: Code(s): G47.33 - Obstructive sleep apnea (adult) (pediatric) Category: Medical (3) Snoring: Code(s): R06.83 - Snoring Category: Medical (4) Hypersomnia: Code(s): G47.10 - Hypersomnia, unspecified Category: Medical (5) Pituitary benign neoplasm: Code(s): D35.2 - Benign neoplasm of pituitary gland Category: Medical (6) RLS (restless legs syndrome): Code(s): G25.81 - Restless legs syndrome Category: Medical Plan MRI Brain To evaluate pituitary Sleep study to reevaluate sleep apnea start gabapentin 300mg 1-2 caps qhs for migraine prophyloaxis and restless legs syndrome Magnesium 400mg qhs Vit B 2 400mg qam sumatriptan 50mg as needed for migraine Limit tylenol use Orders: Orders MR head/brain wo/w con Today D35.2 - Benign neoplasm of pituitary gland RT home sleep study Today G47.10 - Hypersomnia, unspecified, R06.83 - Snoring Medications: New sumatriptan succinate take 1 tab at onset of headache; if no relief may repeat 1 tab after at least 2 hrs; max = 4 tabs/24 hr PO 14 tabs 4RF gabapentin 1-2 caps orally bedtime; 60 caps 6RF Coding Level of Care Code New Pt Level 4 (36260) Complex EM visit Add On G2211 Diagnoses Intractable chronic migraine with aura and without status migrainosus G43.E19 Status migrainosus presence: without status migrainosus Intractability: intractable Obstructive sleep apnea G47.33 Snoring R06.83 Hypersomnia G47.10 Pituitary benign neoplasm D35.2 RLS (restless legs syndrome) G25.81
[2025-01-29 14:27] VITALS: BP 112/78; PULSE 80; O2SAT 95; BMI 51.7
--- OUTSIDE RECORDS SUMMARY | 2025-01-29 15:59 | XMS_ITS | Clinical Summary ---
Author Organization [facility] Address [address] [place] [address] Phone Care Team Providers Care Egg Worker Name Role Phone Jeremy Sanches Primary [...] FOBT 01/03/2020 SIGMOIDOSCOPY 01/03/2020 VIRTUAL COLONOSCOPY 01/03/2020 INFLUENZA VACCINE (#1) 2024 9, 05/02/2018 COVID-19 VACCINE (2 - 2024-2 6 season) 2024 07/26/2020 PNEUMOCOCCAL VACCINES (50+ years) (2 of 2 - PCV) 2025 02/24/2010 ZOSTER VACCINES (1 of 2) 2025 HEPATITIS A VACCINES Aged Out No long [...] topic Medical Devices Not on file Insurance [place] A & B [facility] MEDICARE REPLACEMENT [place] B [facility] MEDICARE REPLACEMENT [facility] MEDICARE PART A & B [facility] MEDICARE REPLACEMENT [facility] MEDIC[facility] PART A & B [facility] MEDICARE [facility]PLACEMENT [place] A & B [facility] MEDICARE REPLACEMENT [place] PART A & B [facility] MEDICARE REPLACEMENT Care Teams Egg Worker Relationship Specialty Start Date End Date Jeremy Sanches PA [address] [place] [address] PCP - General Physician Char Belt Operator 05/27/24 Additional Source Comments The information contained in this document represents components of the legal health record. It is not the complete legal health record.[facility]
--- OUTSIDE RECORDS SUMMARY | 2025-01-29 15:59 | XMS_ITS | Patient Health Record ---
[facility] Address [address] [place] [address] Care Team Providers Care Water Treatment Plant Repairer Name Role Phone Walt Eaton MD Primary Care Provider Lashell Washburn Unavailable [phone] Allergies Allergen (clinical drug ingredient) Drug/Non Drug [...] Inc [address] [place] [address] [id number] Emerita Plata Self - patient is the insured Medical (General) History Medical History History ICD Code Anxiety Arthritis asthma Back,Hip,and Knee pain Broken bones Cholesterol Depression Fibromyalgia Gall bladder problems Headaches/Migraines Hiatal hernia Reflux Stroke Bone implants/screws Surgical History Surgery Date(Month/Year) eye surgery gall bladder knee surgery knee replacement tumor removal
--- OUTSIDE RECORDS SUMMARY | 2025-01-29 15:59 | XMS_ITS | Clinical Summary ---
Author Organization [address] [facility] Address [address] [place] [address] Phone Care Team Providers Care Vice President Of Compliance Name Role Phone Jeremy Sanches Primary Care [...] Last Done Comments Breast Cancer Screening 1975 Colorectal Cancer Screening: Colonoscopy 1975 DTaP,Tdap,and Td Vaccines (1 - Tdap) 1994 Hepatitis B Vaccines (1 of 3 - 19+ 3-dose series) 1994 Pneumococcal Vaccine: 50+ Ye ars (1 of 2 - PCV) 1994 Cervical Cancer Screening: P ap Smear 01/03/1996 HIV Screening 04/02/2022 Hepatitis C Screening 04/02/2022 Medicare Annual Wellness Visit 04/02/2022 Social Influencers of Health Screening 04/02/2022 Depression Screening 04/30/2024 COVID-19 Vaccine (1 - 2023-2 5 season) 2024 Influenza Vaccine (#1) 2024 Zoster Vaccines (1 of 2) 2025 RSV Immunization Adult Patie nts (1 - 1-dose 75+ series) 2050 HIB Vaccines Aged Out No longer eligi [...] on patient's age to complete this topic Insurance [employer] MEDICARE MEDICAID - [place] Care Teams Vice President Of Compliance Relationship Specialty Start Date End Date Jeremy Sanches PA PCP - General Internal Medicine 09/06/21
== END 2025-01-29 15:07 | disposition home or self-care (01) ==
LOC: HO.HSMS 14:22
PROVIDERS: PCP Physician Assistant; Visit Provider Psychiatry & Neurology Neurology
DX: G43.E19 Chronic migraine with aura, intractable, without status migrainosus (principal); G47.33 Obstructive sleep apnea (adult) (pediatric); R06.83 Snoring; G47.10 Hypersomnia, unspecified; D35.2 Benign neoplasm of pituitary gland; G25.81 Restless legs syndrome
CPT/HCPCS: 99204; G2211

== ENCOUNTER → 2025-01-29 14:21 | Outpatient (BNVA) | payer MEDICARE, MEDICAID, SELFPAY | PROVIDERS: PCP Physician Assistant; Visit Provider Psychiatry & Neurology Neurology | DX: G43.E19 Chronic migraine with aura, intractable, without status migrainosus (principal); G47.33 Obstructive sleep apnea (adult) (pediatric); G47.10 Hypersomnia, unspecified; G25.81 Restless legs syndrome; D35.2 Benign neoplasm of pituitary gland; R06.83 Snoring | CPT/HCPCS: 99202 ==

== ENCOUNTER 2025-02-22 16:56 | Outpatient (REF) | payer MEDICARE, MEDICAID, SELFPAY ==
--- NOTE | ~2025-02-22 | MR_ITS ---
EXAMINATION: MR BRAIN WITHOUT AND WITH CONTRAST CLINICAL INFORMATION: D35.2. Benign neoplasm of pituitary gland. COMPARISON: Correlated to CT dated March 20, 2022. TECHNIQUE: Multiplanar, multisequence MRI of the brain was obtained before and after the intravenous administration of 6.0 mL gadolinium based (Gadavist) without reported immediate complications.. FINDINGS: There is an 11 x 8 x 5 mm ovoid shaped delayed enhancing signal left midline of the sella turcica and slightly posteriorly towards the neurohypophysis. There is a focal restricted diffusion. Based on systolic measures 2 mm in maximal thickness and is midline. The optic asthma is intact and normal. Flow-void signal within the cavernous supracavernous segments of the ICA is normal. No abnormal enhancement in the cavernous sinuses. Flow-void signal within the main cerebral vessels is normal. Rubio-white matter differentiation is normal. Posterior cranial fossa contents demonstrated no signal abnormality or mass effect. Normal position of the cerebellar tonsils. 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 Susceptibility signal sequence is not acquired. No acute intracranial hemorrhage, mass effect, midline shift, hydrocephalus or herniation.. MR/MR head/brain wo/w con IMPRESSION: 11 x 8 x 5 mm left midline intrasellar mass/lesion likely pituitary adenoma. 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 Electronically signed by: Kurt Tao MD 02/23/2025 09:03 AM EDT
--- OUTSIDE RECORDS SUMMARY | 2025-02-22 17:07 | XMS_ITS | Patient Health Record ---
Author Organization [facility] Address [address] [place] [address] Care Team Providers Care Security Police Name Role Phone Walt Eaton MD Primary Care Provider Lashell Washburn Unavailable [phone] Allergies Allergen (clinical drug ingredient) Drug/Non Drug [...] Inc [address] [place] [address] [id number] Emerita Plata Self - patient is the insured Medical (General) History Medical History History ICD Code Anxiety Arthritis asthma Back,Hip,and Knee pain Broken bones Cholesterol Depression Fibromyalgia Gall bladder problems Headaches/Migraines Hiatal hernia Reflux Stroke Bone implants/screws Surgical History Surgery Date(Month/Year) eye surgery gall bladder knee surgery knee replacement tumor removal
--- OUTSIDE RECORDS SUMMARY | 2025-02-22 17:07 | XMS_ITS | Clinical Summary ---
Author Organization [address] [place] [address] Address [address] [place] [address] Phone Care Team Providers Care Bioinformatics Team Member Name Role Phone Jeremy Sanches Primary Care [...] on file Obstetrics History Plan of Treatment Upcoming Encounters Date Type Department Care Team ([facility] Contact Info) Description 04/28/2025 8:30 AM EST Office Visit Orthopedic Surgery - [place] [address] [address] Prakash Sparks, DPM [address] [address] Health Maintenance Due Date Last Done Comments [...] 5 season) 2024 Influenza Vaccine (#1) 2024 RSV Immunization Adult Patie nts (1 - Risk 50-74 years 1-dose series) 2025 Zoster Vaccines (1 of 2) 2025 HIB Vaccines Aged Out No longer eligi [...] HEALTHCARE MEDICARE MEDICAID - [place] Care Teams Bioinformatics Team Member Relationship Specialty Start Date End Date Jeremy Sanches PA PCP - General Internal Medicine 09/06/21
--- OUTSIDE RECORDS SUMMARY | 2025-02-22 17:07 | XMS_ITS | Clinical Summary ---
Author Organization [facility] Address [address] [place] [address] Phone Care Team Providers Care Outplacement Consultant Name Role Phone Jeremy Sanches Primary Care [...] 02/24/2010 ZOSTER VACCINES (1 of 2) 2025 RSV VACCINE (1 - 1-dose 75+ series) 2050 HEPATITIS A VACCINES Aged Out No long [...] Insurance [place] PART A & B [facility] MEDICARE REPLACEMENT [facility] MEDIC[facility] PART A & B Member Subscriber Plan / Payer (Ef fective 2015-Present) Name:Emerita Plata Member ID:[id number] Relation to Subscriber:Self Name:Emerita Plata Subscriber ID:[id number] Payer ID:[id number] Group ID:Not on file Type:Medicare Address: [employer] [address] [place] [address] [place] [address] MEDICARE REPLACEMENT [facility] MEDICARE PART A & B [facility] MEDICARE REPLACEMENT [facility] MEDICARE PART A & B [facility] MEDICARE REPLACEMENT [place] PART A & B Member Subscriber Plan / Payer (Ef fective 2015-Present) Name:Emerita Plata Member ID:[id number] Relation to Subscriber:Self Name:Emerita Plata Subscriber ID:[id number] Payer ID:[id number] Group ID:Not on file Type:Medicare Address: [employer] [facility] [address] [place] [address] [facility] MEDICARE REPLACEMENT [place] MED[place] PART A & B [facility] MEDICARE REPLACEMENT Care Teams Outplacement Consultant Relationship Specialty Start Date End Date Jeremy Sanches PA [address] [place] [address] PCP - General Physician Bobbin Cleaner 05/27/24 Additional Source Comments The information contained in this document represents components of the legal health record. It is not the complete legal health record.[facility]
== END 2025-02-22 16:57 | disposition home or self-care (01) ==
LOC: HO.MRI 16:56
PROVIDERS: PCP Physician Assistant; Visit Provider Psychiatry & Neurology Neurology
DX: D35.2 Benign neoplasm of pituitary gland (principal)
CPT/HCPCS: 70553; A9585

== ENCOUNTER → 2025-02-22 16:57 | Outpatient (BNV) | payer MEDICARE, MEDICAID, SELFPAY | PROVIDERS: PCP Physician Assistant; Visit Provider Radiology Diagnostic Radiology | DX: D35.2 Benign neoplasm of pituitary gland (principal) | CPT/HCPCS: 70553 ==

== ENCOUNTER 2025-03-25 14:00 | Outpatient (REF) | payer MEDICARE, MEDICAID, SELFPAY ==
[2025-03-25 16:59] LABS: Anion Gap 11 (12-20); Blood Urea Nitrogen 12 mg/dL (9-16); Calcium 9.5 mg/dL (8.4-10.2); Carbon Dioxide 29 mmol/L (22-29); Chloride 102 mmol/L (96-108); Estimated Glomerular Filt Rate > 60; Potassium 3.8 mmol/L (3.3-5.1); Sodium 138 mmol/L (135-145)
--- OUTSIDE RECORDS SUMMARY | 2025-03-25 17:03 | XMS_ITS | Clinical Summary ---
Author Organization [address] [place] [address] Address [address] [place] [address] Phone Care Team Providers Care Cable Installation Technician Name Role Phone Jeremy Sanches Primary Care [...] Upcoming Encounters Date Type Department Care Team ([facility] Contact Info) Description 04/28/2025 8:30 AM EST Office Visit Orthopedic Surgery - [place] [address] [address] Prakash Sparks, DPM [address] [address] Health Maintenance Due Date Last [...] Depression Screening 04/30/2024 COVID-19 Vaccine (1 - 2024-2 6 season) 2024 Influenza Vaccine (#1) 2024 RSV [...] HEALTHCARE MEDICARE [place]ICAID - [place] Care Teams Cable Installation Technician Relationship Specialty Start Date End Date Jeremy Sanches PA PCP - General Internal Medicine 09/06/21
--- OUTSIDE RECORDS SUMMARY | 2025-03-25 17:03 | XMS_ITS | Clinical Summary ---
Author Organization [facility] Address [address] [place] [id number] Phone Care Team Providers Care Hr Generalist Name Role Phone Jeremy Sanches Primary Care [...] Insurance [place] & B [facility] Member Subscriber Plan / Payer (Ef fective 2015-Present) Name:Emerita Plata Member ID:[id number] Relation to Subscriber:Self Name:Emerita Plata Subscriber ID:[id number] Payer ID:[id number] Group ID:Not on file Type:Medicare Address: [employer] [address] [place] [address] [place] [address] MEDICARE REPLACEMENT [facility] MEDIC[facility] PART A & B [facility] MEDIC[facility] REPLAC[facility] A & B [facility] MEDICARE REPLACEMENT [place] B Member Subscriber Plan / Payer (Ef fective 2015-Present) Name:Emerita Plata Member ID:[id number] Relation to Subscriber:Self Name:Emerita Plata Subscriber ID:[id number] Payer ID:[id number] Group ID:Not on file Type:Medicare Address: [employer] [facility] [address] [place] [address] [facility] MEDICARE REPLACEMENT [place] B [facility] MEDICARE REPLACEMENT Care Teams Hr Generalist Relationship Specialty Start Date End Date Jeremy Sanches PA [address] [place] [address] PCP - General Physician Tourist Guide 05/27/24 Additional Source Comments The information contained in this document represents components of the legal health record. It is not the complete legal health record.[facility]
== END 2025-03-25 14:01 | disposition home or self-care (01) ==
LOC: HO.HMGCLDS 14:00
PROVIDERS: PCP Physician Assistant; Visit Provider Internal Medicine
DX: R07.9 Chest pain, unspecified (principal)
CPT/HCPCS: 36415; 80048

== ENCOUNTER 2025-04-07 11:46 | Outpatient (REF) | payer MEDICARE, MEDICAID, SELFPAY ==
--- NOTE | ~2025-04-07 | XR_ITS ---
EXAMINATION: XR CHEST CLINICAL INFORMATION: J20.9 - Acute bronchitis, unspecified COMPARISON: November 22, 2024 TECHNIQUE: PA view of the chest was obtained. FINDINGS: Prominence of the interstitial markings. No hyperinflation. No consolidation, pleural effusion or pneumothorax. Cardiomediastinal silhouette size is normal. Multilevel spondylosis. S-shaped curvature of the thoracic spine. XR/XR chest 1V IMPRESSION: Acute inflammatory small airway disease should be considered in the correct clinical settings. Scoliosis and spondylosis, thoracic spine. Electronically signed by: Kurt Tao MD 04/07/2025 12:47 PM [facility]
[2025-04-07 15:48] LABS: Resp Syncy Virus RNA Qual PCR NEGATIVE (Negative); SARS COV2 PCR INHOUSE NEGATIVE (Negative)
== END 2025-04-07 11:47 | disposition home or self-care (01) ==
LOC: HO.XRAY 11:46
PROVIDERS: PCP Physician Assistant; Visit Provider Physician Assistant
DX: Z00.00 Encounter for general adult medical examination without abnormal findings (principal); K21.9 Gastro-esophageal reflux disease without esophagitis; E66.813 Obesity, class 3; J20.9 Acute bronchitis, unspecified; F33.1 Major depressive disorder, recurrent, moderate; I10 Essential (primary) hypertension
CPT/HCPCS: 71045; 87637; 99396

== ENCOUNTER 2025-04-07 11:46 | Outpatient (AMB) | payer MEDICARE, MEDICAID, SELFPAY ==
[2025-04-07 11:48] VITALS: BP 110/64; PULSE 67; TEMP 36.1; O2SAT 95; BMI 52.0
--- NOTE | 2025-04-07 11:48 | A.OFFPC_ITS ---
Vital Signs 04/07/25 11:48 Height 5 ft 4 in Weight 303 lb 2 oz BMI 52.0 BP 110/64 Blood Pressure Location Lt brachial Position Sitting Pulse 67 Pulse Source Pulse Oximeter Temp 96.9 F Temp Source Temporal Artery Scan Pulse Oximetry (%) 95 Oxygen Delivery Method Room Air Intake Visit Reasons: annual exam Intake Note: Patient is here today for a physical. Central Processing Tech Required: No Cod Clerk: Not Required per policy Accompanied by: Self / Same As Patient Allergies ibuprofen (From Motrin) Allergy (Severe, Verified 04/07/25 12:00) HIVES,SWELLING shellfish derived Allergy (Severe, Verified 04/07/25 12:00) Angioedema meperidine (Demerol) Allergy (Unknown, Verified 04/07/25 12:00) Vomiting NSAIDS (Non-Steroidal Anti-Inflamma Allergy (Verified 04/07/25 12:00) Itching morphine Adverse Reaction (Intermediate, Verified 04/07/25 12:00) Chest Pain tramadol Adverse Reaction (Intermediate, Verified 04/07/25 12:00) GI upset hydroxyzine Adverse Reaction (Mild, Verified 04/07/25 12:00) mouth numbess Medication List - Last Reconciled 04/07/25 by Jeremy Sanches PA-C albuterol sulfate 90 mcg/actuation (Ventolin HFA) 1 puff inhalation QID PRN aripiprazole 5 mg PO BEDTIME blood pressure monitor (Blood Pressure Kit) As directed cholecalciferol (vitamin D3) 50 mcg PO DAILY 90 days escitalopram oxalate 20 mg PO DAILY gabapentin 1-2 caps orally bedtime; lamotrigine 200 mg PO DAILY lansoprazole 30 mg PO DAILY nebulizers (AeroEclipse II Nebulizer) As directed nebulizers As directed [Probiotic Acidophilus ] ropinirole 1 mg PO BEDTIME 90 days sumatriptan succinate take 1 tab at onset of headache; if no relief may repeat 1 tab after at least 2 hrs; max = 4 tabs/24 hr PO sumatriptan succinate 25 mg PO trazodone 200 mg PO BEDTIME PRN triamcinolone acetonide 0.1% 1 appl topical DAILY 15 days Tobacco use date assessed: 04/07/25 Dental Screening Dental Screen Date: 06/24/24 HPI annual exam HPI Details Patient is a 50-year-old here today for a routine annual physical ?Patient's past medical history significant for moderate persistent asthma, obesity, fibromyalgia, depression, GERD. Concern--> For the past two days, she has been feeling horrible with symptoms that are worsening. She reports chest pain and back pain that is severe and exacerbated by coughing and breathing. She has a non-productive cough that induces gagging and emesis. She denies any fevers. The patient has not tried any [id number] medications. She reports recent contact with a sick friend who is currently in the emergency room. .. Depression: Report she has been having more depression and reports this is related to her continued left knee pain . She reports there has been lot family stress involved that triggers her depression. She is currently speaking with a mental health therapist and a psychiatrist whom increase her dose Lexapro. .. GERD: She is now seeing a GI specialist is awaiting further workup her she reports recently getting an MRI of her pelvis. obesity> patient does understand her BMI is well over 40 though has time losing weight. 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) COVID-19 Hx of supraventricular tachycardia Hx-TIA (transient ischemic attack) Back spasm Obesity Headache GERD (gastroesophageal reflux disease) Screening for hypothyroidism Screening for hypercholesterolemia Screening for diabetes mellitus (DM) Anxiety Depression Fibromyalgia Asthma Surgical History History of meniscectomy of left knee Hx of colonoscopy History of partial knee replacement Hx of tubal ligation History of endoscopy History of History of knee surgery History of cholecystectomy Family History Mother High cholesterol Father Lupus Diabetes Thyroid disease FH: prostate cancer Brother Asthma Anxiety Depression Daughter Depression Anxiety Childhood autism Maternal Grandmother Glaucoma Other Mental problem Substance abuse Social History Housing: House Are you a primary home care and home health aides teacher to a significant other at home: No Do you presently have visiting nurse or other home services: No Alcohol intake: never Patient Tobacco Use Status: Never used Tobacco e-Cigarette/Vaping Use: Never Used Second Hand Smoke Exposure: No service: No Current occupational status: employed and disabled 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 [employer] Cognitive needs: No Hearing needs: No Vision needs: Yes (Glasses) Questionnaire Thrive Questionnaire Date Thrive assessed: 10/15/24 I am a: Patient What is your living situation today?: I have a steady place to live Within the past 12 months, did the food you bought not last and you didn't have the money to get more?: Never true Within the past 12 months, did you worry whether your food would run out before you got money to buy more?: Never true Do you have trouble paying for medicines?: No Do you have trouble getting transportation to medical appointments?: No Do you have trouble paying your heating and electricity bill?: Yes Do you have trouble taking care of your child, family member or friend?: No Do you have trouble with day-to-day activities such as bathing, preparing meals, shopping, managing finances, etc.?: No Are you currently unemployed and looking for a job?: No Are you interested in more education?: No Please select the resources that you would like help with: None Currently or been in a relationship where the following occur: No concerns re ported THRIVE Score: 1 DANIEL-7 AMB Questionnaire DANIEL-7 Date DANIEL - 7 assessed: 06/24/24 Source: Developed by Drs. Terrell Sawant, Lorrie Altamirano, Jong Pereyra and colleagues, with an educational areli from [employer]. Review of Systems Const Reports body aches, Denies chills, Denies excessive sweating, Reports fatigue, Denies fever(s) and Reports headache(s) Eyes Denies blurry vision ENT Denies dysphagia, Denies vertigo, Denies dizziness, Reports headache(s), Denies hearing loss and Denies tinnitus Card Reports chest pain, Denies chest pain with activity, Denies syncope, Denies irregular heart rhythm and Denies dyspnea Resp Reports chest congestion, Reports cough, Denies hemoptysis, Denies dyspnea and Denies wheezing GI Denies abdominal pain, Denies melena, Denies hematochezia, Denies coffee ground emesis, Denies dysphagia, Denies diarrhea, Denies nausea and Denies vomiting Denies urinary frequency, Denies dysuria, Denies urinary hesitancy and Denies urinary urgency Musc Denies arthralgias, Denies limited range of motion, Denies muscle cramps and Denies muscle weakness Skin/Breast Denies rash and Denies skin ulcer Neuro Denies Abnormal speech present, Denies confusion, Denies vertigo, Denies dizziness, Denies syncope, Reports headache(s), Denies memory loss and Denies seizure-like activity Psych Denies anxiety, Denies confusion, Denies depression, Denies memory loss, Denies panic attacks and Denies paranoia Endo Denies excessive sweating, Reports fatigue, Denies flushing, Denies polydipsia and Denies polyuria Aller/Immun Denies wheezing Physical exam (Primary Care) Vital Signs: Last Vital Signs Temp 96.9 F 04/07/25 11:48 Pulse 67 04/07/25 11:48 BP 110/64 04/07/25 11:48 Pulse Ox 95 04/07/25 11:48 Oxygen Delivery Method Room Air 04/07/25 11:48 BMI result Body Mass Index 52.0 Tobacco/Smoking Status: Tobacco use Status Tobacco use date assessed 04/07/25 04/07/25 11:55 Patient Tobacco Use Status Never used Tobacco 04/07/25 11:55 e-Cigarette/Vaping Use Never Used 04/07/25 11:55 Thrive Assessment: Date of Thrive Assessment Date Thrive assessed 10/15/24 04/07/25 11:55 Currently or been in a relationship where the following occur: No concerns reported Const General: cooperative, comfortable, no acute distress, alert and awake; No confusion Orientation/consciousness: oriented to person, oriented to place, patient oriented x3 and No confusion HENMT Head: Yes normocephalic Ears: external ears normal and TM's normal bilaterally Face and sinus: No sinus tenderness Mouth: Normal oral and palatal mucosa present and tongue normal Teeth and gingiva: dentition normal and gingiva normal Throat: Yes posterior oropharynx normal, Yes tonsils normal and Yes uvula midline Eyes Conjunctivae: conjunctivae normal Sclerae: sclerae normal Pupils: Equal, round and reactive pupils present EOM: EOMs intact bilaterally Direct Ophthalmoscopy: No no photophobia Neck Neck: Yes no lymphadenopathy, No tender and Yes no JVD Thyroid: Thyroid normal Carotids: no bruits Chest Chest palpation & inspection: no tenderness Resp Effort & Inspection: normal respiratory effort, no audible wheezes, not labored and no stridor Auscultation: no crackles, no rales, no rhonchi and no wheezes Cardio Jugular venous distension: no JVD Rate: regular rate, not bradycardic and not tachycardic Rhythm: regular rhythm Bruits: no carotid bruits Peripheral pulses: Peripheral pulses 2+ throughout GI Inspection: Yes normal to inspection, No abdominal wall ecchymosis and No visible herniation Palpation (GI): Soft to palpation, nontender, no guarding, not rigid and No hepatosplenomegaly present Auscultation: normoactive bowel sounds General: Yes no CVA tenderness Back/Spine/Pelvis Back: no CVA tenderness and No back tenderness Cervical Spine: cervical ROM normal Thoracic/Lumbar Spine: thoracic and lumbar spine normal to inspection, straight leg raise negative bilaterally, No thoraco-lumbar ROM limited and No lumbar spinal tenderness Skin Lesions: no lesions Rashes: no rashes Wounds: no wounds Neuro General: oriented to person, oriented to place, patient oriented x3, CN's II-XI intact bilaterally and No confusion Cranial nerves: Yes Equal, round and reactive pupils present and Yes Normal accommodation reflex present Cognition (Neuro): normal cognition Speech: No Abnormal speech present Gait exam (Neuro): Normal gait present Motor exam (neuro): 5/5 motor strength present throughout Extrem Right upper extremity: full ROM; no cyanosis Left upper extremity: full ROM; no cyanosis Right lower extremity: no edema Left lower extremity: no edema Psych Appearance: grossly normal Mental Status: mental status grossly normal Affect: normal affect Attitude: cooperative Thought process: Normal thought process present Coding Level of Care Code Est Pt Prev Care 40-64y(66655) Diagnoses Annual physical exam Z00.00 Acute bronchitis, unspecified organism J20.9 Bronchitis organism: unspecified organism MDD (major depressive disorder), recurrent episode, moderate F33.1 Primary hypertension I10 Hypertension type: primary hypertension Cervical cancer screening Z12.4 Colon cancer screening Z12.11 Class 3 obesity E66.813 Assessment & Plan Assessment & Plan (1) Annual physical exam: Code(s): Z00.00 - Encounter for general adult medical examination without abnormal findings Category: Medical Plan: As per HPI (2) Acute bronchitis: Code(s): J20.9 - Acute bronchitis, unspecified Category: Medical Qualifiers: Bronchitis organism: unspecified organism Qualified Code(s): J20.9 - Acute bronchitis, unspecified Plan: To evaluate the patient's acute symptoms, a nasal swab will be collected and sent to the lab to test for influenza, RSV, and COVID-19. A chest x-ray will also be ordered to assess for pneumonia. (3) MDD (major depressive disorder), recurrent episode, moderate: Code(s): F33.1 - Major depressive disorder, recurrent, moderate Category: Medical Plan: Patient follows a mental health therapist and a psychiatrist whom manage her mental health medications. She is fairly stable for mental health point of view. Still works part-time at a local [employer]. (4) HTN (hypertension): Code(s): I10 - Essential (primary) hypertension Category: Medical Qualifiers: Hypertension type: primary hypertension Qualified Code(s): I10 - Essential (primary) hypertension Plan: Patient's blood pressure acceptable today in office, her blood pressure has been managed with lifestyle and dietary modifications. Goal blood pressures to remain below 140/90 (5) Cervical cancer screening: Code(s): Z12.4 - Encounter for screening for malignant neoplasm of cervix Category: Medical Plan: Patient is in need of Pap screening. Will refer to OBGYN (6) Colon cancer screening: Code(s): Z12.11 - Encounter for screening for malignant neoplasm of colon Category: Medical Plan: Patient is in need of a repeat colonoscopy due to fair prep a few years ago. Will refer back to GI (7) Class 3 obesity: Code(s): E66.813 - Obesity, class 3 Category: Medical Plan: Patient does understand her BMI is over 50 and will try to work on being more physically active and adapt to better eating habits to reduce her weight. She is not interested in weight management program evaluation at this time. Orders: Orders SARS-CoV2/FLU/RSV 04/07/25 J20.9 - Acute bronchitis, unspecified XR chest 1V 04/07/25 J20.9 - Acute bronchitis, unspecified Referrals MANAGER DISH Referral Z12.4 - Encounter for screening for malignant neoplasm of cervix Gastroenterology Referral Z12.11 - Encounter for screening for malignant neoplasm of colon Medications: New amoxicillin-pot clavulanate 875-125 mg 1 tab PO BID 14 tabs 0RF 7 days J20.9 - Acute bronchitis, unspecified Refilled cholecalciferol (vitamin D3) 50 mcg PO DAILY 90 caps 1RF 90 days E55.9 - Vitamin D deficiency, unspecified, E66.01 - Morbid (severe) obesity due to excess calories, Z68.42 - Body mass index [BMI] 45.0-49.9, adult
== END 2025-04-07 12:24 | disposition home or self-care (01) ==
LOC: HO.HMCH 11:46
PROVIDERS: PCP Physician Assistant; Visit Provider Physician Assistant
DX: Z00.00 Encounter for general adult medical examination without abnormal findings (principal); F33.1 Major depressive disorder, recurrent, moderate; E66.813 Obesity, class 3; Z68.43 Body mass index [BMI] 50.0-59.9, adult; J20.9 Acute bronchitis, unspecified; I10 Essential (primary) hypertension; Z12.11 Encounter for screening for malignant neoplasm of colon

== ENCOUNTER → 2025-04-07 12:31 | Outpatient (BNV) | payer MEDICARE, MEDICAID, SELFPAY | PROVIDERS: PCP Physician Assistant; Visit Provider Radiology Diagnostic Radiology | DX: J20.9 Acute bronchitis, unspecified (principal); M47.814 Spondylosis without myelopathy or radiculopathy, thoracic region; M41.84 Other forms of scoliosis, thoracic region | CPT/HCPCS: 71045 ==